=== PATIENT | female | born 1980 | race Caucasian/White ===

== ENCOUNTER 2018-05-14 12:30 | Emergency (ER) | payer BC, SELFPAY ==
[2018-05-14] MEDS ORDERED: IBUPROFEN 400 MG TAB ONE (13:46)
[2018-05-14] MEDS ORDERED: IBUPROFEN 200 MG TAB PO ONE (13:46)
[2018-05-14 13:50] LABS: Urine Blood NEGATIVE (NEG); Urine Glucose NEGATIVE (NEG); Urine Protein NEGATIVE (NEG); Urine Specific Gravity 1.025 (1.005-1.030)
--- NOTE | 2018-05-14 13:58 | RAD REPORT ---
EXAM DESCRIPTION: CT - Head Brain Wo Cont - 05/14/2018 1:51 pm CLINICAL HISTORY: Fever;Headache COMPARISON: Head Brain Wo Cont dated 09/24/2017; HEAD BRAIN W O CONTRAST dated 12/22/2014 TECHNIQUE: All CT scans are performed using dose optimization technique as appropriate and may inclu de automated exposure control or mA/KV adjustment according to patient size. FINDINGS: No intracranial hemorrhage, hydrocephalus or extra-axial fluid collection.No areas of brai n edema or evidence of midline shift. Prominent mucoperiosteal thickening of both maxillary antra, greater on the left. Mild fluid is seen inferior right mastoid air cell. The calvarium is intact. IMPRESSION: No acute intracranial abnormality. Moderate mucoperiosteal thickening of both maxillary antra, worse on the left. Mild fluid is seen in the inferior right mastoid air cell.
[2018-05-14 14:30] LABS: Absolute Lymphocytes (CBC) 0.4 K/uL (0.7-4.9); Absolute Monocytes 0.5 K/uL (0.1-1.3); Basophils % 0.3 % (0-1.3); Hematocrit 41.6 % (36.0-45.0); Lymphocytes % 3.2 % (15.3-44.8); MCH 30.2 pg (27.0-35.0); MCV 89.2 fL (80-100); MPV 9.7 fL (7.6-11.3); Monocytes % 3.9 % (3.3-12.3); RBC Red Blood Cell Count 4.67 M/uL (3.86-4.86)
[2018-05-14 14:53] LABS: BUN Blood Urea Nitrogen 7 mg/dL (7-18); Bicarbonate 27 mmol/L (21-32); Glucose Level 92 mg/dL (74-106); Potassium 3.6 mmol/L (3.5-5.1); Sodium Level 139 mmol/L (136-145)
[2018-05-14 15:02] LABS: Blood Morphology Comment NOT SEEN (NOT SEEN); Platelet Estimate ADEQ; Urine White Blood Cell Casts OK
[2018-05-14] MEDS ORDERED: ONDANSETRON 4 MG/2 ML VIAL ONE (15:22)
--- NOTE | 2018-05-14 15:37 | ER ---
Nurse's Notes [facility] Name: Megan Eng Age: 37 yrs Sex: Female : 1980 Arrival Date: 05/14/2018 Time: 12:34 Bed 5 Private MD: Diagnosis: Acute sinusitis, unspecified Presentation: 05/14 12:37 Presenting complaint: Patient states: pt c/o pain in pressure in the front and sides sg and back of her head, reports having a fever with t-max of 102 this morning, reports pain moves down into her neck and shoulder, reports Nausea/Fever. Transition of care: patient was not received from another setting of care. Onset of symptoms was May 14, 2018. Risk Assessment: Do you want to hurt yourself or someone else? Patient reports no desire to harm self or others. Initial Sepsis Screen: Does the patient meet any 2 criteria? No. Patient's initial sepsis screen is negative. Does the patient have a suspected source of infection? No. Patient's initial sepsis screen is negative. 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 - Social history:: Smoking status: Patient/guardian denies using tobacco. - Ebola Screening: : Patient negative for fever greater than or equal to 101.5 degrees Fahrenheit, and additional compatible Ebola Virus Disease symptoms Patient denies exposure to infectious person Patient denies travel to an Ebola-affected area in the 21 days before illness onset No symptoms or risks identified at this time. Screenin:15 Abuse screen: Denies threats or abuse. Denies injuries from another. Nutritional aj screening: No deficits noted. Tuberculosis screening: No symptoms or risk factors identified. Fall Risk None identified. Assessment: 14:15 General: Appears in no apparent distress. comfortable, Behavior is calm, cooperative, aj appropriate for age. Pain: Denies pain. Neuro: Level of Consciousness is awake, alert, obeys commands, Oriented to person, place, time, situation, Appropriate for age. Respiratory: Airway is patent Respiratory effort is even, unlabored, Respiratory pattern is regular, symmetrical. Derm: Skin is intact, is healthy with good turgor, Skin is pink, warm \T\ dry. normal. 15:45 Reassessment: Patient appears in no apparent distress at this time. No changes from aj previously documented assessment. Patient and/or family updated on plan of care and expected duration. Pain level reassessed. Patient is alert, oriented x 3, equal unlabored respirations, skin warm/dry/pink. Patient states feeling better. Vital Signs: 12:39 Pulse 118; Resp 17 S; Temp 100.5; Pulse Ox 98% on R/A; Weight 61.23 kg; Height 5 ft. 5 sg in. (165.10 cm); Pain 10/10; 12:42 BP 90 / 66; sg 14:15 BP 102 / 48; Pulse 99; Resp 20; Temp 99.2; Pulse Ox 100% on R/A; aj 15:45 BP 95 / 67; Pulse 92; Resp 19; Pulse Ox 99% on R/A; aj 12:39 Body Mass Index 22.46 (61.23 kg, 165.10 cm) sg ED Course: 12:34 Patient arrived in ED. mr 12:38 Triage completed. sg 12:39 Arm band placed on. sg 12:57 Azeb Galindo FNP-C is PHCP. kb 12:57 Jovan Romero MD is Attending Physician. kb 13:19 Shari Sma, GRIFFIN is Primary Nurse. aj 13:51 CT Head Brain wo Cont In Process Unspecified. EDMS 14:15 Patient has correct armband on for positive identification. aj 14:15 Inserted saline lock: 20 gauge in right antecubital area, using aseptic technique. aj Blood collected. 15:25 Basic Metabolic Panel Sent. aj 15:25 CBC with Diff Sent. aj 15:45 No provider procedures requiring assistance completed. IV discontinued, intact, aj bleeding controlled, No redness/swelling at site. Pressure dressing applied. Administered Medications: 14:00 Drug: Ibuprofen 600 mg Route: PO; aj 15:20 Follow up: Response: Temperature is decreased aj 15:20 Drug: Zofran 4 mg Route: IVP; Site: right antecubital; aj 15:44 Follow up: Response: Nausea is decreased aj 15:44 Drug: Augmentin 875 mg Route: PO; aj 15:44 Follow up: Response: Medication administered at discharge. aj Outcome: 15:36 Discharge ordered by . alejandro 15:45 Discharged to home ambulatory, with family. aj 15:45 Condition: good 15:45 Discharge instructions given to patient, family, Instructed on discharge instructions, follow up and referral plans. medication usage, Demonstrated understanding of instructions, follow-up care, medications, Prescriptions given X 1. 15:46 Patient left the ED. aj Signatures: Dispatcher [employer] EDMS Azeb Galindo, FLOOR DIRECTOR-C FLOOR DIRECTOR-Ckb Bethel Vigil RN RN Shari Powell RN RN [place] mr Corrections: (The following items were deleted from the chart) 12:42 12:37 Acuity: CONNIE 4 sg sg
--- NOTE | 2018-05-14 15:37 | EDPHYS ---
Physician Documentation [facility] Name: Megan Eng Age: 37 yrs Sex: Female : 1980 Arrival Date: 05/14/2018 Time: 12:34 Bed 5 Private MD: ED Physician Jovan Romero HPI: 05/14 13:33 This 37 yrs old Female presents to ER via Ambulatory with complaints of Fever.kb 13:33 The patient reports fever, not measured (subjective), with an emergency department kb temperature of 100.5 degrees Fahrenheit. Onset: The symptoms/episode began/occurred this morning. Modifying factors: there are no obvious modifying factors. Associated signs and symptoms: Pertinent positives: cough, diarrhea, headache, sinus congestion. Severity of symptoms: At their worst the symptoms were moderate in the emergency department the symptoms are unchanged. The patient has not experienced similar symptoms in the past. The patient has not recently seen a physician. 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 - Social history:: Smoking status: Patient/guardian denies using tobacco. - Ebola Screening: : Patient negative for fever greater than or equal to 101.5 degrees Fahrenheit, and additional compatible Ebola Virus Disease symptoms Patient denies exposure to infectious person Patient denies travel to an Ebola-affected area in the 21 days before illness onset No symptoms or risks identified at this time. ROS: 13:33 Cardiovascular: Negative for chest pain, palpitations, and edema, Back: Negative for kb injury and pain, : Negative for injury, bleeding, discharge, and swelling, MS/Extremity: Negative for injury and deformity, Skin: Negative for injury, rash, and discoloration. 13:33 Constitutional: Positive for fever, Negative for body aches, chills, fatigue, malaise, poor PO intake, weight loss. 13:33 ENT: Positive for sinus congestion. 13:33 Respiratory: Positive for cough, Negative for dyspnea on exertion, hemoptysis, orthopnea, pleurisy, shortness of breath, sputum production, wheezing. 13:33 Abdomen/GI: Positive for diarrhea. Exam: 13:37 Constitutional: This is a well developed, well nourished patient who is awake, alert, kb and in no acute distress. Head/Face: Normocephalic, atraumatic. ENT: Nares patent. No nasal discharge, no septal abnormalities noted. Tympanic membranes are normal and external auditory canals are clear. Oropharynx with no redness, swelling, or masses, exudates, or evidence of obstruction, uvula midline. Mucous membranes moist. Neck: Trachea midline, no thyromegaly or masses palpated, and no cervical lymphadenopathy. Supple, full range of motion without nuchal rigidity, or vertebral point tenderness. No Meningismus. Chest/axilla: Normal chest wall appearance and motion. Nontender with no deformity. No lesions are appreciated. Cardiovascular: Regular rate and rhythm with a normal S1 and S2. No gallops, murmurs, or rubs. Normal PMI, no JVD. No pulse deficits. Respiratory: Lungs have equal breath sounds bilaterally, clear to auscultation and percussion. No rales, rhonchi or wheezes noted. No increased work of breathing, no retractions or nasal flaring. Abdomen/GI: Soft, non-tender, with normal bowel sounds. No distension or tympany. No guarding or rebound. No evidence of tenderness throughout. Back: No spinal tenderness. No costovertebral tenderness. Full range of motion. Skin: Warm, dry with normal turgor. Normal color with no rashes, no lesions, and no evidence of cellulitis. MS/ Extremity: Pulses equal, no cyanosis. Neurovascular intact. Full, normal range of motion. Neuro: Awake and alert, GCS 15, oriented to person, place, time, and situation. Cranial nerves II-XII grossly intact. Motor strength 5/5 in all extremities. Sensory grossly intact. Cerebellar exam normal. Normal gait. Vital Signs: 12:39 Pulse 118; Resp 17 S; Temp 100.5; Pulse Ox 98% on R/A; Weight 61.23 kg; Height 5 ft. 5 sg in. (165.10 cm); Pain 10/10; 12:42 BP 90 / 66; sg 14:15 BP 102 / 48; Pulse 99; Resp 20; Temp 99.2; Pulse Ox 100% on R/A; aj 15:45 BP 95 / 67; Pulse 92; Resp 19; Pulse Ox 99% on R/A; aj 12:39 Body Mass Index 22.46 (61.23 kg, 165.10 cm) sg MDM: 12:58 Patient medically screened. kb 13:37 Data reviewed: vital signs, nurses notes. Data interpreted: Pulse oximetry: on room air kb is 98 %. Interpretation: normal. 15:36 Counseling: I had a detailed discussion with the patient and/or guardian regarding: the kb historical points, exam findings, and any diagnostic results supporting the discharge/admit diagnosis, lab results, radiology results, the need for outpatient follow up, a family practitioner, to return to the emergency department if symptoms worsen or persist or if there are any questions or concerns that arise at home. 05/14 13:18 Order name: CBC with Diff kb 05/14 13:18 Order name: Basic Metabolic Panel kb 05/14 13:18 Order name: [place] Screen Profile; Complete Time: 15:28 kb 05/14 13:18 Order name: Flu; Complete Time: 15:21 kb 05/14 13:18 Order name: Strep; Complete Time: 14:57 kb 05/14 13:19 Order name: CBC with Automated Diff; Complete Time: 15:16 EDMS 05/14 13:18 Order name: CT Head Brain wo Cont; Complete Time: 13:59 kb 05/14 13:19 Order name: Basic Metabolic Panel; Complete Time: 14:57 EDMS 05/14 13:49 Order name: Urine Dipstick--Ancillary (enter results); Complete Time: 13:53 eb 05/14 13:49 Order name: Urine --Ancillary (enter results); Complete Time: 13:53 eb 05/14 14:57 Order name: Throat Culture EDMS 05/14 15:02 Order name: CBC Smear Scan; Complete Time: 15:16 EDMS 05/14 13:18 Order name: IV Start; Complete Time: 15:15 kb Administered Medications: 14:00 Drug: Ibuprofen 600 mg Route: PO; aj 15:20 Follow up: Response: Temperature is decreased aj 15:20 Drug: Zofran 4 mg Route: IVP; Site: right antecubital; aj 15:44 Follow up: Response: Nausea is decreased aj 15:44 Drug: Augmentin 875 mg Route: PO; aj 15:44 Follow up: Response: Medication administered at discharge. aj Disposition: 18:35 Co-signature as Attending Physician, Jovan Romero MD. Disposition: 05/14/18 15:36 Discharged to Home. Impression: Acute sinusitis, unspecified. - Condition is Stable. - Discharge Instructions: Sinusitis, Adult, [id number]. - Prescriptions for Augmentin 875- 125 mg Oral Tablet - take 1 tablet by ORAL route every 12 hours for 10 days; 20 tablet. - Work release form, Medication Reconciliation Form, Thank You Letter, Antibiotic Education, Prescription Opioid Use form. - Follow up: Emergency Department; When: As needed; Reason: Worsening of condition. Follow up: Private Physician; When: 2 - 3 days; Reason: Recheck today's complaints, Continuance of care, Re-evaluation by your physician. Signatures: Dispatcher [employer] EDMS Azeb Galindo, SKYLA-C SKYLA-Bethel Mortensen RN RN sg Myers, Amanda, RN RN aj Starr, Gregory, MD MD Corrections: (The following items were deleted from the chart) 15:46 15:36 05/14/2018 15:36 Discharged to Home. Impression: Acute sinusitis, unspecified. aj Condition is Stable. Forms are Medication Reconciliation Form, Thank You Letter, Antibiotic Education, Prescription Opioid Use. Follow up: Emergency Department; When: As needed; Reason: Worsening of condition. Follow up: Private Physician; When: 2 - 3 days; Reason: Recheck today's complaints, Continuance of care, Re-evaluation by your physician. kb
[2018-05-14] MEDS ORDERED: AMOX/K CLAV 875 MG TAB ONE (15:44)
[2018-05-14 16:01] VITALS: TEMP 99.2
[2018-05-14 16:02] VITALS: BP 95/67; O2SAT 99
== END 2018-05-14 15:46 | disposition home or self-care (01) ==
LOC: ER 12:30
DX: J01.90 Acute sinusitis, unspecified (principal)
CPT/HCPCS: 36415; 70450; 80048; 81003; 81025; 85025; 86308; 87070; 87081; 87804; 96374; 99284; J2405

== ENCOUNTER 2023-06-03 16:10 | Emergency (ER) | payer BC ==
--- OUTSIDE RECORDS SUMMARY | 2023-06-03 16:15 | XMS REPORT | Continuity of Care Document ---
:1980 Author Organization [facility] t Address [address] [facility] [address] [place] [id number] Care Team Providers Name Role Phone ROXANN HARVEY Primary Care Physician Unavailable RAYMUNDO SNOW Attending Clinician Unavailable CHANTE HANSEN Attending Clinician Unavailable Chante Hansen MD Attending Clinician Wade Vaughn DO Attending Clinician Therapy, [facility] Attending Clinician Unavailable Roberta Leblanc MD Attending Clinician ROBERTA LEBLANC Attending Clinician Unavailable Doctor Unassigned, [place] Attending Clinician Unavailable Solomon Morales Attending Clinician Jodie Burch Attending Clinician Abhijit Blair MD Attending Clinician Charly Meza Attending Clinician CHANTE HANSEN Admitting Clinician Unavailable Payers Payer Name Policy Type Policy Number Effective Date Expiration Date S kapil BCBS 2 [id number] 2022 00:00:00 BCBS [facility] - [id number] 2021 00:00:00 OUT OF STATE Problems Condition Condition Condition Status Onset Resolution Last Treating Co mments Source Name Details Category Date Date Treatment Clinician Date Enteritis Enteritis Disease Active 2017-08 Uni vers 0- ity of 00:00: [place] 00 Medical Branch Contracept Contracept Disease Active U nivers lisa lisa 6 ity of management management 00:[place] [facility] Herpes, Herpes, Disease Active Univers vulvar vulvar 01-15 ity of 00:00: [place] 00 Medical Branch History of History of Disease Active U nivers tubal tubal 01-15 ity of ligation ligation 00:00: [place] 00 Medical Branch Disease Active Univers heart heart 11-16 ity of decelerati deceler[place] 00:[place] 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 Adan DUPONT- Dx at age 17. IVIG transfusi on Q 4 weeks (next 08/29) 11/19/2014 IgG-Q= 566 ([phone] ) 04/29 IgG= 776/A=15/ M=7 No known No known Disease Kelse y active active Seybold problems problems - Externa l Allergies, Adverse Reactions, Alerts Allergy Allergy Status Severity Reaction(s) Onset Inactive Treating Comm ents Source Name Type Date Date Clinician Adhesive Propensi Active Dermatis, Allergic U nivers Tape ty to Contact 3-16 to ity of adverse 00:00: [facility] [place] reaction 00 tape Medical s to Branch drug ADHESIVE DRUG Active Low CONTACT DERM Un merlyn TAPE 3-16 ity of 00:00: [place] 00 Medical Branch Wound Propensi Active Contact Allergic Kelse y Dressing ty to Dermatitis 3-16 to Seyb old Adhesive adverse 00:00: Transpore - reaction 00 tape Externa s l Social History Social Habit Start Date Stop Date Quantity Comments Source Exposure to Not sure University of SARS-CoV-2 [place] [facility] (event) Branch Alcohol intake 2022-08-24 2022-08-24 Lifetime Araceli Sykes bold - 00:00:00 00:00:00 non-drinker External (finding) Tobacco use and 2021-04-22 2021-04-22 Never used Universit y of exposure 00:00:00 00:00:00 [facility] Sex Assigned At [birth year] Araceli Balderas ybold - 00:00:00 00:00:00 External Smoking Status Start Date Stop Date Source Never smoked tobacco Araceli Leon old - External Medications Ordered Filled Start Stop Current Ordering Indication Dosage Frequency Signature Comments Components Source Medication Medication Date Date Medication? Clinician (SIG) Name Name Oseltamivir Yes 1{capsu Take 1 K elsey Phosphate 1-10 le} capsule by Seyb old 75 MG oral 09:55: mouth 2 - Capsule 53 times Externa daily l Amoxicillin Yes [id number] 1{tbl} Take 1 Araceli -Pot 1-10 tablet by donnie Clavulanate 00:00: mouth 2 - 875-125 MG 00 times Externa oral Tablet daily l Albuterol Yes [id number] 2{puff} Q.25D Inhale 2 Araceli HFA 108 (90 1-10 puffs into [employer]) 00:00: the lungs - MCG/ACT IN 00 every 6 [employer] a AERS hours as l needed for wheezing or shortness of breath Azithromyci 2022- No [id number] Take 2 Araceli n 250 MG 1-10 -16 tablets by Seyb old oral Tablet 00:00: 05:59 mouth on - 00 :00 day 1 then Externa 1 tablet l by mouth daily for 4 days thereafter . doxycycline Yes 100mg 100 mg, Un merlyn hyclate 1-06 Oral, ity of (Vibramycin 12:00: Q12HA2, [place] as ) capsule 00 First dose Medi stevenson 100 mg on Sara Branch 08/20/21 at 0600, Until Discontinu ed, CESILIA
Re ason for Anti-Infec tive: Documented Infection< br>Documen lucille Infection Site: Respirator y
Durat ion of Therapy: 10 days amoxicillin 2021- No 500mg 500 mg, U nivers (TRIMOX) 08-20- Oral, ity of capsule 500 07:15: 06:20 ONCE, 1 [place] mg 00 :00 dose, On Medical Sara 08/20/21 Branch at 0115, CESILIA
Re ason for Anti-Infec tive: Documented Infection< br>Documen lucille Infection Site: Respirator y
Durat ion of Therapy: Other (see Comments) amoxicillin Yes [id number] 500mg Take 1 Univers 500 mg -06 capsule by ity of capsule 00:00: mouth 3 [place] 00 (three) Medical times Branch daily. doxycycline 2021- No [id number] 100mg Take 1 Univers hyclate 100 08-20 capsule by i ty of mg capsule 00:00: 05:59 mouth 2 [place] as 00 :00 (two) Medical times Branch daily for 10 days. ondansetron 2020- No 4mg 4 mg, [facility] ers (ZOFRAN-ODT 04-22 Oral, ity of ) 14:45: 13:45 ONCE, 1 [place] disintegrat 00 :00 dose, Wed Med ical ing tablet 04/22/21 at Bran ch 4 mg 0945, Routine ondansetron 2020- No 4mg 4 mg, [facility] ers (ZOFRAN-ODT 04-22 Oral, ity of ) 14:45: 13:45 ONCE, 1 [place] disintegrat 00 :00 dose, Wed Med ical ing tablet 04/22/21 at Bran ch 4 mg 0945, Routine ondansetron Yes [id number] 4mg Take 1 Univers (ZOFRAN) 4 9-08 tablet by ity of mg tablet 00:00: mouth [place] 00 every 8 Medical (eight) Branch hours as needed for Nausea and Vomiting (N/V). benzonatate Yes [id number] 100mg Take 1 Univers 100 mg 9-08 capsule by ity of capsule 00:00: mouth 3 [place] 00 (three) Medical times Branch daily as needed for Cough. ondansetron Yes [id number] 4mg Take 1 Univers (ZOFRAN) 4 9-08 tablet by ity of mg tablet 00:00: mouth [place] 00 every 8 Medical (eight) Branch hours as needed for Nausea and Vomiting (N/V). benzonatate Yes [id number] 100mg Take 1 Univers 100 mg 9-08 capsule by ity of capsule 00:00: mouth 3 [place] 00 (three) Medical times Branch daily as needed for Cough. ondansetron Yes [id number] 4mg Take 1 Univers (ZOFRAN) 4 9-08 tablet by ity of mg tablet 00:00: mouth [place] 00 every 8 Medical (eight) Branch hours as needed for Nausea and Vomiting (N/V). benzonatate Yes [id number] 100mg Take 1 Univers 100 mg 9-08 capsule by ity of capsule 00:00: mouth 3 [place] 00 (three) Medical times Branch daily as needed for Cough. casirivimab 2020- No [id number] 1200mg 1,200 mg, Univers -imdevimab 04-21 Subcutaneo it y of (REGEN-COV 22:45: 21:33 us, ONCE, [place] (EUA)) 00 :00 1 dose, Medical injection 04/21/21 Bran ch 1,200 mg at 1745, Routine casirivimab 2020- No [id number] 1200mg 1,200 mg, Univers -imdevimab 04-21 Subcutaneo it y of (REGEN-COV 22:45: 21:33 us, ONCE, [place] (EUA)) 00 :00 1 dose, Medical injection 04/21/21 Bran ch 1,200 mg at 1745, Routine acetaminoph 2020- No 1000mg 1,000 mg, Univers en 04-18 Oral, ity of (TYLENOL) 17:00: 16:44 ONCE, 1 [place] tablet 00 :00 dose, Sat Medical 1,000 mg 04/18/21 at Branch 1200, Routine benzonatate 2020- No 100mg 100 mg, U nivers (TESSALON 04-18 Oral, ity of PERLES) 17:00: 16:44 ONCE, 1 [place] capsule 100 00 :00 dose, Sat Med ical mg 04/18/21 at Branch 1200, Routine albuterol 0 2020- No 6{puff} 6 Puff, U nivers (VENTOLIN) 04-18 Inhalation it y of inhaler 6 17:00: 16:39 , ONCE, 1 [place] Puff 00 :00 dose, Sat Medical 04/18/21 at [place] [address], CESILIA acetaminoph 0 2020- No 1000mg 1,000 mg, Univers en 04-18 Oral, ity of (TYLENOL) 17:00: 16:44 ONCE, 1 [place] tablet 00 :00 dose, Sat Medical 1,000 mg 04/18/21 at [place] [address], Routine benzonatate 2020- No 100mg 100 mg, U nivers (TESSALON 04-18 Oral, ity of PERLES) 17:00: 16:44 ONCE, 1 [place] capsule 100 00 :00 dose, Sat Med ical mg 04/18/21 at [place] [address], Routine albuterol 2020-2020- No 6{puff} 6 Puff, U nivers (VENTOLIN) 04-18 Inhalation it y of inhaler 6 17:00: 16:39 , ONCE, 1 [place] Puff 00 :00 dose, Sat Medical 04/18/21 at [place] [address], CESILIA benzonatate 2020-0 Yes [id number] 100mg Take 1 Univers 100 mg 9-04 capsule by ity of capsule 00:00: mouth 3 [place] 00 (three) Medical times Branch daily as needed for Cough. benzonatate 2020-0 Yes [id number] 100mg Take 1 Univers 100 mg 9-04 capsule by ity of capsule 00:00: mouth 3 [place] 00 (three) Medical times Branch daily as needed for Cough. benzonatate 2020-0 Yes [id number] 100mg Take 1 Univers 100 mg 9-04 capsule by ity of capsule 00:00: mouth 3 [place] 00 (three) Medical times Branch daily as needed for Cough. benzonatate 2020-0 Yes [id number] 100mg Take 1 Univers 100 mg 9-04 capsule by ity of capsule 00:00: mouth 3 [place] 00 (three) Medical times Branch daily as needed for Cough. benzonatate 2020-0 202- No [id number] 100mg Take 1 Univers 100 mg 9-04 -08 capsule by ity of capsule 00:00: 00:00 mouth 3 [place] 00 :00 (three) [facility] times [place] daily as needed for Cough. benzonatate 2020- No [id number] 100mg Take 1 Univers 100 mg 04-18 capsule by ity of capsule 00:00: 00:00 mouth 3 [place] 00 :00 (three) [facility] daily as needed for Cough. methylpredn 2020- No 125mg 125 mg, IV Univers isolone sod 12-09 Piggyback, i ty of succ 02:45: 01:40 ONCE, 1 [place] (SOLU-MEDRO 00 :00 dose, Mon Med ical L) 12/08/20 at [place] injection 2145, STAT 125 mg codeine-gua 2020- No 10mL 10 mL, Uni vers ifenesin 12-09 Oral, ity of (ROBITUSSIN 02:00: 01:39 ONCE, 1 [place] AC) 10-100 00 :00 dose, Mon Medi stevenson mg/5 mL 12/08/20 at [place] solution 10 2100, CESILIA mL benzonatate Yes [id number] 200mg Take 1 Univers 200 mg 4-26 capsule by ity of capsule 00:00: mouth 3 [place] [address] (three) [facility] daily as needed for Cough for up to 20 doses. predniSONE Yes [id number] 1 PO BID x Univers 20 mg 4-26 4 days ity of tablet 00:00: [address] predniSONE 2020-0 Yes [id number] 1 PO BID x Univers 20 mg 4-26 4 days ity of tablet 00:00: [address] predniSONE 2020-0 Yes [id number] 1 PO BID x Univers 20 mg 4-26 4 days ity of tablet 00:00: [address] benzonatate 2020-0 Yes [id number] 200mg Take 1 Univers 200 mg 4-26 capsule by ity of capsule 00:00: mouth 3 [place] 00 (three) [facility] daily as needed for Cough for up to 20 doses. predniSONE 2020- Yes [id number] 1 PO BID x Univers 20 mg 4-26 4 days ity of tablet 00:00: [address] benzonatate 2020-0 Yes [id number] 200mg Take 1 Univers 200 mg 4-26 capsule by ity of capsule 00:00: mouth 3 [place] (three) Medical times Branch daily as needed for Cough for up to 20 doses. predniSONE 2020-0 Yes [id number] 1 PO BID x Univers 20 mg 4-26 4 days ity of tablet 00:00: [facility] Branch benzonatate 2020-0 Yes [id number] 200mg Take 1 Univers 200 mg 4-26 capsule by ity of capsule 00:00: mouth 3 [place] (three) Medical times Branch daily as needed for Cough for up to 20 doses. predniSONE 2020-0 Yes [id number] 1 PO BID x Univers 20 mg 4-26 4 days ity of tablet 00:00: [facility] predniSONE 2020-0 Yes [id number] 1 PO BID x Univers 20 mg 4-26 4 days ity of tablet 00:00: [facility] predniSONE 2020-0 Yes [id number] 1 PO BID x Univers 20 mg 4-26 4 days ity of tablet 00:00: [place] [facility] Branch predniSONE 2020-0 Yes [id number] 1 PO BID x Univers 20 mg 4-26 4 days ity of tablet 00:00: [facility] benzonatate 2020-0 Yes [id number] 200mg Take 1 Univers 200 mg 4-26 capsule by ity of capsule 00:00: mouth 3 [place] (three) Medical times Branch daily as needed for Cough for up to 20 doses. predniSONE 0 Yes [id number] 1 PO BID x Univers 20 mg 4-26 4 days ity of tablet 00:00: [facility] Branch benzonatate 2020-2020- No [id number] 200mg Take 1 Univers 200 mg 4-26 -08 capsule by ity of capsule 00:00: 00:00 mouth 3 [place] 00 :00 (three) Medical times Branch daily as needed for Cough for up to 20 doses. benzonatate 2020-0 2020- No [id number] 200mg Take 1 Univers 200 mg 4-26 -08 capsule by ity of capsule 00:00: 00:00 mouth 3 [place] 00 :00 (three) Medical times Branch daily as needed for Cough for up to 20 doses. ondansetron 2020- No 4mg 4 mg, Slow Univers (ZOFRAN 09-15 IV Push, ity of (PF)) 12:00: 11:12 ONCE, 1 [place] injection 4 00 :00 dose, Mon Med ical mg 09/15/20 at Branch 0600, CESILIA meclizine 2020- No 50mg 50 mg, Unive rs (TRAVEL-EAS 09-15 Oral, ity of E 12:00: 11:13 ONCE, 1 [place] (MECLIZINE) 00 :00 dose, Mon Med ical ) tablet 50 09/15/20 at [facility] mg 0600, CESILIA ondansetron 2020- No 4mg 4 mg, Slow Univers (ZOFRAN 09-15 IV Push, ity of (PF)) 11:15: 10:04 ONCE, 1 [place] injection 4 00 :00 dose, Mon Med ical mg 09/15/20 at Branch 0515, CESILIA NaCl 0.9% Yes 1000mL at 999 Univ ers (NS) IV 2-01 mL/hr, ity of infusion 10:00: Intravenou [place] as 1,000 mL 00 s, Medical CONTINUOUS Branch , Starting 09/15/20 at 0415, Until Discontinu ed, CESILIA meclizine 0 Yes [id number] 25mg Take 1 U nivers 25 mg 2-01 tablet by ity of tablet 00:00: mouth 3 00 (three) Medical times Branch daily as needed for Dizziness. ondansetron 0 Yes [id number] 4mg Take 1 Univers (ZOFRAN) 4 2-01 tablet by ity of mg tablet 00:00: mouth [place] 00 every 8 Medical (eight) Branch hours as needed for Nausea and Vomiting (N/V). meclizine 2020-0 Yes [id number] 25mg Take 1 U nivers 25 mg 2-01 tablet by ity of tablet 00:00: mouth 3 00 (three) Medical times Branch daily as needed for Dizziness. meclizine 2020-0 Yes [id number] 25mg Take 1 U nivers 25 mg 2-01 tablet by ity of tablet 00:00: mouth 3 [place] 00 (three) Medical times Branch daily as needed for Dizziness. meclizine 2020-0 Yes [id number] 25mg Take 1 U nivers 25 mg 2-01 tablet by ity of tablet 00:00: mouth 3 [place] 00 (three) Medical times Branch daily as needed for Dizziness. ondansetron 2020-0 Yes [id number] 4mg Take 1 Univers (ZOFRAN) 4 2-01 tablet by ity of mg tablet 00:00: mouth [place] 00 every 8 Medical (eight) Branch hours as needed for Nausea and Vomiting (N/V). meclizine 2020-0 Yes [id number] 25mg Take 1 U nivers 25 mg 2-01 tablet by ity of tablet 00:00: mouth 3 [place] 00 (three) Medical times Branch daily as needed for Dizziness. ondansetron 2020-0 Yes [id number] 4mg Take 1 Univers (ZOFRAN) 4 2-01 tablet by ity of mg tablet 00:00: mouth [place] 00 every 8 Medical (eight) Branch hours as needed for Nausea and Vomiting (N/V). meclizine 2020-0 Yes [id number] 25mg Take 1 U nivers 25 mg 2-01 tablet by ity of tablet 00:00: mouth 3 00 (three) Medical times Branch daily as needed for Dizziness. ondansetron 2020-0 Yes [id number] 4mg Take 1 Univers (ZOFRAN) 4 2-01 tablet by ity of mg tablet 00:00: mouth [place] 00 every 8 Medical (eight) Branch hours as needed for Nausea and Vomiting (N/V). meclizine 2020-0 Yes [id number] 25mg Take 1 U nivers 25 mg 2-01 tablet by ity of tablet 00:00: mouth 3 00 (three) Medical times Branch daily as needed for Dizziness. ondansetron 2020-0 Yes [id number] 4mg Take 1 Univers (ZOFRAN) 4 2-01 tablet by ity of mg tablet 00:00: mouth [place] 00 every 8 Medical (eight) Branch hours as needed for Nausea and Vomiting (N/V). meclizine 2021-0 Yes [id number] 25mg Take 1 U nivers 25 mg 2-01 tablet by ity of tablet 00:00: mouth 3 [place] 00 (three) Medical times Branch daily as needed for Dizziness. meclizine 2021-0 Yes [id number] 25mg Take 1 U nivers 25 mg 2-01 tablet by ity of tablet 00:00: mouth 3 00 (three) Medical times Branch daily as needed for Dizziness. meclizine 2020-0 Yes [id number] 25mg Take 1 U nivers 25 mg 2-01 tablet by ity of tablet 00:00: mouth 3 00 (three) Medical times Branch daily as needed for Dizziness. meclizine 2020-0 Yes [id number] 25mg Take 1 U nivers 25 mg 2-01 tablet by ity of tablet 00:00: mouth 3 00 (three) Medical times Branch daily as needed for Dizziness. ondansetron Yes [id number] 4mg Take 1 Univers (ZOFRAN) 4 2- tablet by ity of mg tablet 00:00: mouth [place] 00 every 8 Medical (eight) Branch hours as needed for Nausea and Vomiting (N/V). ondansetron 2020- No [id number] 4mg Take 1 Univers (ZOFRAN) 4 -08 23-08 tablet by ity of mg tablet 00:00: 00:00 mouth [place] 00 :00 every 8 Medical (eight) Branch hours as needed for Nausea and Vomiting (N/V). ondansetron 2020- No [id number] 4mg Take 1 Univers (ZOFRAN) 4 09-15- tablet by ity of mg tablet 00:00: 00:00 mouth [place] 00 :00 every 8 Medical (eight) Branch hours as needed for Nausea and Vomiting (N/V). acetaminoph 2019- No 650mg 650 mg, U nivers en 03-15 Oral, ity of (TYLENOL) 08:15: 07:12 ONCE, 1 [place] tablet 650 00 :00 dose, Sat Medi stevenson mg 03/15/20 at Branch 0315, CESILIA iohexol 2019- No 120mL 120 mL, Unive rs (OMNIPAQUE 03-15 Intravenou it y of 350 05:45: 05:36 s, ONCE, 1 [place] BULK-100 00 :00 dose, Sat Medica l mL) 03/15/20 at Branch injection 0045, 120 mL Routine ondansetron 2019- No 4mg 4 mg, Slow Univers (ZOFRAN 03-15 IV Push, ity of (PF)) 05:15: 04:20 ONCE, 1 [place] injection 4 00 :00 dose, Sat Med ical mg 03/15/20 at Branch 0015, CESILIA NaCl 0.9% 2019-0 2020- No 1000mL at 999 Uni vers (NS) bolus 03-15 mL/hr, ity of infusion 05:15: 07:15 1,000 mL, [place] as 1,000 mL 00 :00 IV Medical Infusion, Branch ONCE, 1 dose, 03/15/20 at 0015, STAT morpHINE 2019-0 2020- No 4mg 4 mg, Slow Un merlyn injection 4 03-15 IV Push, ity of mg 05:15: 04:21 ONCE, 1 [place] 00 :00 dose, Sat Medical 03/15/20 at Branch 0015, STAT levoFLOXaci 2020-0 Yes [id number] 750mg Take 1 Univers n 750 mg 8-01 tablet by ity of tablet 00:00: mouth [place] 00 every 24 Medical (twenty-fo Branch ur) hours. ketorolac 2020-0 Yes [id number] 10mg Take 1 Un merlyn 10 mg 8-01 tablet by ity of tablet 00:00: mouth [place] 00 every 6 Medical (six) Branch hours as needed for Pain (scale 7-10). levoFLOXaci 2020-0 Yes [id number] 750mg Take 1 Univers n 750 mg 8-01 tablet by ity of tablet 00:00: mouth [place] 00 every 24 Medical (twenty-fo Branch ur) hours. ketorolac 2020-0 Yes [id number] 10mg Take 1 Un merlyn 10 mg 8-01 tablet by ity of tablet 00:00: mouth [place] 00 every 6 Medical (six) Branch hours as needed for Pain (scale 7-10). levoFLOXaci 2020-0 Yes [id number] 750mg Take 1 Univers n 750 mg 8-01 tablet by ity of tablet 00:00: mouth [place] 00 every 24 Medical (twenty-fo Branch ur) hours. ketorolac 2020-0 Yes [id number] 10mg Take 1 Un merlyn 10 mg 8-01 tablet by ity of tablet 00:00: mouth [place] 00 every 6 Medical (six) Branch hours as needed for Pain (scale 7-10). levoFLOXaci 2020-0 Yes [id number] 750mg Take 1 Univers n 750 mg 8-01 tablet by ity of tablet 00:00: mouth [place] 00 every 24 Medical (twenty-fo Branch ur) hours. ketorolac 2020-0 Yes [id number] 10mg Take 1 Un merlyn 10 mg 8-01 tablet by ity of tablet 00:00: mouth [place] 00 every 6 Medical (six) Branch hours as needed for Pain (scale 7-10). levoFLOXaci 2020-0 Yes [id number] 750mg Take 1 Univers n 750 mg 8-01 tablet by ity of tablet 00:00: mouth [place] 00 every 24 Medical (twenty-fo Branch ur) hours. ketorolac 2020-0 Yes [id number] 10mg Take 1 Un merlyn 10 mg 8-01 tablet by ity of tablet 00:00: mouth [place] 00 every 6 Medical (six) Branch hours as needed for Pain (scale 7-10). levoFLOXaci 2020-0 Yes [id number] 750mg Take 1 Univers n 750 mg 8-01 tablet by ity of tablet 00:00: mouth [place] 00 every 24 Medical (twenty-fo Branch ur) hours. ketorolac 2020-0 Yes [id number] 10mg Take 1 Un merlyn 10 mg 8-01 tablet by ity of tablet 00:00: mouth [place] 00 every 6 Medical (six) Branch hours as needed for Pain (scale 7-10). levoFLOXaci 2020-0 Yes [id number] 750mg Take 1 Univers n 750 mg 8-01 tablet by ity of tablet 00:00: mouth [place] 00 every 24 Medical (twenty-fo Branch ur) hours. ketorolac 2020-0 Yes [id number] 10mg Take 1 Un merlyn 10 mg 8-01 tablet by ity of tablet 00:00: mouth [place] 00 every 6 Medical (six) Branch hours as needed for Pain (scale 7-10). levoFLOXaci 2020-0 Yes [id number] 750mg Take 1 Univers n 750 mg 8-01 tablet by ity of tablet 00:00: mouth [place] 00 every 24 Medical (twenty-fo Branch ur) hours. ketorolac 2020-0 Yes [id number] 10mg Take 1 Un merlyn 10 mg 8-01 tablet by ity of tablet 00:00: mouth [place] 00 every 6 Medical (six) Branch hours as needed for Pain (scale 7-10). levoFLOXaci 2020-0 Yes [id number] 750mg Take 1 Univers n 750 mg 8-01 tablet by ity of tablet 00:00: mouth [place] 00 every 24 Medical (twenty-fo Branch ur) hours. ketorolac 2020-0 Yes [id number] 10mg Take 1 Un merlyn 10 mg 8-01 tablet by ity of tablet 00:00: mouth [place] 00 every 6 Medical (six) Branch hours as needed for Pain (scale 7-10). levoFLOXaci 2020-0 Yes [id number] 750mg Take 1 Univers n 750 mg 8-01 tablet by ity of tablet 00:00: mouth [place] 00 every 24 Medical (twenty-fo Branch ur) hours. ketorolac 2020-0 Yes [id number] 10mg Take 1 Un merlyn 10 mg 8-01 tablet by ity of tablet 00:00: mouth [place] 00 every 6 Medical (six) Branch hours as needed for Pain (scale 7-10). levoFLOXaci 2020-0 Yes [id number] 750mg Take 1 Univers n 750 mg 8-01 tablet by ity of tablet 00:00: mouth [place] 00 every 24 Medical (twenty-fo Branch ur) hours. ketorolac 2020-0 Yes [id number] 10mg Take 1 Un merlyn 10 mg 8-01 tablet by ity of tablet 00:00: mouth [place] 00 every 6 Medical (six) Branch hours as needed for Pain (scale 7-10). levoFLOXaci 2020-0 Yes [id number] 750mg Take 1 Univers n 750 mg 8-01 tablet by ity of tablet 00:00: mouth [place] 00 every 24 Medical (twenty-fo Branch ur) hours. ketorolac 2020-0 Yes [id number] 10mg Take 1 Un merlyn 10 mg 8-01 tablet by ity of tablet 00:00: mouth [place] 00 every 6 Medical (six) Branch hours as needed for Pain (scale 7-10). levoFLOXaci 2020-0 2020- No [id number] 750mg Take 1 Univers n 750 mg 8-01 08-01 tablet by ity o f tablet 00:00: 00:00 mouth [place] 00 :00 every 24 Medical (twenty-fo Branch ur) hours for 5 days. ondansetron 2018-08 Yes [id number] 4mg Take 1 Univers 4 mg 1-05 tablet by ity of disintegrat 00:00: mouth [place] ing tablet 00 every 4 Medica l (four) Branch hours as needed for Nausea and Vomiting (N/V). ondansetron 2018-08 Yes [id number] 4mg Take 1 Univers 4 mg 1-05 tablet by ity of disintegrat 00:00: mouth [place] ing tablet 00 every 4 Medica l (four) Branch hours as needed for Nausea and Vomiting (N/V). ondansetron 2018-08 Yes [id number] 4mg Take 1 Univers 4 mg 1-05 tablet by ity of disintegrat 00:00: mouth [place] ing tablet 00 every 4 Medica l (four) Branch hours as needed for Nausea and Vomiting (N/V). ondansetron 2018-08 Yes [id number] 4mg Take 1 Univers 4 mg 1-05 tablet by ity of disintegrat 00:00: mouth [place] ing tablet 00 every 4 Medica l (four) Branch hours as needed for Nausea and Vomiting (N/V). Nitrofurant 2018-08 Yes [id number] 100mg Take 1 Univers oin&Nit. 1-05 capsule by ity o f Macrocryst 00:00: mouth 2 [place] (MACROBID) 00 (two) Medical 100 mg times Branch capsule daily. ondansetron 2018-08 Yes [id number] 4mg Take 1 Univers 4 mg 1-05 tablet by ity of disintegrat 00:00: mouth [place] ing tablet 00 every 4 Medica l (four) Branch hours as needed for Nausea and Vomiting (N/V). ondansetron 2018-08 Yes [id number] 4mg Take 1 Univers 4 mg 1-05 tablet by ity of disintegrat 00:00: mouth [place] ing tablet 00 every 4 Medica l (four) Branch hours as needed for Nausea and Vomiting (N/V). ondansetron 2018-08 Yes [id number] 4mg Take 1 Univers 4 mg 1-05 tablet by ity of disintegrat 00:00: mouth [place] ing tablet 00 every 4 Medica l (four) Branch hours as needed for Nausea and Vomiting (N/V). ondansetron 2018-08 Yes [id number] 4mg Take 1 Univers 4 mg 1-05 tablet by ity of disintegrat 00:00: mouth [place] ing tablet 00 every 4 Medica l (four) Branch hours as needed for Nausea and Vomiting (N/V). ondansetron 2018-08 Yes [id number] 4mg Take 1 Univers 4 mg 1-05 tablet by ity of disintegrat 00:00: mouth [place] ing tablet 00 every 4 Medica l (four) Branch hours as needed for Nausea and Vomiting (N/V). ondansetron 2018-08 Yes [id number] 4mg Take 1 Univers 4 mg 1-05 tablet by ity of disintegrat 00:00: mouth [place] ing tablet 00 every 4 Medica l (four) Branch hours as needed for Nausea and Vomiting (N/V). ondansetron 2018-08 Yes [id number] 4mg Take 1 Univers 4 mg 1-05 tablet by ity of disintegrat 00:00: mouth [place] ing tablet 00 every 4 Medica l (four) Branch hours as needed for Nausea and Vomiting (N/V). ondansetron 2018-08 Yes [id number] 4mg Take 1 [facility] 4 mg 1-05 tablet by ity of disintegrat 00:00: mouth [place] ing tablet 00 every 4 Medica l (four) Branch hours as needed for Nausea and Vomiting (N/V). ondansetron 2018-08 Yes [id number] 4mg Take 1 [facility] 4 mg 1-05 tablet by ity of disintegrat 00:00: mouth [place] ing tablet 00 every 4 Medica l (four) Branch hours as needed for Nausea and Vomiting (N/V). Nitrofurant 2018-08 2020- No [id number] 100mg Take 1 [facility] oin&Nit. 1-05 - capsule by ity of Macrocryst 00:00: 00:00 mouth 2 [place] as (MACROBID) 00 :00 (two) Medical 100 mg times Branch capsule daily. cyclobenzap 2019- Yes [id number] 5mg Take 1 [facility] rine 5 mg 4-26 tablet by ity o f tablet 00:00: mouth 3 00 (three) Medical times Branch daily. LORazepam 2019- Yes [id number] 1mg Take 1 [facility] n[facility] (ATIVAN) 1 4-26 tablet by ity of mg tablet 00:00: mouth 3 00 (three) Medical times Branch daily as needed for Anxiety or Agitation (muscle spasm). traMADOL 2018- Yes [id number] 50mg Take 1 [facility] (ULTRAM) 50 4-26 tablet by ity of mg tablet 00:00: mouth [place] 00 every 6 Medical (six) Branch hours as needed for Pain (scale 4-6). cyclobenzap 2019-0 Yes [id number] 5mg Take 1 [facility] rine 5 mg 4-26 tablet by ity o f tablet 00:00: mouth 3 (three) Medical times Branch daily. LORazepam 2019-0 Yes [id number] 1mg Take 1 [facility] (ATIVAN) 1 4-26 tablet by ity of mg tablet 00:00: mouth 3 (three) Medical times Branch daily as needed for Anxiety or Agitation (muscle spasm). traMADOL 2019-0 Yes [id number] 50mg Take 1 [facility] (ULTRAM) 50 4-26 tablet by ity of mg tablet 00:00: mouth [place] 00 every 6 Medical (six) Branch hours as needed for Pain (scale 4-6). cyclobenzap 2019-0 Yes [id number] 5mg Take 1 [facility] rine 5 mg 4-26 tablet by ity o f tablet 00:00: mouth (three) Medical times Branch daily. LORazepam 2019-0 Yes [id number] 1mg Take 1 [facility] (ATIVAN) 1 4-26 tablet by ity of mg tablet 00:00: mouth (three) Medical times Branch daily as needed for Anxiety or Agitation (muscle spasm). traMADOL 2019-0 Yes [id number] 50mg Take 1 [facility] (ULTRAM) 50 4-26 tablet by ity of mg tablet 00:00: mouth [place] 00 every 6 Medical (six) Branch hours as needed for Pain (scale 4-6). cyclobenzap 2019-0 Yes [id number] 5mg Take 1 [facility] rine 5 mg 4-26 tablet by ity o f tablet 00:00: mouth 3 (three) Medical times Branch daily. LORazepam 2019-0 Yes [id number] 1mg Take 1 [facility] (ATIVAN) 1 4-26 tablet by ity of mg tablet 00:00: mouth 3 00 (three) Medical times Branch daily as needed for Anxiety or Agitation (muscle spasm). traMADOL 2019-0 Yes [id number] 50mg Take 1 [facility] (ULTRAM) 50 4-26 tablet by ity of mg tablet 00:00: mouth [place] 00 every 6 Medical (six) Branch hours as needed for Pain (scale 4-6). cyclobenzap 2019-0 Yes [id number] 5mg Take 1 [facility] rine 5 mg 4-26 tablet by ity o f tablet 00:00: mouth 3 00 (three) Medical times Branch daily. LORazepam 2019-0 Yes [id number] 1mg Take 1 [facility] (ATIVAN) 1 4-26 tablet by ity of mg tablet 00:00: mouth 3 [place] 00 (three) Medical times Branch daily as needed for Anxiety or Agitation (muscle spasm). traMADOL 2019-0 Yes [id number] 50mg Take 1 [facility] (ULTRAM) 50 4-26 tablet by ity of mg tablet 00:00: mouth [place] 00 every 6 Medical (six) Branch hours as needed for Pain (scale 4-6). cyclobenzap 2019-0 Yes [id number] 5mg Take 1 [facility] rine 5 mg 4-26 tablet by ity o f tablet 00:00: mouth 3 (three) Medical times Branch daily. LORazepam 2019-0 Yes [id number] 1mg Take 1 [facility] (ATIVAN) 1 4-26 tablet by ity of mg tablet 00:00: mouth 3 (three) Medical times Branch daily as needed for Anxiety or Agitation (muscle spasm). traMADOL 2019-0 Yes [id number] 50mg Take 1 [facility] (ULTRAM) 50 4-26 tablet by ity of mg tablet 00:00: mouth [place] 00 every 6 Medical (six) Branch hours as needed for Pain (scale 4-6). cyclobenzap 2019-0 Yes [id number] 5mg Take 1 [facility] rine 5 mg 4-26 tablet by ity o f tablet 00:00: mouth 3 (three) Medical times Branch daily. LORazepam 2019-0 Yes [id number] 1mg Take 1 [facility] (ATIVAN) 1 4-26 tablet by ity of mg tablet 00:00: mouth 3 00 (three) Medical times Branch daily as needed for Anxiety or Agitation (muscle spasm). traMADOL 2019-0 Yes [id number] 50mg Take 1 [facility] (ULTRAM) 50 4-26 tablet by ity of mg tablet 00:00: mouth [place] 00 every 6 Medical (six) Branch hours as needed for Pain (scale 4-6). cyclobenzap 2019-0 Yes [id number] 5mg Take 1 [facility] rine 5 mg 4-26 tablet by ity o f tablet 00:00: mouth 3 (three) Medical times Branch daily. LORazepam 2019-0 Yes [id number] 1mg Take 1 [facility] (ATIVAN) 1 4-26 tablet by ity of mg tablet 00:00: mouth 3 (three) Medical times Branch daily as needed for Anxiety or Agitation (muscle spasm). traMADOL 2019-0 Yes [id number] 50mg Take 1 [facility] (ULTRAM) 50 4-26 tablet by ity of mg tablet 00:00: mouth [place] 00 every 6 Medical (six) Branch hours as needed for Pain (scale 4-6). cyclobenzap 2019-0 Yes [id number] 5mg Take 1 [facility] rine 5 mg 4-26 tablet by ity o f tablet 00:00: mouth (three) Medical times Branch daily. LORazepam 2019-0 Yes [id number] 1mg Take 1 [facility] (ATIVAN) 1 4-26 tablet by ity of mg tablet 00:00: mouth (three) Medical times Branch daily as needed for Anxiety or Agitation (muscle spasm). traMADOL 2019-0 Yes [id number] 50mg Take 1 [facility] (ULTRAM) 50 4-26 tablet by ity of mg tablet 00:00: mouth [place] 00 every 6 Medical (six) Branch hours as needed for Pain (scale 4-6). cyclobenzap 2019-0 Yes [id number] 5mg Take 1 [facility] rine 5 mg 4-26 tablet by ity o f tablet 00:00: mouth (three) Medical times Branch daily. LORazepam 2019-0 Yes [id number] 1mg Take 1 [facility] (ATIVAN) 1 4-26 tablet by ity of mg tablet 00:00: mouth (three) Medical times Branch daily as needed for Anxiety or Agitation (muscle spasm). traMADOL 2019-0 Yes [id number] 50mg Take 1 [facility] (ULTRAM) 50 4-26 tablet by ity of mg tablet 00:00: mouth [place] 00 every 6 Medical (six) Branch hours as needed for Pain (scale 4-6). cyclobenzap 2019-0 Yes [id number] 5mg Take 1 [facility] rine 5 mg 4-26 tablet by ity o f tablet 00:00: mouth 3 (three) Medical times Branch daily. LORazepam 2019-0 Yes [id number] 1mg Take 1 [facility] (ATIVAN) 1 4-26 tablet by ity of mg tablet 00:00: mouth (three) Medical times Branch daily as needed for Anxiety or Agitation (muscle spasm). traMADOL 2019-0 Yes [id number] 50mg Take 1 [facility] (ULTRAM) 50 4-26 tablet by ity of mg tablet 00:00: mouth [place] every 6 Medical (six) Branch hours as needed for Pain (scale 4-6). cyclobenzap 2019-0 Yes [id number] 5mg Take 1 [facility] rine 5 mg 4-26 tablet by ity o f tablet 00:00: mouth (three) Medical times Branch daily. LORazepam 2019-0 Yes [id number] 1mg Take 1 [facility] (ATIVAN) 1 4-26 tablet by ity of mg tablet 00:00: mouth (three) Medical times Branch daily as needed for Anxiety or Agitation (muscle spasm). traMADOL 2019-0 Yes [id number] 50mg Take 1 [facility] (ULTRAM) 50 4-26 tablet by ity of mg tablet 00:00: mouth [place] every 6 Medical (six) Branch hours as needed for Pain (scale 4-6). cyclobenzap 2019-0 Yes [id number] 5mg Take 1 [facility] rine 5 mg 4-26 tablet by ity o f tablet 00:00: mouth (three) Medical times Branch daily. LORazepam 2019-0 Yes [id number] 1mg Take 1 [facility] (ATIVAN) 1 4-26 tablet by ity of mg tablet 00:00: mouth (three) Medical times Branch daily as needed for Anxiety or Agitation (muscle spasm). traMADOL 2019-0 Yes [id number] 50mg Take 1 [facility] (ULTRAM) 50 4-26 tablet by ity of mg tablet 00:00: mouth [place] every 6 Medical (six) Branch hours as needed for Pain (scale 4-6). acetaminoph 2019-0 Yes [id number] 1{tbl} Take 1 [facility] en-codeine 2-07 tablet by ity of (TYLENOL-CO 00:00: mouth [place] DEINE #3) 00 every 4 Medical 300-30 mg (four) Branch tablet hours as needed for Pain (scale 7-10). acetaminoph 2019-0 Yes [id number] 1{tbl} Take 1 [facility] en-codeine 2-07 tablet by ity of (TYLENOL-CO 00:00: mouth [place] DEINE #3) 00 every 4 Medical 300-30 mg (four) Branch tablet hours as needed for Pain (scale 7-10). levoFLOXaci 2018-0 Yes [id number] 750mg Take 1 [facility] n 2-07 tablet by ity of (LEVAQUIN) 00:00: mouth [place] 750 mg 00 every 24 Medical tablet (twenty-fo Branch ur) hours. benzonatate Yes [id number] 200mg Take 1 [facility] 200 mg 2-07 capsule by ity of capsule 00:00: mouth 3 [place] 00 (three) Medical times Branch daily as needed for Cough. acetaminoph Yes [id number] 1{tbl} Take 1 [facility] en-codeine 2-07 tablet by ity of (TYLENOL-CO 00:00: mouth [place] DEINE #3) 00 every 4 Medical 300-30 mg (four) Branch tablet hours as needed for Pain (scale 7-10). benzonatate 0 Yes [id number] 200mg Take 1 [facility] 200 mg 2-07 capsule by ity of capsule 00:00: mouth 3 [place] 00 (three) Medical times Branch daily as needed for Cough. acetaminoph 0 Yes [id number] 1{tbl} Take 1 [facility] en-codeine 2-07 tablet by ity of (TYLENOL-CO 00:00: mouth [place] DEINE #3) 00 every 4 Medical 300-30 mg (four) Branch tablet hours as needed for Pain (scale 7-10). benzonatate 2018-0 Yes [id number] 200mg Take 1 [facility] 200 mg 2-07 capsule by ity of capsule 00:00: mouth 3 [place] 00 (three) Medical times Branch daily as needed for Cough. acetaminoph 2019-0 Yes [id number] 1{tbl} Take 1 [facility] en-codeine 2-07 tablet by ity of (TYLENOL-CO 00:00: mouth [place] DEINE #3) 00 every 4 Medical 300-30 mg (four) Branch tablet hours as needed for Pain (scale 7-10). acetaminoph Yes [id number] 1{tbl} Take 1 [facility] en-codeine 2-07 tablet by ity of (TYLENOL-CO 00:00: mouth [place] DEINE #3) 00 every 4 Medical 300-30 mg (four) Branch tablet hours as needed for Pain (scale 7-10). acetaminoph Yes [id number] 1{tbl} Take 1 [facility] en-codeine 2-07 tablet by ity of (TYLENOL-CO 00:00: mouth [place] DEINE #3) 00 every 4 Medical 300-30 mg (four) Branch tablet hours as needed for Pain (scale 7-10). acetaminoph Yes [id number] 1{tbl} Take 1 [facility] en-codeine 2-07 tablet by ity of (TYLENOL-CO 00:00: mouth [place] DEINE #3) 00 every 4 Medical 300-30 mg (four) Branch tablet hours as needed for Pain (scale 7-10). acetaminoph Yes [id number] 1{tbl} Take 1 [facility] en-codeine 2-07 tablet by ity of (TYLENOL-CO 00:00: mouth [place] DEINE #3) 00 every 4 Medical 300-30 mg (four) Branch tablet hours as needed for Pain (scale 7-10). acetaminoph Yes [id number] 1{tbl} Take 1 [facility] en-codeine 2-07 tablet by ity of (TYLENOL-CO 00:00: mouth [place] DEINE #3) 00 every 4 Medical 300-30 mg (four) Branch tablet hours as needed for Pain (scale 7-10). acetaminoph Yes [id number] 1{tbl} Take 1 [facility] en-codeine 2-07 tablet by ity of (TYLENOL-CO 00:00: mouth [place] DEINE #3) 00 every 4 Medical 300-30 mg (four) Branch tablet hours as needed for Pain (scale 7-10). acetaminoph Yes [id number] 1{tbl} Take 1 [facility] en-codeine 2-07 tablet by ity of (TYLENOL-CO 00:00: mouth [place] DEINE #3) 00 every 4 Medical 300-30 mg (four) Branch tablet hours as needed for Pain (scale 7-10). acetaminoph Yes [id number] 1{tbl} Take 1 [facility] en-codeine 2-07 tablet by ity of (TYLENOL-CO 00:00: mouth [place] DEINE #3) 00 every 4 Medical 300-30 mg (four) Branch tablet hours as needed for Pain (scale 7-10). benzonatate 2020- No [id number] 200mg Take 1 [facility] 200 mg 09-21- capsule by ity of capsule 00:00: 00:00 mouth 3 [place] 00 :00 (three) Medical times Branch daily as needed for Cough. levoFLOXaci 2020- No [id number] 750mg Take 1 [facility] n 09-21 08- tablet by ity of (LEVAQUIN) 00:00: 00:00 mouth [place] 750 mg 00 :00 every 24 Medical tablet (twenty-fo Branch ur) hours. albuterol 2017-08 Yes 2{puff} Inhale 2 [facility] n[facility] 90 1-11 Puffs ity of mcg/actuati 00:00: every 4 [place] on inhaler 00 (four) Medical hours as Branch needed for Wheezing or Shortness of Breath. codeine-gua 2017-08 Yes 5mL Take 5 mL U nivers ifenesin 1-11 by mouth ity of 10-100 mg/5 00:00: every 6 [place] as mL solution 00 (six) Medical hours as Branch needed for Cough. albuterol 2017-08 Yes 2{puff} Inhale 2 [facility] 90 1-11 Puffs ity of mcg/actuati 00:00: every 4 [place] on inhaler 00 (four) Medical hours as Branch needed for Wheezing or Shortness of Breath. codeine-gua 2017-08 Yes 5mL Take 5 mL [facility] nivers ifenesin 1-11 by mouth ity of 10-100 mg/5 00:00: every 6 [place] mL solution 00 (six) Medical hours as Branch needed for Cough. albuterol 2017-08 Yes 2{puff} Inhale 2 [facility] 90 1-11 Puffs ity of mcg/actuati 00:00: every 4 [place] on inhaler 00 (four) Medical hours as Branch needed for Wheezing or Shortness of Breath. codeine-gua 2017-08 Yes 5mL Take 5 mL [facility] n[facility] ifenesin 1-11 by mouth ity of 10-100 mg/5 00:00: every 6 [place] mL solution 00 (six) Medical hours as Branch needed for Cough. ondansetron 2017-08 Yes 4mg Take 1 [facility] ers 4 mg tablet 1-11 tablet by ity of 00:00: mouth [place] 00 every 8 Medical (eight) Branch hours as needed for Nausea and Vomiting (N/V). albuterol 2017-08 Yes 2{puff} Inhale 2 [facility] 90 1-11 Puffs ity of mcg/actuati 00:00: every 4 [place] on inhaler 00 (four) Medical hours as Branch needed for Wheezing or Shortness of Breath. codeine-gua 2017-08 Yes 5mL Take 5 mL [facility] nivers ifenesin 1-11 by mouth ity of 10-100 mg/5 00:00: every 6 [place] mL solution 00 (six) Medical hours as Branch needed for Cough. ondansetron 2017-08 Yes 4mg Take 1 [facility] ers 4 mg tablet 1-11 tablet by ity of 00:00: mouth [place] 00 every 8 Medical (eight) Branch hours as needed for Nausea and Vomiting (N/V). albuterol 2017-08 Yes 2{puff} Inhale 2 [facility] 90 1-11 Puffs ity of mcg/actuati 00:00: every 4 [place] on inhaler 00 (four) Medical hours as Branch needed for Wheezing or Shortness of Breath. codeine-gua 2017-08 Yes 5mL Take 5 mL [facility] n[facility] ifenesin 1-11 by mouth ity of 10-100 mg/5 00:00: every 6 [place] mL solution 00 (six) Medical hours as Branch needed for Cough. ondansetron 2017-08 Yes 4mg Take 1 [facility] ers 4 mg tablet 1-11 tablet by ity of 00:00: mouth [place] 00 every 8 Medical (eight) Branch hours as needed for Nausea and Vomiting (N/V). albuterol 2017-08 Yes 2{puff} Inhale 2 [facility] 90 1-11 Puffs ity of mcg/actuati 00:00: every 4 [place] on inhaler 00 (four) Medical hours as Branch needed for Wheezing or Shortness of Breath. codeine-gua 2017-08 Yes 5mL Take 5 mL [facility] n[facility] ifenesin 1-11 by mouth ity of 10-100 mg/5 00:00: every 6 [place] mL solution 00 (six) Medical hours as Branch needed for Cough. ondansetron 2017-08 Yes 4mg Take 1 [facility] ers 4 mg tablet 1-11 tablet by ity of 00:00: mouth [place] 00 every 8 Medical (eight) Branch hours as needed for Nausea and Vomiting (N/V). albuterol 2017-08 Yes 2{puff} Inhale 2 [facility] 90 1-11 Puffs ity of mcg/actuati 00:00: every 4 [place] on inhaler 00 (four) Medical hours as Branch needed for Wheezing or Shortness of Breath. codeine-gua 2017-08 Yes 5mL Take 5 mL [facility] n[facility] ifenesin 1-11 by mouth ity of 10-100 mg/5 00:00: every 6 [place] mL solution 00 (six) Medical hours as Branch needed for Cough. ondansetron 2017-08 Yes 4mg Take 1 [facility] ers 4 mg tablet 1-11 tablet by ity of 00:00: mouth [place] 00 every 8 Medical (eight) Branch hours as needed for Nausea and Vomiting (N/V). albuterol 2017-08 Yes 2{puff} Inhale 2 [facility] 90 1-11 Puffs ity of mcg/actuati 00:00: every 4 [place] on inhaler 00 (four) Medical hours as Branch needed for Wheezing or Shortness of Breath. codeine-gua 2017-08 Yes 5mL Take 5 mL [facility] n[facility] ifenesin 1-11 by mouth ity of 10-100 mg/5 00:00: every 6 [place] mL solution 00 (six) Medical hours as Branch needed for Cough. ondansetron 2017-08 Yes 4mg Take 1 [facility] ers 4 mg tablet 1-11 tablet by ity of 00:00: mouth [place] 00 every 8 Medical (eight) Branch hours as needed for Nausea and Vomiting (N/V). albuterol 2017-08 Yes 2{puff} Inhale 2 [facility] 90 1-11 Puffs ity of mcg/actuati 00:00: every 4 [place] on inhaler 00 (four) Medical hours as Branch needed for Wheezing or Shortness of Breath. codeine-gua 2017-08 Yes 5mL Take 5 mL [facility] n[facility] ifenesin 1-11 by mouth ity of 10-100 mg/5 00:00: every 6 [place] mL solution 00 (six) Medical hours as Branch needed for Cough. albuterol 2017-08 Yes 2{puff} Inhale 2 [facility] 90 1-11 Puffs ity of mcg/actuati 00:00: every 4 [place] on inhaler 00 (four) Medical hours as Branch needed for Wheezing or Shortness of Breath. codeine-gua 2017-08 Yes 5mL Take 5 mL [facility] nivers ifenesin 1-11 by mouth ity of 10-100 mg/5 00:00: every 6 [place] mL solution 00 (six) Medical hours as Branch needed for Cough. albuterol 2017-08 Yes 2{puff} Inhale 2 [facility] 90 1-11 Puffs ity of mcg/actuati 00:00: every 4 [place] on inhaler 00 (four) Medical hours as Branch needed for Wheezing or Shortness of Breath. codeine-gua 2017-08 Yes 5mL Take 5 mL [facility] n[facility] ifenesin 1-11 by mouth ity of 10-100 mg/5 00:00: every 6 [place] mL solution 00 (six) Medical hours as Branch needed for Cough. albuterol 2017-08 Yes 2{puff} Inhale 2 [facility] 90 1-11 Puffs ity of mcg/actuati 00:00: every 4 [place] on inhaler 00 (four) Medical hours as Branch needed for Wheezing or Shortness of Breath. codeine-gua 2017-08 Yes 5mL Take 5 mL [facility] n[facility] ifenesin 1-11 by mouth ity of 10-100 mg/5 00:00: every 6 [place] mL solution 00 (six) Medical hours as Branch needed for Cough. ondansetron 2017-08 Yes 4mg Take 1 [facility] ers 4 mg tablet 1-11 tablet by ity of 00:00: mouth [place] 00 every 8 Medical (eight) Branch hours as needed for Nausea and Vomiting (N/V). albuterol 2017-08 Yes 2{puff} Inhale 2 [facility] 90 1-11 Puffs ity of mcg/actuati 00:00: every 4 [place] on inhaler 00 (four) Medical hours as Branch needed for Wheezing or Shortness of Breath. codeine-gua 2017-08 Yes 5mL Take 5 mL [facility] nivers ifenesin 1-11 by mouth ity of 10-100 mg/5 00:00: every 6 [place] mL solution 00 (six) Medical hours as Branch needed for Cough. ondansetron 2017-08 Yes 4mg Take 1 [facility] ers 4 mg tablet 11 tablet by ity of 00:00: mouth [place] 00 every 8 Medical (eight) Branch hours as needed for Nausea and Vomiting (N/V). ondansetron 2017-08 No 4mg Take 1 [facility] vers 4 mg tablet 08-2508 tablet by it y of 00:00: 00:00 mouth [place] 00 :00 every 8 Medical (eight) Branch hours as needed for Nausea and Vomiting (N/V). ondansetron 2017-08 No 4mg Take 1 [facility] vers 4 mg tablet 08-25 tablet by it y of 00:00: 00:00 mouth [place] 00 :00 every 8 Medical (eight) Branch hours as needed for Nausea and Vomiting (N/V). fluticasone 2017-0 Yes 2{spray Use 2 [facility] [place] 50 2-13 } Sprays in ity of mcg/actuati 00:00: each [place] on nasal 00 nostril 2 Medica l spray (two) Branch times daily. fluticasone 2017-0 Yes 2{spray Use 2 [facility] [place] 50 2-13 } Sprays in ity of mcg/actuati 00:00: each [place] on nasal 00 nostril 2 Medica l spray (two) Branch times daily. fluticasone 2017-0 Yes 2{spray Use 2 [facility] [place] 50 2-13 } Sprays in ity of mcg/actuati 00:00: each [place] on nasal 00 nostril 2 Medica l spray (two) Branch times daily. fluticasone 2017-0 Yes 2{spray Use 2 [facility] [place] 50 2-13 } Sprays in ity of mcg/actuati 00:00: each [place] on nasal 00 nostril 2 Medica l spray (two) Branch times daily. fluticasone 2017-0 Yes 2{spray Use 2 [facility] [place] 50 2-13 } Sprays in ity of mcg/actuati 00:00: each [place] on nasal 00 nostril 2 Medica l spray (two) Branch times daily. fluticasone 2016- Yes 2{spray Use 2 [facility] [place] 50 2-13 } Sprays in ity of mcg/actuati 00:00: each [place] on nasal 00 nostril 2 Medica l spray (two) Branch times daily. fluticasone 2016- Yes 2{spray Use 2 [facility] [place] 50 2-13 } Sprays in ity of mcg/actuati 00:00: each [place] on nasal 00 nostril 2 Medica l spray (two) Branch times daily. fluticasone Yes 2{spray Use 2 [facility] [place] 50 2-13 } Sprays in ity of mcg/actuati 00:00: each [place] on nasal 00 nostril 2 Medica l spray (two) Branch times daily. fluticasone Yes 2{spray Use 2 [facility] [place] 50 2-13 } Sprays in ity of mcg/actuati 00:00: each [place] on nasal 00 nostril 2 Medica l spray (two) Branch times daily. fluticasone Yes 2{spray Use 2 [facility] [place] 50 2-13 } Sprays in ity of mcg/actuati 00:00: each [place] on nasal 00 nostril 2 Medica l spray (two) Branch times daily. fluticasone 2016- Yes 2{spray Use 2 [facility] [place] 50 2-13 } Sprays in ity of mcg/actuati 00:00: each [place] on nasal 00 nostril 2 Medica l spray (two) Branch times daily. fluticasone 2016- Yes 2{spray Use 2 [facility] [place] 50 2-13 } Sprays in ity of mcg/actuati 00:00: each [place] on nasal 00 nostril 2 Medica l spray (two) Branch times daily. fluticasone 2016- Yes 2{spray Use 2 [facility] [place] 50 2-13 } Sprays in ity of mcg/actuati 00:00: each [place] on nasal 00 nostril 2 Medica l spray (two) Branch times daily. immune Yes [id number] 50g 500 mL by [facility] [place] globulin 8-04 IV ity of (GAMMAGARD 00:00: Infusion [place] LIQUID) 10 00 route once Med ical % injection every Branch month. immune 2016-0 Yes [id number] 50g 500 mL by [facility] [place] globulin 8-04 IV ity of (GAMMAGARD 00:00: Infusion [place] LIQUID) 10 00 route once Med ical % injection every Branch month. immune 2016-0 Yes [id number] 50g 500 mL by [facility] [place] globulin 8-04 IV ity of (GAMMAGARD 00:00: Infusion [place] LIQUID) 10 00 route once Med ical % injection every Branch month. immune 2016-0 Yes [id number] 50g 500 mL by [facility] [place] globulin 8-04 IV ity of (GAMMAGARD 00:00: Infusion [place] LIQUID) 10 00 route once Med ical % injection every Branch month. immune 2016-0 Yes [id number] 50g 500 mL by [facility] [place] globulin 8-04 IV ity of (GAMMAGARD 00:00: Infusion [place] LIQUID) 10 00 route once Med ical % injection every Branch month. immune 2016-0 Yes [id number] 50g 500 mL by [facility] [place] globulin 8-04 IV ity of (GAMMAGARD 00:00: Infusion [place] LIQUID) 10 00 route once Med ical % injection every Branch month. immune 2016-0 Yes [id number] 50g 500 mL by [facility] [place] globulin 8-04 IV ity of (GAMMAGARD 00:00: Infusion [place] LIQUID) 10 00 route once Med ical % injection every Branch month. immune 2016-0 Yes [id number] 50g 500 mL by [facility] [place] globulin 8-04 IV ity of (GAMMAGARD 00:00: Infusion [place] LIQUID) 10 00 route once Med ical % injection every Branch month. immune 2016-0 Yes [id number] 50g 500 mL by [facility] [place] globulin 8-04 IV ity of (GAMMAGARD 00:00: Infusion [place] LIQUID) 10 00 route once Med ical % injection every Branch month. immune 2016-0 Yes [id number] 50g 500 mL by [facility] [place] globulin 8-04 IV ity of (GAMMAGARD 00:00: Infusion [place] LIQUID) 10 00 route once Med ical % injection every Branch month. immune 2016-0 Yes [id number] 50g 500 mL by [facility] [place] globulin 8-04 IV ity of (GAMMAGARD 00:00: Infusion [place] LIQUID) 10 00 route once Med ical % injection every Branch month. immune 2016-0 Yes [id number] 50g 500 mL by [facility] [place] globulin 8-04 IV ity of (GAMMAGARD 00:00: Infusion [place] LIQUID) 10 00 route once Med ical % injection every Branch month. immune 2016-0 Yes [id number] 50g 500 mL by [facility] [place] globulin 8-04 IV ity of (GAMMAGARD 00:00: Infusion [place] LIQUID) 10 00 route once Med ical % injection every Branch month. Vital Signs Vital Name Observation Time Observation Value Comments Source Systolic blood 2022-08-24 15:48:00 110 mm[Hg] Araceli Balderasybold - pressure External Diastolic blood 2022-08-24 15:48:00 62 mm[Hg] Aries y Seybold - pressure External Heart rate 2022-08-24 15:48:00 98 /min Araceli Andrews eybold - External Body temperature 2022-08-24 15:48:00 36.28 Amita Maya ey Seybold - External Respiratory rate 2022-08-24 15:48:00 14 /min Maya graham Seybold - External Body height 2022-08-24 15:48:00 165.1 cm Araceli grahambold - External Body weight 2022-08-24 15:48:00 63.05 kg Araceli Andrews eybold - External BMI 2022-08-24 15:48:00 23.13 kg/m2 Araceli S gladysbold - External Systolic blood 2021-08-20 05:01:00 123 mm[Hg] [facility] Diastolic blood 2021-08-20 05:01:00 68 mm[Hg] [facility] Heart rate 2021-08-20 05:01:00 88 /min [facility] Body temperature 2021-08-20 05:01:00 37.11 [facility] 2021-08-20 05:01:00 18 /min [facility] height 2021-08-20 05:01:00 165.1 cm [facility] Body weight 2021-08-20 05:01:00 68.947 kg [facility] BMI 2021-08-20 05:01:00 25.29 kg/m2 [facility] [place] [facility] Oxygen saturation in 2021-08-20 05:01:00 97 /min [facility] Arterial blood by [place] [facility] Pulse oximetry [facility] Systolic blood 2021-04-22 13:16:00 108 mm[Hg] [facility] pressure [place] [facility] Diastolic blood 2021-04-22 13:16:00 66 mm[Hg] [facility] of pressure [place] [facility] Heart rate 2021-04-22 13:16:00 120 /min [facility] Body temperature 2021-04-22 13:16:00 36.72 Amita [facility] Respiratory rate 2021-04-22 13:16:00 18 /min [facility] Body weight 2021-04-22 13:16:00 71.215 kg [facility] BMI 2021-04-22 13:16:00 26.13 kg/m2 [facility] Oxygen saturation in 2021-04-22 13:16:00 100 /min [facility] Arterial blood by [facility] Pulse oximetry Branch Systolic blood 2021-04-21 22:18:00 125 mm[Hg] [facility] Diastolic blood 2021-04-21 22:18:00 70 mm[Hg] [facility] Heart rate 2021-04-21 22:18:00 94 /min [facility] Body temperature 2021-04-21 22:18:00 37 Amita [facility] Respiratory rate 2021-04-21 22:18:00 18 /min [facility] Oxygen saturation in 2021-04-21 22:18:00 96 /min [facility] Arterial blood by [place] [facility] Pulse oximetry Branch Body height 2021-04-21 21:32:00 165.1 cm [facility] Body weight 2021-04-21 21:32:00 71.215 kg [facility] BMI 2021-04-21 21:32:00 26.13 kg/m2 [facility] Systolic blood 2021-04-18 13:54:00 146 mm[Hg] [facility] Diastolic blood 2021-04-18 13:54:00 85 mm[Hg] [facility] [place] [facility] Heart rate 2021-04-18 13:54:00 107 /min [facility] Body temperature 2021-04-18 13:54:00 37.17 Amita [facility] Respiratory rate 2021-04-18 13:54:00 18 /min [facility] Body weight 2021-04-18 13:54:00 70.308 kg [facility] BMI 2021-04-18 13:54:00 25.79 kg/m2 [facility] Oxygen saturation in 2021-04-18 13:54:00 97 /min [facility] Arterial blood by [place] [employer] Pulse oximetry Branch Body weight 2020-12-08 23:45:00 70.308 kg [facility] BMI 2020-12-08 23:45:00 25.79 kg/m2 [facility] Systolic blood 2020-12-08 23:42:00 128 mm[Hg] [facility] Diastolic blood 2020-12-08 23:42:00 95 mm[Hg] [facility] Heart rate 2020-12-08 23:42:00 81 /min [facility] Body temperature 2020-12-08 23:42:00 37.39 Amita [facility] Respiratory rate 2020-12-08 23:42:00 18 /min [facility] Oxygen saturation in 2020-12-08 23:42:00 100 /min [facility] blood by [place] [employer] [facility] Pulse oximetry Branch Systolic blood 2020-09-15 12:30:00 100 mm[Hg] [facility] Diastolic blood 2020-09-15 12:30:00 75 mm[Hg] [facility] Heart rate 2020-09-15 12:30:00 89 /min [facility] Respiratory rate 2020-09-15 12:30:00 13 /min [facility] Oxygen saturation in 2020-09-15 12:30:00 98 /min [facility] Arterial blood by [employer] stevenson Pulse oximetry Branch Body temperature 2020-09-15 09:52:00 35.56 Amita [facility] height 2020-09-15 09:52:00 165.1 cm [facility] Body weight 2020-09-15 09:52:00 70.308 kg [facility] BMI 2020-09-15 09:52:00 25.79 kg/m2 [facility] Systolic blood 2020-03-15 04:15:00 111 mm[Hg] Univer [facility]ity of pressure [facility] Diastolic blood 2020-03-15 04:15:00 64 mm[Hg] Unive rsity of pressure [facility] Heart rate 2020-03-15 04:15:00 97 /min [facility] Respiratory rate 2020-03-15 04:15:00 18 /min [facility] Oxygen saturation in 2020-03-15 04:15:00 98 /min [facility] Arterial blood by [facility] Pulse oximetry Branch Body temperature 2020-03-15 03:51:00 36.5 Amita [facility] Body weight 2020-03-15 03:51:00 67.132 kg [facility] BMI 2020-03-15 03:51:00 24.63 kg/m2 [facility] Procedures Procedure Date / Time Performed Performing Clinician Sourc e XR CHEST 2 VW 2021-08-20 05:39:32 Chante Hansen [place] [facility] RAPID INFLUENZA A/B 2021-08-20 05:28:00 Chante Hansen [facility] COVID-19 (ID NOW RAPID 2021-08-20 05:28:00 Chante Hansen [facility] Medical Branch CONSENT/REFUSAL FOR 2021-08-20 05:04:45 Doctor Unassigned, No [facility] [place] [facility] TREATMENT CONSENT/REFUSAL FOR 2021-04-22 13:09:45 Doctor Unassigned, No [facility] [place] [facility] Name [facility] TREATMENT IMMTRAC2 CONSENT 2021-04-21 05:01:00 [facility]igned, No [facility] (ID NOW RAPID 2021-04-18 13:58:00 Chante Hansen [facility] TESTING) Medical Branch CONSENT/REFUSAL FOR 2021-04-18 13:45:17 Doctor Unassigned, No [facility] [place] [facility] Name [facility] TREATMENT TROPONIN I 2020-12-09 00:40:00 Nelda Carver [facility] HEPATIC FUNCTION PANEL 2020-12-09 00:40:00 [facility]el[facility]ver [facility] [place] [id number] (ALB,T.PRO,BILI T,BU/BC,ALT,AST,ALK PHOS) BASIC METABOLIC PANEL 2020-12-09 00:40:00 Nelda Carver [facility] versity [facility] (NA, K, CL, CO2, Medical Branch GLUCOSE, BUN, CREATININE, CA) CBC WITH DIFF 2020-12-09 00:40:00 Nelda Carver [facility] XR CHEST 2 VW 2020-12-09 00:02:58 Tyrone Chante [place] [facility] NOTICE OF PRIVACY 2020-12-08 23:38:04 Doctor Unassigned, No [facility] [place] PR[facility] Name Medical Branch CONSENT/REFUSAL FOR 2020-12-08 23:37:39 Doctor Unassigned, No [facility] [place] DI[facility] AND Name Medical Branch TREATMENT CONSENT/REFUSAL FOR 2020-12-08 23:36:53 Doctor Unassigned, No [facility] [place] DI[facility] AND Name Medical [facility] TREATMENT URINALYSIS 2020-09-15 10:22:[address] [facility] LIPASE 2020-09-15 10:03:[address] [facility] COMP. METABOLIC PANEL 2020-09-15 10:03:00 Abhijit Blair [facility] ([id number]) Medical Branch CBC WITH DIFF 2020-09-15 10:03:[address] [facility] CONSENT/REFUSAL FOR 2020-09-15 09:39:10 Doctor Unassigned, No [facility] [place] DI[facility] Name Medical Branch TREATMENT POCT TEST 2020-03-15 04:17:00 Charly Oseguera [facility] Medical Branch LIPASE 2020-03-15 04:14:00 Charly Oseguera [facility] TROPONIN I 2020-03-15 04:14:00 Oumar Charly [facility] COMP. METABOLIC PANEL 2020-03-15 04:14:00 Charly Oseguera [facility] ([id number]) [facility] CBC WITH DIFF 2020-03-15 04:14:00 Charly Oseguera [facility] URINALYSIS 2020-03-15 04:14:00 Charly Oseguera [facility] EKG-12 LEAD 2020-03-15 04:08:32 Charly Oseguera [facility] NOTICE OF PRIVACY 2020-03-15 03:43:56 Doctor Unassigned, No [facility] PRACTICES Name Medical Branch CONSENT/REFUSAL FOR 2020-03-15 03:43:37 Doctor Unassigned, No [facility] DIAGNOSIS AND Name Medical Branch TREATMENT Encounters Start End Encounter Admission Attending Care Care Encounter Source Date/Time Date/Time Type Type Clinicians Facility Department ID 2021-06-15 Emergency [facility] [id number] Univers 21:04:04 ity of [facility] 2021-06-15 Emergency [facility] [id number] Univers 20:27:22 ity [facility] 2021-06-14 Emergency [facility] [id number] Univers 15:25:11 ity [facility] 2021-06-13 Emergency [facility] [id number] Univers 20:51:59 ity [facility] 2021-06-12 Emergency [facility] [id number] Univers 10:10:57 ity [facility] 2022-08-31 2022-08-31 Outpatient ARACELI SNOW [id number] Araceli 08:30:00 08:30:00 RAYMUNDO monte 2022-08-24 2022-08-24 Outpatient ARACELI SNOW [id number] Araceli 09:45:00 09:45:00 RAYMUNDO monte 2021-08-19 2021-08-20 [id number] Univers 23:03:00 00:46:00 CHANTE ity [facility] 2021-08-19 2021-08-20 [facility] [id number] Univers 23:03:00 00:46:00 Chante TAYLOR [id number] i ty of [place] 4.2.7.2.686 [facility] [id number] [facility] 084 Branch 2021-04-22 2021-04-22 Emergency Vaughn, [facility] [id number] Univers 08:17:00 11:05:00 Wade Taylor [id number] i ty [place] [id number] [facility] [phone] [place] [address] Branch 2021-04-21 2021-04-21 Nurse Therapy, Adc Covid Infusion [facility] [id number] Univers 16:15:18 17:15:18 Visit Roberta Leblanc [id number] [facility] [place] [address]7.[address] [place] [address] Surgical [phone] [facility] 053 Branch 2021-04-21 2021-04-21 [id number] Univers 17:00:00 17:00:00 ROBERTA kulkarni of [facility] 2021-04-21 2021-04-21 Orders Doctor SHAYNA [id number] Univers 00:00:00 00:00:00 Only Unassigned, DENEEN [id number] ity of [place] [facility] 4.2.7.2.686 [facility] [phone] [facility] 009 Branch 2021-04-18 2021-04-18 Emergency Sissy, [facility] [id number] Univers 08:58:00 12:10:00 Solomon Taylor [id number] [facility] [place] [id number] [facility] [id number] [facility] 084 Branch 2020-12-08 2020-12-08 Emergency Jodie Hylton [facility] [id number] Univers 18:46:00 21:24:00 Maryann Taylor [id number] i ty [place] [id number] [facility] [id number] [place] [address] Branch 2020-09-15 2020-09-15 Emergency [facility] [id number] Univers 03:57:00 06:35:00 Abhijit Taylor [id number] [facility] [place] [id number] [facility] [id number] [place] [address] Branch 2020-03-14 2020-03-15 Emergency [facility] [id number] Univers 22:53:30 02:17:00 Charly Taylor [id number] i ty [place] [id number] [facility] [id number] [address] 2020-03-14 2020-03-14 Orders Doctor SHAYNA [id number] Univers 00:00:00 00:00:00 Only Unassigned, DENEEN [id number] ity of [place] [facility] [id number] [facility] [phone] [address] Results Test Description Test Time Test Comments Results Result Comments Source COVID-19 (ID NOW RAPID TESTING) 2021-04-18 14:23:44 Test Item Value Reference Range Interpretation Comme nts SARS-CoV-2 Rapid ID NOW (test code Positive Not Detected A = 27376-8) YADIRA (test code = YADIRA) ID NOW COVID-19 Assay is an isothermal nucleic acid amplification test intended for the qualitative detection of nucleic acid from SARS-CoV-2 viral RNA in nasopharyngeal (AIR BRAKE MECHANIC) specimens. It is used under Emergency Use Authorization (EUA) by FDA. The limit of detection (LOD) of the assay is 125 Genome Equivalents/mL. A positive result is indicative of the presence of SARS-CoV-2 RNA. ?Clinical correlation with patient history and other diagnostic information is necessary to determine patient infection status. A negative (Not Detected) result does not preclude SARS-CoV-2 infection. In patients with clinical symptoms and other tests that are consistent with SARS-CoV-2 infection, negative results should be treated as presumptive negative and a new specimen should be tested with alternative PCR molecular test. Invalid: Please collect a new specimen for repeat patient testing if clinically indicated. Lab Interpretation (test code = Abnormal 65781-6) [facility] ([facility] NOW RAPID TESTING)2021-04-18 14:23:44 Test Item Value Reference Range Interpretation Comments SARS-CoV-2 Rapid ID NOW Positive Not Detected A (test code = 80592-8) YADIRA (test code = YADIRA) ID NOW COVID-19 Assay is an isothermal nucleic acid amplification test intended for the qualitative detection of nucleic acid from SARS-CoV-2 viral RNA in nasopharyngeal (AIR BRAKE MECHANIC) specimens. It is used under Emergency Use Authorization (EUA) by FDA. The limit of detection (LOD) of the assay is 125 Genome Equivalents/mL. A positive result is indicative of the presence of SARS-CoV-2 RNA. ?Clinical correlation with patient history and other diagnostic information is necessary to determine patient infection status. A negative (Not Detected) result does not preclude SARS-CoV-2 infection. In patients with clinical symptoms and other tests that are consistent with SARS-CoV-2 infection, negative results should be treated as presumptive negative and a new specimen should be tested with alternative PCR molecular test. Invalid: Please collect a new specimen for repeat patient testing if clinically indicated. Lab Interpretation Abnormal (test code = 82502-0) [facility]mery [id number] 01:36:20 Test Item Value Reference Range Interpretation Comments TROPONIN I (test 0.001 ng/mL See_Comment [Automated code = 0991021350) message] The system which generated this result transmitted reference range : <=0.034. The reference range was not used to interpret this result as normal/abnormal . YADIRA (test code = Equal or Less than YADIRA) 0.034 ng/ml---Normal ?Note: Cardiac troponin begins to rise 3-4 hours after the onset of ischemia. Repeat in 4-6 hours if the sample was drawn within 3-4 hours of the onset of the symptom and found normal. Between 0.035 and 0.120 ng/mL--- Borderline. Questionable myocardial injury or necrosis ? ?Note: Serial measurement may be necessary to confirm or exclude the diagnosis of myocardial injury or necrosis; Clinical correlation (symptoms, EKGs, imaging studies, and others) required; Repeat in 4-6 hours if clinically indicated. ? Equal or Higher than 0.121 ng/mL---Abnormal. Myocardial Injury or Necrosis Likely ? Biotin has been reported to cause a negative bias, interpret results relative to patient's use of biotin. ? Lab Interpretation Normal (test code = 41873-2) [facility] Met[facility] Panel (NA, K, CL, CO2, GLUCOSE, BUN, CREATININE, CA)2020-12-09 01:25:20 Test Item Value Reference Range Interpretation Comments NA (test code = 141 mmol/L 135-145 8818647803) K (test code = 3.7 mmol/L 3.5-5.0 4179797447) CL (test code = 103 mmol/L 98-108 0123298045) CO2 TOTAL (test code = 30 mmol/L 23-31 3081604501) AGAP (test code = 2-16 3821253372) BUN (test code = 6 mg/dL 7-23 L 8914570539) GLUCOSE (test code = 92 mg/dL 70-110 7517612208) CREATININE (test code = 0.47 mg/dL 0.50-1.04 L 4578868293) CALCIUM (test code = 9.2 mg/dL 8.6-10.6 6513298251) eGFR (test code = mL/min/1.73m2 7330636506) YADIRA (test code = YADIRA) Association of Glomerular Filtration Rate (GFR) and Staging of Kidney Disease* + --+ --+ ------+| GFR (mL/min/1.73 m2) ?| With Kidney Damage ?| ?Without Kidney Damage+ --------+ --------+ +| ?>90 ?| ?Stage one ?| ? Normal ?+ ---+ ---+ -------+| ?60-89 ?| ?Stage two ?| ? Decreased GFR ? + --+ --+ ------+| ?30-59 ?| ?Stage three ?| ? Stage three ? + --+ --+ ------+| ?15-29 ?| ?Stage four ? | ? Stage four ?+ ---+ ---+ -------+| ?<15 (or dialysis) ? ?| ?Stage five ? | ? Stage five ?+ ---+ ---+ -------+ *Each stage assumes the associated GFR level has been in effect for at least three months. ?Stages 1 to 5, with or without kidney disease, indicate chronic kidney disease. Notes: Determination of stages one and two (with eGFR >59mL/min/1.73 m2) requires estimation of kidney damage for at least three months as defined by structural or functional abnormalities of the kidney, manifested by either:Pathological abnormalities or Markers of kidney damage (including abnormalities in the composition of the blood or urine or abnormalities in imaging tests). Lab Interpretation Abnormal (test code = 44910-5) [facility] (ALB, T.PRO, BILI T, BU/BC, ALT, AST, ALK PHOS)2020-12-09 01:24:59 Test Item Value Reference Range Interpretation Comments TOTAL BILI (test code = 9609842131) 0.3 mg/dL 0.1-1.1 BILI UNCON (test code = 1548567643) 0.2 mg/dL 0.1-1.1 BILI CONJ (test code = 5739017475) 0.0 mg/dL 0.0-0.3 T PROTEIN (test code = 0891785300) 6.7 g/dL 6.3-8.2 ALBUMIN (test code = 0124314498) 4.6 g/dL 3.5-5.0 ALK PHOS (test code = 0844992372) 102 U/L 34-122 ALTv (test code = 1742-6) 15 U/L 5-35 AST(SGOT) (test code = 3138218107) 32 U/L 13-40 Lab Interpretation (test code = Normal 78454-2) [facility] with [id number] 01:07:56 Test Item Value Reference Range Interpretation Comments WBC (test code = See_Comment [Automated message] 6690-2) The system [employer] generated this result transmitted ref erence range: 4.30 - 1 1.10 10*3/?L. The re ference range was not u sed to interpret this result as normal/abnor mal. RBC (test code = See_Comment [Automated message] 789-8) The system [employer] generated this result transmitted ref erence range: 3.93 - 5 .25 10*6/?L. The re ference range was not u sed to interpret this result as normal/abnor mal. HGB (test code = 12.7 g/dL 11.6-15.0 718-7) HCT (test code = 39.2 % 35.7-45.2 4544-3) MCV (test code = 90.7 fL 80.6-95.5 787-2) MCH (test code = 29.4 pg 25.9-32.8 785-6) MCHC (test code = 32.4 g/dL 31.6-35.1 786-4) RDW-SD (test code 41.9 fL 39.0-49.9 = 94481-1) RDW-CV (test code 12.5 % 12.0-15.5 = 788-0) PLT (test code = See_Comment [Automated message] 777-3) The system [employer] generated this result transmitted ref erence range: 166 - 35 8 10*3/?L. The re ference range was not u sed to interpret this result as normal/abnor mal. MPV (test code = 9.9 fL 9.5-12.9 18661-1) NRBC/100 WBC (test See_Comment [Automat ed message] code = 9822740505) The syste m which generated this result transmitted ref erence range: 0.0 - 10 .0 /100 WBCs. The refer ence range was not u sed to interpret this result as normal/abnor mal. NRBC x10^3 (test <0.01 See_Comment [Automated message] code = 7732625031) The syste m which generated this result transmitted ref erence range: 10*3/?L. The reference range was not used to interpr et this result as normal/abnormal . GRAN MAT (NEUT) % 64.4 % (test code = 770-8) IMM GRAN % (test 0.30 % code = 4356094332) LYMPH % (test code 26.7 % = 736-9) MONO % (test code 7.1 % = 5905-5) EOS % (test code = 1.1 % 713-8) BASO % (test code 0.4 % = 706-2) GRAN MAT 6.02 10*3/uL 1.88-7.09 x10^3(ANC) (test code = 4448953995) IMM GRAN x10^3 0.03 10*3/uL 0.00-0.06 (test code = 4711612322) LYMPH x10^3 (test 2.50 10*3/uL 1.32-3.29 code = 731-0) MONO x10^3 (test 0.66 10*3/uL 0.33-0.92 code = 742-7) EOS x10^3 (test 0.10 10*3/uL 0.03-0.39 code = 711-2) BASO x10^3 (test 0.04 10*3/uL 0.01-0.07 code = 704-7) [facility]inalysis[facility] 11:33:00 Test Item Value Reference Range Interpretation Comments APPEARANCE (test code = Clear Clear 8809853659) COLOR (test code = Yellow Yellow 5103164290) PH (test code = 4.8-8.0 0630797272) SP GRAVITY (test code = >=1.030 1.003-1.030 3923809700) GLU U QUAL (test code = Negative Negative 1977759995) BLOOD (test code = Negative Negative 9514203770) KETONES (test code = Negative Negative 3213455817) PROTEIN (test code = Negative Negative 2887-8) UROBILIN (test code = 0.2 mg/dL See_Comment [Auto mated message] 0827144540) The system [employer]ler generated this result transmit [place]ille reference range : 0-1.0 mg/dL. Th e reference range was not used to interpret this result as normal/abnormal . BILIRUBIN (test code = Negative Negative 2079210408) NITRITE (test code = Negative Negative 5417481978) LEUK KARI (test code = Moderate Negative A 5398188090) RBC/HPF (test code = See_Comment [Autom ated message] 8420413307) The system [employer]ler generated this result transmit luiclle reference range : 0 - 3 HPF. The refe rence range was not u sed to interpret th is result as normal/abnormal . WBC/HPF (test code = See_Comment [Autom ated message] 3035167091) The system [employer]ler generated this result transmit lucille reference range : 0 - 5 HPF. The refe rence range was not u sed to interpret th is result as normal/abnormal . BACTERIA (test code = Few Negative A 4136017837) SQ EPITH (test code = HPF 3420444981) Lab Interpretation (test Abnormal code = 51087-6) [facility] Metabolic [id number] 10:30:00 Test Item Value Reference Range Interpretation Comments NA (test code = 139 mmol/L 135-145 5975287126) K (test code = 4.2 mmol/L 3.5-5 1170139588) CL (test code = 104 mmol/L 98-108 9437318421) CO2 TOTAL (test code = 28 mmol/L 23-31 9846904777) AGAP (test code = 2-16 7598228203) BUN (test code = 13 mg/dL 7-23 1975328747) GLUCOSE (test code = 155 mg/dL 70-110 H 2788412668) CREATININE (test code = 0.45 mg/dL 0.5-1.04 L 1408931936) TOTAL BILI (test code = 0.5 mg/dL 0.1-1.6 8764634902) CALCIUM (test code = 9.1 mg/dL 8.6-10.6 4134456795) T PROTEIN (test code = 6.9 g/dL 6.3-8.2 5662149148) ALBUMIN (test code = 4.6 g/dL 3.5-5 4308838121) ALK PHOS (test code = 88 U/L 34-122 6403441055) ALTv (test code = 20 U/L 5-35 1742-6) AST(SGOT) (test code = 42 U/L 13-40 H 3973114688) eGFR Calculation mL/min/1.73m2 (Non-) (test code = 8222492205) eGFR Calculation mL/min/1.73m2 () (test code = 9621134457) YADIRA (test code = YADIRA) Association of Glomerular Filtration Rate (GFR) and Staging of Kidney Disease* + --+ --+ ------+| GFR (mL/min/1.73 m2) ?| With Kidney Damage ?| ?Without Kidney Damage+ --------+ --------+ +| ?>90 ?| ?Stage one ?| ? Normal ?+ ---+ ---+ -------+| ?60-89 ?| ?Stage two ?| ? Decreased GFR ? + --+ --+ ------+| ?30-59 ?| ?Stage three ?| ? Stage three ? + --+ --+ ------+| ?15-29 ?| ?Stage four ? | ? Stage four ?+ ---+ ---+ -------+| ?<15 (or dialysis) ? ?| ?Stage five ? | ? Stage five ?+ ---+ ---+ -------+ *Each stage assumes the associated GFR level has been in effect for at least three months. ?Stages 1 to 5, with or without kidney disease, indicate chronic kidney disease. Notes: Determination of stages one and two (with eGFR >59mL/min/1.73 m2) requires estimation of kidney damage for at least three months as defined by structural or functional abnormalities of the kidney, manifested by either:Pathological abnormalities or Markers of kidney damage (including abnormalities in the composition of the blood or urine or abnormalities in imaging tests). Lab Interpretation Abnormal (test code = 69889-5) [facility], [id number] 10:30:00 Test Item Value Reference Range Interpretation Comments LIPASE (test code = 6483409908) 84 U/L 0-220 Lab Interpretation (test code = Normal 78325-7) [facility] with [id number] 10:16:00 Test Item Value Reference Range Interpretation Comments WBC (test code = See_Comment H [Automated 1790-2) message] The sy stem which generated this result transmitted reference range : 4.30 - 11.10 10*3/?L. The reference range was not used to interpret this result as normal/abnormal . RBC (test code = See_Comment [Automated 929-8) message] The sy stem which generated this result transmitted reference range : 3.93 - 5.25 10*6/?L. The reference range was not used to interpret this result as normal/abnormal . HGB (test code = 12.3 g/dL 11.6-15 718-7) HCT (test code = 38.6 % 35.7-45.2 4544-3) MCV (test code = 91.3 fL 80.6-95.5 787-2) MCH (test code = 29.1 pg 25.9-32.8 785-6) MCHC (test code = 31.9 g/dL 31.6-35.1 786-4) RDW-SD (test code = 41.7 fL 39-49.9 75187-7) RDW-CV (test code = 12.5 % 12-15.5 788-0) PLT (test code = See_Comment [Automated 777-3) message] The sy stem which generated this result transmitted reference range : 166 - 358 10*3/ ?L. The reference r umberto was not used to interpret this result as normal/abnormal . MPV (test code = 10.4 fL 9.5-12.9 74336-6) NRBC/100 WBC (test See_Comment [Automat ed code = 1475740242) message] The system which generated this result transmitted reference range : 0.0 - 10.0 /100 WBCs. The refer ence range was not u sed to interpret th is result as normal/abnormal . NRBC x10^3 (test code <0.01 See_Comment [Auto mated = 0846155721) message] The s ystem which generated this result transmitted reference range : 10*3/?L. The reference range was not used to interpret this result as normal/abnormal . GRAN MAT (NEUT) % 70.2 % (test code = 770-8) IMM GRAN % (test code 0.40 % = 0620374727) LYMPH % (test code = 21.4 % 736-9) MONO % (test code = 6.6 % 5905-5) EOS % (test code = 0.9 % 713-8) BASO % (test code = 0.5 % 706-2) GRAN MAT x10^3(ANC) 8.15 10*3/uL 1.88-7.09 H (test code = 9198882199) IMM GRAN x10^3 (test 0.05 10*3/uL 0-0.06 code = 1316700356) LYMPH x10^3 (test code 2.49 10*3/uL 1.32-3.29 = 731-0) MONO x10^3 (test code 0.77 10*3/uL 0.33-0.92 = 742-7) EOS x10^3 (test code = 0.10 10*3/uL 0.03-0.39 711-2) BASO x10^3 (test code 0.06 10*3/uL 0.01-0.07 = 704-7) Lab Interpretation Abnormal (test code = 82868-1) [id number] 05:12[facility]00 Test Item Value Reference Range Interpretation Comments TROPONIN I (test <0.012 See_Comment [Automated code = 2299219471) message] The system which generated this result transmitted reference range : <=0.034 ng/mL. The reference range was not used to interpr et this result as normal/abnormal . YADIRA (test code = Equal or Less than YADIRA) 0.034 ng/ml---Normal ?Note: Cardiac troponin begins to rise 3-4 hours after the onset of ischemia. Repeat in 4-6 hours if the sample was drawn within 3-4 hours of the onset of the symptom and found normal. Between 0.035 and 0.120 ng/mL--- Borderline. Questionable myocardial injury or necrosis ? ?Note: Serial measurement may be necessary to confirm or exclude the diagnosis of myocardial injury or necrosis; Clinical correlation (symptoms, EKGs, imaging studies, and others) required; Repeat in 4-6 hours if clinically indicated. ? Equal or Higher than 0.121 ng/mL---Abnormal. Myocardial Injury or Necrosis Likely ? Biotin has been reported to cause a negative bias, interpret results relative to patient's use of biotin. ? Lab Interpretation Normal (test code = 99328-5) [facility] ([id number])2020-03-15 05:10:00 Test Item Value Reference Range Interpretation Comments NA (test code = 138 mmol/L 135-145 3494677620) K (test code = 3.7 mmol/L 3.5-5 7852588245) CL (test code = 103 mmol/L 98-108 3854056398) CO2 TOTAL (test code = 28 mmol/L 23-31 2497363493) AGAP (test code = 2-16 1004896999) BUN (test code = 12 mg/dL 7-23 8289147193) GLUCOSE (test code = 119 mg/dL 70-110 H 5286344419) CREATININE (test code = 0.79 mg/dL 0.5-1.04 1418674657) TOTAL BILI (test code = <0.1 0.1-1.1 L 0881866428) CALCIUM (test code = 9.6 mg/dL 8.6-10.6 0909468886) T PROTEIN (test code = 6.6 g/dL 6.3-8.2 7550320185) ALBUMIN (test code = 4.3 g/dL 3.5-5 1578926321) ALK PHOS (test code = 78 U/L 34-122 8975232351) ALTv (test code = 10 U/L 5-35 1742-6) AST(SGOT) (test code = 28 U/L 13-40 9293926403) eGFR Calculation mL/min/1.73m2 (Non-) (test code = 8694277394) eGFR Calculation mL/min/1.73m2 () (test code = 8524773603) YADIRA (test code = YADIRA) Association of Glomerular Filtration Rate (GFR) and Staging of Kidney Disease* + --+ --+ ------+| GFR (mL/min/1.73 m2) ?| With Kidney Damage ?| ?Without Kidney Damage+ --------+ --------+ +| ?>90 ?| ?Stage one ?| ? Normal ?+ ---+ ---+ -------+| ?60-89 ?| ?Stage two ?| ? Decreased GFR ? + --+ --+ ------+| ?30-59 ?| ?Stage three ?| ? Stage three ? + --+ --+ ------+| ?15-29 ?| ?Stage four ? | ? Stage four ?+ ---+ ---+ -------+| ?<15 (or dialysis) ? ?| ?Stage five ? | ? Stage five ?+ ---+ ---+ -------+ *Each stage assumes the associated GFR level has been in effect for at least three months. ?Stages 1 to 5, with or without kidney disease, indicate chronic kidney disease. Notes: Determination of stages one and two (with eGFR >59mL/min/1.73 m2) requires estimation of kidney damage for at least three months as defined by structural or functional abnormalities of the kidney, manifested by either:Pathological abnormalities or Markers of kidney damage (including abnormalities in the composition of the blood or urine or abnormalities in imaging tests). Lab Interpretation Abnormal (test code = 00309-8) [facility]:01:00 Test Item Value Reference Range Interpretation Comments LIPASE (test code = 3043792666) 83 U/L 0-220 Lab Interpretation (test code = Normal 65213-3) [facility]2020-08-01 04:41:00 Test Item Value Reference Range Interpretation Comments APPEARANCE (test code = Cloudy Clear A 3791079022) COLOR (test code = Yellow Yellow 9628085941) PH (test code = 4.8-8.0 5966709080) SP GRAVITY (test code = 1.003-1.030 8682114807) GLU U QUAL (test code = Normal Normal 8248006280) BLOOD (test code = Negative Negative 4743245454) KETONES (test code = Negative Negative 2755755608) PROTEIN (test code = Negative Negative 2887-8) UROBILIN (test code = Normal Normal 6589893675) BILIRUBIN (test code = Negative Negative 7353566799) NITRITE (test code = Negative Negative 9206198653) LEUK KARI (test code = 250/uL Negative A 4766421862) RBC/HPF (test code = See_Comment H [Autom ated message] 0643054055) The system [employer] generated this result transmitted ref erence range: 0 - 3 HP F. The reference range was not used to int erpret this result as normal/abnormal . WBC/HPF (test code = See_Comment H [Autom ated message] 1234879765) The system whic h generated this result transmitted ref erence range: 0 - 5 HP F. The reference range was not used to int erpret this result as normal/abnormal . BACTERIA (test code = Few Negative A 8653521129) MUCOUS (test code = Slight Negative LPF A 6123286041) SQ EPITH (test code = HPF 7166293978) Lab Interpretation (test Abnormal code = 25218-4) [facility] WITH [id number] 04:24:00 Test Item Value Reference Range Interpretation Comments WBC (test code = See_Comment [Automated 7390-2) message] The sy stem which generated this result transmitted reference range : 4.30 - 11.10 10*3/?L. The reference range was not used to interpret this result as normal/abnormal . RBC (test code = See_Comment [Automated 789-8) message] The sy stem which generated this result transmitted reference range : 3.93 - 5.25 10*6/?L. The reference range was not used to interpret this result as normal/abnormal . HGB (test code = 12.4 g/dL 11.6-15 718-7) HCT (test code = 38.0 % 35.7-45.2 4544-3) MCV (test code = 90.7 fL 80.6-95.5 787-2) MCH (test code = 29.6 pg 25.9-32.8 785-6) MCHC (test code = 32.6 g/dL 31.6-35.1 786-4) RDW-SD (test code = 41.1 fL 39-49.9 50980-1) RDW-CV (test code = 12.4 % 12-15.5 788-0) PLT (test code = See_Comment [Automated 777-3) message] The sy stem which generated this result transmitted reference range : 166 - 358 10*3/ ?L. The reference r umberto was not used to interpret this result as normal/abnormal . MPV (test code = 10.2 fL 9.5-12.9 05528-6) NRBC/100 WBC (test See_Comment [Automat ed code = 4108616354) message] The system which generated this result transmitted reference range : 0.0 - 10.0 /100 WBCs. The refer ence range was not u sed to interpret th is result as normal/abnormal . NRBC x10^3 (test code <0.01 See_Comment [Auto mated = 2881948316) message] The s ystem which generated this result transmitted reference range : 10*3/?L. The reference range was not used to interpret this result as normal/abnormal . GRAN MAT (NEUT) % 73.4 % (test code = 770-8) IMM GRAN % (test code 0.40 % = 7417748733) LYMPH % (test code = 21.9 % 736-9) MONO % (test code = 3.3 % 5905-5) EOS % (test code = 0.6 % 713-8) BASO % (test code = 0.4 % 706-2) GRAN MAT x10^3(ANC) 8.08 10*3/uL 1.88-7.09 H (test code = 2180520418) IMM GRAN x10^3 (test 0.04 10*3/uL 0-0.06 code = 3122312360) LYMPH x10^3 (test code 2.41 10*3/uL 1.32-3.29 = 731-0) MONO x10^3 (test code 0.36 10*3/uL 0.33-0.92 = 742-7) EOS x10^3 (test code = 0.07 10*3/uL 0.03-0.39 711-2) BASO x10^3 (test code 0.04 10*3/uL 0.01-0.07 = 704-7) Lab Interpretation Abnormal (test code = 15488-8) [facility] [id number] 04:17:00 Test Item Value Reference Range Interpretation Comments POCT PREG (test code = 1605) negative On board controls acceptable with present C Line (test code = 3574) POCT PREG LOT # (test code = 3575) [id number] POCT PREG TEST DATE (test 05/14/2021 code = 3576) Lab Interpretation (test code = Normal 70118-9) [facility]"
[2023-06-03] MEDS ORDERED: NA CHLORIDE 0.9% 1,000 ML ONE ×2 (16:48→17:06)
[2023-06-03 16:51] LABS: Absolute Lymphocytes (CBC) 1.8 K/uL (0.7-4.9); Hematocrit 40.2 % (36.0-45.0); MCV 88.5 fL (80-100); MPV 8.6 fL (7.6-11.3); Platelets 287 thou/uL (152-406); RBC Red Blood Cell Count 4.54 M/uL (3.86-4.86)
[2023-06-03 17:01] LABS: Protime INR 0.97
[2023-06-03 17:12] LABS: ALT/SGPT 21 U/L (13-56); AST/SGOT 18 U/L (15-37); Albumin 4.3 g/dL (3.4-5.0); Alkaline Phosphatase 89 U/L (45-117); BUN Blood Urea Nitrogen 8 mg/dL (7-18); Bicarbonate 26 mEq/L (21-32); Bilirubin Total 0.3 mg/dL (0.2-1.0); Glomerular Filtration Rate 107 ml/min (=/>90); Glucose Level 101 mg/dL (74-106); Potassium 3.2 mEq/L (3.5-5.1); Protein, Total 7.2 g/dL (6.4-8.2); Sodium Level 141 mEq/L (136-145); Troponin High Sensitivity 4.3 pg/mL (<58.9)
--- NOTE | 2023-06-03 17:26 | RAD REPORT ---
[facility] 5[facility]03 pm CLINICAL HISTORY: CHEST PAIN COMPARISON: Chest Single View dated 02/01/2016; CHEST PA AND LAT 2 VIEW dated 11/08/2013; CHEST PA AND LAT 2 VIEW dated 11/07/2013; CHEST SINGLE VIEW dated 12/23/2011 TECHNIQUE: Portable PA view of the chest. FINDINGS: The lungs are clear. No pneumothorax or effusion. The cardiomediastinal contours are unre markable. IMPRESSION: No acute cardiopulmonary process.
[2023-06-03 17:29] LABS: C-Reactive Protein < 2.90 mg/L (<3.00)
[2023-06-03] MEDS ORDERED: POTASSIUM 25 MEQ EFFERV TAB ONE (18:20)
--- NOTE | 2023-06-03 19:06 | ER ---
Nurse's Notes [facility] Name: Megan Love Age: 42 yrs Sex: Female : 1980 Arrival Date: 06/03/2023 Time: 16:10 Bed 2 Private MD: Diagnosis: Chest pain, unspecified;Gastro-esophageal reflux disease without esophagitis;Hypokalemia Presentation: 06/03 16:27 Chief complaint: Patient states: "I've had right sided CP and stomach for 3 days now. I mb9 bent over today, and it felt like I have fluid in my heart, I started getting SOB today while waiting in line to pick my daughter up from school.". Coronavirus screen: Vaccine status: Patient reports being unvaccinated. Ebola Screen: No symptoms or risks identified at this time. Initial Sepsis Screen: Does the patient meet any 2 criteria? No. Patient's initial sepsis screen is negative. Does the patient have a suspected source of infection? No. Patient's initial sepsis screen is negative. Risk Assessment: Do you want to hurt yourself or someone else? Patient reports no desire to harm self or others. Onset of symptoms was 2022. 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 - Social history:: Smoking status: Patient denies any tobacco usage or history of. Screenin:50 [facility] ED Fall Risk Assessment (Adult) History of falling in the last 3 months, aa5 including since admission No falls in past 3 months (0 pts) Confusion or Disorientation No (0 pts) Intoxicated or Sedated No (0 pts) Impaired Gait No (0 pts) Mobility Assist Device Used No (0 pt) Altered Elimination No (0 pt) Score/Fall Risk Level 0 - 2 = Low Risk Oriented to surroundings, Maintained a safe environment, Educated pt \\T\\ family on fall prevention, incl call for assistance when getting out of bed. Abuse screen: Denies threats or abuse. Nutritional screening: No deficits noted. Tuberculosis screening: No symptoms or risk factors identified. Assessment: 16:30 General: Appears uncomfortable, Behavior is calm, cooperative, Denies feeling ill. aa5 Pain: Complains of pain in mid-sternal area Pain radiates to anterior aspect of right upper chest Pain currently is 5 out of 10 on a pain scale. Quality of pain is described as pressure, sharp, Pain began 2 hours ago. Is continuous. Neuro: Level of Consciousness is awake, alert, obeys commands, Oriented to person, place, time, situation. Cardiovascular: Heart tones S1 S2 present Rhythm is sinus rhythm. Respiratory: Reports SOB STATISTICIAN Airway is patent Respiratory effort is even, unlabored, Respiratory pattern is regular, symmetrical, Breath sounds are clear bilaterally. Denies cough. GI: Abdomen is round non-distended, Bowel sounds present X 4 quads. Abd is soft and non tender X 4 quads. Patient currently denies diarrhea, nausea, vomiting. : No signs and/or symptoms were reported regarding the genitourinary system. EENT: No signs and/or symptoms were reported regarding the EENT system. Derm: Skin is pink, warm \\T\\ dry. Musculoskeletal: Range of motion: intact in all extremities. 17:00 Reassessment: Patient is alert, oriented x 3, equal unlabored respirations, skin aa5 warm/dry/pink. 19:19 Reassessment: Patient appears in no apparent distress at this time. Patient and/or jb4 family updated on plan of care and expected duration. Pain level reassessed. Patient is alert, oriented x 3, equal unlabored respirations, skin warm/dry/pink. Pt verbalized understanding of d/c and follow up instructions. No questions or concerns at this time. ambulated out of the ED with steady gait. Vital Signs: 16:27 BP 126 / 78; Pulse 100; Resp 18; Temp 98; Pulse Ox 100% on R/A; Weight 60.33 kg; Height mb9 5 ft. 5 in. ; 17:00 BP 105 / 83; Pulse 92; Resp 15 S; Pulse Ox 99% on R/A; aa5 18:30 BP 108 / 70; Pulse 79; Resp 16; Pulse Ox 100% on R/A; jb4 16:27 Body Mass Index 22.13 (60.33 kg, 165.1 cm) 9 ED Course: 16:12 Patient arrived in ED. mr 16:16 Kristina Jorge FNP-C is [facility]. snw 16:16 Jude Villegas MD is Attending Physician. snw 16:28 Triage completed. mb9 16:29 Arm band placed on. mb9 16:30 Patient has correct armband on for positive identification. Placed in gown. Bed in low aa5 position. Call light in reach. Side rails up X2. Client placed on continuous cardiac and pulse oximetry monitoring. NIBP monitoring applied. 16:40 Initial lab(s) drawn, by me, sent to lab. First set of blood cultures drawn by me. aa5 16:42 Inserted saline lock: 22 gauge in right forearm, using aseptic technique. aa5 16:50 Michaela Escalante, GRIFFIN is Primary Nurse. aa5 16:50 Second set of blood cultures drawn by me. aa5 16:50 Patient maintains SpO2 saturation greater than 95% on room air. aa5 16:51 Inserted saline lock: 22 gauge in left antecubital area, using aseptic technique. aa5 17:05 Chest Single View XRAY In Process Unspecified. EDMS 19:00 Report given to GRIFFIN Orr and GRIFFIN Byesr. aa5 19:21 No provider procedures requiring assistance completed. IV discontinued, intact, jb4 bleeding controlled, No redness/swelling at site. Pressure dressing applied. Administered Medications: 16:59 Drug: NS 0.9% IV (30 ml/kg) 30 ml/kg IV at bolus once; Sepsis Protocol Route: IV; Rate: aa5 bolus; Site: right forearm; 17:50 Drug: Potassium PO Effervescent Tablet 50 mEq PO once; dissolve in 4 ounces of water or rs5 juice Route: PO; Outcome: 19:06 Discharge ordered by . snw 19:12 Patient left the ED. kl 19:21 Discharged to home ambulatory, jb4 19:21 Condition: stable 19:21 Discharge instructions given to patient, Instructed on discharge instructions, follow up and referral plans. no driving heavy equipment, Demonstrated understanding of instructions, follow-up care, medications, Prescriptions given X 1, 19:22 Patient left the ED. jb4 Signatures: Dispatcher [employer] EDID Anjelica Torres RN RN kl Waters, Shelly, FNP-C FNP-Hope Echols, Reg Reg mr EscalanteMichaela, RN RN aa5 Eddi Roldan RN RN jb4 Hope Vallejo, GRIFFIN RN mb9 Marcus Armenta RN RN rs5 Corrections: (The following items were deleted from the chart) : 18:30 No provider procedures requiring assistance completed. jb4 jb4 18:30 IV discontinued, intact, bleeding controlled, No redness/swelling at site. jb4 Pressure dressing applied, jb4
--- NOTE | 2023-06-03 19:07 | EDPHYS ---
Physician Documentation [facility] Name: Megan Love Age: 42 yrs Sex: Female : 1980 Arrival Date: 06/03/2023 Time: 16:10 Bed 2 Private MD: ED Physician Jude Villegas HPI: 06/03 16:29 This 42 yrs old Female presents to ER via Wheelchair with complaints of Chest Pain, snw Shortness Of Breath. 16:29 Onset: The symptoms/episode began/occurred acutely. Associated signs and symptoms: snw Pertinent positives: shortness of breath. The patient has not experienced similar symptoms in the past. The patient has been recently seen by a physician: at a clinic, with similar presenting complaints, lab tests were done, flu \T\ Covid negative. 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 - Social history:: Smoking status: Patient denies any tobacco usage or history of. ROS: 16:31 Eyes: Negative for injury, pain, redness, and discharge, ENT: Negative for injury, snw pain, and discharge, Neck: Negative for injury, pain, and swelling, 16:31 Abdomen/GI: Negative for abdominal pain, nausea, vomiting, diarrhea, and constipation, Back: Negative for injury and pain, : Negative for injury, bleeding, discharge, and swelling, MS/Extremity: Negative for injury and deformity, Skin: Negative for injury, rash, and discoloration, Neuro: Negative for headache, weakness, numbness, tingling, and seizure, Psych: Negative for depression, anxiety, suicide ideation, homicidal ideation, and hallucinations, 16:31 Constitutional: Positive for poor PO intake, 16:31 Cardiovascular: Positive for chest pain, of the anterior aspect of right upper chest and mid-sternal area, 16:31 Respiratory: Positive for shortness of breath, at rest. worse with bending forward, Exam: 16:31 Constitutional: This is a well developed, well nourished patient who is awake, alert, snw and in no acute distress. Head/Face: Normocephalic, atraumatic. Eyes: Pupils equal round and reactive to light, extra-ocular motions intact. Lids and lashes normal. Conjunctiva and sclera are non-icteric and not injected. Cornea within normal limits. Periorbital areas with no swelling, redness, or edema. ENT: Nares patent. No nasal discharge, no septal abnormalities noted. Tympanic membranes are normal and external auditory canals are clear. Oropharynx with no redness, swelling, or masses, exudates, or evidence of obstruction, uvula midline. Mucous membranes moist. Neck: Trachea midline, no thyromegaly or masses palpated, and no cervical lymphadenopathy. Supple, full range of motion without nuchal rigidity, or vertebral point tenderness. No Meningismus. Chest/axilla: Normal chest wall appearance and motion. Nontender with no deformity. No lesions are appreciated. 16:31 Cardiovascular: Rate: actual rate is 98 bpm, Rhythm: regular, Pulses: pulse deficits are appreciated, Heart sounds: S3, 16:31 Respiratory: Lungs have equal breath sounds bilaterally, clear to auscultation and snw percussion. No rales, rhonchi or wheezes noted. No increased work of breathing, no retractions or nasal flaring. Abdomen/GI: Soft, non-tender, with normal bowel sounds. No distension or tympany. No guarding or rebound. No evidence of tenderness throughout. Back: No spinal tenderness. No costovertebral tenderness. Full range of motion. Skin: Warm, dry with normal turgor. Normal color with no rashes, no lesions, and no evidence of cellulitis. MS/ Extremity: Pulses equal, no cyanosis. Neurovascular intact. Full, normal range of motion. Neuro: Awake and alert, GCS 15, oriented to person, place, time, and situation. Cranial nerves II-XII grossly intact. Motor strength 5/5 in all extremities. Sensory grossly intact. Cerebellar exam normal. Normal gait. Psych: Awake, alert, with orientation to person, place and time. Behavior, mood, and affect are within normal limits. Vital Signs: 16:27 BP 126 / 78; Pulse 100; Resp 18; Temp 98; Pulse Ox 100% on R/A; Weight 60.33 kg; Height mb9 5 ft. 5 in. ; 17:00 BP 105 / 83; Pulse 92; Resp 15 S; Pulse Ox 99% on R/A; aa5 18:30 BP 108 / 70; Pulse 79; Resp 16; Pulse Ox 100% on R/A; jb4 16:27 Body Mass Index 22.13 (60.33 kg, 165.1 cm) mb9 MDM: 16:24 Patient medically screened. snw 16:26 Differential diagnosis: bacterial infection, gastritis, GERD. Data reviewed: vital snw signs, nurses notes. Counseling: I had a detailed discussion with the patient and/or guardian regarding the historical points, exam findings, and any diagnostic results supporting the discharge/admit diagnosis. ED course: HX og combined variable immune deficiency. 16:52 ED course: as pain increases with bending, considering GERD however as pt has snw immunodeficiency and is untreated per prescribed infusions, will need to consider bacterial cause, inflammatory cause. . 06/03 16:25 Order name: Blood Culture Adult (2) snw 06/03 16:25 Order name: CBC with Diff; Complete Time: 17:07 snw 06/03 16:25 Order name: CMP; Complete Time: 17:36 snw 06/03 16:25 Order name: Lactate w/ 2H reflex if indic.; Complete Time: 17:27 snw 06/03 16:25 Order name: Protime (+inr); Complete Time: 17:07 snw 06/03 16:25 Order name: Ptt, Activated; Complete Time: 17:07 snw 06/03 16:25 Order name: Troponin HS; Complete Time: 17:36 snw 06/03 16:25 Order name: CRP; Complete Time: 17:36 snw 06/03 16:25 Order name: Chest Single View XRAY; Complete Time: 17:27 snw 06/03 16:25 Order name: EKG; Complete Time: 16:26 snw 06/03 16:25 Order name: Cardiac monitoring; Complete Time: 16:50 snw 06/03 16:25 Order name: EKG - Nurse/Tech; Complete Time: 16:50 snw 06/03 16:25 Order name: IV Saline Lock - Large Bore; Complete Time: 16:50 snw 06/03 16:25 Order name: Labs collected and sent; Complete Time: 16:50 snw 06/03 16:25 Order name: O2 Per Protocol; Complete Time: 16:50 snw 06/03 16:25 Order name: O2 Sat Monitoring; Complete Time: 16:50 snw 06/03 16:25 Order name: Vital Signs; Complete Time: 16:50 snw EC:31 Rate is 91 beats/min. Rhythm is regular. [place] interval is normal. Clinical impression: snw NSR w/ Non-specific ST/T Changes and inverted p waves in aVR, aVL, V2. Administered Medications: 16:59 Drug: NS 0.9% IV (30 ml/kg) 30 ml/kg IV at bolus once; Sepsis Protocol Route: IV; Rate: aa5 bolus; Site: right forearm; 17:50 Drug: Potassium PO Effervescent Tablet 50 mEq PO once; dissolve in 4 ounces of water or rs5 juice Route: PO; Disposition Summary: 06/03/23 19:06 Discharge Ordered Notes: Location: Home snw Condition: Stable snw Diagnosis - Chest pain, unspecified snw - Gastro-esophageal reflux disease without esophagitis snw - Hypokalemia snw Followup: snw - With: Emergency Department - When: As needed - Reason: Worsening of condition Followup: snw - With: Private Physician - When: 2 - 3 days - Reason: Recheck today's complaints, Continuance of care, Re-evaluation by your physician Discharge Instructions: - Discharge Summary Sheet snw - Nonspecific Chest Pain, Adult snw - Food Choices for Gastroesophageal Reflux Disease, Adult snw - Potassium Content of Foods snw - Gastroesophageal Reflux Disease, Adult snw - Stress, Adult snw Forms: - Medication Reconciliation Form snw - Thank You Letter snw - Antibiotic Education snw - Prescription Opioid Use snw - Patient Portal Instructions snw - Leadership Thank You Letter snw Prescriptions: - Protonix 40 mg Oral Tablet - take 1 tablet ORAL route once daily; 30 tablet; Refills: 0, Product Selection snw Permitted Signatures: Dispatcher [employer] Kristina Gibson FNP-Fabio CIRCULAR SAW OPERATOR-Csnw Michaela Escalante, RN RN aa5 Hope Vallejo RN RN mb9 Marcus Armenta, RN RN rs5 Corrections: (The following items were deleted from the chart) 17:00 16:25 Accucheck ordered. snw aa5
[2023-06-03 20:02] VITALS: TEMP 98
[2023-06-03 20:53] VITALS: BP 108/70; O2SAT 100
--- NOTE | 2023-06-06 18:08 | EKG ---
Test Date: 2023-06-03 Test Time: 16:30:38 Pocketed [employer] Machine Operator: HB MEASUREMENT RESULTS: Intervals: Rate: 91 GA: 136 QRSD: 82 QT: 350 QTc: 430 Weiser: P: 79 GA: 136 QRS: 76 T: 58 INTERPRETIVE STATEMENTS: Normal sinus rhythm Possible Left atrial enlargement Borderline ECG No previous ECG available for comparison Electronically Signed On 06-06-23 18:06:27 CDT by Oliverio Whitaker
== END 2023-06-03 19:22 | disposition home or self-care (01) ==
LOC: ER 16:10
DX: K21.9 Gastro-esophageal reflux disease without esophagitis (principal); E87.6 Hypokalemia
CPT/HCPCS: 87040 ×2; 85025; 36415; 85610; 83605; 85730; 84484; 80053; 86140; 71045; 96374; 99285; J7030 ×2; 93005

== ENCOUNTER 2023-07-01 09:32 | Emergency (ER) | payer SELFPAY ==
--- OUTSIDE RECORDS SUMMARY | 2023-07-01 09:39 | XMS REPORT | Continuity of Care Document ---
:1980 Author Organization [facility] t Address [address] [facility] [address] [place] [id number] Care Team Providers Name Role Phone ROXANN HARVEY Primary Care Physician Unavailable RAYMUNDO SNOW Attending Clinician Unavailable CHANTE HANSEN Attending Clinician Unavailable Chante Hansen MD Attending Clinician Wade Vaughn DO Attending Clinician Therapy, [facility] Covid Infusion Attending Clinician Unavailable Roberta Leblanc MD Attending Clinician ROBERTA LEBLANC Attending Clinician Unavailable Doctor Unassigned, [place] Attending Clinician Unavailable Solomon Morales Attending Clinician Jodie Burch Attending Clinician Abhijit Blair MD Attending Clinician Charly Meza Attending Clinician CHANTE HANSEN Admitting Clinician Unavailable Payers Payer Name Policy Type Policy Number Effective Date Expiration Date S kapil BCBS 2 [id number] 2022 00:00:00 BCBS JOINT VENTURE [facility] [place] [facility] - [id number] 2021 00:00:00 OUT OF STATE Problems Condition [...] Exposure to Not sure University of SARS-CoV-2 [place] Medical (event) Branch Alcohol intake 2022-08-24 2022-08-24 Lifetime Araclei Sykes bold - 00:00:00 00:00:00 non-drinker External (finding) Tobacco use and 2021-04-22 2021-04-22 Never used Universit y of exposure 00:00:00 00:00:00 [facility] Sex Assigned At [birth year] Araceli Balderas [...] 53 times Externa daily l Amoxicillin Yes [id number] 1{tbl} Take 1 Araceli -Pot 1-10 tablet by donnie Clavulanate 00:00: mouth 2 - 875-125 MG 00 times Externa oral Tablet daily l Albuterol Yes [id number] 2{puff} Q.25D Inhale 2 Araceli HFA 108 (90 1-10 puffs into [employer]) 00:00: the lungs - MCG/ACT IN 00 every 6 [employer] a AERS hours as l needed for wheezing or shortness of breath Azithromyci 2022- No [id number] Take 2 Araceli n 250 MG 1-10 [...] of Therapy: Other (see Comments) amoxicillin Yes [id number] 500mg Take 1 Univers 500 mg -06 capsule by ity of capsule 00:00: mouth 3 [place] 00 (three) Medical times Branch daily. doxycycline 2021- No [id number] 100mg Take 1 Univers hyclate 100 08-20 capsule by i ty of mg capsule 00:00: 05:59 mouth 2 [place] 00 :00 (two) Medical times Branch daily for 10 days. ondansetron 2020- No 4mg 4 mg, [facility] ers (ZOFRAN-ODT 04-22 Oral, ity of ) 14:45: 13:45 ONCE, 1 [place] disintegrat 00 :00 dose, Wed Med ical ing tablet 04/22/21 at Bran ch 4 mg 0945, Routine ondansetron 2020- No 4mg 4 mg, [facility] ers (ZOFRAN-ODT 04-22 Oral, ity of ) 14:45: 13:45 ONCE, 1 [place] disintegrat 00 :00 dose, Wed Med ical ing tablet 04/22/21 at Bran ch 4 mg 0945, Routine ondansetron Yes [id number] 4mg Take 1 Univers (ZOFRAN) 4 9-08 tablet by ity of mg tablet 00:00: mouth [place] 00 every 8 Medical (eight) Branch hours as needed for Nausea and Vomiting (N/V). benzonatate Yes [id number] 100mg Take 1 Univers 100 mg 9-08 capsule by ity of capsule 00:00: mouth 3 [place] 00 (three) Medical times Branch daily as needed for Cough. ondansetron Yes [id number] 4mg Take 1 Univers (ZOFRAN) 4 9-08 tablet by ity of mg tablet 00:00: mouth [place] 00 every 8 Medical (eight) Branch hours as needed for Nausea and Vomiting (N/V). benzonatate Yes [id number] 100mg Take 1 Univers 100 mg 9-08 capsule by ity of capsule 00:00: mouth 3 [place] 00 (three) Medical times Branch daily as needed for Cough. ondansetron Yes [id number] 4mg Take 1 Univers (ZOFRAN) 4 9-08 tablet by ity of mg tablet 00:00: mouth [place] 00 every 8 Medical (eight) Branch hours as needed for Nausea and Vomiting (N/V). benzonatate Yes [id number] 100mg Take 1 Univers 100 mg 9-08 capsule by ity of capsule 00:00: mouth 3 [place] 00 (three) Medical times Branch daily as needed for Cough. casirivimab 2020- No [id number] 1200mg 1,200 mg, Univers -imdevimab 04-21 Subcutaneo it y of (REGEN-COV 22:45: 21:33 [place], ONCE, [place] (EUA[place] 00 :00 1 dose, Medical injection 04/21/21 Bran ch 1,200 mg at 1745, Routine casirivimab 2020- No [id number] 1200mg 1,200 mg, Univers -imdevimab 04-21 Subcutaneo [...] 00 :00 dose, Sat Medical 04/18/21 at [place] [address], CESILIA acetaminoph 0 2020- No 1000mg 1,000 mg, Univers en 04-18 Oral, ity of (TYLENOL) 17:00: 16:44 ONCE, 1 [place] tablet 00 :[place] dose, Sat Medical 1,000 mg 04/18/21 at [place] [address], Routine benzonatate 2020- No 100mg 100 mg, U nivers (TESSALON 04-18 Oral, ity of PERLES) 17:00: 16:44 ONCE, 1 [place] capsule 100 00 :00 dose, Sat Med ical mg 04/18/21 at [place] [address], Routine albuterol 2020-2020- No 6{puff} 6 Puff, U nivers (VENTOLIN) 04-18 Inhalation it y of inhaler 6 17:00: 16:39 , ONCE, 1 [place] Puff 00 :00 dose, Sat Medical 04/18/21 at [place] [address], CESILIA benzonatate 2020-0 Yes [id number] 100mg Take 1 Univers 100 mg 9-04 capsule by ity of capsule 00:00: mouth 3 [place] 00 (three) Medical times Branch daily as needed for Cough. benzonatate 2020-0 Yes [id number] 100mg Take 1 [facility] 100 mg 9-04 capsule by ity of capsule 00:00: mouth 3 [place] 00 (three) Medical times Branch daily as needed for Cough. benzonatate 2020-0 Yes [id number] 100mg Take 1 Univers 100 mg 9-04 capsule by ity of capsule 00:00: mouth 3 [place] 00 (three) Medical times Branch daily as needed for Cough. benzonatate 2020-0 Yes [id number] 100mg Take 1 Univers 100 mg 9-04 capsule by ity of capsule 00:00: mouth 3 [place] 00 (three) Medical times Branch daily as needed for Cough. benzonatate 2020-0 202- No [id number] 100mg Take 1 Univers 100 mg 9-04 -08 capsule by ity of capsule 00:00: 00:00 mouth 3 [place] 00 :00 (three) [facility] times [place] daily as needed for Cough. benzonatate 2020- No [id number] 100mg Take 1 Univers 100 mg 04-18 capsule by ity of capsule 00:00: 00:00 mouth 3 [place] 00 :00 (three) [facility] daily as needed for Cough. methylpredn 2020- No 125mg 125 mg, IV Univers isolone sod 12-09 Piggyback, i ty of succ 02:45: 01:40 ONCE, 1 [place] (SOLU-MEDRO 00 :00 dose, Mon Med ical L) 12/08/20 at [place] injection 2145, STAT 125 mg codeine-gua 2020- No 10mL 10 mL, Uni vers ifenesin 12-09 Oral, ity of (ROBITUSSIN 02:00: 01:39 ONCE, 1 [place] AC) 10-100 00 :00 dose, Mon Medi stevenson mg/5 mL 12/08/20 at [place] solution 10 2100, CESILIA mL benzonatate Yes [id number] 200mg Take 1 Univers 200 mg 4-26 capsule by ity of capsule 00:00: mouth 3 [place] [address] (three) [facility] daily as needed for Cough for up to 20 doses. predniSONE Yes [id number] 1 PO BID x Univers 20 mg 4-26 4 days ity of tablet 00:00: [address] predniSONE 2020-0 Yes [id number] 1 PO BID x Univers 20 mg 4-26 4 days ity of tablet 00:00: [address] predniSONE 2020-0 Yes [id number] 1 PO BID x Univers 20 mg 4-26 4 days ity of tablet 00:00: [address] benzonatate 2020-0 Yes [id number] 200mg Take 1 Univers 200 mg 4-26 capsule by ity of capsule 00:00: mouth 3 [place] 00 (three) [facility] daily as needed for Cough for up to 20 doses. predniSONE 2020- Yes [id number] 1 PO BID x Univers 20 mg 4-26 4 days ity of tablet 00:00: [address] benzonatate 2020-0 Yes [id number] 200mg Take 1 Univers 200 mg 4-26 capsule by ity of capsule 00:00: mouth 3 [place] (three) Medical times Branch daily as needed for Cough for up to 20 doses. predniSONE 2020-0 Yes [id number] 1 PO BID x Univers 20 mg 4-26 4 days ity of tablet 00:00: [facility] Branch benzonatate 2020-0 Yes [id number] 200mg Take 1 Univers 200 mg 4-26 capsule by ity of capsule 00:00: mouth 3 [place] (three) Medical times Branch daily as needed for Cough for up to 20 doses. predniSONE 2020-0 Yes [id number] 1 PO BID x Univers 20 mg 4-26 4 days ity of tablet 00:00: [facility] predniSONE 2020-0 Yes [id number] 1 PO BID x Univers 20 mg 4-26 4 days ity of tablet 00:00: [facility] predniSONE 2020-0 Yes [id number] 1 PO BID x Univers 20 mg 4-26 4 days ity of tablet 00:00: [place] [facility] Branch predniSONE 2020-0 Yes [id number] 1 PO BID x Univers 20 mg 4-26 4 days ity of tablet 00:00: [facility] benzonatate 2020-0 Yes [id number] 200mg Take 1 Univers 200 mg 4-26 capsule by ity of capsule 00:00: mouth 3 [place] (three) Medical times Branch daily as needed for Cough for up to 20 doses. predniSONE 0 Yes [id number] 1 PO BID x Univers 20 mg 4-26 4 days ity of tablet 00:00: [facility] Branch benzonatate 2020-2020- No [id number] 200mg Take 1 Univers 200 mg 4-26 -08 capsule by ity of capsule 00:00: 00:00 mouth 3 [place] 00 :00 (three) Medical times Branch daily as needed for Cough for up to 20 doses. benzonatate 2020-0 2020- No [id number] 200mg Take 1 Univers 200 mg 4-26 -08 capsule by ity of capsule 00:00: 00:00 mouth 3 [place] 00 :00 (three) Medical times Branch daily [...] Med ical ) tablet 50 09/15/20 at [facility] mg 0600, [place] ondansetron 2020- No [...] Until Discontinu ed, [place] meclizine 0 Yes [id number] 25mg Take 1 U nivers 25 mg 2-01 tablet by ity of tablet 00:00: mouth 3 00 (three) Medical times Branch daily as needed for Dizziness. ondansetron 0 Yes [id number] 4mg Take 1 Univers (ZOFRAN) 4 2-01 tablet by ity of mg tablet 00:00: mouth [place] 00 every 8 Medical (eight) Branch hours as needed for Nausea and Vomiting (N/V). meclizine 2020-0 Yes [id number] 25mg Take 1 U nivers 25 mg 2-01 tablet by ity of tablet 00:00: mouth 3 00 (three) Medical times Branch daily as needed for Dizziness. meclizine 2020-0 Yes [id number] 25mg Take 1 U nivers 25 mg 2-01 tablet by ity of tablet 00:00: mouth 3 [place] 00 (three) Medical times Branch daily as needed for Dizziness. meclizine 2020-0 Yes [id number] 25mg Take 1 U nivers 25 mg 2-01 tablet by ity of tablet 00:00: mouth 3 [place] 00 (three) Medical times Branch daily as needed for Dizziness. ondansetron 2020-0 Yes [id number] 4mg Take 1 Univers (ZOFRAN) 4 2-01 tablet by ity of mg tablet 00:00: mouth [place] 00 every 8 Medical (eight) Branch hours as needed for Nausea and Vomiting (N/V). meclizine 2020-0 Yes [id number] 25mg Take 1 U nivers 25 mg 2-01 tablet by ity of tablet 00:00: mouth 3 [place] 00 (three) Medical times Branch daily as needed for Dizziness. ondansetron 2020-0 Yes [id number] 4mg Take 1 Univers (ZOFRAN) 4 2-01 tablet by ity of mg tablet 00:00: mouth [place] 00 every 8 Medical (eight) Branch hours as needed for Nausea and Vomiting (N/V). meclizine 2020-0 Yes [id number] 25mg Take 1 U nivers 25 mg 2-01 tablet by ity of tablet 00:00: mouth 3 00 (three) Medical times Branch daily as needed for Dizziness. ondansetron 2020-0 Yes [id number] 4mg Take 1 Univers (ZOFRAN) 4 2-01 tablet by ity of mg tablet 00:00: mouth [place] 00 every 8 Medical (eight) Branch hours as needed for Nausea and Vomiting (N/V). meclizine 2020-0 Yes [id number] 25mg Take 1 U nivers 25 mg 2-01 tablet by ity of tablet 00:00: mouth 3 00 (three) Medical times Branch daily as needed for Dizziness. ondansetron 2020-0 Yes [id number] 4mg Take 1 Univers (ZOFRAN) 4 2-01 tablet by ity of mg tablet 00:00: mouth [place] 00 every 8 Medical (eight) Branch hours as needed for Nausea and Vomiting (N/V). meclizine 2021-0 Yes [id number] 25mg Take 1 U nivers 25 mg 2-01 tablet by ity of tablet 00:00: mouth 3 [place] 00 (three) Medical times Branch daily as needed for Dizziness. meclizine 2021-0 Yes [id number] 25mg Take 1 U nivers 25 mg 2-01 tablet by ity of tablet 00:00: mouth 3 00 (three) Medical times Branch daily as needed for Dizziness. meclizine 2020-0 Yes [id number] 25mg Take 1 U nivers 25 mg 2-01 tablet by ity of tablet 00:00: mouth 3 00 (three) Medical times Branch daily as needed for Dizziness. meclizine 2020-0 Yes [id number] 25mg Take 1 U nivers 25 mg 2-01 tablet by ity of tablet 00:00: mouth 3 00 (three) Medical times Branch daily as needed for Dizziness. ondansetron Yes [id number] 4mg Take 1 Univers (ZOFRAN) 4 2- tablet by ity of mg tablet 00:00: mouth [place] 00 every 8 Medical (eight) Branch hours as needed for Nausea and Vomiting (N/V). ondansetron 2020- No [id number] 4mg Take 1 Univers (ZOFRAN) 4 -08 23-08 tablet by ity of mg tablet 00:00: 00:00 mouth [place] 00 :00 every 8 Medical (eight) Branch hours as needed for Nausea and Vomiting (N/V). ondansetron 2020- No [id number] 4mg Take 1 Univers (ZOFRAN) 4 09-15- [...] at Branch 0015, STAT levoFLOXaci 2020-0 Yes [id number] 750mg Take 1 Univers n 750 mg 8-01 tablet by ity of tablet 00:00: mouth [place] 00 every 24 Medical (twenty-fo Branch ur) hours. ketorolac 2020-0 Yes [id number] 10mg Take 1 [place] 10 mg 8-01 tablet by ity of tablet 00:00: mouth [place] 00 every 6 Medical (six) Branch hours as needed for Pain (scale 7-10). levoFLOXaci 2020-0 Yes [id number] 750mg Take 1 Univers n 750 mg 8-01 tablet by ity of tablet 00:00: mouth [place] 00 every 24 Medical (twenty-fo Branch ur) hours. ketorolac 2020-0 Yes [id number] 10mg Take 1 Un [place] 10 mg 8-01 tablet by ity of tablet 00:00: mouth [place] 00 every 6 Medical (six) Branch hours as needed for Pain (scale 7-10). levoFLOXaci 2020-0 Yes [id number] 750mg Take 1 Univers n 750 mg 8-01 tablet by ity of tablet 00:00: mouth [place] 00 every 24 Medical (twenty-fo Branch ur) hours. ketorolac 2020-0 Yes [id number] 10mg Take 1 Un [place] 10 mg 8-01 tablet by ity of tablet 00:00: mouth [place] 00 every 6 Medical (six) Branch hours as needed for Pain (scale 7-10). levoFLOXaci 2020-0 Yes [id number] 750mg Take 1 Univers n 750 mg 8-01 tablet by ity of tablet 00:00: mouth [place] 00 every 24 Medical (twenty-fo Branch ur) hours. ketorolac 2020-0 Yes [id number] 10mg Take 1 Un [place] 10 mg 8-01 tablet by ity of tablet 00:00: mouth [place] 00 every 6 Medical (six) Branch hours as needed for Pain (scale 7-10). levoFLOXaci 2020-0 Yes [id number] 750mg Take 1 Univers n 750 mg 8-01 tablet by ity of tablet 00:00: mouth [place] 00 every 24 Medical (twenty-fo Branch ur) hours. ketorolac 2020-0 Yes [id number] 10mg Take 1 Un [place] 10 mg 8-01 tablet by ity of tablet 00:00: mouth [place] 00 every 6 Medical (six) Branch hours as needed for Pain (scale 7-10). levoFLOXaci 2020-0 Yes [id number] 750mg Take 1 Univers n 750 mg 8-01 tablet by ity of tablet 00:00: mouth [place] 00 every 24 Medical (twenty-fo Branch ur) hours. ketorolac 2020-0 Yes [id number] 10mg Take 1 Un [place] 10 mg 8-01 tablet by ity of tablet 00:00: mouth [place] 00 every 6 Medical (six) Branch hours as needed for Pain (scale 7-10). levoFLOXaci 2020-0 Yes [id number] 750mg Take 1 Univers n 750 mg 8-01 tablet by ity of tablet 00:00: mouth [place] 00 every 24 Medical (twenty-fo Branch ur) hours. ketorolac 2020-0 Yes [id number] 10mg Take 1 Un [place] 10 mg 8-01 tablet by ity of tablet 00:00: mouth [place] 00 every 6 Medical (six) Branch hours as needed for Pain (scale 7-10). levoFLOXaci 2020-0 Yes [id number] 750mg Take 1 Univers n 750 mg 8-01 tablet by ity of tablet 00:00: mouth [place] 00 every 24 Medical (twenty-fo Branch ur) hours. ketorolac 2020-0 Yes [id number] 10mg Take 1 Un [place] 10 mg 8-01 tablet by ity of tablet 00:00: mouth [place] 00 every 6 Medical (six) Branch hours as needed for Pain (scale 7-10). levoFLOXaci 2020-0 Yes [id number] 750mg Take 1 Univers n 750 mg 8-01 tablet by ity of tablet 00:00: mouth [place] 00 every 24 Medical (twenty-fo Branch ur) hours. ketorolac 2020-0 Yes [id number] 10mg Take 1 Un [place] 10 mg 8-01 tablet by ity of tablet 00:00: mouth [place] 00 every 6 Medical (six) Branch hours as needed for Pain (scale 7-10). levoFLOXaci 2020-0 Yes [id number] 750mg Take 1 Univers n 750 mg 8-01 tablet by ity of tablet 00:00: mouth [place] 00 every 24 Medical (twenty-fo Branch ur) hours. ketorolac 2020-0 Yes [id number] 10mg Take 1 Un [place] 10 mg 8-01 tablet by ity of tablet 00:00: mouth [place] 00 every 6 Medical (six) Branch hours as needed for Pain (scale 7-10). levoFLOXaci 2020-0 Yes [id number] 750mg Take 1 Univers n 750 mg 8-01 tablet by ity of tablet 00:00: mouth [place] 00 every 24 Medical (twenty-fo Branch ur) hours. ketorolac 2020-0 Yes [id number] 10mg Take 1 [place] 10 mg 8-01 tablet by ity of tablet 00:00: mouth [place] 00 every 6 Medical (six) Branch hours as needed for Pain (scale 7-10). levoFLOXaci 2020-0 Yes [id number] 750mg Take 1 Univers n 750 mg 8-01 tablet by ity of tablet 00:00: mouth [place] 00 every 24 Medical (twenty-fo Branch ur) hours. ketorolac 2020-0 Yes [id number] 10mg Take 1 Un [place] 10 mg 8-01 tablet by ity of tablet 00:00: mouth [place] 00 every 6 Medical (six) Branch hours as needed for Pain (scale 7-10). levoFLOXaci 2020-0 2020- No [id number] 750mg Take 1 Univers n 750 mg 8-01 08-01 tablet by ity o f tablet 00:00: 00:00 mouth [place] 00 :00 every 24 Medical (twenty-fo Branch ur) hours for 5 days. ondansetron 2018-08 Yes [id number] 4mg Take 1 Univers 4 mg 1-05 tablet by ity of disintegrat 00:00: mouth [place] ing tablet 00 every 4 Medica l (four) Branch hours as needed for Nausea and Vomiting (N/V). ondansetron 2018-08 Yes [id number] 4mg Take 1 Univers 4 mg 1-05 tablet by ity of disintegrat 00:00: mouth [place] ing tablet 00 every 4 Medica l (four) Branch hours as needed for Nausea and Vomiting (N/V). ondansetron 2018-08 Yes [id number] 4mg Take 1 Univers 4 mg 1-05 tablet by ity of disintegrat 00:00: mouth [place] ing tablet 00 every 4 Medica l (four) Branch hours as needed for Nausea and Vomiting (N/V). ondansetron 2018-08 Yes [id number] 4mg Take 1 Univers 4 mg 1-05 tablet by ity of disintegrat 00:00: mouth [place] ing tablet 00 every 4 Medica l (four) Branch hours as needed for Nausea and Vomiting (N/V). Nitrofurant 2018-08 Yes [id number] 100mg Take 1 Univers oin&Nit. 1-05 capsule by ity o f Macrocryst 00:00: mouth 2 [place] (MACROBID) 00 (two) Medical 100 mg times Branch capsule daily. ondansetron 2018-08 Yes [id number] 4mg Take 1 Univers 4 mg 1-05 tablet by ity of disintegrat 00:00: mouth [place] ing tablet 00 every 4 Medica l (four) Branch hours as needed for Nausea and Vomiting (N/V). ondansetron 2018-08 Yes [id number] 4mg Take 1 Univers 4 mg 1-05 tablet by ity of disintegrat 00:00: mouth [place] ing tablet 00 every 4 Medica l (four) Branch hours as needed for Nausea and Vomiting (N/V). ondansetron 2018-08 Yes [id number] 4mg Take 1 Univers 4 mg 1-05 tablet by ity of disintegrat 00:00: mouth [place] ing tablet 00 every 4 Medica l (four) Branch hours as needed for Nausea and Vomiting (N/V). ondansetron 2018-08 Yes [id number] 4mg Take 1 Univers 4 mg 1-05 tablet by ity of disintegrat 00:00: mouth [place] ing tablet 00 every 4 Medica l (four) Branch hours as needed for Nausea and Vomiting (N/V). ondansetron 2018-08 Yes [id number] 4mg Take 1 Univers 4 mg 1-05 tablet by ity of disintegrat 00:00: mouth [place] ing tablet 00 every 4 Medica l (four) Branch hours as needed for Nausea and Vomiting (N/V). ondansetron 2018-08 Yes [id number] 4mg Take 1 Univers 4 mg 1-05 tablet by ity of disintegrat 00:00: mouth [place] ing tablet 00 every 4 Medica l (four) Branch hours as needed for Nausea and Vomiting (N/V). ondansetron 2018-08 Yes [id number] 4mg Take 1 Univers 4 mg 1-05 tablet by ity of disintegrat 00:00: mouth [place] ing tablet 00 every 4 Medica l (four) Branch hours as needed for Nausea and Vomiting (N/V). ondansetron 2018-08 Yes [id number] 4mg Take 1 Univers 4 mg 1-05 tablet by ity of disintegrat 00:00: mouth [place] ing tablet 00 every 4 Medica l (four) Branch hours as needed for Nausea and Vomiting (N/V). ondansetron 2018-08 Yes [id number] 4mg Take 1 Univers 4 mg 1-05 tablet by ity of disintegrat 00:00: mouth [place] ing tablet 00 every 4 Medica l (four) Branch hours as needed for Nausea and Vomiting (N/V). Nitrofurant 2018-08 2020- No [id number] 100mg Take 1 Univers oin&Nit. 1-05 - capsule by ity of [place] 00:00: 00:00 mouth 2 [place] (MACROBID) 00 :00 (two) Medical 100 mg times Branch capsule daily. cyclobenzap 2019- Yes [id number] 5mg Take 1 Univers rine 5 mg 4-26 tablet by ity o f tablet 00:00: mouth 3 00 (three) Medical times Branch daily. LORazepam 2019- Yes [id number] 1mg Take 1 U nivers (ATIVAN) 1 4-26 tablet by ity of mg tablet 00:00: mouth 3 00 (three) Medical times Branch daily as needed for Anxiety or Agitation (muscle spasm). traMADOL 2018- Yes [id number] 50mg Take 1 [place] (ULTRAM) 50 4-26 tablet by ity of mg tablet 00:00: mouth [place] 00 every 6 Medical (six) Branch hours as needed for Pain (scale 4-6). cyclobenzap 2019-0 Yes [id number] 5mg Take 1 Univers rine 5 mg 4-26 tablet by ity o f tablet 00:00: mouth 3 (three) Medical times Branch daily. LORazepam 2019-0 Yes [id number] 1mg Take 1 U nivers (ATIVAN) 1 4-26 tablet by ity of mg tablet 00:00: mouth 3 (three) Medical times Branch daily as needed for Anxiety or Agitation (muscle spasm). traMADOL 2019-0 Yes [id number] 50mg Take 1 [place] (ULTRAM) 50 4-26 tablet by ity of mg tablet 00:00: mouth [place] 00 every 6 Medical (six) Branch hours as needed for Pain (scale 4-6). cyclobenzap 2019-0 Yes [id number] 5mg Take 1 Univers rine 5 mg 4-26 tablet by ity o f tablet 00:00: mouth (three) Medical times Branch daily. LORazepam 2019-0 Yes [id number] 1mg Take 1 U nivers (ATIVAN) 1 4-26 tablet by ity of mg tablet 00:00: mouth (three) Medical times Branch daily as needed for Anxiety or Agitation (muscle spasm). traMADOL 2019-0 Yes [id number] 50mg Take 1 Un [place] (ULTRAM) 50 4-26 tablet by ity of mg tablet 00:00: mouth [place] 00 every 6 Medical (six) Branch hours as needed for Pain (scale 4-6). cyclobenzap 2019-0 Yes [id number] 5mg Take 1 Univers rine 5 mg 4-26 tablet by ity o f tablet 00:00: mouth 3 (three) Medical times Branch daily. LORazepam 2019-0 Yes [id number] 1mg Take 1 U nivers (ATIVAN) 1 4-26 tablet by ity of mg tablet 00:00: mouth 3 00 (three) Medical times Branch daily as needed for Anxiety or Agitation (muscle spasm). traMADOL 2019-0 Yes [id number] 50mg Take 1 Un [place] (ULTRAM) 50 4-26 tablet by ity of mg tablet 00:00: mouth [place] 00 every 6 Medical (six) Branch hours as needed for Pain (scale 4-6). cyclobenzap 2019-0 Yes [id number] 5mg Take 1 Univers rine 5 mg 4-26 tablet by ity o f tablet 00:00: mouth 3 00 (three) Medical times Branch daily. LORazepam 2019-0 Yes [id number] 1mg Take 1 U nivers (ATIVAN) 1 4-26 tablet by ity of mg tablet 00:00: mouth 3 [place] 00 (three) Medical times Branch daily as needed for Anxiety or Agitation (muscle spasm). traMADOL 2019-0 Yes [id number] 50mg Take 1 Un [place] (ULTRAM) 50 4-26 tablet by ity of mg tablet 00:00: mouth [place] 00 every 6 Medical (six) Branch hours as needed for Pain (scale 4-6). cyclobenzap 2019-0 Yes [id number] 5mg Take 1 Univers rine 5 mg 4-26 tablet by ity o f tablet 00:00: mouth 3 (three) Medical times Branch daily. LORazepam 2019-0 Yes [id number] 1mg Take 1 U nivers (ATIVAN) 1 4-26 tablet by ity of mg tablet 00:00: mouth 3 (three) Medical times Branch daily as needed for Anxiety or Agitation (muscle spasm). traMADOL 2019-0 Yes [id number] 50mg Take 1 [place] (ULTRAM) 50 4-26 tablet by ity of mg tablet 00:00: mouth [place] 00 every 6 Medical (six) Branch hours as needed for Pain (scale 4-6). cyclobenzap 2019-0 Yes [id number] 5mg Take 1 Univers rine 5 mg 4-26 tablet by ity o f tablet 00:00: mouth 3 (three) Medical times Branch daily. LORazepam 2019-0 Yes [id number] 1mg Take 1 U nivers (ATIVAN) 1 4-26 tablet by ity of mg tablet 00:00: mouth 3 00 (three) Medical times Branch daily as needed for Anxiety or Agitation (muscle spasm). traMADOL 2019-0 Yes [id number] 50mg Take 1 [place] (ULTRAM) 50 4-26 tablet by ity of mg tablet 00:00: mouth [place] 00 every 6 Medical (six) Branch hours as needed for Pain (scale 4-6). cyclobenzap 2019-0 Yes [id number] 5mg Take 1 Univers rine 5 mg 4-26 tablet by ity o f tablet 00:00: mouth 3 (three) Medical times Branch daily. LORazepam 2019-0 Yes [id number] 1mg Take 1 U nivers (ATIVAN) 1 4-26 tablet by ity of mg tablet 00:00: mouth 3 (three) Medical times Branch daily as needed for Anxiety or Agitation (muscle spasm). traMADOL 2019-0 Yes [id number] 50mg Take 1 [place] (ULTRAM) 50 4-26 tablet by ity of mg tablet 00:00: mouth [place] 00 every 6 Medical (six) Branch hours as needed for Pain (scale 4-6). cyclobenzap 2019-0 Yes [id number] 5mg Take 1 Univers rine 5 mg 4-26 tablet by ity o f tablet 00:00: mouth (three) Medical times Branch daily. LORazepam 2019-0 Yes [id number] 1mg Take 1 U nivers (ATIVAN) 1 4-26 tablet by ity of mg tablet 00:00: mouth (three) Medical times Branch daily as needed for Anxiety or Agitation (muscle spasm). traMADOL 2019-0 Yes [id number] 50mg Take 1 Un merlyn (ULTRAM) 50 4-26 tablet by ity of mg tablet 00:00: mouth [place] 00 every 6 Medical (six) Branch hours as needed for Pain (scale 4-6). cyclobenzap 2019-0 Yes [id number] 5mg Take 1 Univers rine 5 mg 4-26 tablet by ity o f tablet 00:00: mouth (three) Medical times Branch daily. LORazepam 2019-0 Yes [id number] 1mg Take 1 U nivers (ATIVAN) 1 4-26 tablet by ity of mg tablet 00:00: mouth (three) Medical times Branch daily as needed for Anxiety or Agitation (muscle spasm). traMADOL 2019-0 Yes [id number] 50mg Take 1 Un merlyn (ULTRAM) 50 4-26 tablet by ity of mg tablet 00:00: mouth [place] 00 every 6 Medical (six) Branch hours as needed for Pain (scale 4-6). cyclobenzap 2019-0 Yes [id number] 5mg Take 1 Univers rine 5 mg 4-26 tablet by ity o f tablet 00:00: mouth 3 (three) Medical times Branch daily. LORazepam 2019-0 Yes [id number] 1mg Take 1 U nivers (ATIVAN) 1 4-26 tablet by ity of mg tablet 00:00: mouth (three) Medical times Branch daily as needed for Anxiety or Agitation (muscle spasm). traMADOL 2019-0 Yes [id number] 50mg Take 1 Un [facility] (ULTRAM) 50 4-26 tablet by ity of mg tablet 00:00: mouth [place] every 6 Medical (six) Branch hours as needed for Pain (scale 4-6). cyclobenzap 2019-0 Yes [id number] 5mg Take 1 Univers rine 5 mg 4-26 tablet by ity o f tablet 00:00: mouth (three) Medical times Branch daily. LORazepam 2019-0 Yes [id number] 1mg Take 1 U nivers (ATIVAN) 1 4-26 tablet by ity of mg tablet 00:00: mouth (three) Medical times Branch daily as needed for Anxiety or Agitation (muscle spasm). traMADOL 2019-0 Yes [id number] 50mg Take 1 Un mer[facility] (ULTRAM) 50 4-26 tablet by ity of mg tablet 00:00: mouth [place] every 6 Medical (six) Branch hours as needed for Pain (scale 4-6). cyclobenzap 2019-0 Yes [id number] 5mg Take 1 Univers rine 5 mg 4-26 tablet by ity o f tablet 00:00: mouth (three) Medical times Branch daily. LORazepam 2019-0 Yes [id number] 1mg Take 1 U nivers (ATIVAN) 1 4-26 tablet by ity of mg tablet 00:00: mouth (three) Medical times Branch daily as needed for Anxiety or Agitation (muscle spasm). traMADOL 2019-0 Yes [id number] 50mg Take 1 Un [facility] (ULTRAM) 50 4-26 tablet by ity of mg tablet 00:00: mouth [place] every 6 Medical (six) Branch hours as needed for Pain (scale 4-6). acetaminoph 2019-0 Yes [id number] 1{tbl} Take 1 Univers en-codeine 2-07 tablet by ity of (TYLENOL-CO 00:00: mouth [place] DEINE #3) 00 every 4 Medical 300-30 mg (four) Branch tablet hours as needed for Pain (scale 7-10). acetaminoph 2019-0 Yes [id number] 1{tbl} Take 1 Univers en-codeine 2-07 tablet by ity of (TYLENOL-CO 00:00: mouth [place] DEINE #3) 00 every 4 Medical 300-30 mg (four) Branch tablet hours as needed for Pain (scale 7-10). levoFLOXaci 2018-0 Yes [id number] 750mg Take 1 Univers n 2-07 tablet by ity of (LEVAQUIN) 00:00: mouth [place] 750 mg 00 every 24 Medical tablet (twenty-fo Branch ur) hours. benzonatate Yes [id number] 200mg Take 1 Univers 200 mg 2-07 capsule by ity of capsule 00:00: mouth 3 [place] 00 (three) Medical times Branch daily as needed for Cough. acetaminoph Yes [id number] 1{tbl} Take 1 Univers en-codeine 2-07 tablet by ity of (TYLENOL-CO 00:00: mouth [place] DEINE #3) 00 every 4 Medical 300-30 mg (four) Branch tablet hours as needed for Pain (scale 7-10). benzonatate 0 Yes [id number] 200mg Take 1 Univers 200 mg 2-07 capsule by ity of capsule 00:00: mouth 3 [place] 00 (three) Medical times Branch daily as needed for Cough. acetaminoph 0 Yes [id number] 1{tbl} Take 1 Univers en-codeine 2-07 tablet by ity of (TYLENOL-CO 00:00: mouth [place] DEINE #3) 00 every 4 Medical 300-30 mg (four) Branch tablet hours as needed for Pain (scale 7-10). benzonatate 2018-0 Yes [id number] 200mg Take 1 Univers 200 mg 2-07 capsule by ity of capsule 00:00: mouth 3 [place] 00 (three) Medical times Branch daily as needed for Cough. acetaminoph 2019-0 Yes [id number] 1{tbl} Take 1 Univers en-codeine 2-07 tablet by ity of (TYLENOL-CO 00:00: mouth [place] DEINE #3) 00 every 4 Medical 300-30 mg (four) Branch tablet hours as needed for Pain (scale 7-10). acetaminoph Yes [id number] 1{tbl} Take 1 Univers en-codeine 2-07 tablet by ity of (TYLENOL-CO 00:00: mouth [place] DEINE #3) 00 every 4 Medical 300-30 mg (four) Branch tablet hours as needed for Pain (scale 7-10). acetaminoph Yes [id number] 1{tbl} Take 1 Univers en-codeine 2-07 tablet by ity of (TYLENOL-CO 00:00: mouth [place] DEINE #3) 00 every 4 Medical 300-30 mg (four) Branch tablet hours as needed for Pain (scale 7-10). acetaminoph Yes [id number] 1{tbl} Take 1 Univers en-codeine 2-07 tablet by ity of (TYLENOL-CO 00:00: mouth [place] DEINE #3) 00 every 4 Medical 300-30 mg (four) Branch tablet hours as needed for Pain (scale 7-10). acetaminoph Yes [id number] 1{tbl} Take 1 Univers en-codeine 2-07 tablet by ity of (TYLENOL-CO 00:00: mouth [place] DEINE #3) 00 every 4 Medical 300-30 mg (four) Branch tablet hours as needed for Pain (scale 7-10). acetaminoph Yes [id number] 1{tbl} Take 1 Univers en-codeine 2-07 tablet by ity of (TYLENOL-CO 00:00: mouth [place] DEINE #3) 00 every 4 Medical 300-30 mg (four) Branch tablet hours as needed for Pain (scale 7-10). acetaminoph Yes [id number] 1{tbl} Take 1 Univers en-codeine 2-07 tablet by ity of (TYLENOL-CO 00:00: mouth [place] DEINE #3) 00 every 4 Medical 300-30 mg (four) Branch tablet hours as needed for Pain (scale 7-10). acetaminoph Yes [id number] 1{tbl} Take 1 Univers en-codeine 2-07 tablet by ity of (TYLENOL-CO 00:00: mouth [place] DEINE #3) 00 every 4 Medical 300-30 mg (four) Branch tablet hours as needed for Pain (scale 7-10). acetaminoph Yes [id number] 1{tbl} Take 1 Univers en-codeine 2-07 tablet by ity of (TYLENOL-CO 00:00: mouth [place] DEINE #3) 00 every 4 Medical 300-30 mg (four) Branch tablet hours as needed for Pain (scale 7-10). benzonatate 2020- No [id number] 200mg Take 1 Univers 200 mg 09-21- capsule by ity of capsule 00:00: 00:00 mouth 3 [place] 00 :00 (three) Medical times Branch daily as needed for Cough. levoFLOXaci 2020- No [id number] 750mg Take 1 Univers n 09-21 08- [...] Sprays in ity of mcg/actuati 00:00: each [place] on nasal 00 nostril 2 Medica l [...] spray (two) Branch times daily. immune Yes [id number] 50g 500 mL by Un [facility] globulin 8-04 IV ity of (GAMMAGARD 00:00: Infusion [place] as LIQUID) 10 00 route once Med ical % injection every Branch month. immune 2016-0 Yes [id number] 50g 500 mL by Un [facility] globulin 8-04 IV ity of (GAMMAGARD 00:00: Infusion [place] LIQUID) 10 00 route once Med ical % injection every Branch month. immune 2016-0 Yes [id number] 50g 500 mL by Un [facility] globulin 8-04 IV ity of (GAMMAGARD 00:00: Infusion [place] LIQUID) 10 00 route once Med ical % injection every Branch month. immune 2016-0 Yes [id number] 50g 500 mL by Un [facility] globulin 8-04 IV ity of (GAMMAGARD 00:00: Infusion [place] LIQUID) 10 00 route once Med ical % injection every Branch month. immune 2016-0 Yes [id number] 50g 500 mL by Un [facility] globulin 8-04 IV ity of (GAMMAGARD 00:00: Infusion [place] LIQUID) 10 00 route once Med ical % injection every Branch month. immune 2016-0 Yes [id number] 50g 500 mL by Un [facility] globulin 8-04 IV ity of (GAMMAGARD 00:00: Infusion [place] LIQUID) 10 00 route once Med ical % injection every Branch month. immune 2016-0 Yes [id number] 50g 500 mL by Un [facility] globulin 8-04 IV ity of (GAMMAGARD 00:00: Infusion [place] LIQUID) 10 00 route once Med ical % injection every Branch month. immune 2016-0 Yes [id number] 50g 500 mL by Un [place] globulin 8-04 IV ity of (GAMMAGARD 00:00: Infusion [place] LIQUID) 10 00 route once Med ical % injection every Branch month. immune 2016-0 Yes [id number] 50g 500 mL by Un [place] globulin 8-04 IV ity of (GAMMAGARD 00:00: Infusion [place] LIQUID) 10 00 route once Med ical % injection every Branch month. immune 2016-0 Yes [id number] 50g 500 mL by Un [facility] globulin 8-04 IV ity of (GAMMAGARD 00:00: Infusion [place] LIQUID) 10 00 route once Med ical % injection every Branch month. immune 2016-0 Yes [id number] 50g 500 mL by Un [facility] globulin 8-04 IV ity of (GAMMAGARD 00:00: Infusion [place] LIQUID) 10 00 route once Med ical % injection every Branch month. immune 2016-0 Yes [id number] 50g 500 mL by Un [facility] globulin 8-04 IV ity of (GAMMAGARD 00:00: Infusion [place] as LIQUID) 10 00 route once Med ical % injection every Branch month. immune 2016-0 Yes [id number] 50g 500 mL by Un [facility] globulin [...] External Body temperature 2022-08-24 15:48:00 36.28 Amita Myaa ey Seybold - External Respiratory rate 2022-08-24 15:48:00 14 /min Maya graham Seybold - External Body height 2022-08-24 15:48:00 165.1 cm Araceli grahambold - External Body weight 2022-08-24 15:48:00 63.05 kg Araceli Andrews eybold - External BMI 2022-08-24 15:48:00 23.13 kg/m2 Araceli S gladysbold - External Systolic blood 2021-08-20 05:01:00 123 mm[Hg] Univer sity of [facility] Diastolic blood 2021-08-20 05:01:00 68 mm[Hg] Unive rsity [facility] Heart rate 2021-08-20 05:01:00 88 /min [facility] Body temperature 2021-08-20 05:01:00 37.11 Amita [facility] Res[facility] rate 2021-08-20 05:01:00 18 /min [facility] Body height 2021-08-20 05:01:00 165.1 cm [facility] Body weight 2021-08-20 05:01:00 68.947 kg [facility] BMI 2021-08-20 05:01:00 25.29 kg/m2 Universi ty of [place] [facility] Oxygen saturation in 2021-08-20 05:01:00 97 /min University of Arterial blood by [place] Medi stevenson Pulse oximetry Branch Systolic blood 2021-04-22 13:16:00 108 mm[Hg] Univer sity of pressure [place] [facility] Diastolic blood 2021-04-22 13:16:00 66 mm[Hg] Unive rsity of pressure [place] [facility] Heart rate 2021-04-22 13:16:00 120 /min Universi ty of [place] [facility] Body temperature 2021-04-22 13:16:00 36.72 Amita Univ ersity of [place] [facility] Respiratory rate 2021-04-22 13:16:00 18 /min Univ ersity of [place] [facility] Body weight 2021-04-22 13:16:00 71.215 kg Universi ty of [place] [facility] BMI 2021-04-22 13:16:00 26.13 kg/m2 Universi ty of [place] [facility] Oxygen saturation in 2021-04-22 13:16:00 100 /min University of Arterial blood by [facility] Pulse oximetry Branch Systolic blood 2021-04-21 22:18:00 125 mm[Hg] Univer sity of pressure [place] [facility] Diastolic blood 2021-04-21 22:18:00 70 mm[Hg] Unive rsity of pressure [place] [facility] Heart rate 2021-04-21 22:18:00 94 /min Universi ty of [place] [facility] Body temperature 2021-04-21 22:18:00 37 Amita Univ ersity of [place] [facility] Respiratory rate 2021-04-21 22:18:00 18 /min Univ ersity of [place] [facility] Oxygen saturation in 2021-04-21 22:18:00 96 /min University of Arterial blood by [place] Medi stevenson Pulse oximetry Branch Body height 2021-04-21 21:32:00 165.1 cm Universi ty of [place] [facility] Body weight 2021-04-21 21:32:00 71.215 kg Universi ty of [place] [facility] BMI 2021-04-21 21:32:00 26.13 kg/m2 Universi ty of [place] [facility] Systolic blood 2021-04-18 13:54:00 146 mm[Hg] Univer sity of pressure [place] [facility] Diastolic blood 2021-04-18 13:54:00 85 mm[Hg] Unive rsity of pressure [place] [facility] Heart rate 2021-04-18 13:54:00 107 /min Universi ty of [place] [facility] Body temperature 2021-04-18 13:54:00 37.17 Amita Univ ersity of [place] [facility] Respiratory rate 2021-04-18 13:54:00 18 /min Univ ersity of [place] [facility] Body weight 2021-04-18 13:54:00 70.308 kg Universi ty of [place] [facility] BMI 2021-04-18 13:54:00 25.79 kg/m2 Universi ty of [place] [facility] Oxygen saturation in 2021-04-18 13:54:00 97 /min University of Arterial blood by [place] [employer] Pulse oximetry Branch Body weight 2020-12-08 23:45:00 70.308 kg Universi ty of [place] [facility] BMI 2020-12-08 23:45:00 25.79 kg/m2 Universi ty of [place] [facility] Systolic blood 2020-12-08 23:42:00 128 mm[Hg] Univer sity of pressure [place] [facility] Diastolic blood 2020-12-08 23:42:00 95 mm[Hg] Unive rsity of pressure [place] [facility] Heart rate 2020-12-08 23:42:00 81 /min Universi ty of [place] [facility] Body temperature 2020-12-08 23:42:00 37.39 Amita Univ ersity of [place] [facility] Respiratory rate 2020-12-08 23:42:00 18 /min Univ ersity of [place] [facility] Oxygen saturation in 2020-12-08 23:42:00 100 /min University of Arterial blood by [place] [employer] stevenson Pulse oximetry Branch Systolic blood 2020-09-15 12:30:00 100 mm[Hg] Univer sity of pressure [place] [facility] Diastolic blood 2020-09-15 12:30:00 75 mm[Hg] Unive rsity of pressure [place] [facility] Heart rate 2020-09-15 12:30:00 89 /min Universi ty of [place] [facility] Respiratory rate 2020-09-15 12:30:00 13 /min Univ ersity of [place] [facility] Oxygen saturation in 2020-09-15 12:30:00 98 /min University of Arterial blood by [employer] stevenson Pulse oximetry Branch Body temperature 2020-09-15 09:52:00 35.56 Amita [facility] Body height 2020-09-15 09:52:00 165.1 cm Universi [facility] Body weight 2020-09-15 09:52:00 70.308 kg [facility] BMI 2020-09-15 09:52:00 25.79 kg/m2 [facility] Systolic blood 2020-03-15 04:15:00 111 mm[Hg] Univer sity of pressure [facility] Diastolic blood 2020-03-15 04:15:00 64 mm[Hg] Unive rsity of pressure [facility] Heart rate 2020-03-15 04:15:00 97 /min [facility] Respiratory rate 2020-03-15 04:15:00 18 /min [facility] Oxygen saturation in 2020-03-15 04:15:00 98 /min [facility] Arterial blood by [facility] Pulse oximetry Branch Body temperature 2020-03-15 03:51:00 36.5 Amita [facility] Body weight 2020-03-15 03:51:00 67.132 kg [facility] BMI 2020-03-15 03:51:00 24.63 kg/m2 [facility] Procedures Procedure Date / Time Performed Performing Clinician Sourc e XR CHEST 2 VW 2021-08-20 05:39:32 Chante Hansen [place] o f [facility] RAPID INFLUENZA A/B 2021-08-20 05:28:00 Chante Hansen [facility] COVID-19 (ID NOW RAPID 2021-08-20 05:28:00 Chante Hansen [facility] Medical Branch CONSENT/REFUSAL FOR 2021-08-20 05:04:45 Doctor Unassigned, No Un iversity of [place] DIAGNOSIS AND Name Medical Branch TREATMENT CONSENT/REFUSAL FOR 2021-04-22 13:09:45 Doctor Unassigned, No Un iversity of [place] DIAGNOSIS AND Name Medical Branch TREATMENT IMMTRAC2 CONSENT 2021-04-21 05:01:00 [facility], [facility] ([facility] NOW RAPID 2021-04-18 13:58:00 Chante Hansen [facility] TESTING) Medical Branch CONSENT/REFUSAL FOR 2021-04-18 13:45:17 Doctor Unassigned, No Un iversity of [place] DIAGNOSIS AND Name Medical Branch TREATMENT TROPONIN I 2020-12-09 00:40:00 Nelda Carver [facility] HEPATIC FUNCTION PANEL 2020-12-09 00:40:00 [facility] [place] [id number] Branch (ALB,T.PRO,BILI T,BU/BC,ALT,AST,ALK PHOS) BASIC METABOLIC PANEL 2020-12-09 00:40:00 Nelda Carver [facility] versity [facility] (NA, K, CL, CO2, Medical Branch GLUCOSE, BUN, CREATININE, CA) CBC WITH DIFF 2020-12-09 00:40:00 Nelda Carver [facility] XR CHEST 2 VW 2020-12-09 00:02:58 Tyrone Chante [place] [facility] NOTICE OF PRIVACY 2020-12-08 23:38:04 Doctor Unassigned, No [facility] [place] [facility] Name Medical Branch CONSENT/REFUSAL FOR 2020-12-08 23:37:39 Doctor Unassigned, No Un iversity of [place] DIAGNOSIS AND Name Medical Branch TREATMENT CONSENT/REFUSAL FOR 2020-12-08 23:36:53 Doctor Unassigned, No Un iversity of [place] DIAGNOSIS AND Name Medical Branch TREATMENT URINALYSIS 2020-09-15 10:22:00 Abhijit Blair [facility] LIPASE 2020-09-15 10:03:00 Abhijit Blair [facility] COMP. METABOLIC PANEL 2020-09-15 10:03:00 Abhijit Blair [facility] ([id number]) Medical Branch CBC WITH DIFF 2020-09-15 10:03:00 Abhijit Blair [facility] CONSENT/REFUSAL FOR 2020-09-15 09:39:10 Doctor Unassigned, No Un i[facility]ity of [place] DIAGNOSIS AND Name Medical Branch TREATMENT POCT TEST 2020-03-15 04:17:00 Charly Oseguera [facility] Medical Branch LIPASE 2020-03-15 04:14:00 Charly [facility] TROPONIN I 2020-03-15 04:14:00 Oumar Charly [facility] COMP. METABOLIC PANEL 2020-03-15 04:14:00 Charly Oseguera [facility] ([id number]) [facility] CBC WITH DIFF 2020-03-15 04:14:00 Charly Oseguera [facility] URINALYSIS 2020-03-15 04:14:00 Charly Oseguera [facility] EKG-12 LEAD 2020-03-15 04:08:32 Charly O[facility]guera [facility] NOTICE OF PRIVACY 2020-03-15 03:43:56 Doctor Unassigned, No Univ [facility] PRACTICES Name Medical Branch CONSENT/REFUSAL FOR 2020-03-15 03:43:37 Doctor Unassigned, No [facility] DIAGNOSIS AND Name Medical Branch TREATMENT Encounters Start End Encounter Admission Attending Care Care Encounter Source Date/Time Date/Time Type Type Clinicians Facility Department ID 2021-06-15 Emergency [place] [id number] Univers 21:04:04 ity of [facility] 2021-06-15 Emergency [place] [id number] Univers 20:27:22 ity [facility] 2021-06-14 Emergency [place] [id number] Univers 15:25:11 ity [facility] 2021-06-13 Emergency [place] [id number] Univers 20:51:59 ity [facility] 2021-06-12 Emergency [place] [id number] Univers 10:10:57 ity [facility] 2022-08-31 2022-08-31 Outpatient ARACELI SNOW [id number] Araceli 08:30:00 08:30:00 RAYMUNDO monte 2022-08-24 2022-08-24 Outpatient ARACELI SNOW [id number] Araceli 09:45:00 09:45:00 RAYMUNDO monte 2021-08-19 2021-08-20 Emergency [facility] ERT [id number] Univers 23:03:00 00:46:00 CHANTE ity [facility] 2021-08-19 2021-08-20 [facility] [id number] Univers 23:03:00 00:46:00 Chante TAYLOR [id number] i ty of [place] [id number] [facility] [id number] [facility] 084 Branch 2021-04-22 2021-04-22 Emergency Vaughn, [facility] [id number] Univers 08:17:00 11:05:00 Wade Taylor [id number] i ty of [place] [id number] [facility] [id number] [place] 045544 Branch 2021-04-21 2021-04-21 Nurse Therapy, Adc Covid Infusion [facility] [id number] Univers 16:15:18 17:15:18 Visit Roberta Leblanc [id number] ity of [place] [address]7.[address] [place] [address] Surgical [id number] [facility] 053 Branch 2021-04-21 2021-04-21 [facility] [id number] Univers 17:00:00 17:00:00 ROBERTA kulkarni of [facility] 2021-04-21 2021-04-21 Orders Doctor SHAYNA [id number] Univers 00:00:00 00:00:00 Only Unassigned, DENEEN [id number] ity of [place] [facility] [id number] [facility] [id number] [facility] 009 Branch 2021-04-18 2021-04-18 Emergency Sissy, [facility] [id number] Univers 08:58:00 12:10:00 Solomon Taylor [id number] ity of [place] [id number] [facility] [id number] [facility] 084 Branch 2020-12-08 2020-12-08 Emergency Jodie Hylton [facility] [id number] Univers 18:46:00 21:24:00 Maryann Taylor [id number] i ty of [place] [id number] [facility] [id number] [place] [address] Branch 2020-09-15 2020-09-15 [facility] [id number] Univers 03:57:00 06:35:00 Abhijit [place] [id number] ity of [place] [id number] [facility] [id number] [place] [address] Branch 2020-03-14 2020-03-15 [facility] [id number] Univers 22:53:30 02:17:00 Charly [place] [id number] i ty of [place] [id number] [facility] [id number] [address] 2020-03-14 2020-03-14 Orders Doctor SHAYNA [id number] Univers 00:00:00 00:00:00 Only Unassigned, DENEEN [id number] ity of [place] [facility] [id number] [facility] [id number] [address] Results Test Description Test Time Test Comments Results Result Comments Source COVID-19 (ID NOW RAPID TESTING) 2021-04-18 14:23:44 Test Item Value Reference Range Interpretation Comme nts SARS-CoV-2 Rapid ID NOW (test code Positive Not Detected A = 14219-6) YADIRA (test code = YADIRA) ID NOW COVID-19 Assay is an isothermal nucleic acid amplification test intended for the qualitative detection of nucleic acid from SARS-CoV-2 viral RNA in nasopharyngeal (WINDING INSPECTOR) specimens. It is used under Emergency Use [...] indicated. Lab Interpretation (test code = Abnormal 30599-3) [facility]2021-04-18 14:23:44 Test Item Value Reference Range Interpretation Comments SARS-CoV-2 Rapid ID NOW Positive Not Detected A (test code = 02040-2) YADIRA (test code = YADIRA) ID NOW COVID-19 Assay is an isothermal nucleic acid amplification test intended for the qualitative detection of nucleic acid from SARS-CoV-2 viral RNA in nasopharyngeal (WINDING INSPECTOR) specimens. It is used under Emergency Use [...] indicated. Lab Interpretation Abnormal (test code = 45756-0) [facility] [id number] 01:36:20 Test Item Value Reference Range Interpretation Comments TROPONIN I (test 0.001 ng/mL See_Comment [Automated code = 6257759370) message] The system which generated this result [...] ? Lab Interpretation Normal (test code = 67996-4) [facility] Met[facility] Panel (NA, K, CL, CO2, GLUCOSE, BUN, CREATININE, CA)2020-12-09 01:25:20 Test Item Value Reference Range Interpretation Comments NA (test code = 141 mmol/L 135-145 2036894865) K (test code = 3.7 mmol/L 3.5-5.0 5084514613) CL (test code = 103 mmol/L 98-108 8750453312) CO2 TOTAL (test code = 30 mmol/L 23-31 0949550998) AGAP (test code = 2-16 7515045983) BUN (test code = 6 mg/dL 7-23 L 7483462329) GLUCOSE (test code = 92 mg/dL 70-110 9798705561) CREATININE (test code = 0.47 mg/dL 0.50-1.04 L 5393640698) CALCIUM (test code = 9.2 mg/dL 8.6-10.6 9992978809) eGFR (test code = mL/min/1.73m2 3637065283) YADIRA (test code = YADIRA) Association of [...] tests). Lab Interpretation Abnormal (test code = 30697-4) [facility] (ALB, T.PRO, BILI T, BU/BC, ALT, AST, ALK PHOS)2020-12-09 01:24:59 Test Item Value Reference Range Interpretation Comments TOTAL BILI (test code = 2504119043) 0.3 mg/dL 0.1-1.1 BILI UNCON (test code = 7428379282) 0.2 mg/dL 0.1-1.1 BILI CONJ (test code = 6055498789) 0.0 mg/dL 0.0-0.3 T PROTEIN (test code = 2073552371) 6.7 g/dL 6.3-8.2 ALBUMIN (test code = 0260483246) 4.6 g/dL 3.5-5.0 ALK PHOS (test code = 2300210753) 102 U/L 34-122 ALTv (test code = 1742-6) 15 U/L 5-35 AST(SGOT) (test code = 7871245906) 32 U/L 13-40 Lab Interpretation (test code = Normal 74497-3) [facility] with [id number] 01:07:56 Test Item Value Reference Range Interpretation Comments WBC (test code = See_Comment [Automated message] 6690-2) The system [employer] generated this result transmitted ref erence range: 4.30 - 1 1.10 10*3/?L. The re ference range was not u sed to interpret this result as normal/abnor mal. RBC (test code = See_Comment [Automated message] 789-8) The system [employer] generated this result transmitted ref erence range: [...] RDW-SD (test code 41.9 fL 39.0-49.9 = 71120-4) RDW-CV (test code 12.5 % 12.0-15.5 = 788-0) PLT (test code = See_Comment [Automated message] 777-3) The system [employer] generated this result transmitted ref erence range: 166 - 35 8 10*3/?L. The re ference range was not u sed to interpret this result as normal/abnor mal. MPV (test code = 9.9 fL 9.5-12.9 80082-7) NRBC/100 WBC (test See_Comment [Automat ed message] code = 0654521530) The syste m which generated this result transmitted ref erence range: 0.0 - 10 .0 /100 WBCs. The refer ence range was not u sed to interpret this result as normal/abnor mal. NRBC x10^3 (test <0.01 See_Comment [Automated message] code = 6629912920) The syste m which generated this result transmitted ref erence range: 10*3/?L. The reference range was not used to interpr et this result as normal/abnormal . GRAN MAT (NEUT) % 64.4 % (test code = 770-8) IMM GRAN % (test 0.30 % code = 3088355897) LYMPH % (test code 26.7 % = 736-9) MONO % (test code 7.1 % = 5905-5) EOS % (test code = 1.1 % 713-8) BASO % (test code 0.4 % = 706-2) GRAN MAT 6.02 10*3/uL 1.88-7.09 x10^3(ANC) (test code = 3077472967) IMM GRAN x10^3 0.03 10*3/uL 0.00-0.06 (test code = 9747680427) LYMPH x10^3 (test 2.50 10*3/uL 1.32-3.29 code = 731-0) MONO x10^3 (test 0.66 10*3/uL 0.33-0.92 code = 742-7) EOS x10^3 (test 0.10 10*3/uL 0.03-0.39 code = 711-2) BASO x10^3 (test 0.04 10*3/uL 0.01-0.07 code = 704-7) [facility] Test Item Value Reference Range Interpretation Comments APPEARANCE (test code = Clear Clear 4147658865) COLOR (test code = Yellow Yellow 3204069141) PH (test code = 4.8-8.0 8996610699) SP GRAVITY (test code = >=1.030 1.003-1.030 5145197881) GLU U QUAL (test code = Negative Negative 0453978768) BLOOD (test code = Negative Negative 8643836932) KETONES (test code = Negative Negative 5283715961) PROTEIN (test code = Negative Negative 2887-8) UROBILIN (test code = 0.2 mg/dL See_Comment [Auto mated message] 0930979479) The system [employer] generated this result transmit lucille reference range : 0-1.0 mg/dL. Th e reference range was not used to interpret this result as normal/abnormal . BILIRUBIN (test code = Negative Negative 1656747286) NITRITE (test code = Negative Negative 6280695262) LEUK KARI (test code = Moderate Negative A 0035063193) RBC/HPF (test code = See_Comment [Autom ated message] 4855410567) The system [employer] generated this result transmit lucille reference range : 0 - 3 HPF. The refe rence range was not u sed to interpret th is result as normal/abnormal . WBC/HPF (test code = See_Comment [Autom ated message] 9764386037) The system [employer] generated this result transmit lucille reference range : 0 - 5 HPF. The refe rence range was not u sed to interpret th is result as normal/abnormal . BACTERIA (test code = Few Negative A 2730935719) SQ EPITH (test code = HPF 0845449000) Lab Interpretation (test Abnormal code = 66486-4) [facility] TylerComplete Metabolic [id number] 10:30:00 Test Item Value Reference Range Interpretation Comments NA (test code = 139 mmol/L 135-145 8579953678) K (test code = 4.2 mmol/L 3.5-5 7327024648) CL (test code = 104 mmol/L 98-108 8127221837) CO2 TOTAL (test code = 28 mmol/L 23-31 0816271540) AGAP (test code = 2-16 3997283788) BUN (test code = 13 mg/dL 7-23 9367344437) GLUCOSE (test code = 155 mg/dL 70-110 H 9726276714) CREATININE (test code = 0.45 mg/dL 0.5-1.04 L 8875494701) TOTAL BILI (test code = 0.5 mg/dL 0.1-1.6 8691521958) CALCIUM (test code = 9.1 mg/dL 8.6-10.6 0724962352) T PROTEIN (test code = 6.9 g/dL 6.3-8.2 8381803395) ALBUMIN (test code = 4.6 g/dL 3.5-5 2954828252) ALK PHOS (test code = 88 U/L 34-122 7163135308) ALTv (test code = 20 U/L 5-35 1742-6) AST(SGOT) (test code = 42 U/L 13-40 H 5777937558) eGFR Calculation mL/min/1.73m2 (Non-) (test code = 2669043370) eGFR Calculation mL/min/1.73m2 () (test code = 8291707185) YADIRA (test code = YADIRA) Association of [...] tests). Lab Interpretation Abnormal (test code = 28369-8) [facility] TylerLipase, [id number] 10:30:00 Test Item Value Reference Range Interpretation Comments LIPASE (test code = 6854021567) 84 U/L 0-220 Lab Interpretation (test code = Normal 57082-5) [facility] TylerCB with [id number] 10:16:00 Test Item Value Reference Range Interpretation Comments WBC (test code = See_Comment H [Automated 7590-2) message] The sy stem which generated this result transmitted reference range : 4.30 - 11.10 10*3/?L. The reference range was not used to interpret this result as normal/abnormal . RBC (test code = See_Comment [Automated 299-8) message] The sy stem which generated this [...] RDW-SD (test code = 41.7 fL 39-49.9 32119-0) RDW-CV (test code = 12.5 % 12-15.5 788-0) PLT (test code = See_Comment [Automated 777-3) message] The sy stem which generated this result transmitted reference range : 166 - 358 10*3/ ?L. The reference r umberto was not used to interpret this result as normal/abnormal . MPV (test code = 10.4 fL 9.5-12.9 43042-4) NRBC/100 WBC (test See_Comment [Automat ed code = 6511719771) message] The system which generated this result transmitted reference range : 0.0 - 10.0 /100 WBCs. The refer ence range was not u sed to interpret th is result as normal/abnormal . NRBC x10^3 (test code <0.01 See_Comment [Auto mated = 3580587143) message] The s ystem which generated this result transmitted reference range : 10*3/?L. The reference range was not used to interpret this result as normal/abnormal . GRAN MAT (NEUT) % 70.2 % (test code = 770-8) IMM GRAN % (test code 0.40 % = 9827409162) LYMPH % (test code = 21.4 % 736-9) MONO % (test code = 6.6 % 5905-5) EOS % (test code = 0.9 % 713-8) BASO % (test code = 0.5 % 706-2) GRAN MAT x10^3(ANC) 8.15 10*3/uL 1.88-7.09 H (test code = 4659956751) IMM GRAN x10^3 (test 0.05 10*3/uL 0-0.06 code = 7009222250) LYMPH x10^3 (test code 2.49 10*3/uL 1.32-3.29 = 731-0) MONO x10^3 (test code 0.77 10*3/uL 0.33-0.92 = 742-7) EOS x10^3 (test code = 0.10 10*3/uL 0.03-0.39 711-2) BASO x10^3 (test code 0.06 10*3/uL 0.01-0.07 = 704-7) Lab Interpretation Abnormal (test code = 04773-6) [facility] TylerTROPONIN [id number] 05:12:00 Test Item Value Reference Range Interpretation Comments TROPONIN I (test <0.012 See_Comment [Automated code = 3850279088) message] The system which generated this result [...] ? Lab Interpretation Normal (test code = 98520-8) [facility] TylerCOMP. METABOLIC PANEL (28210)2020-03-15 05:10:00 Test Item Value Reference Range Interpretation Comments NA (test code = 138 mmol/L 135-145 6754466471) K (test code = 3.7 mmol/L 3.5-5 2814783058) CL (test code = 103 mmol/L 98-108 0079157893) CO2 TOTAL (test code = 28 mmol/L 23-31 0722286465) AGAP (test code = 2-16 2475874986) BUN (test code = 12 mg/dL 7-23 6554178485) GLUCOSE (test code = 119 mg/dL 70-110 H 7079421138) CREATININE (test code = 0.79 mg/dL 0.5-1.04 6778808881) TOTAL BILI (test code = <0.1 0.1-1.1 L 0978811219) CALCIUM (test code = 9.6 mg/dL 8.6-10.6 5626687973) T PROTEIN (test code = 6.6 g/dL 6.3-8.2 3009935794) ALBUMIN (test code = 4.3 g/dL 3.5-5 5783893604) ALK PHOS (test code = 78 U/L 34-122 8749888841) ALTv (test code = 10 U/L 5-35 1742-6) AST(SGOT) (test code = 28 U/L 13-40 9028065657) eGFR Calculation mL/min/1.73m2 (Non-) (test code = 4004142907) eGFR Calculation mL/min/1.73m2 () (test code = 6296684951) YADIRA (test code = YADIRA) Association of [...] tests). Lab Interpretation Abnormal (test code = 07496-0) [facility] TylerLIPASE2020-08-01 05:01:00 Test Item Value Reference Range Interpretation Comments LIPASE (test code = 2706387722) 83 U/L 0-220 Lab Interpretation (test code = Normal 19100-8) [facility] TylerURINALYSIS2020-08-01 04:41:00 Test Item Value Reference Range Interpretation Comments APPEARANCE (test code = Cloudy Clear A 5727214439) COLOR (test code = Yellow Yellow 3273341899) PH (test code = 4.8-8.0 2928645648) SP GRAVITY (test code = 1.003-1.030 2809466299) GLU U QUAL (test code = Normal Normal 4256386023) BLOOD (test code = Negative Negative 8052197950) KETONES (test code = Negative Negative 3262867819) PROTEIN (test code = Negative Negative 2887-8) UROBILIN (test code = Normal Normal 6328379517) BILIRUBIN (test code = Negative Negative 7126177718) NITRITE (test code = Negative Negative 3912434969) LEUK KARI (test code = 250/uL Negative A 0573944309) RBC/HPF (test code = See_Comment H [Autom ated message] 7392451557) The system [employer] generated this result transmitted ref erence range: 0 - 3 HP F. The reference range was not used to int erpret this result as normal/abnormal . WBC/HPF (test code = See_Comment H [Autom ated message] 7888445013) The system whic h generated this result transmitted ref erence range: 0 - 5 HP F. The reference range was not used to int erpret this result as normal/abnormal . BACTERIA (test code = Few Negative A 9252724585) MUCOUS (test code = Slight Negative LPF A 8942776272) SQ EPITH (test code = HPF 7225011689) Lab Interpretation (test Abnormal code = 42669-2) [facility] WITH [id number] 04:24:00 Test Item Value Reference Range Interpretation Comments WBC (test code = See_Comment [Automated 90-2) message] The sy stem which generated this [...] RDW-SD (test code = 41.1 fL 39-49.9 49507-8) RDW-CV (test code = 12.4 % 12-15.5 788-0) PLT (test code = See_Comment [Automated 777-3) message] The sy stem which generated this result transmitted reference range : 166 - 358 10*3/ ?L. The reference r umberto was not used to interpret this result as normal/abnormal . MPV (test code = 10.2 fL 9.5-12.9 95430-7) NRBC/100 WBC (test See_Comment [Automat ed code = 5547397049) message] The system which generated this result transmitted reference range : 0.0 - 10.0 /100 WBCs. The refer ence range was not u sed to interpret th is result as normal/abnormal . NRBC x10^3 (test code <0.01 See_Comment [Auto mated = 9793756142) message] The s ystem which generated this result transmitted reference range : 10*3/?L. The reference range was not used to interpret this result as normal/abnormal . GRAN MAT (NEUT) % 73.4 % (test code = 770-8) IMM GRAN % (test code 0.40 % = 6774467518) LYMPH % (test code = 21.9 % 736-9) MONO % (test code = 3.3 % 5905-5) EOS % (test code = 0.6 % 713-8) BASO % (test code = 0.4 % 706-2) GRAN MAT x10^3(ANC) 8.08 10*3/uL 1.88-7.09 H (test code = 3052515886) IMM GRAN x10^3 (test 0.04 10*3/uL 0-0.06 code = 0766841011) LYMPH x10^3 (test code 2.41 10*3/uL 1.32-3.29 = 731-0) MONO x10^3 (test code 0.36 10*3/uL 0.33-0.92 = 742-7) EOS x10^3 (test code = 0.07 10*3/uL 0.03-0.39 711-2) BASO x10^3 (test code 0.04 10*3/uL 0.01-0.07 = 704-7) Lab Interpretation Abnormal (test code = 20588-6) [facility] TylerPOCT [id number] 04:17:00 Test Item Value Reference Range Interpretation Comments POCT PREG (test code = 1605) negative On board controls acceptable with present C Line (test code = 3574) POCT PREG LOT # (test code = 3575) [id number] POCT PREG TEST DATE (test 05/14/2021 code = 3576) Lab Interpretation (test code = Normal 28160-7) [facility]"
[2023-07-01] MEDS ORDERED: IPRATROPIUM BROM 0.5MG/2.5ML ONE (10:12)
[2023-07-01] MEDS ORDERED: HYDROCODONE/CHLORPHEN 5 ML/OSYR ONE (10:12)
[2023-07-01] MEDS ORDERED: ALBUTEROL 2.5 MG/3 ML NEB SOL ONE (10:12)
--- NOTE | 2023-07-01 11:07 | RAD REPORT ---
EXAM DESCRIPTION: Dana Single View07/01/2023 10:25 am CLINICAL HISTORY: Cough COMPARISON: May 2023 FINDINGS: Lungs are hyperaerated. The lungs appear clear of acute infiltrate. The heart is normal size IMPRESSION: No acute abnormalities displayed
--- NOTE | 2023-07-01 11:15 | ER ---
Nurse's Notes [facility] Name: Megan Love Age: 42 yrs Sex: Female : 1980 Arrival Date: 07/01/2023 Time: 09:32 Bed 13 Private MD: Diagnosis: Acute bronchitis, unspecified Presentation: 07/01 09:42 Chief complaint: Sore throat, body aches, nausea, diarrhea, headache, cough, and upper hb abdominal pain x 4 days. Several family members ill with flu B. Coronavirus screen: Client presents with at least one sign or symptom that may indicate coronavirus-19. Provider contacted for isolation considerations. Ebola Screen: No symptoms or risks identified at this time. Initial Sepsis Screen: Does the patient meet any 2 criteria? No. Patient's initial sepsis screen is negative. Does the patient have a suspected source of infection? No. Patient's initial sepsis screen is negative. Risk Assessment: Do you want to hurt yourself or someone else? Patient reports no desire to harm self or others. Onset of symptoms was June 27, 2023. 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 - Social history:: Smoking status: Patient denies any tobacco usage or history of. Screenin:28 [facility] ED Fall Risk Assessment (Adult) History of falling in the last 3 months, ha1 including since admission No falls in past 3 months (0 pts) Confusion or Disorientation No (0 pts) Intoxicated or Sedated No (0 pts) Impaired Gait No (0 pts) Mobility Assist Device Used No (0 pt) Altered Elimination No (0 pt) Score/Fall Risk Level 0 - 2 = Low Risk Oriented to surroundings, Maintained a safe environment, Educated pt \T\ family on fall prevention, incl call for assistance when getting out of bed, Hourly rounding (assess needs \T\ fall precautionary measures) done. Abuse screen: Denies threats or abuse. Denies injuries from another. Nutritional screening: No deficits noted. Tuberculosis screening: No symptoms or risk factors identified. Assessment: 10:00 General: Appears in no apparent distress. uncomfortable, Behavior is calm, cooperative, nj1 appropriate for age. Pain: Complains of pain in chest. Neuro: Level of Consciousness is awake, alert, obeys commands, Oriented to person, place, time, situation. Cardiovascular: Patient's skin is warm and dry. Respiratory: Airway is patent Respiratory effort is even, unlabored, Breath sounds are clear in left upper lobe and left lower lobe Breath sounds are diminished in right upper lobe, right middle lobe and right lower lobe. 10:29 Reassessment: Patient and/or family updated on plan of care and expected duration. Pain ha1 level reassessed. Patient is alert, oriented x 3, equal unlabored respirations, skin warm/dry/pink. Patient states feeling better. Patient states symptoms have improved. 11:35 Reassessment: Patient and/or family updated on plan of care and expected duration. Pain ha1 level reassessed. Patient is alert, oriented x 3, equal unlabored respirations, skin warm/dry/pink. Patient denies pain at this time. Patient states feeling better. Patient states symptoms have improved. Vital Signs: 09:42 BP 108 / 80; Pulse 68; Resp 16; Temp 98.1(O); Pulse Ox 100% on R/A; Weight 56.7 kg; hb Height 5 ft. 5 in. ; Pain 4/10; 10:29 BP 115 / 64; Pulse 75; Resp 18 S; Pulse Ox 100% on R/A; ha1 11:35 BP 116 / 64; Pulse 73; Resp 18 S; Pulse Ox 99% on R/A; ha1 09:42 Body Mass Index 20.80 (56.70 kg, 165.1 cm) hb 09:42 Pain Scale: Adult hb ED Course: 09:35 Patient arrived in ED. mr 09:36 Larisa Cortes, SKYLA [facility] jh7 09:36 Deep Padilla MD is Attending Physician. jh7 09:38 Patient has correct armband on for positive identification. Placed in gown. Bed in low ha1 position. Call light in reach. Side rails up X 1. 09:44 Triage completed. hb 09:44 Arm band placed on. hb 09:55 Avelina Hernandez, GRIFFIN is Primary Nurse. nj1 10:26 XRAY Chest (1 view) In Process Unspecified. EDMS 11:35 No provider procedures requiring assistance completed. Patient did not have IV access ha1 during this emergency room visit. 11:36 Provided Education on: following up with pcp. ha1 Administered Medications: 10:00 Drug: DuoNeb Nebulize (2.5 mg - 0.5 mg) 3 ml Nebulizer once Route: Nebulizer; or1 11:36 Follow up: Response: No adverse reaction [facility] 10:00 Drug: Tussionex Pennkinetic ER PO Suspension 5 ml PO once Route: PO; nj1 11:36 Follow up: Response: No adverse reaction 1 Medication: 11:36 VIS not applicable for this client. ha1 Outcome: 11:14 Discharge ordered by . [facility] 11:35 Discharged to home ambulatory, [facility] 11:35 Condition: stable 11:35 Discharge instructions given to patient, Instructed on discharge instructions, follow up and referral plans. medication usage, Demonstrated understanding of instructions, follow-up care, medications, Prescriptions given X 3, 11:37 Patient left the ED. 1 Signatures: Dispatcher [employer] EDNJ Hope John, Reg Reg mr CoreyClaudette, RN RN Larisa Cortes, COMMISSIONING SPECIALIST COMMISSIONING SPECIALIST [facility] Concepcion Marshall RN RN [facility] Avelina Hernandez RN RN [facility]
--- NOTE | 2023-07-01 11:15 | EDPHYS ---
Physician Documentation [facility] Name: Megan Love Age: 42 yrs Sex: Female : 1980 Arrival Date: 07/01/2023 Time: 09:32 Bed 13 Private MD: ED Physician Deep Padilla HPI: 07/01 09:42 This 42 yrs old Female presents to ER via Ambulatory with complaints of Cough, jh7 Congestion, Abdominal Pain. 09:42 The patient or guardian reports cough, flu symptoms, myalgias. Onset: The jh7 symptoms/episode began/occurred 4 day(s) ago. Associated signs and symptoms: Pertinent positives: nausea, rhinorrhea, Pertinent negatives: chest pain, fever. 42-year-old female presents to the ER with cough, congestion, malaise, and upset stomach. She reports that she has several family members that are sick at home with flu B. Reports that Tuesday she had a fever and chills but that those symptoms have resolved. Mainly complains today of an upset stomach and a persistent, hacking, productive cough.. 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 - Social history:: Smoking status: Patient denies any tobacco usage or history of. ROS: 09:42 Eyes: Negative for injury, pain, redness, and discharge, Neck: Negative for injury, jh7 pain, and swelling, 09:42 Cardiovascular: Negative for chest pain, palpitations, and edema, Back: Negative for injury and pain, MS/Extremity: Negative for injury and deformity, Skin: Negative for injury, rash, and discoloration, Neuro: Negative for headache, weakness, numbness, tingling, and seizure, 09:42 Constitutional: Positive for malaise, 09:42 ENT: Positive for rhinorrhea, 09:42 Respiratory: Positive for cough, Negative for shortness of breath, wheezing, 09:42 Abdomen/GI: Positive for nausea and vomiting, diarrhea, abdominal cramps, Negative for abdominal pain, constipation, 09:42 All other systems are negative, Exam: 09:42 Constitutional: This is a well developed, well nourished patient who is awake, alert, jh7 and in no acute distress. Head/Face: Normocephalic, atraumatic. Eyes: Pupils equal round and reactive to light, extra-ocular motions intact. Lids and lashes normal. Conjunctiva and sclera are non-icteric and not injected. Cornea within normal limits. Periorbital areas with no swelling, redness, or edema. Neck: Trachea midline, no thyromegaly or masses palpated, and no cervical lymphadenopathy. Supple, full range of motion without nuchal rigidity, or vertebral point tenderness. No Meningismus. Cardiovascular: Regular rate and rhythm with a normal S1 and S2. No gallops, murmurs, or rubs. Normal PMI, no JVD. No pulse deficits. Respiratory: Lungs have equal breath sounds bilaterally, clear to auscultation and percussion. No rales, rhonchi or wheezes noted. No increased work of breathing, no retractions or nasal flaring. Abdomen/GI: Soft, non-tender, with normal bowel sounds. No distension or tympany. No guarding or rebound. No evidence of tenderness throughout. Skin: Warm, dry with normal turgor. Normal color with no rashes, no lesions, and no evidence of cellulitis. MS/ Extremity: Pulses equal, no cyanosis. Neurovascular intact. Full, normal range of motion. Neuro: Awake and alert, GCS 15, oriented to person, place, time, and situation. Motor strength 5/5 in all extremities. Sensory grossly intact. Normal gait. Vital Signs: 09:42 BP 108 / 80; Pulse 68; Resp 16; Temp 98.1(O); Pulse Ox 100% on R/A; Weight 56.7 kg; hb Height 5 ft. 5 in. ; Pain 4/10; 10:29 BP 115 / 64; Pulse 75; Resp 18 S; Pulse Ox 100% on R/A; ha1 11:35 BP 116 / 64; Pulse 73; Resp 18 S; Pulse Ox 99% on R/A; ha1 09:42 Body Mass Index 20.80 (56.70 kg, 165.1 cm) hb 09:42 Pain Scale: Adult hb MDM: 09:36 Patient medically screened. [facility] 11:10 Differential Diagnosis: Bronchitis Influenza Upper Respiratory Infection Viral Syndrome 7 Pneumonia. Data reviewed: vital signs, nurses notes, radiologic studies, plain films. I considered the following discharge prescriptions or medication management in the emergency department Medications were administered in the Emergency Department. See MAR. Counseling: I had a detailed discussion with the patient and/or guardian regarding the historical points, exam findings, and any diagnostic results supporting the discharge/admit diagnosis, to return to the emergency department if symptoms worsen or persist or if there are any questions or concerns that arise at home. Response to treatment: the patient's symptoms have mildly improved after treatment. 07/01 09:46 Order name: XRAY Chest (1 view); Complete Time: 11:08 [facility] Administered Medications: 10:00 Drug: DuoNeb Nebulize (2.5 mg - 0.5 mg) 3 ml Nebulizer once Route: Nebulizer; [facility] 11:36 Follow up: Response: No adverse reaction [facility] 10:00 Drug: Tussionex Pennkinetic ER PO Suspension 5 ml PO once Route: PO; nj 11:36 Follow up: Response: No adverse reaction [facility] Disposition: 12:30 Co-signature as Attending Physician, Deep Padilla MD I reviewed the patient's care rn provided by the Advanced Practice Provider and agree with the diagnosis and treatment plan. Disposition Summary: 07/01/23 11:14 Discharge Ordered Notes: Location: Home [facility] Problem: new [facility] Symptoms: have improved [facility] Condition: Stable [facility] Diagnosis - Acute bronchitis, unspecified [facility] Followup: [facility] - With: Private Physician - When: 2 - 3 days - Reason: Recheck today's complaints Discharge Instructions: - Discharge Summary Sheet [facility] - Acute Bronchitis, Adult [facility] - Viral Respiratory Infection [facility] Forms: - Medication Reconciliation Form [facility] - Thank You Letter [facility] - Antibiotic Education [facility] - Patient Portal Instructions [facility] - Leadership Thank You Letter [facility] - Work release form [facility] Prescriptions: - Bromfed DM 2-30-10 mg/5 mL Oral syrup - administer 10 milliliter ORAL route every 4-6 hours As needed as needed for [facility] cold symptoms; 240 milliliter; Refills: 0, Product Selection Permitted - albuterol sulfate 90 mcg/actuation Inhalation HFA Aerosol Inhaler - inhale 1 inhalation INHALATION route every 4-6 hours As needed; 1 Each; [facility] Refills: 0, Product Selection Permitted - Medrol (Rusty) 4 mg Oral Tablets, Dose Pack - take 1 tablet ORAL route as directed - follow package instructions; 1 packet; jh7 Refills: 0, Product Selection Permitted Signatures: Dispatcher [employer] Deep Lowe MD MD rn Baxter, Heather RN RN Larisa Hendrickson, FINISHING INSPECTOR FINISHING INSPECTOR 7 Avelina Hernandez RN RN nj1 Concepcion Marshall RN ha1
[2023-07-01 11:42] VITALS: TEMP 98.1
[2023-07-01 11:44] VITALS: BP 116/64; O2SAT 99
== END 2023-07-01 11:37 | disposition home or self-care (01) ==
LOC: ER 09:32
DX: J20.9 Acute bronchitis, unspecified (principal)
CPT/HCPCS: 71045; 94640; 99284; J7613; J7644

== ENCOUNTER 2023-07-20 08:46 | Emergency (ER) | payer SELFPAY ==
--- OUTSIDE RECORDS SUMMARY | 2023-07-20 08:51 | XMS REPORT | Continuity of Care Document ---
Author Name Unknown Address [address] [place] [address] [facility] thconnect Address [address] [facility] [address] [place] [address] Care Team Providers Care Curber Name Role Phone WES ROXANN JASON Primary Care Physician Un available RAYMUNDO SNOW Attending Clinician Unava ilCHANTE Pedro Attending Clinician Unavailable Chante Hansen MD Attending Clinician [phone] Wade Vaughn DO Attending Clinician [phone] Therapy, [facility] Infusion Attending Clinician Unavailable Roberta Leblanc MD Attending Clinician [phone] ROBERTA LEBLANC Attending Clinician Unavailable Doctor Unassigned, Festus Attending Clinician U Solomon Jordan Attending Clinician [phone] Jodie Burch Attending Clinician [phone] Abhijit Blair MD Attending Clinician [phone] Charly Meza Attending Clinician [phone] CHANTE HANSEN Admitting Clinician Unavailable Payers Payer Name Policy Type Policy Number Effective Date Expirati on Date Source BCBS 2 [id number] 2022 00:00:00 [employer] [place] OUT [place] [id number] 2021 00:00:00 Problems Condition Name Condition Details Condition Category Status Onset Date Resolution Date Last Treatment Date Treating Clinician Comments Source Enteritis Enteritis Disease Active 2017-08 00:00: 00 [facility] Contracept lisa management Contracept lisa management Disease Active 01-15 00:00: 00 [facility] Herpes, vulvar Herpes, vulvar Disease Active 01-15 00:00: 00 [facility] History of tubal ligation History of tubal ligation Disease Active 01-15 00:00: 00 [facility] heart decelerati on heart decelerati on Disease Active 11-16 00:00: 00 [facility] 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 Adan DUPONT- Dx at age 17. IVIG transfusi on Q 4 weeks (next 08/29) 11/19/2014 IgG-Q= 566 ([id number] ) 04/29 IgG= 776/A=15/ M=7 [facility] No known active problems No known active problems Disease Araceli Seybold - Externa l Allergies, Adverse Reactions, Alerts Allergy Name Allergy Type Status Severity Reaction(s) Onset Date Inactive Date Treating Clinician Comments Source Adhesive Tape Propensi ty to adverse reaction s to drug Active Dermatis, Contact 10-28 00:00: 00 Allergic to Transpore tape [facility] ADHESIVE TAPE DRUG Active Low CONTACT DERM 10-28 00:00: 00 [facility] Wound Dressing Adhesive Propensi ty to adverse reaction s Active Contact Dermatitis 10-28 00:00: 00 Allergic to Transpore tape Araceli Seybold - Externa l Social History Social Habit Start Date Stop Date Quantity Comments Source Exposure to SARS-CoV-2 (event) Not sure [facility] Alcohol intake 2022-08-24 00:00:00 2022-08-24 00:00:00 Lifetime non-drinker (finding) Araceli Wilson - Melinda Tobacco use and exposure 2021-04-22 00:00:00 2021-04-22 00:00:00 Never used [facility] Sex Assigned At 1980 00:00:00 1980 00:00:00 Araceli Wilson - Melinda Smoking Status Start Date Stop Date Source Never smoked tobacco Araclei Wilson - External Medications Ordered Medication Name Filled Medication Name Start Date Stop Date Current Medication? Ordering Clinician Indication Dosage Frequency Signature (SIG) Comments Components Source Oseltamivir Phosphate 75 MG oral Capsule 08-24 09:55: 53 Yes 1{capsu le} Take 1 capsule by mouth 2 times daily Araceli hill Amoxicillin -Pot Clavulanate 875-125 MG oral Tablet 08-24 00:00: 00 Yes [id number] 1{tbl} Take 1 tablet by mouth 2 times daily Araceli hill Albuterol HFA 108 (90 Base) MCG/ACT IN AERS 08-24 00:00: 00 Yes [id number] 2{puff} Q.25D Inhale 2 puffs into the lungs every 6 hours as needed for wheezing or shortness of breath Araceli hill Azithromyci n 250 MG oral Tablet 08-24 00:00: 00 08-30 05:59 :00 No [id number] Take 2 tablets by mouth on day 1 then 1 tablet by mouth daily for 4 days thereafter . Araceli hill doxycycline hyclate (Vibramycin ) capsule 100 mg 08-20 12:00: 00 Yes 100mg 100 mg, Oral, Q12HA2, First dose on Sara 08/20/21 at 0600, Until Discontinu ed, CESILIA
Re ason for Anti-Infec tive: Documented Infection< br>Documen lucille Infection Site: Respirator y
Durat ion of Therapy: 10 days [facility] amoxicillin (TRIMOX) capsule 500 mg 08-20 07:15: 00 08-20 06:20 :00 No 500mg 500 mg, Oral, ONCE, 1 dose, On Sara 08/20/21 at 0115, CESILIA
Re ason for Anti-Infec tive: Documented Infection< br>Documen lucille Infection Site: Respirator y
Durat ion of Therapy: Other (see Comments) [facility] amoxicillin 500 mg capsule 08-20 00:00: 00 Yes [id number] 500mg Take 1 capsule by mouth 3 (three) times daily. [facility] doxycycline hyclate 100 mg capsule 08-20 00:00: 00 08-31 05:59 :00 No [id number] 100mg Take 1 capsule by mouth 2 (two) times daily for 10 days. [facility] ondansetron (ZOFRAN-ODT ) disintegrat ing tablet 4 mg 04-22 14:45: 00 04-22 13:45 :00 No 4mg 4 mg, Oral, ONCE, 1 dose, Tue04/22/21 at 0945, Routine [facility] ondansetron (ZOFRAN-ODT ) disintegrat ing tablet 4 mg 04-22 14:45: 00 04-22 13:45 :00 No 4mg 4 mg, Oral, ONCE, 1 dose, Tue04/22/21 at 0945, Routine [facility] ondansetron (ZOFRAN) 4 mg tablet 04-22 00:00: 00 Yes [id number] 4mg Take 1 tablet by mouth every 8 (eight) hours as needed for Nausea and Vomiting (N/V). [facility] benzonatate 100 mg capsule 04-22 00:00: 00 Yes [id number] 100mg Take 1 capsule by mouth 3 (three) times daily as needed for Cough. [facility] ondansetron (ZOFRAN) 4 mg tablet 04-22 00:00: 00 Yes [id number] 4mg Take 1 tablet by mouth every 8 (eight) hours as needed for Nausea and Vomiting (N/V). [facility] benzonatate 100 mg capsule 04-22 00:00: 00 Yes [id number] 100mg Take 1 capsule by mouth 3 (three) times daily as needed for Cough. [facility] ondansetron (ZOFRAN) 4 mg tablet 04-22 00:00: 00 Yes [id number] 4mg Take 1 tablet by mouth every 8 (eight) hours as needed for Nausea and Vomiting (N/V). [facility] benzonatate 100 mg capsule 04-22 00:00: 00 Yes [id number] 100mg Take 1 capsule by mouth 3 (three) times daily as needed for Cough. [facility] casirivimab -imdevimab (REGEN-COV (EUA)) injection 1,200 mg 04-21 22:45: 00 04-21 21:33 :00 No [id number] 1200mg 1,200 mg, Subcutaneo us, ONCE, 1 dose, 04/21/21 at 1745, Routine [facility] casirivimab -imdevimab (REGEN-COV (EUA)) injection 1,200 mg 04-21 22:45: 00 04-21 21:33 :00 No [id number] 1200mg 1,200 mg, Subcutaneo us, ONCE, 1 dose, 04/21/21 at 1745, Routine [facility] acetaminoph en (TYLENOL) tablet 1,000 mg 04-18 17:00: 00 04-18 16:44 :00 No 1000mg 1,000 mg, Oral, ONCE, 1 dose, 04/18/21 at 1200, Routine [facility] benzonatate (TESSALON PERLES) capsule 100 mg 04-18 17:00: 00 04-18 16:44 :00 No 100mg 100 mg, Oral, ONCE, 1 dose, 04/18/21 at 1200, Routine [facility] albuterol (VENTOLIN) inhaler 6 Puff 04-18 17:00: 00 04-18 16:39 :00 No 6{puff} 6 Puff, Inhalation , ONCE, 1 dose, 04/18/21 at 1200, CESILIA [facility] acetaminoph en (TYLENOL) tablet 1,000 mg 04-18 17:00: 00 04-18 16:44 :00 No 1000mg 1,000 mg, Oral, ONCE, 1 dose, 04/18/21 at 1200, Routine [facility] benzonatate (TESSALON PERLES) capsule 100 mg 04-18 17:00: 00 04-18 16:44 :00 No 100mg 100 mg, Oral, ONCE, 1 dose, 04/18/21 at 1200, Routine [facility] albuterol (VENTOLIN) inhaler 6 Puff 04-18 17:00: 00 04-18 16:39 :00 No 6{puff} 6 Puff, Inhalation , ONCE, 1 dose, 04/18/21 at 1200, [facility] benzonatate 100 mg capsule 04-18 00:00: 00 Yes [id number] 100mg Take 1 capsule by mouth 3 (three) times daily as needed for Cough. [facility] benzonatate 100 mg capsule 04-18 00:00: 00 Yes [id number] 100mg Take 1 capsule by mouth 3 (three) times daily as needed for Cough. [facility] benzonatate 100 mg capsule 04-18 00:00: 00 Yes [id number] 100mg Take 1 capsule by mouth 3 (three) times daily as needed for Cough. [facility] benzonatate 100 mg capsule 04-18 00:00: 00 Yes [id number] 100mg Take 1 capsule by mouth 3 (three) times daily as needed for Cough. [facility] benzonatate 100 mg capsule 04-18 00:00: 00 04-22 00:00 :00 No [id number] 100mg Take 1 capsule by mouth 3 (three) times daily as needed for Cough. [facility] benzonatate 100 mg capsule 2021-0 9-04 00:00: 00 04-22 00:00 :00 No [id number] 100mg Take 1 capsule by mouth 3 (three) times daily as needed for Cough. [facility] methylpredn isolone sod succ (SOLU-MEDRO L) injection 125 mg 12-09 02:45: 00 12-09 01:40 :00 No 125mg 125 mg, IV Piggyback, ONCE, 1 dose, Tue12/08/20 at 2145, STAT [facility] codeine-gua ifenesin (ROBITUSSIN AC) 10-100 mg/5 mL solution 10 mL 12-09 02:00: 00 12-09 01:39 :00 No 10mL 10 mL, Oral, ONCE, 1 dose, Tue12/08/20 at 2100, CESILIA [facility] benzonatate 200 mg capsule 12-08 00:00: 00 Yes [id number] 200mg Take 1 capsule by mouth 3 (three) times daily as needed for Cough for up to 20 doses. [facility] predniSONE 20 mg tablet 12-08 00:00: 00 Yes [id number] 1 PO BID x 4 days [facility] predniSONE 20 mg tablet 12-08 00:00: 00 Yes [id number] 1 PO BID x 4 days [facility] predniSONE 20 mg tablet 12-08 00:00: 00 Yes [id number] 1 PO BID x 4 days [facility] benzonatate 200 mg capsule 12-08 00:00: 00 Yes [id number] 200mg Take 1 capsule by mouth 3 (three) times daily as needed for Cough for up to 20 doses. [facility] predniSONE 20 mg tablet 12-08 00:00: 00 Yes [id number] 1 PO BID x 4 days [facility] benzonatate 200 mg capsule 12-08 00:00: 00 Yes [id number] 200mg Take 1 capsule by mouth 3 (three) times daily as needed for Cough for up to 20 doses. [facility] predniSONE 20 mg tablet 12-08 00:00: 00 Yes [id number] 1 PO BID x 4 days [facility] benzonatate 200 mg capsule 12-08 00:00: 00 Yes [id number] 200mg Take 1 capsule by mouth 3 (three) times daily as needed for Cough for up to 20 doses. [facility] predniSONE 20 mg tablet 12-08 00:00: 00 Yes [id number] 1 PO BID x 4 days [facility] predniSONE 20 mg tablet 12-08 00:00: 00 Yes [id number] 1 PO BID x 4 days [facility] predniSONE 20 mg tablet 12-08 00:00: 00 Yes [id number] 1 PO BID x 4 days [facility] predniSONE 20 mg tablet 12-08 00:00: 00 Yes [id number] 1 PO BID x 4 days [facility] benzonatate 200 mg capsule 12-08 00:00: 00 Yes [id number] 200mg Take 1 capsule by mouth 3 (three) times daily as needed for Cough for up to 20 doses. [facility] predniSONE 20 mg tablet 12-08 00:00: 00 Yes [id number] 1 PO BID x 4 days [facility] benzonatate 200 mg capsule 12-08 00:00: 00 04-22 00:00 :00 No [id number] 200mg Take 1 capsule by mouth 3 (three) times daily as needed for Cough for up to 20 doses. [facility] benzonatate 200 mg capsule 12-08 00:00: 00 04-22 00:00 :00 No [id number] 200mg Take 1 capsule by mouth 3 (three) times daily as needed for Cough for up to 20 doses. [facility] ondansetron (ZOFRAN (PF)) injection 4 mg 09-15 12:00: 00 09-15 11:12 :00 No 4mg 4 mg, Slow IV Push, ONCE, 1 dose, Tue09/15/20 at 0600, CESILIA [facility] meclizine (TRAVEL-EAS E (MECLIZINE) ) tablet 50 mg 09-15 12:00: 00 09-15 11:13 :00 No 50mg 50 mg, Oral, ONCE, 1 dose, Tue09/15/20 at 0600, [facility] ondansetron (ZOFRAN (PF)) injection 4 mg 09-15 11:15: 00 09-15 10:04 :00 No 4mg 4 mg, Slow IV Push, ONCE, 1 dose, Tue09/15/20 at 0515, [facility] NaCl 0.9% (NS) IV infusion 1,000 mL 09-15 10:00: 00 Yes 1000mL at 999 mL/hr, Intravenou s, CONTINUOUS , Starting Tue09/15/20 at 0415, Until Discontinu ed, [facility] meclizine 25 mg tablet 09-15 00:00: 00 Yes [id number] 25mg Take 1 tablet by mouth 3 (three) times daily as needed for Dizziness. [facility] ondansetron (ZOFRAN) 4 mg tablet 09-15 00:00: 00 Yes [id number] 4mg Take 1 tablet by mouth every 8 (eight) hours as needed for Nausea and Vomiting (N/V). [facility] meclizine 25 mg tablet 09-15 00:00: 00 Yes [id number] 25mg Take 1 tablet by mouth 3 (three) times daily as needed for Dizziness. [facility] meclizine 25 mg tablet 09-15 00:00: 00 Yes [id number] 25mg Take 1 tablet by mouth 3 (three) times daily as needed for Dizziness. [facility] meclizine 25 mg tablet 09-15 00:00: 00 Yes [id number] 25mg Take 1 tablet by mouth 3 (three) times daily as needed for Dizziness. [facility] ondansetron (ZOFRAN) 4 mg tablet 09-15 00:00: 00 Yes [id number] 4mg Take 1 tablet by mouth every 8 (eight) hours as needed for Nausea and Vomiting (N/V). [facility] meclizine 25 mg tablet 2020-0 2- 00:00: 00 Yes [id number] 25mg Take 1 tablet by mouth 3 (three) times daily as needed for Dizziness. [facility] ondansetron (ZOFRAN) 4 mg tablet 0 2- 00:00: 00 Yes [id number] 4mg Take 1 tablet by mouth every 8 (eight) hours as needed for Nausea and Vomiting (N/V). [facility] meclizine 25 mg tablet 2020-0 2- 00:00: 00 Yes [id number] 25mg Take 1 tablet by mouth 3 (three) times daily as needed for Dizziness. [facility] ondansetron (ZOFRAN) 4 mg tablet 0 2- 00:00: 00 Yes [id number] 4mg Take 1 tablet by mouth every 8 (eight) hours as needed for Nausea and Vomiting (N/V). [facility] meclizine 25 mg tablet 2020-0 2- 00:00: 00 Yes [id number] 25mg Take 1 tablet by mouth 3 (three) times daily as needed for Dizziness. [facility] ondansetron (ZOFRAN) 4 mg tablet 0 2- 00:00: 00 Yes [id number] 4mg Take 1 tablet by mouth every 8 (eight) hours as needed for Nausea and Vomiting (N/V). [facility] meclizine 25 mg tablet 2020-0 2- 00:00: 00 Yes [id number] 25mg Take 1 tablet by mouth 3 (three) times daily as needed for Dizziness. [facility] meclizine 25 mg tablet 2020-0 2- 00:00: 00 Yes [id number] 25mg Take 1 tablet by mouth 3 (three) times daily as needed for Dizziness. [facility] meclizine 25 mg tablet 2020-0 2- 00:00: 00 Yes [id number] 25mg Take 1 tablet by mouth 3 (three) times daily as needed for Dizziness. [facility] meclizine 25 mg tablet 09-15 00:00: 00 Yes [id number] 25mg Take 1 tablet by mouth 3 (three) times daily as needed for Dizziness. [facility] ondansetron (ZOFRAN) 4 mg tablet 09-15 00:00: 00 Yes [id number] 4mg Take 1 tablet by mouth every 8 (eight) hours as needed for Nausea and Vomiting (N/V). [facility] ondansetron (ZOFRAN) 4 mg tablet 09-15 00:00: 00 04-22 00:00 :00 No [id number] 4mg Take 1 tablet by mouth every 8 (eight) hours as needed for Nausea and Vomiting (N/V). [facility] ondansetron (ZOFRAN) 4 mg tablet 09-15 00:00: 00 04-22 00:00 :00 No [id number] 4mg Take 1 tablet by mouth every 8 (eight) hours as needed for Nausea and Vomiting (N/V). [facility] acetaminoph en (TYLENOL) tablet 650 mg 03-15 08:15: 03-15 07:12 :00 No 650mg 650 mg, Oral, ONCE, 1 dose, 03/15/20 at 0315, CESILIA [facility] iohexol (OMNIPAQUE 350 BULK-100 mL) injection 120 mL 03-15 05:45: 00 03-15 05:36 :00 No 120mL 120 mL, Intravenou s, ONCE, 1 dose, 03/15/20 at 0045, Routine [facility] ondansetron (ZOFRAN (PF)) injection 4 mg 03-15 05:15: 00 03-15 04:20 :00 No 4mg 4 mg, Slow IV Push, ONCE, 1 dose, 03/15/20 at 0015, CESILIA [facility] NaCl 0.9% (NS) bolus infusion 1,000 mL 03-15 05:15: 00 03-15 07:15 :00 No 1000mL at 999 mL/hr, 1,000 mL, IV Infusion, ONCE, 1 dose, 03/15/20 at 0015, STAT [facility] morpHINE injection 4 mg 03-15 05:15: 00 03-15 04:21 :00 No 4mg 4 mg, Slow IV Push, ONCE, 1 dose, 03/15/20 at 0015, STAT [facility] levoFLOXaci n 750 mg tablet 03-15 00:00: 00 Yes [id number] 750mg Take 1 tablet by mouth every 24 (twenty-fo ur) hours. [facility] ketorolac 10 mg tablet 03-15 00:00: 00 Yes [id number] 10mg Take 1 tablet by mouth every 6 (six) hours as needed for Pain (scale 7-10). [facility] levoFLOXaci n 750 mg tablet 03-15 00:00: 00 Yes [id number] 750mg Take 1 tablet by mouth every 24 (twenty-fo ur) hours. [facility] ketorolac 10 mg tablet 03-15 00:00: 00 Yes [id number] 10mg Take 1 tablet by mouth every 6 (six) hours as needed for Pain (scale 7-10). [facility] levoFLOXaci n 750 mg tablet 03-15 00:00: 00 Yes [id number] 750mg Take 1 tablet by mouth every 24 (twenty-fo ur) hours. [facility] ketorolac 10 mg tablet 03-15 00:00: 00 Yes [id number] 10mg Take 1 tablet by mouth every 6 (six) hours as needed for Pain (scale 7-10). [facility] levoFLOXaci n 750 mg tablet 03-15 00:00: 00 Yes [id number] 750mg Take 1 tablet by mouth every 24 (twenty-fo ur) hours. [facility] ketorolac 10 mg tablet 03-15 00:00: 00 Yes [id number] 10mg Take 1 tablet by mouth every 6 (six) hours as needed for Pain (scale 7-10). [facility] levoFLOXaci n 750 mg tablet 03-15 00:00: 00 Yes [id number] 750mg Take 1 tablet by mouth every 24 (twenty-fo ur) hours. [facility] ketorolac 10 mg tablet 0 03-15 00:00: 00 Yes [id number] 10mg Take 1 tablet by mouth every 6 (six) hours as needed for Pain (scale 7-10). [facility] levoFLOXaci n 750 mg tablet 03-15 00:00: 00 Yes [id number] 750mg Take 1 tablet by mouth every 24 (twenty-fo ur) hours. [facility] ketorolac 10 mg tablet 03-15 00:00: 00 Yes [id number] 10mg Take 1 tablet by mouth every 6 (six) hours as needed for Pain (scale 7-10). [facility] levoFLOXaci n 750 mg tablet 03-15 00:00: 00 Yes [id number] 750mg Take 1 tablet by mouth every 24 (twenty-fo ur) hours. [facility] ketorolac 10 mg tablet 03-15 00:00: 00 Yes [id number] 10mg Take 1 tablet by mouth every 6 (six) hours as needed for Pain (scale 7-10). [facility] levoFLOXaci n 750 mg tablet 03-15 00:00: 00 Yes [id number] 750mg Take 1 tablet by mouth every 24 (twenty-fo ur) hours. [facility] ketorolac 10 mg tablet 03-15 00:00: 00 Yes [id number] 10mg Take 1 tablet by mouth every 6 (six) hours as needed for Pain (scale 7-10). [facility] levoFLOXaci n 750 mg tablet 0 03-15 00:00: 00 Yes [id number] 750mg Take 1 tablet by mouth every 24 (twenty-fo ur) hours. [facility] ketorolac 10 mg tablet 0 03-15 00:00: 00 Yes [id number] 10mg Take 1 tablet by mouth every 6 (six) hours as needed for Pain (scale 7-10). [facility] levoFLOXaci n 750 mg tablet 0 - 00:00: 00 Yes [id number] 750mg Take 1 tablet by mouth every 24 (twenty-fo ur) hours. [facility] ketorolac 10 mg tablet 03-15 00:00: 00 Yes [id number] 10mg Take 1 tablet by mouth every 6 (six) hours as needed for Pain (scale 7-10). [facility] levoFLOXaci n 750 mg tablet 03-15 00:00: 00 Yes [id number] 750mg Take 1 tablet by mouth every 24 (twenty-fo ur) hours. [facility] ketorolac 10 mg tablet 03-15 00:00: 00 Yes [id number] 10mg Take 1 tablet by mouth every 6 (six) hours as needed for Pain (scale 7-10). [facility] levoFLOXaci n 750 mg tablet 03-15 00:00: 00 Yes [id number] 750mg Take 1 tablet by mouth every 24 (twenty-fo ur) hours. [facility] ketorolac 10 mg tablet 03-15 00:00: 00 Yes [id number] 10mg Take 1 tablet by mouth every 6 (six) hours as needed for Pain (scale 7-10). [facility] levoFLOXaci n 750 mg tablet 03-15 00:00: 00 03-15 00:00 :00 No [id number] 750mg Take 1 tablet by mouth every 24 (twenty-fo ur) hours for 5 days. [facility] ondansetron 4 mg disintegrat ing tablet 2018-08 00:00: 00 Yes [id number] 4mg Take 1 tablet by mouth every 4 (four) hours as needed for Nausea and Vomiting (N/V). [facility] ondansetron 4 mg disintegrat ing tablet 2018-08 00:00: 00 Yes [id number] 4mg Take 1 tablet by mouth every 4 (four) hours as needed for Nausea and Vomiting (N/V). [facility] ondansetron 4 mg disintegrat ing tablet 2018-08 00:00: 00 Yes [id number] 4mg Take 1 tablet by mouth every 4 (four) hours as needed for Nausea and Vomiting (N/V). [facility] ondansetron 4 mg disintegrat ing tablet 2018-08 00:00: 00 Yes [id number] 4mg Take 1 tablet by mouth every 4 (four) hours as needed for Nausea and Vomiting (N/V). [facility] Nitrofurant oin&Nit. Macrocryst (MACROBID) 100 mg capsule 2018-08 00:00: 00 Yes [id number] 100mg Take 1 capsule by mouth 2 (two) times daily. [facility] ondansetron 4 mg disintegrat ing tablet 2018-08 00:00: 00 Yes [id number] 4mg Take 1 tablet by mouth every 4 (four) hours as needed for Nausea and Vomiting (N/V). [facility] ondansetron 4 mg disintegrat ing tablet 2018-08 00:00: 00 Yes [id number] 4mg Take 1 tablet by mouth every 4 (four) hours as needed for Nausea and Vomiting (N/V). [facility] ondansetron 4 mg disintegrat ing tablet 2018-08 00:00: 00 Yes [id number] 4mg Take 1 tablet by mouth every 4 (four) hours as needed for Nausea and Vomiting (N/V). [facility] ondansetron 4 mg disintegrat ing tablet 2018-08 00:00: 00 Yes [id number] 4mg Take 1 tablet by mouth every 4 (four) hours as needed for Nausea and Vomiting (N/V). [facility] ondansetron 4 mg disintegrat ing tablet 2018-08 00:00: 00 Yes [id number] 4mg Take 1 tablet by mouth every 4 (four) hours as needed for Nausea and Vomiting (N/V). [facility] ondansetron 4 mg disintegrat ing tablet 2018-08 00:00: 00 Yes [id number] 4mg Take 1 tablet by mouth every 4 (four) hours as needed for Nausea and Vomiting (N/V). [facility] ondansetron 4 mg disintegrat ing tablet 2018-08 00:00: 00 Yes [id number] 4mg Take 1 tablet by mouth every 4 (four) hours as needed for Nausea and Vomiting (N/V). [facility] ondansetron 4 mg disintegrat ing tablet 2018-08 00:00: 00 Yes [id number] 4mg Take 1 tablet by mouth every 4 (four) hours as needed for Nausea and Vomiting (N/V). [facility] ondansetron 4 mg disintegrat ing tablet 2018-08 00:00: 00 Yes [id number] 4mg Take 1 tablet by mouth every 4 (four) hours as needed for Nausea and Vomiting (N/V). [facility] Nitrofurant oin&Nit. Macrocryst (MACROBID) 100 mg capsule 2018-08 00:00: 00 03-15 00:00 :00 No [id number] 100mg Take 1 capsule by mouth 2 (two) times daily. [facility] cyclobenzap rine 5 mg tablet 12-08 00:00: 00 Yes [id number] 5mg Take 1 tablet by mouth 3 (three) times daily. [facility] LORazepam (ATIVAN) 1 mg tablet 12-08 00:00: 00 Yes [id number] 1mg Take 1 tablet by mouth 3 (three) times daily as needed for Anxiety or Agitation (muscle spasm). [facility] traMADOL (ULTRAM) 50 mg tablet 12-08 00:00: 00 Yes [id number] 50mg Take 1 tablet by mouth every 6 (six) hours as needed for Pain (scale 4-6). [facility] cyclobenzap rine 5 mg tablet 12-08 00:00: 00 Yes [id number] 5mg Take 1 tablet by mouth 3 (three) times daily. [facility] LORazepam (ATIVAN) 1 mg tablet 12-08 00:00: 00 Yes [id number] 1mg Take 1 tablet by mouth 3 (three) times daily as needed for Anxiety or Agitation (muscle spasm). [facility] traMADOL (ULTRAM) 50 mg tablet 12-08 00:00: 00 Yes [id number] 50mg Take 1 tablet by mouth every 6 (six) hours as needed for Pain (scale 4-6). [facility] cyclobenzap rine 5 mg tablet 12-08 00:00: 00 Yes [id number] 5mg Take 1 tablet by mouth 3 (three) times daily. [facility] LORazepam (ATIVAN) 1 mg tablet 12-08 00:00: 00 Yes [id number] 1mg Take 1 tablet by mouth 3 (three) times daily as needed for Anxiety or Agitation (muscle spasm). [facility] traMADOL (ULTRAM) 50 mg tablet 12-08 00:00: 00 Yes [id number] 50mg Take 1 tablet by mouth every 6 (six) hours as needed for Pain (scale 4-6). [facility] cyclobenzap rine 5 mg tablet 12-08 00:00: 00 Yes [id number] 5mg Take 1 tablet by mouth 3 (three) times daily. [facility] LORazepam (ATIVAN) 1 mg tablet 12-08 00:00: 00 Yes [id number] 1mg Take 1 tablet by mouth 3 (three) times daily as needed for Anxiety or Agitation (muscle spasm). [facility] traMADOL (ULTRAM) 50 mg tablet 12-08 00:00: 00 Yes [id number] 50mg Take 1 tablet by mouth every 6 (six) hours as needed for Pain (scale 4-6). [facility] cyclobenzap rine 5 mg tablet 12-08 00:00: 00 Yes [id number] 5mg Take 1 tablet by mouth 3 (three) times daily. [facility] LORazepam (ATIVAN) 1 mg tablet 12-08 00:00: 00 Yes [id number] 1mg Take 1 tablet by mouth 3 (three) times daily as needed for Anxiety or Agitation (muscle spasm). [facility] traMADOL (ULTRAM) 50 mg tablet 12-08 00:00: 00 Yes [id number] 50mg Take 1 tablet by mouth every 6 (six) hours as needed for Pain (scale 4-6). [facility] cyclobenzap rine 5 mg tablet 12-08 00:00: 00 Yes [id number] 5mg Take 1 tablet by mouth 3 (three) times daily. [facility] LORazepam (ATIVAN) 1 mg tablet 12-08 00:00: 00 Yes [id number] 1mg Take 1 tablet by mouth 3 (three) times daily as needed for Anxiety or Agitation (muscle spasm). [facility] traMADOL (ULTRAM) 50 mg tablet 12-08 00:00: 00 Yes [id number] 50mg Take 1 tablet by mouth every 6 (six) hours as needed for Pain (scale 4-6). [facility] cyclobenzap rine 5 mg tablet 12-08 00:00: 00 Yes [id number] 5mg Take 1 tablet by mouth 3 (three) times daily. [facility] LORazepam (ATIVAN) 1 mg tablet 12-08 00:00: 00 Yes [id number] 1mg Take 1 tablet by mouth 3 (three) times daily as needed for Anxiety or Agitation (muscle spasm). [facility] traMADOL (ULTRAM) 50 mg tablet 12-08 00:00: 00 Yes [id number] 50mg Take 1 tablet by mouth every 6 (six) hours as needed for Pain (scale 4-6). [facility] cyclobenzap rine 5 mg tablet 12-08 00:00: 00 Yes [id number] 5mg Take 1 tablet by mouth 3 (three) times daily. [facility] LORazepam (ATIVAN) 1 mg tablet 12-08 00:00: 00 Yes [id number] 1mg Take 1 tablet by mouth 3 (three) times daily as needed for Anxiety or Agitation (muscle spasm). [facility] traMADOL (ULTRAM) 50 mg tablet 12-08 00:00: 00 Yes [id number] 50mg Take 1 tablet by mouth every 6 (six) hours as needed for Pain (scale 4-6). [facility] cyclobenzap rine 5 mg tablet 12-08 00:00: 00 Yes [id number] 5mg Take 1 tablet by mouth 3 (three) times daily. [facility] LORazepam (ATIVAN) 1 mg tablet 12-08 00:00: 00 Yes [id number] 1mg Take 1 tablet by mouth 3 (three) times daily as needed for Anxiety or Agitation (muscle spasm). [facility] traMADOL (ULTRAM) 50 mg tablet 12-08 00:00: 00 Yes [id number] 50mg Take 1 tablet by mouth every 6 (six) hours as needed for Pain (scale 4-6). [facility] cyclobenzap rine 5 mg tablet 12-08 00:00: 00 Yes [id number] 5mg Take 1 tablet by mouth 3 (three) times daily. [facility] LORazepam (ATIVAN) 1 mg tablet 12-08 00:00: 00 Yes [id number] 1mg Take 1 tablet by mouth 3 (three) times daily as needed for Anxiety or Agitation (muscle spasm). [facility] traMADOL (ULTRAM) 50 mg tablet 12-08 00:00: 00 Yes [id number] 50mg Take 1 tablet by mouth every 6 (six) hours as needed for Pain (scale 4-6). [facility] cyclobenzap rine 5 mg tablet 12-08 00:00: 00 Yes [id number] 5mg Take 1 tablet by mouth 3 (three) times daily. [facility] LORazepam (ATIVAN) 1 mg tablet 12-08 00:00: 00 Yes [id number] 1mg Take 1 tablet by mouth 3 (three) times daily as needed for Anxiety or Agitation (muscle spasm). [facility] traMADOL (ULTRAM) 50 mg tablet 12-08 00:00: 00 Yes [id number] 50mg Take 1 tablet by mouth every 6 (six) hours as needed for Pain (scale 4-6). [facility] cyclobenzap rine 5 mg tablet 12-08 00:00: 00 Yes [id number] 5mg Take 1 tablet by mouth 3 (three) times daily. [facility] LORazepam (ATIVAN) 1 mg tablet 12-08 00:00: 00 Yes [id number] 1mg Take 1 tablet by mouth 3 (three) times daily as needed for Anxiety or Agitation (muscle spasm). [facility] traMADOL (ULTRAM) 50 mg tablet 12-08 00:00: 00 Yes [id number] 50mg Take 1 tablet by mouth every 6 (six) hours as needed for Pain (scale 4-6). [facility] cyclobenzap rine 5 mg tablet 12-08 00:00: 00 Yes [id number] 5mg Take 1 tablet by mouth 3 (three) times daily. [facility] LORazepam (ATIVAN) 1 mg tablet 12-08 00:00: 00 Yes [id number] 1mg Take 1 tablet by mouth 3 (three) times daily as needed for Anxiety or Agitation (muscle spasm). [facility] traMADOL (ULTRAM) 50 mg tablet 12-08 00:00: 00 Yes [id number] 50mg Take 1 tablet by mouth every 6 (six) hours as needed for Pain (scale 4-6). [facility] acetaminoph en-codeine (TYLENOL-CO DEINE #3) 300-30 mg tablet 09-21 00:00: 00 Yes [id number] 1{tbl} Take 1 tablet by mouth every 4 (four) hours as needed for Pain (scale 7-10). [facility] acetaminoph en-codeine (TYLENOL-CO DEINE #3) 300-30 mg tablet 09-21 00:00: 00 Yes [id number] 1{tbl} Take 1 tablet by mouth every 4 (four) hours as needed for Pain (scale 7-10). [facility] levoFLOXaci n (LEVAQUIN) 750 mg tablet 09-21 00:00: 00 Yes [id number] 750mg Take 1 tablet by mouth every 24 (twenty-fo ur) hours. [facility] benzonatate 200 mg capsule 09-21 00:00: 00 Yes [id number] 200mg Take 1 capsule by mouth 3 (three) times daily as needed for Cough. [facility] acetaminoph en-codeine (TYLENOL-CO DEINE #3) 300-30 mg tablet 09-21 00:00: 00 Yes [id number] 1{tbl} Take 1 tablet by mouth every 4 (four) hours as needed for Pain (scale 7-10). [facility] benzonatate 200 mg capsule 09-21 00:00: 00 Yes [id number] 200mg Take 1 capsule by mouth 3 (three) times daily as needed for Cough. [facility] acetaminoph en-codeine (TYLENOL-CO DEINE #3) 300-30 mg tablet 09-21 00:00: 00 Yes [id number] 1{tbl} Take 1 tablet by mouth every 4 (four) hours as needed for Pain (scale 7-10). [facility] benzonatate 200 mg capsule 09-21 00:00: 00 Yes [id number] 200mg Take 1 capsule by mouth 3 (three) times daily as needed for Cough. [facility] acetaminoph en-codeine (TYLENOL-CO DEINE #3) 300-30 mg tablet 09-21 00:00: 00 Yes [id number] 1{tbl} Take 1 tablet by mouth every 4 (four) hours as needed for Pain (scale 7-10). [facility] acetaminoph en-codeine (TYLENOL-CO DEINE #3) 300-30 mg tablet 09-21 00:00: 00 Yes [id number] 1{tbl} Take 1 tablet by mouth every 4 (four) hours as needed for Pain (scale 7-10). [facility] acetaminoph en-codeine (TYLENOL-CO DEINE #3) 300-30 mg tablet 09-21 00:00: 00 Yes [id number] 1{tbl} Take 1 tablet by mouth every 4 (four) hours as needed for Pain (scale 7-10). [facility] acetaminoph en-codeine (TYLENOL-CO DEINE #3) 300-30 mg tablet 09-21 00:00: 00 Yes [id number] 1{tbl} Take 1 tablet by mouth every 4 (four) hours as needed for Pain (scale 7-10). [facility] acetaminoph en-codeine (TYLENOL-CO DEINE #3) 300-30 mg tablet 09-21 00:00: 00 Yes [id number] 1{tbl} Take 1 tablet by mouth every 4 (four) hours as needed for Pain (scale 7-10). [facility] acetaminoph en-codeine (TYLENOL-CO DEINE #3) 300-30 mg tablet 09-21 00:00: 00 Yes [id number] 1{tbl} Take 1 tablet by mouth every 4 (four) hours as needed for Pain (scale 7-10). [facility] acetaminoph en-codeine (TYLENOL-CO DEINE #3) 300-30 mg tablet 09-21 00:00: 00 Yes [id number] 1{tbl} Take 1 tablet by mouth every 4 (four) hours as needed for Pain (scale 7-10). [facility] acetaminoph en-codeine (TYLENOL-CO DEINE #3) 300-30 mg tablet 09-21 00:00: 00 Yes [id number] 1{tbl} Take 1 tablet by mouth every 4 (four) hours as needed for Pain (scale 7-10). [facility] acetaminoph en-codeine (TYLENOL-CO DEINE #3) 300-30 mg tablet 09-21 00:00: 00 Yes [id number] 1{tbl} Take 1 tablet by mouth every 4 (four) hours as needed for Pain (scale 7-10). [facility] benzonatate 200 mg capsule 09-21 00:00: 00 12-08 00:00 :00 No [id number] 200mg Take 1 capsule by mouth 3 (three) times daily as needed for Cough. [facility] levoFLOXaci n (LEVAQUIN) 750 mg tablet 09-21 00:00: 00 03-15 00:00 :00 No [id number] 750mg Take 1 tablet by mouth every 24 (twenty-fo ur) hours. [facility] albuterol 90 mcg/actuati on inhaler 2017-08 00:00: 00 Yes 2{puff} Inhale 2 Puffs every 4 (four) hours as needed for Wheezing or Shortness of Breath. [facility] codeine-gua ifenesin 10-100 mg/5 mL solution 2017-08 00:00: 00 Yes 5mL Take 5 mL by mouth every 6 (six) hours as needed for Cough. [facility] albuterol 90 mcg/actuati on inhaler 2017-08 00:00: 00 Yes 2{puff} Inhale 2 Puffs every 4 (four) hours as needed for Wheezing or Shortness of Breath. [facility] codeine-gua ifenesin 10-100 mg/5 mL solution 2017-08 00:00: 00 Yes 5mL Take 5 mL by mouth every 6 (six) hours as needed for Cough. [facility] albuterol 90 mcg/actuati on inhaler 2017-08 00:00: 00 Yes 2{puff} Inhale 2 Puffs every 4 (four) hours as needed for Wheezing or Shortness of Breath. [facility] codeine-gua ifenesin 10-100 mg/5 mL solution 2017-08 00:00: 00 Yes 5mL Take 5 mL by mouth every 6 (six) hours as needed for Cough. [facility] ondansetron 4 mg tablet 2017-08 00:00: 00 Yes 4mg Take 1 tablet by mouth every 8 (eight) hours as needed for Nausea and Vomiting (N/V). [facility] albuterol 90 mcg/actuati on inhaler 2017-08 00:00: 00 Yes 2{puff} Inhale 2 Puffs every 4 (four) hours as needed for Wheezing or Shortness of Breath. [facility] codeine-gua ifenesin 10-100 mg/5 mL solution 2017-08 00:00: 00 Yes 5mL Take 5 mL by mouth every 6 (six) hours as needed for Cough. [facility] ondansetron 4 mg tablet 2017-08 00:00: 00 Yes 4mg Take 1 tablet by mouth every 8 (eight) hours as needed for Nausea and Vomiting (N/V). [facility] albuterol 90 mcg/actuati on inhaler 2017-08 00:00: 00 Yes 2{puff} Inhale 2 Puffs every 4 (four) hours as needed for Wheezing or Shortness of Breath. [facility] codeine-gua ifenesin 10-100 mg/5 mL solution 2017-08 00:00: 00 Yes 5mL Take 5 mL by mouth every 6 (six) hours as needed for Cough. [facility] ondansetron 4 mg tablet 2017-08 00:00: 00 Yes 4mg Take 1 tablet by mouth every 8 (eight) hours as needed for Nausea and Vomiting (N/V). [facility] albuterol 90 mcg/actuati on inhaler 2017-08 00:00: 00 Yes 2{puff} Inhale 2 Puffs every 4 (four) hours as needed for Wheezing or Shortness of Breath. [facility] codeine-gua ifenesin 10-100 mg/5 mL solution 2017-08 00:00: 00 Yes 5mL Take 5 mL by mouth every 6 (six) hours as needed for Cough. [facility] ondansetron 4 mg tablet 2017-08 00:00: 00 Yes 4mg Take 1 tablet by mouth every 8 (eight) hours as needed for Nausea and Vomiting (N/V). [facility] albuterol 90 mcg/actuati on inhaler 2017-08 00:00: 00 Yes 2{puff} Inhale 2 Puffs every 4 (four) hours as needed for Wheezing or Shortness of Breath. [facility] codeine-gua ifenesin 10-100 mg/5 mL solution 2017-08 00:00: 00 Yes 5mL Take 5 mL by mouth every 6 (six) hours as needed for Cough. [facility] ondansetron 4 mg tablet 2017-08 00:00: 00 Yes 4mg Take 1 tablet by mouth every 8 (eight) hours as needed for Nausea and Vomiting (N/V). [facility] albuterol 90 mcg/actuati on inhaler 2017-08 00:00: 00 Yes 2{puff} Inhale 2 Puffs every 4 (four) hours as needed for Wheezing or Shortness of Breath. [facility] codeine-gua ifenesin 10-100 mg/5 mL solution 2017-08 00:00: 00 Yes 5mL Take 5 mL by mouth every 6 (six) hours as needed for Cough. [facility] ondansetron 4 mg tablet 2017-08 00:00: 00 Yes 4mg Take 1 tablet by mouth every 8 (eight) hours as needed for Nausea and Vomiting (N/V). [facility] albuterol 90 mcg/actuati on inhaler 2017-08 00:00: 00 Yes 2{puff} Inhale 2 Puffs every 4 (four) hours as needed for Wheezing or Shortness of Breath. [facility] codeine-gua ifenesin 10-100 mg/5 mL solution 2017-08 00:00: 00 Yes 5mL Take 5 mL by mouth every 6 (six) hours as needed for Cough. [facility] albuterol 90 mcg/actuati on inhaler 2017-08 00:00: 00 Yes 2{puff} Inhale 2 Puffs every 4 (four) hours as needed for Wheezing or Shortness of Breath. [facility] codeine-gua ifenesin 10-100 mg/5 mL solution 2017-08 00:00: 00 Yes 5mL Take 5 mL by mouth every 6 (six) hours as needed for Cough. [facility] albuterol 90 mcg/actuati on inhaler 2017-08 00:00: 00 Yes 2{puff} Inhale 2 Puffs every 4 (four) hours as needed for Wheezing or Shortness of Breath. [facility] codeine-gua ifenesin 10-100 mg/5 mL solution 2017-08 00:00: 00 Yes 5mL Take 5 mL by mouth every 6 (six) hours as needed for Cough. [facility] albuterol 90 mcg/actuati on inhaler 2017-08 00:00: 00 Yes 2{puff} Inhale 2 Puffs every 4 (four) hours as needed for Wheezing or Shortness of Breath. [facility] codeine-gua ifenesin 10-100 mg/5 mL solution 2017-08 00:00: 00 Yes 5mL Take 5 mL by mouth every 6 (six) hours as needed for Cough. [facility] ondansetron 4 mg tablet 2017-08 00:00: 00 Yes 4mg Take 1 tablet by mouth every 8 (eight) hours as needed for Nausea and Vomiting (N/V). [facility] albuterol 90 mcg/actuati on inhaler 2017-08 00:00: 00 Yes 2{puff} Inhale 2 Puffs every 4 (four) hours as needed for Wheezing or Shortness of Breath. [facility] codeine-gua ifenesin 10-100 mg/5 mL solution 2017-08 00:00: 00 Yes 5mL Take 5 mL by mouth every 6 (six) hours as needed for Cough. [facility] ondansetron 4 mg tablet 2017-08 00:00: 00 Yes 4mg Take 1 tablet by mouth every 8 (eight) hours as needed for Nausea and Vomiting (N/V). [facility] ondansetron 4 mg tablet 2017-08 00:00: 00 04-22 00:00 :00 No 4mg Take 1 tablet by mouth every 8 (eight) hours as needed for Nausea and Vomiting (N/V). [facility] ondansetron 4 mg tablet 2017-08 00:00: 00 04-22 00:00 :00 No 4mg Take 1 tablet by mouth every 8 (eight) hours as needed for Nausea and Vomiting (N/V). [facility] fluticasone 50 mcg/actuati on nasal spray 09-27 00:00: 00 Yes 2{spray } Use 2 Sprays in each nostril 2 (two) times daily. [facility] fluticasone 50 mcg/actuati on nasal spray 09-27 00:00: 00 Yes 2{spray } Use 2 Sprays in each nostril 2 (two) times daily. [facility] fluticasone 50 mcg/actuati on nasal spray 09-27 00:00: 00 Yes 2{spray } Use 2 Sprays in each nostril 2 (two) times daily. [facility] fluticasone 50 mcg/actuati on nasal spray 09-27 00:00: 00 Yes 2{spray } Use 2 Sprays in each nostril 2 (two) times daily. [facility] fluticasone 50 mcg/actuati on nasal spray 09-27 00:00: 00 Yes 2{spray } Use 2 Sprays in each nostril 2 (two) times daily. [facility] fluticasone 50 mcg/actuati on nasal spray 09-27 00:00: 00 Yes 2{spray } Use 2 Sprays in each nostril 2 (two) times daily. [facility] fluticasone 50 mcg/actuati on nasal spray 09-27 00:00: 00 Yes 2{spray } Use 2 Sprays in each nostril 2 (two) times daily. [facility] fluticasone 50 mcg/actuati on nasal spray 09-27 00:00: 00 Yes 2{spray } Use 2 Sprays in each nostril 2 (two) times daily. [facility] fluticasone 50 mcg/actuati on nasal spray 09-27 00:00: 00 Yes 2{spray } Use 2 Sprays in each nostril 2 (two) times daily. [facility] fluticasone 50 mcg/actuati on nasal spray 09-27 00:00: 00 Yes 2{spray } Use 2 Sprays in each nostril 2 (two) times daily. [facility] fluticasone 50 mcg/actuati on nasal spray 09-27 00:00: 00 Yes 2{spray } Use 2 Sprays in each nostril 2 (two) times daily. [facility] fluticasone 50 mcg/actuati on nasal spray 09-27 00:00: 00 Yes 2{spray } Use 2 Sprays in each nostril 2 (two) times daily. [facility] m[facility]/actu[facility] nasal spray 09-27 00:00: 00 Yes 2{spray } Use 2 Sprays in each nostril 2 (two) times daily. [facility] immune globulin (GAMMAGARD LIQUID) 10 % injection 03-18 00:00: 00 Yes [id number] 50g 500 mL by IV Infusion route once every month. [facility] globulin (GAMMAGARD LIQUID) 10 % injection 03-18 00:00: 00 Yes [id number] 50g 500 mL by IV Infusion route once every month. [facility] globulin (GAMMAGARD LIQUID) 10 % injection 03-18 00:00: 00 Yes [id number] 50g 500 mL by IV Infusion route once every month. [facility] immune globulin (GAMMAGARD LIQUID) 10 % injection 03-18 00:00: 00 Yes [id number] 50g 500 mL by IV Infusion route once every month. [facility] immune globulin (GAMMAGARD LIQUID) 10 % injection 03-18 00:00: 00 Yes [id number] 50g 500 mL by IV Infusion route once every month. [facility] globulin (GAMMAGARD LIQUID) 10 % injection 03-18 00:00: 00 Yes [id number] 50g 500 mL by IV Infusion route once every month. [facility] immune globulin (GAMMAGARD LIQUID) 10 % injection 03-18 00:00: 00 Yes [id number] 50g 500 mL by IV Infusion route once every month. [facility] immune globulin (GAMMAGARD LIQUID) 10 % injection 03-18 00:00: 00 Yes [id number] 50g 500 mL by IV Infusion route once every month. [facility] immune globulin (GAMMAGARD LIQUID) 10 % injection 03-18 00:00: 00 Yes [id number] 50g 500 mL by IV Infusion route once every month. [facility] immune globulin (GAMMAGARD LIQUID) 10 % injection 03-18 00:00: 00 Yes [id number] 50g 500 mL by IV Infusion route once every month. [facility] globulin (GAMMAGARD LIQUID) 10 % injection 03-18 00:00: 00 Yes [id number] 50g 500 mL by IV Infusion route once every month. [facility] immune globulin (GAMMAGARD LIQUID) 10 % injection 03-18 00:00: 00 Yes [id number] 50g 500 mL by IV Infusion route once every month. [facility] globulin (GAMMAGARD LIQUID) 10 % injection 03-18 00:00: 00 Yes [id number] 50g 500 mL by IV Infusion route once every month. [facility] Vital Signs Vital Name Observation Time Observation Value Comments S kapil Systolic blood pressure 2022-08-24 15:48:00 110 mm[Hg] Araceli Seybo ld - External Diastolic blood pressure 2022-08-24 15:48:00 62 mm[Hg] Araceli ybo ld - External Heart rate 2022-08-24 15:48:00 98 /min Kel y Seybold - External Body temperature 2022-08-24 15:48:00 36.28 Amita Araceli Balderasybold - External Respiratory rate 2022-08-24 15:48:00 14 /min Araceli Balderasybold - External Body height 2022-08-24 15:48:00 165.1 cm Maya graham Seybold - External Body weight 2022-08-24 15:48:00 63.05 kg Maya ey Seybold - External BMI 2022-08-24 15:48:00 23.13 kg/m2 Maya ey Seybold - External Systolic blood pressure 2021-08-20 05:01:00 123 mm[Hg] [facility] Diastolic blood pressure 2021-08-20 05:01:00 68 mm[Hg] [facility] Heart rate 2021-08-20 05:01:00 88 /min [facility] Body temperature 2021-08-20 05:01:00 37.11 Amita [facility] Respiratory rate 2021-08-20 05:01:00 18 /min [facility] Body height 2021-08-20 05:01:00 165.1 cm [facility] Body weight 2021-08-20 05:01:00 68.947 kg [facility] BMI 2021-08-20 05:01:00 25.29 kg/m2 [facility] Oxygen saturation in Arterial blood by Pulse oximetry 2021-08-20 05:01:00 97 /min [facility] Systolic blood pressure 2021-04-22 13:16:00 108 mm[Hg] [facility] Diastolic blood pressure 2021-04-22 13:16:00 66 mm[Hg] [facility] Heart rate 2021-04-22 13:16:00 120 /min Un[facility] Body temperature 2021-04-22 13:16:00 36.72 Amita [facility] Respiratory rate 2021-04-22 13:16:00 18 /min [facility] Body weight 2021-04-22 13:16:00 71.215 kg [facility] BMI 2021-04-22 13:16:00 26.13 kg/m2 [facility] Oxygen saturation in Arterial blood by Pulse oximetry 2021-04-22 13:16:00 100 /min [facility] Systolic blood pressure 2021-04-21 22:18:00 125 mm[Hg] [facility] Diastolic blood pressure 2021-04-21 22:18:00 70 mm[Hg] [facility] Heart rate 2021-04-21 22:18:00 94 /min Un[facility] Body temperature 2021-04-21 22:18:00 37 Amita [facility] Respiratory rate 2021-04-21 22:18:00 18 /min [facility] Oxygen saturation in Arterial blood by Pulse oximetry 2021-04-21 22:18:00 96 /min [facility] Body height 2021-04-21 21:32:00 165.1 cm [facility] Body weight 2021-04-21 21:32:00 71.215 kg [facility] BMI 2021-04-21 21:32:00 26.13 kg/m2 [facility] Systolic blood pressure 2021-04-18 13:54:00 146 mm[Hg] [facility] Diastolic blood pressure 2021-04-18 13:54:00 85 mm[Hg] [facility] Heart rate 2021-04-18 13:54:00 107 /min [facility] Body temperature 2021-04-18 13:54:00 37.17 Amita [facility] Respiratory rate 2021-04-18 13:54:00 18 /min [facility] Body weight 2021-04-18 13:54:00 70.308 kg [facility] BMI 2021-04-18 13:54:00 25.79 kg/m2 [facility] Oxygen saturation in Arterial blood by Pulse oximetry 2021-04-18 13:54:00 97 /min [facility] Body weight 2020-12-08 23:45:00 70.308 kg [facility] BMI 2020-12-08 23:45:00 25.79 kg/m2 [facility] Systolic blood pressure 2020-12-08 23:42:00 128 mm[Hg] [facility] Diastolic blood pressure 2020-12-08 23:42:00 95 mm[Hg] [facility] Heart rate 2020-12-08 23:42:00 81 /min [facility] Body temperature 2020-12-08 23:42:00 37.39 Amita [facility] Respiratory rate 2020-12-08 23:42:00 18 /min [facility] Oxygen saturation in Arterial blood by Pulse oximetry 2020-12-08 23:42:00 100 /min [facility] Systolic blood pressure 2020-09-15 12:30:00 100 mm[Hg] [facility] Diastolic blood pressure 2020-09-15 12:30:00 75 mm[Hg] [facility] Heart rate 2020-09-15 12:30:00 89 /min [facility] Respiratory rate 2020-09-15 12:30:00 13 /min [facility] Oxygen saturation in Arterial blood by Pulse oximetry 2020-09-15 12:30:00 98 /min [facility] Body temperature 2020-09-15 09:52:00 35.56 Amita [facility] Body height 2020-09-15 09:52:00 165.1 cm [facility] Body weight 2020-09-15 09:52:00 70.308 kg [facility] BMI 2020-09-15 09:52:00 25.79 kg/m2 [facility] Systolic blood pressure 2020-03-15 04:15:00 111 mm[Hg] [facility] Diastolic blood pressure 2020-03-15 04:15:00 64 mm[Hg] [facility] Heart rate 2020-03-15 04:15:00 97 /min [facility] Respiratory rate 2020-03-15 04:15:00 18 /min [facility] Oxygen saturation in Arterial blood by Pulse oximetry 2020-03-15 04:15:00 98 /min [facility] Body temperature 2020-03-15 03:51:00 36.5 Amita [facility] Body weight 2020-03-15 03:51:00 67.132 kg [facility] BMI 2020-03-15 03:51:00 24.63 kg/m2 [facility] Procedures Procedure Date / Time Performed Performing Clinicia n Source XR CHEST 2 VW 2021-08-20 05:39:32 Chante Hansen [facility] RAPID INFLUENZA A/B 2021-08-20 05:28:00 Trev Hansen [facility] COVID-19 (ID NOW RAPID TESTING) 2021-08-20 05:28:00 Chante Hansen [facility] CONSENT/REFUSAL FOR DIAGNOSIS AND TREATMENT 2021-08-20 05:04:45 Doctor Unassigned, Festus [facility] CONSENT/REFUSAL FOR DIAGNOSIS AND TREATMENT 2021-04-22 13:09:45 Doctor Unassigned, Festus [facility] [id number] CONSENT 2021-04-21 05:01:00 Doctor Unas signed, Festus [facility] COVID-19 (ID NOW RAPID TESTING) 2021-04-18 13:58:00 Chante Hansen [facility] CONSENT/REFUSAL FOR DIAGNOSIS AND TREATMENT 2021-04-18 13:45:17 Doctor Unassigned, Festus [facility] TROPONIN I 2020-12-09 00:40:00 Nelda Carver [facility] HEPATIC FUNCTION PANEL (04720) (ALB,T.PRO,BILI T,BU/BC,ALT,AST,ALK PHOS) 2020-12-09 00:40:00 Nelda Carver [facility] BASIC METABOLIC PANEL (NA, K, CL, CO2, GLUCOSE, BUN, CREATININE, CA) 2020-12-09 00:40:00 Nelda Carver [facility] CBC WITH DIFF 2020-12-09 00:40:00 Nelda Carver [facility] XR CHEST 2 VW 2020-12-09 00:02:58 Chante Hansen [facility] NOTICE OF PRIVACY PRACTICES 2020-12-08 23:38:04 Doctor Unassigned, Festus [facility] CONSENT/REFUSAL FOR DIAGNOSIS AND TREATMENT 2020-12-08 23:37:39 Doctor Unassigned, Festus [facility] CONSENT/REFUSAL FOR DIAGNOSIS AND TREATMENT 2020-12-08 23:36:53 Doctor Unassigned, Festus [facility] URINALYSIS 2020-09-15 10:22:00 Abhijit Blair [facility] LIPASE 2020-09-15 10:03:00 Abhijit Blair [facility] COMP. METABOLIC PANEL (46565) 2020-09-15 10:03:00 Abhijit Blair [facility] CBC WITH DIFF 2020-09-15 10:03:00 Abhijit Blair [facility] CONSENT/REFUSAL FOR DIAGNOSIS AND TREATMENT 2020-09-15 09:39:10 Doctor Unassigned, Festus [facility] POCT TEST 2020-03-15 04:17:00 Aliya Oseguera [facility] LIPASE 2020-03-15 04:14:00 Charly Oseguera [facility] TROPONIN I 2020-03-15 04:14:00 [facility] COMP. METABOLIC PANEL (02310) 2020-03-15 04:14:00 Charly Oseguera [facility] CBC WITH DIFF 2020-03-15 04:14:00 Charly Oseguera [facility] URINALYSIS 2020-03-15 04:14:00 [facility] EKG-12 LEAD 2020-03-15 04:08:32 Charly Oseguera [facility] NOTICE OF PRIVACY PRACTICES 2020-03-15 03:43:56 Doctor Unassigned, Festus [facility] CONSENT/REFUSAL FOR DIAGNOSIS AND TREATMENT 2020-03-15 03:43:37 Doctor Unassigned, Festus [facility] Encounters Start Date/Time End Date/Time Encounter Type Admission Type Attending [facility] Emergency Department Facility Care Department Encounter ID Source 2021-06-15 21:04:04 Emergency [facility] [id number] [facility] 2021-06-15 20:27:22 Emergency [facility] [id number] [facility] 2021-06-14 15:25:11 Emergency [facility] [id number] [facility] 2021-06-13 20:51:59 Emergency [facility] [id number] [facility] 2021-06-12 10:10:57 Emergency [facility] [id number] [facility] 2022-08-31 08:30:00 2022-08-31 08:30:00 Outpatient RAYMUNDO SNOW [id number] [facility] 2022-08-24 09:45:00 2022-08-24 09:45:00 Outpatient [facility]UNDO SNOW [id number] [facility] 2021-08-19 23:03:00 2021-08-20 00:46:00 Emergency [address] [facility] ERT [id number] [facility] 2021-08-19 23:03:00 2021-08-20 00:46:00 Emergency Chante Hansen [facility] [id number] 350.1.13.10 4.2.7.2.686 [id number] [facility] 2021-04-22 08:17:00 2021-04-22 11:05:00 Emergency Wade Vaughn [facility] [id number] 350.1.13.10 4.2.7.2.686 [id number] [facility] 2021-04-21 16:15:18 2021-04-21 17:15:18 Nurse Visit Therapy, [facility] Roberta Rain [facility] [id number] 350.1.13.10 4.2.7.2.686 [id number] [facility] 2021-04-21 17:00:00 2021-04-21 17:00:00 Outpatient ROBERTA LOPEZ [facility] [id number] [facility] 2021-04-21 00:00:00 2021-04-21 00:00:00 Orders Only Doctor Unassigned, Festus [facility] 1.2.840.114 350.1.13.10 4.2.7.2.686 [id number] [facility] 2021-04-18 08:58:00 2021-04-18 12:10:00 Emergency Solomon Sheehan [facility] 1.2.840.114 350.1.13.10 4.2.7.2.686 [id number] [facility] 2020-12-08 18:46:00 2020-12-08 21:24:00 Emergency Jodie Hylton [facility] 1.2.840.114 350.1.13.10 4.2.7.2.686 [id number] [facility] 2020-09-15 03:57:00 2020-09-15 06:35:00 Emergency Abhijit Blair [facility] 1.2.840.114 350.1.13.10 4.2.7.2.686 [id number] 084 [id number] [facility] 2020-03-14 22:53:30 2020-03-15 02:17:00 Emergency Charly Oseguera [facility] 1.2.840.114 350.1.13.10 4.2.7.2.686 [id number] 084 [id number] [facility] 2020-03-14 00:00:00 2020-03-14 00:00:00 Orders Only Doctor Unassigned, Festus [facility] 1.2.840.114 350.1.13.10 4.2.7.2.686 [id number] [facility] Results Test Description Test Time Test Comments Results Result Co mments Source [facility]2021-04-18 14:23:44* Test Item Value Reference Range Interpretation Comme nts SARS-CoV-2 Rapid ID NOW (test code = 48788-0) Positive Not Detected A YADIRA (test code = YADIRA) ID NOW COVID-19 As say is an isothermal nucleic acid amplification test intended for the qualitative detection of nucleic acid from SARS-CoV-2 viral RNA in nasopharyngeal (ASSISTANT PROFESSOR OF ANTHROPOLOGY) specimens. It is used under Emergency Use [...] clinically indicated. Lab Interpretation (test code = 13758-7) [facility] [id number] 01:36:20* Test Item Value Reference Range Interpretation Comme nts TROPONIN I (test code = 4143355911) 0.001 ng/mL See_Comment [Automated message] The system which generated this result transmitted reference range: <=0.034. The reference range was not used to interpret this result as normal/abnormal. YADIRA (test code = YADIRA) Equal or Less than 0.034 ng/ml---Normal ?Note: Cardiac troponin begins to [...] patient's use of biotin. ? Lab Interpretation (test code = 42352-6) [facility] (NA, K, CL, CO2, GLUCOSE, BUN, CREATININE, CA)2020-12-09 01:25:20* Test Item Value Reference Range Interpretation Comme nts NA (test code = 8939569293) 141 mmol/L 135-145 K (test code = 5658616751) 3.7 mmol/L 3.5-5.0 CL (test code = 1588577920) 103 mmol/L 98-108 CO2 TOTAL (test code = 4209870612) 30 mmol/L 23-31 AGAP (test code = 7117939511) 2-16 BUN (test code = 7776058551) 6 mg/dL 7-23 L GLUCOSE (test code = 2956552144) 92 mg/dL 70-110 CREATININE (test code = 2912102000) 0.47 mg/dL 0.50-1.04 L CALCIUM (test code = 7242321863) 9.2 mg/dL 8.6-10.6 eGFR (test code = 4025466961) mL/min/1.73m2 YADIRA (test code = YADIRA) Association of [...] or abnormalities in imaging tests). Lab Interpretation (test code = 11874-7) [facility] (ALB, T.PRO, BILI T, BU/BC, ALT, AST, ALK PHOS)2020-12-09 01:24:59* Test Item Value Reference Range Interpretation Comme nts TOTAL BILI (test code = 0594321629) 0.3 mg/dL 0.1-1.1 BILI UNCON (test code = 6626917031) 0.2 mg/dL 0.1-1.1 BILI CONJ (test code = 0971750736) 0.0 mg/dL 0.0-0.3 T PROTEIN (test code = 2306409489) 6.7 g/dL 6.3-8.2 ALBUMIN (test code = 2062562188) 4.6 g/dL 3.5-5.0 ALK PHOS (test code = 2197299240) 102 U/L 34-122 ALTv (test code = 1742-6) 15 U/L 5-35 AST(SGOT) (test code = 0171974279) 32 U/L 13-40 Lab Interpretation (test cod e = 36105-0) Normal [facility] with [id number] 01:07:56* Test Item Value Reference Range Interpretation Comme nts WBC (test code = 6690-2) See_Comment [Automated [facility]] The system which generated this result transmitted reference range: 4.30 - 11.10 10*3/?L. The reference range was not used to interpret this result as normal/abnormal. RBC (test code = 789-8) See_Comment [Automated [facility] ge] The system which generated this result transmitted reference range: 3.93 - 5.25 10*6/?L. The reference range was not used to interpret this result as normal/abnormal. HGB (test code = 718-7) 12.7 g/dL 11.6-15.0 HCT (test code = 4544-3) 39.2 % 35.7-45.2 MCV (test code = 787-2) 90.7 fL 80.6-95.5 MCH (test code = 785-6) 29.4 pg 25.9-32.8 MCHC (test code = 786-4) 32.4 g/dL 31.6-35.1 RDW-SD (test code = 97113-5) 41.9 fL 39.0-49.9 RDW-CV (test code = 788-0) 12.5 % 12.0-15.5 PLT (test code = 777-3) See_Comment [Automated [facility]] The system which generated this result transmitted reference range: 166 - 358 10*3/?L. The reference range was not used to interpret this result as normal/abnormal. MPV (test code = 16030-9) 9.9 fL 9.5-12.9 NRBC/100 WBC (test code = 9537742149) See_Comment [Automated me ssage] The system which generated this result transmitted reference range: 0.0 - 10.0 /100 WBCs. The reference range was not used to interpret this result as normal/abnormal. NRBC x10^3 (test code = 0404009730) <0.01 See_Comment [Automated me ssage] The system which generated this result transmitted reference range: 10*3/?L. The reference range was not used to interpret this result as normal/abnormal. GRAN MAT (NEUT) % (test code = 770-8) 64.4 % IMM GRAN % (test code = 0175942021) 0.30 % LYMPH % (test code = 736-9) 26.7 % MONO % (test code = 5905-5) 7.1 % EOS % (test code = 713-8) 1.1 % BASO % (test code = 706-2) 0.4 % GRAN MAT x10^3(ANC) (test code = 6456312289) 6.02 10*3/uL 1.88-7.09 IMM GRAN x10^3 (test code = 9718859373) 0.03 10*3/uL 0.00-0.06 LYMPH x10^3 (test code = 731-0) 2.50 10*3/uL 1.32-3.29 MONO x10^3 (test code = 742-7) 0.66 10*3/uL 0.33-0.92 EOS x10^3 (test code = 711-2) 0.10 10*3/uL 0.03-0.39 BASO x10^3 (test code = 704-7) 0.04 10*3/uL 0.01-0.07 [facility] 11:33:00* Test Item Value Reference Range Interpretation Comme nts APPEARANCE (test code = 7769939390) Clear Clear COLOR (test code = 0771855830) Yellow Yellow PH (test code = 9986885601) 4.8-8.0 SP GRAVITY (test code = 0356428891) >=1.030 1.003-1.030 GLU U QUAL (test code = 2106882034) Negative Negative BLOOD (test code = 4753533419) Negative Negative KETONES (test code = 6782598246) Negative Negative PROTEIN (test code = 2887-8) Negative Negative UROBILIN (test code = 7729042554) 0.2 mg/dL See_Comment [Automated [facility]] The system which generated this result transmitted reference range: 0-1.0 mg/dL. The reference range was not used to interpret this result as normal/abnormal. BILIRUBIN (test code = 5247225238) Negative Negative NITRITE (test code = 9966356745) Negative Negative LEUK KARI (test code = 3121820613) Moderate Negative A RBC/HPF (test code = 8220001793) See_Comment [Automated [facility]] The system which generated this result transmitted reference range: 0 - 3 HPF. The reference range was not used to interpret this result as normal/abnormal. WBC/HPF (test code = 6080026535) See_Comment [Automated [facility]] The system which generated this result transmitted reference range: 0 - 5 HPF. The reference range was not used to interpret this result as normal/abnormal. BACTERIA (test code = 3623500995) Few Negative A SQ EPITH (test code = 2052527852) HPF Lab Interpretation (test code = 59682-0) [facility] [id number] 10:30:00* Test Item Value Reference Range Interpretation Comme nts NA (test code = 3894965955) 139 mmol/L 135-145 K (test code = 2644949300) 4.2 mmol/L 3.5-5 CL (test code = 5556350340) 104 mmol/L 98-108 CO2 TOTAL (test code = 0476928597) 28 mmol/L 23-31 AGAP (test code = 9426540690) 2-16 BUN (test code = 4038482614) 13 mg/dL 7-23 GLUCOSE (test code = 2673121241) 155 mg/dL 70-110 H CREATININE (test code = 0708699519) 0.45 mg/dL 0.5-1.04 L TOTAL BILI (test code = 5543144971) 0.5 mg/dL 0.1-1.1 CALCIUM (test code = 4409115570) 9.1 mg/dL 8.6-10.6 T PROTEIN (test code = 1391239283) 6.9 g/dL 6.3-8.2 ALBUMIN (test code = 8621911248) 4.6 g/dL 3.5-5 ALK PHOS (test code = 3400492189) 88 U/L 34-122 ALTv (test code = 1742-6) 20 U/L 5-35 AST(SGOT) (test code = 8989240024) 42 U/L 13-40 H eGFR Calculation (Non-) (test code = 9312279368) mL/min/1.73m2 eGFR Calculation () (test code = 6581820659) mL/min/1.73m2 YADIRA (test code = YADIRA) Association of [...] or abnormalities in imaging tests). Lab Interpretation (test code = 93034-3) [facility], [id number] 10:30:00* Test Item Value Reference Range Interpretation Comme nts LIPASE (test code = 1584033130) 84 U/L 0-220 Lab Interpretation (test cod e = 19459-3) Normal [facility] with Iwzttqcijcvu1237-51-66 10:16:00* Test Item Value Reference Range Interpretation Comme nts WBC (test code = 6690-2) See_Comment H [Automated messa ge] The system which generated this result transmitted reference range: 4.30 - 11.10 10*3/?L. The reference range was not used to interpret this result as normal/abnormal. RBC (test code = 789-8) See_Comment [Automated messa ge] The system which generated this result transmitted reference range: 3.93 - 5.25 10*6/?L. The reference range was not used to interpret this result as normal/abnormal. HGB (test code = 718-7) 12.3 g/dL 11.6-15 HCT (test code = 4544-3) 38.6 % 35.7-45.2 MCV (test code = 787-2) 91.3 fL 80.6-95.5 MCH (test code = 785-6) 29.1 pg 25.9-32.8 MCHC (test code = 786-4) 31.9 g/dL 31.6-35.1 RDW-SD (test code = 64319-9) 41.7 fL 39-49.9 RDW-CV (test code = 788-0) 12.5 % 12-15.5 PLT (test code = 777-3) See_Comment [Automated messa ge] The system which generated this result transmitted reference range: 166 - 358 10*3/?L. The reference range was not used to interpret this result as normal/abnormal. MPV (test code = 02649-0) 10.4 fL 9.5-12.9 NRBC/100 WBC (test code = 4826299146) See_Comment [Automated [place] ssage] The system which generated this result transmitted reference range: 0.0 - 10.0 /100 WBCs. The reference range was not used to interpret this result as normal/abnormal. NRBC x10^3 (test code = 4436580347) <0.01 See_Comment [Automated messa ge] The system which generated this result transmitted reference range: 10*3/?L. The reference range was not used to interpret this result as normal/abnormal. GRAN MAT (NEUT) % (test code = 770-8) 70.2 % IMM GRAN % (test code = 9789071192) 0.40 % LYMPH % (test code = 736-9) 21.4 % MONO % (test code = 5905-5) 6.6 % EOS % (test code = 713-8) 0.9 % BASO % (test code = 706-2) 0.5 % GRAN MAT x10^3(ANC) (test code = 9263656603) 8.15 10*3/uL 1.88-7.09 H IMM GRAN x10^3 (test code = 6057549806) 0.05 10*3/uL 0-0.06 LYMPH x10^3 (test code = 731-0) 2.49 10*3/uL 1.32-3.29 MONO x10^3 (test code = 742-7) 0.77 10*3/uL 0.33-0.92 EOS x10^3 (test code = 711-2) 0.10 10*3/uL 0.03-0.39 BASO x10^3 (test code = 704-7) 0.06 10*3/uL 0.01-0.07 Lab Interpretation (test code = 54869-8) Abnormal [facility] [id number] 05:12:00* Test Item Value Reference Range Interpretation Comme nts TROPONIN I (test code = 4885444708) <0.012 See_Comment [Automated message] The system which generated this result transmitted reference range: <=0.034 ng/mL. The reference range was not used to interpret this result as normal/abnormal. YADIRA (test code = YADIRA) Equal or Less than 0.034 ng/ml---Normal ?Note: Cardiac troponin begins to [...] patient's use of biotin. ? Lab Interpretation (test code = 61499-1) Normal [facility]. METABOLIC PANEL (02803)2020-03-15 05:10:00* Test Item Value Reference Range Interpretation Comme nts NA (test code = 4937519767) 138 mmol/L 135-145 K (test code = 2700550529) 3.7 mmol/L 3.5-5 CL (test code = 2349792954) 103 mmol/L 98-108 CO2 TOTAL (test code = 6447201726) 28 mmol/L 23-31 AGAP (test code = 8278131380) 2-16 BUN (test code = 7002269800) 12 mg/dL 7-23 GLUCOSE (test code = 1478447223) 119 mg/dL 70-110 H CREATININE (test code = 5852745893) 0.79 mg/dL 0.5-1.04 TOTAL BILI (test code = 2338089845) <0.1 0.1-1.1 L CALCIUM (test code = 7722942923) 9.6 mg/dL 8.6-10.6 T PROTEIN (test code = 5204127832) 6.6 g/dL 6.3-8.2 ALBUMIN (test code = 7714200983) 4.3 g/dL 3.5-5 ALK PHOS (test code = 3826461484) 78 U/L 34-122 ALTv (test code = 1742-6) 10 U/L 5-35 AST(SGOT) (test code = 5418219107) 28 U/L 13-40 eGFR Calculation (Non-) (test code = 9574261793) mL/min/1.73m2 eGFR Calculation () (test code = 5838758292) mL/min/1.73m2 YADIRA (test code = YADIRA) Association of [...] or abnormalities in imaging tests). Lab Interpretation (test code = 13983-1) [facility] 05:01:00* Test Item Value Reference Range Interpretation Comme nts LIPASE (test code = 4506394894) 83 U/L 0-220 Lab Interpretation (test cod e = 55656-6) [facility]2020-[facility] 04:41:00* Test Item Value Reference Range Interpretation Comme nts APPEARANCE (test code = 6484194564) Cloudy Clear A COLOR (test code = 4511186648) Yellow Yellow PH (test code = 9551293882) 4.8-8.0 SP GRAVITY (test code = 6368201761) 1.003-1.030 GLU U QUAL (test code = 9244273394) Normal Normal BLOOD (test code = 1305173828) Negative Negative KETONES (test code = 1238727166) Negative Negative PROTEIN (test code = 2887-8) Negative Negative UROBILIN (test code = 1578581269) Normal Normal BILIRUBIN (test code = 2709317242) Negative Negative NITRITE (test code = 5400436896) Negative Negative LEUK KARI (test code = 8043068306) 250/uL Negative A RBC/HPF (test code = 0137703237) See_Comment H [Automated messa ge] The system which generated this result transmitted reference range: 0 - 3 HPF. The reference range was not used to interpret this result as normal/abnormal. WBC/HPF (test code = 8533784766) See_Comment H [Automated messa ge] The system which generated this result transmitted reference range: 0 - 5 HPF. The reference range was not used to interpret this result as normal/abnormal. BACTERIA (test code = 9582472292) Few Negative A MUCOUS (test code = 6910751736) Slight Negative LPF A SQ EPITH (test code = 5930665336) HPF Lab Interpretation (test code = 32211-3) Abnormal [facility] WITH [id number] 04:24:00* Test Item Value Reference Range Interpretation Comme nts WBC (test code = 6690-2) See_Comment [Automated messa ge] The system which generated this result transmitted reference range: 4.30 - 11.10 10*3/?L. The reference range was not used to interpret this result as normal/abnormal. RBC (test code = 789-8) See_Comment [Automated messa ge] The system which generated this result transmitted reference range: 3.93 - 5.25 10*6/?L. The reference range was not used to interpret this result as normal/abnormal. HGB (test code = 718-7) 12.4 g/dL 11.6-15 HCT (test code = 4544-3) 38.0 % 35.7-45.2 MCV (test code = 787-2) 90.7 fL 80.6-95.5 MCH (test code = 785-6) 29.6 pg 25.9-32.8 MCHC (test code = 786-4) 32.6 g/dL 31.6-35.1 RDW-SD (test code = 55418-4) 41.1 fL 39-49.9 RDW-CV (test code = 788-0) 12.4 % 12-15.5 PLT (test code = 777-3) See_Comment [Automated [facility]] The system which generated this result transmitted reference range: 166 - 358 10*3/?L. The reference range was not used to interpret this result as normal/abnormal. MPV (test code = 06722-3) 10.2 fL 9.5-12.9 NRBC/100 WBC (test code = 3407880013) See_Comment [Automated [place] ssage] The system which generated this result transmitted reference range: 0.0 - 10.0 /100 WBCs. The reference range was not used to interpret this result as normal/abnormal. NRBC x10^3 (test code = 1079765755) <0.01 See_Comment [Automated [facility] ge] The system which generated this result transmitted reference range: 10*3/?L. The reference range was not used to interpret this result as normal/abnormal. GRAN MAT (NEUT) % (test code = 770-8) 73.4 % IMM GRAN % (test code = 7161904506) 0.40 % LYMPH % (test code = 736-9) 21.9 % MONO % (test code = 5905-5) 3.3 % EOS % (test code = 713-8) 0.6 % BASO % (test code = 706-2) 0.4 % GRAN MAT x10^3(ANC) (test code = 6472475776) 8.08 10*3/uL 1.88-7.09 H IMM GRAN x10^3 (test code = 1482268819) 0.04 10*3/uL 0-0.06 LYMPH x10^3 (test code = 731-0) 2.41 10*3/uL 1.32-3.29 MONO x10^3 (test code = 742-7) 0.36 10*3/uL 0.33-0.92 EOS x10^3 (test code = 711-2) 0.07 10*3/uL 0.03-0.39 BASO x10^3 (test code = 704-7) 0.04 10*3/uL 0.01-0.07 Lab Interpretation (test code = 44139-6) [facility] KILK0910-21-15 04:17:00* Test Item Value Reference Range Interpretation Comme nts POCT PREG (test code = 1605) negative On board controls acceptable with C Line (test code = 3574) present POCT PREG LOT # (test code = 3575) [id number] POCT PREG TEST DATE ( test code = 3576) 05/14/2021 Lab Interpretation (test cod e = 13774-0) Normal [facility]"
[2023-07-20] MEDS ORDERED: KETOROLAC 30 MG/ML INJ ONE (09:36)
[2023-07-20] MEDS ORDERED: Magnesium Sulfate 2gm IVPB 2 G/50 ML BAG IV ONE (09:36)
[2023-07-20] MEDS ORDERED: ACETAMINOPHEN 500 MG TAB ONE (09:36)
[2023-07-20] MEDS ORDERED: NA CHLORIDE 0.9% 1,000 ML ONE (09:36)
[2023-07-20 09:59] LABS: Absolute Lymphocytes (CBC) 0.7 K/uL (0.7-4.9); Hematocrit 36.3 % (36.0-45.0); MCV 87.4 fL (80-100); MPV 8.7 fL (7.6-11.3); Platelets 195 thou/uL (152-406); RBC Red Blood Cell Count 4.16 M/uL (3.86-4.86)
[2023-07-20 10:28] LABS: Albumin 3.5 g/dL (3.4-5.0); Bilirubin Direct 0.1 mg/dL (0-0.2); Bilirubin Indirect, Calculated 0.2 mg/dL (0.2-0.8); Bilirubin Total 0.3 mg/dL (0.2-1.0); Magnesium 2.2 mg/dL (1.6-2.4); Potassium 3.4 mEq/L (3.5-5.1); Protein, Total 6.5 g/dL (6.4-8.2); Troponin High Sensitivity 3.4 pg/mL (<58.9)
--- NOTE | 2023-07-20 11:54 | RAD REPORT ---
EXAM DESCRIPTION: RADChest Single View07/20/2023 9:47 am CLINICAL HISTORY: r/o pneumonia COMPARISON: Chest Single View dated 07/01/2023; Chest Single View dated 06/03/2023; Chest Single Vie w dated 02/01/2016; CHEST PA AND LAT 2 VIEW dated 11/08/2013 TECHNIQUE: Portable AP view of the chest. FINDINGS: The lungs are clear. No pneumothorax or effusion. The cardiomediastinal contours are unre markable. IMPRESSION: No acute cardiopulmonary process.
--- NOTE | 2023-07-20 11:59 | ER ---
Nurse's Notes [facility] Name: Megan Love Age: 42 yrs Sex: Female : 1980 Arrival Date: 07/20/2023 Time: 08:46 Bed 20 Private MD: Diagnosis: Headache;Chest pain, unspecified Presentation: 07/20 08:51 Coronavirus screen: Client denies travel out of the [place] in the last 14 days. fatigue, ll1 headache, nausea, Client presents with at least one sign or symptom that may indicate coronavirus-19. Standard/surgical mask placed on the client. Ebola Screen: Patient denies travel to an Ebola-affected area in the 21 days before illness onset. Initial Sepsis Screen: Does the patient meet any 2 criteria? No. Patient's initial sepsis screen is negative. Does the patient have a suspected source of infection? No. Patient's initial sepsis screen is negative. Risk Assessment: Do you want to hurt yourself or someone else? Patient reports no desire to harm self or others. 08:51 Method Of Arrival: Ambulatory 1 08:51 Acuity: CONNIE 3 ll1 08:54 Chief complaint: Patient states: Migraine PETTY. ll1 09:00 Onset of symptoms was July 19, 2023. eh3 Triage Assessment: 09:00 General: Appears in no apparent distress. uncomfortable, Behavior is calm, cooperative, eh3 appropriate for age. Pain: Complains of pain in head. Historical: - Allergies: 08:51 No Known Drug Allergies; ll1 - PSHx: 08:51 Cholecystectomy; ll1 - Immunization history:: Adult Immunizations up to date. - Social history:: Smoking status: Patient denies any tobacco usage or history of. - Family history:: not pertinent. Screenin:[address] [facility] ED Fall Risk Assessment (Adult) Score/Fall Risk Level 0 - 2 = Low Risk. Abuse eh3 screen: Denies threats or abuse. Denies injuries from another. Nutritional screening: No deficits noted. Tuberculosis screening: No symptoms or risk factors identified. Assessment: 09:00 General: Appears in no apparent distress. uncomfortable, Behavior is calm, cooperative, eh3 appropriate for age. Pain: Complains of pain in head. Neuro: Level of Consciousness is awake, alert, obeys commands, Oriented to person, place, time, situation. Cardiovascular: Capillary refill < 3 seconds Patient's skin is warm and dry. Respiratory: Airway is patent Respiratory effort is even, unlabored, Respiratory pattern is regular, symmetrical. GI: Abdomen is round non-distended. Derm: Skin is pink, warm \T\ dry. Musculoskeletal: Circulation, motion, and sensation intact. Range of motion: intact in all extremities. 10:00 Reassessment: Patient appears in no apparent distress at this time. Patient and/or 3 family updated on plan of care and expected duration. Pain level reassessed. Patient is alert, oriented x 3, equal unlabored respirations, skin warm/dry/pink. 11:00 Reassessment: Patient appears in no apparent distress at this time. Patient and/or eh3 family updated on plan of care and expected duration. Pain level reassessed. Patient is alert, oriented x 3, equal unlabored respirations, skin warm/dry/pink. 12:00 Reassessment: Patient appears in no apparent distress at this time. Patient and/or 3 family updated on plan of care and expected duration. Pain level reassessed. Patient is alert, oriented x 3, equal unlabored respirations, skin warm/dry/pink. Vital Signs: 09:00 BP 101 / 57; Pulse 59; Resp 18; Temp 98.7(O); Pulse Ox 100% on R/A; eh3 10:00 BP 97 / 57; Pulse 66; Resp 18; Pulse Ox 100% on R/A; eh3 11:00 BP 96 / 63; Pulse 62; Resp 18; Pulse Ox 100% on R/A; eh3 12:00 BP 94 / 48; Pulse 62; Resp 18; Pulse Ox 100% on R/A; eh3 ED Course: 08:47 Patient arrived in ED. rg4 08:51 Arm band placed on Patient placed in an exam room, on a stretcher. ll1 08:52 Triage completed. ll1 08:59 Ranulfo Arnold MD is Attending Physician. rt 09:00 Patient has correct armband on for positive identification. Bed in low position. Call eh3 light in reach. Side rails up X2. Provided Education on: use of call kim. Client placed on continuous cardiac and pulse oximetry monitoring. NIBP monitoring applied. 09:10 Leah Javier, RN is Primary Nurse. eh3 09:25 Inserted saline lock: 20 gauge in left antecubital area, using aseptic technique. Blood eh3 collected. 09:49 Chest Single View In Process Unspecified. EDMS 12:02 No provider procedures requiring assistance completed. IV discontinued, intact, eh3 bleeding controlled, No redness/swelling at site. Pressure dressing applied. Administered Medications: 09:25 Drug: Acetaminophen PO 1000 mg PO once Route: PO; eh3 10:30 Follow up: Response: No adverse reaction eh3 09:30 Drug: NS 0.9% IV 1000 ml IV at 1 bolus Per protocol; 1000 mL bolus Route: IV; Rate: 1 eh3 bolus; Site: left antecubital; 10:30 Follow up: IV Status: Completed infusion; IV Intake: 1000ml eh3 09:30 Drug: Ketorolac IVP 15 mg IVP once Route: IVP; Site: left antecubital; eh3 10:30 Follow up: Response: No adverse reaction eh3 09:30 Drug: Magnesium Sulfate IVPB 2 grams IVPB once over 1 hrs Route: IVPB; Infused Over: 1 eh3 hrs; Site: left antecubital; 10:30 Follow up: Response: No adverse reaction; IV Status: Completed infusion; IV Intake: [id number] Medication: 12:02 VIS not applicable for this client. eh3 Intake: 10:30 IV: 50ml; Total: 50ml. eh3 10:30 IV: 1000ml; Total: 1050ml. eh3 Outcome: 11:58 Discharge ordered by . rt 12:08 Discharged to home ambulatory, with family, eh3 12:08 Condition: stable 12:08 Discharge instructions given to patient, Instructed on discharge instructions, follow up and referral plans. Demonstrated understanding of instructions, follow-up care, 12:09 Patient left the ED. eh3 Signatures: Dispatcher [employer] Tracy Rangel rg4 Scott Torres RN RN ll1 Leah Javier RN RN eh3 Ranulfo Arnold MD MD rt Corrections: (The following items were deleted from the chart) 12:02 12:02 PMHx: CVID; eh3 eh3
--- NOTE | 2023-07-20 11:59 | EDPHYS ---
Physician Documentation [facility] Name: Megan Love Age: 42 yrs Sex: Female : 1980 Arrival Date: 07/20/2023 Time: 08:46 Bed 20 Private MD: ED Physician Ranulfo Arnold HPI: 07/20 09:16 This 42 yrs old Female presents to ER via Ambulatory with complaints of Migraine. rt 09:16 Patient presents to the ED with multiple symptoms. She states that 2 days ago she rt developed a substernal chest pressure. That subsequently stopped and she developed an upper back pain. Today, she reports having a headache to the posterior part of the head at the neck region. She states that she feels a band wrapping around to the front of her head. Denies photophobia, phonophobia. Does report a nausea without vomiting as well as a cough. Symptoms are moderate in severity, no other aggravating or alleviating factors.. Historical: - Allergies: 08:51 No Known Drug Allergies; ll1 - PSHx: 08:51 Cholecystectomy; ll1 - Immunization history:: Adult Immunizations up to date. - Social history:: Smoking status: Patient denies any tobacco usage or history of. - Family history:: not pertinent. ROS: 09:16 Constitutional: Negative for fever, chills, and weight loss, ENT: Negative for injury, rt pain, and discharge, MS/Extremity: Negative for injury and deformity, Skin: Negative for injury, rash, and discoloration, Psych: Negative for depression, anxiety, suicide ideation, homicidal ideation, and hallucinations, 09:16 Cardiovascular: Positive for chest pain, Negative for edema, 09:16 Abdomen/GI: Positive for nausea, Negative for vomiting, 09:16 Back: Positive for pain at rest, Negative for injury or acute deformity, 09:16 Neuro: Positive for headache, Negative for dizziness, Exam: 09:16 Constitutional: This is a well developed, well nourished patient who is awake, alert, rt and in no acute distress. Head/Face: Normocephalic, atraumatic. Chest/axilla: Normal chest wall appearance and motion. Nontender with no deformity. No lesions are appreciated. Cardiovascular: Regular rate and rhythm with a normal S1 and S2. No gallops, murmurs, or rubs. Normal PMI, no JVD. No pulse deficits. Respiratory: Lungs have equal breath sounds bilaterally, clear to auscultation and percussion. No rales, rhonchi or wheezes noted. No increased work of breathing, no retractions or nasal flaring. Abdomen/GI: Soft, non-tender, with normal bowel sounds. No distension or tympany. No guarding or rebound. No evidence of tenderness throughout. Skin: Warm, dry with normal turgor. Normal color with no rashes, no lesions, and no evidence of cellulitis. MS/ Extremity: Pulses equal, no cyanosis. Neurovascular intact. Full, normal range of motion. Neuro: Awake and alert, GCS 15, oriented to person, place, time, and situation. Cranial nerves II-XII grossly intact. Motor strength 5/5 in all extremities. Sensory grossly intact. Cerebellar exam normal. Normal gait. Psych: Awake, alert, with orientation to person, place and time. Behavior, mood, and affect are within normal limits. 09:58 ECG was reviewed by the Attending Physician. rt Vital Signs: 09:00 BP 101 / 57; Pulse 59; Resp 18; Temp 98.7(O); Pulse Ox 100% on R/A; eh3 10:00 BP 97 / 57; Pulse 66; Resp 18; Pulse Ox 100% on R/A; eh3 11:00 BP 96 / 63; Pulse 62; Resp 18; Pulse Ox 100% on R/A; eh3 12:00 BP 94 / 48; Pulse 62; Resp 18; Pulse Ox 100% on R/A; eh3 MDM: 09:00 Patient medically screened. rt 12:02 Differential Diagnosis Tension headache, migraine headache, chest wall pain, ACS, rt pneumonia, . Data reviewed: vital signs, nurses notes, lab test result(s), EKG, radiologic studies. Consideration of Admission/Observation Escalation of care including admission/observation considered. Low heart score, no chest pain currently, negative troponin, nonischemic EKG, very low suspicion for acute coronary syndrome, does not require admission for further workup.. I considered the following discharge prescriptions or medication management in the emergency department Medications were administered in the Emergency Department. See MAR. Test considered but Not performed: CT: Symptoms most consistent with a tension type headache. No focal neurologic deficits, symptoms are significant improving with medications in the ED low suspicion for tumor, hemorrhage, space-occupying lesion, but, did offer the patient CT scan, she declines.. Care significantly affected by the following chronic conditions: C VID. Response to treatment: the patient's symptoms have resolved after treatment, the patient's pain is gone. 07/20 09:10 Order name: Basic Metabolic Panel; Complete Time: 10:43 rt 07/20 09:10 Order name: CBC with Diff; Complete Time: 10:21 rt 07/20 09:10 Order name: LFT's; Complete Time: 10:43 rt 07/20 09:10 Order name: Magnesium; Complete Time: 10:43 rt 07/20 09:10 Order name: Troponin HS; Complete Time: 10:43 rt 07/20 09:31 Order name: Chest Single View; Complete Time: 11:55 EDMS 07/20 09:10 Order name: Cardiac monitoring; Complete Time: 09:10 rt 07/20 09:10 Order name: EKG - Nurse/Tech; Complete Time: 09:49 rt 07/20 09:10 Order name: IV Saline Lock; Complete Time: 09:25 rt 07/20 09:10 Order name: Labs collected and sent; Complete Time: 09:25 rt 07/20 09:10 Order name: O2 Per Protocol; Complete Time: 09:10 rt 07/20 09:10 Order name: O2 Sat Monitoring; Complete Time: 09:10 rt EC:58 Rate is 76 beats/min. Rhythm is regular, Normal Sinus Rhythm with No ectopy. QRS Helen rt is Normal. SD interval is normal. QRS interval is normal. QT interval is normal. No Q waves. T waves are Normal. No ST changes noted. Interpreted by me. Administered Medications: 09:25 Drug: Acetaminophen PO 1000 mg PO once Route: PO; eh3 10:30 Follow up: Response: No adverse reaction eh3 09:30 Drug: NS 0.9% IV 1000 ml IV at 1 bolus Per protocol; 1000 mL bolus Route: IV; Rate: 1 eh3 bolus; Site: left antecubital; 10:30 Follow up: IV Status: Completed infusion; IV Intake: 1000ml eh3 09:30 Drug: Ketorolac IVP 15 mg IVP once Route: IVP; Site: left antecubital; eh3 10:30 Follow up: Response: No adverse reaction eh3 09:30 Drug: Magnesium Sulfate IVPB 2 grams IVPB once over 1 hrs Route: IVPB; Infused Over: 1 eh3 hrs; Site: left antecubital; 10:30 Follow up: Response: No adverse reaction; IV Status: Completed infusion; IV Intake: [id number] Disposition Summary: 07/20/23 11:58 Discharge Ordered Notes: Location: Home rt Problem: new rt Symptoms: are resolved rt Condition: Stable rt Diagnosis - Headache rt - Chest pain, unspecified rt Followup: rt - With: Private Physician - When: 2 - 3 days - Reason: Discharge Instructions: - Discharge Summary Sheet rt - General Headache Without Cause rt - Nonspecific Chest Pain, Adult, [id number] rt Forms: - Work release form eh3 - Medication Reconciliation Form rt - Thank You Letter rt - Antibiotic Education rt - Prescription Opioid Use rt - Patient Portal Instructions rt - Leadership Thank You Letter rt Signatures: Dispatcher [employer] Scott Mendoza RN RN ll1 Leah Javier RN RN eh3 Ranulfo Arnold MD MD rt Corrections: (The following items were deleted from the chart) 09:53 09:51 Chest Single View+[email or web address] ordered. EDMS EDMS 12:02 12:02 PMHx: CVID; 3 3
[2023-07-20 16:48] VITALS: TEMP 98.7; O2SAT 100
[2023-07-20 16:52] VITALS: BP 94/48
== END 2023-07-20 12:09 | disposition home or self-care (01) ==
LOC: ER 08:46
DX: R51.9 Headache, unspecified (principal); R07.9 Chest pain, unspecified
CPT/HCPCS: 36415; 71045; 80048; 80076; 83735; 84484; 85025; 93005; 96365; 96375; 99284; J3475; J7030

== ENCOUNTER → 2023-09-19 | Emergency (ER) | payer OTHER ==
[~2023-09-19] MED LIST: CEFTRIAXONE 1000 MG/VIAL ONE; GUAIFENESIN/DM 5 ML UCUP ONE; IBUPROFEN 400 MG TAB ONE; ONDANSETRON 4 MG (ODT) TAB ONE
--- OUTSIDE RECORDS SUMMARY | 2023-09-19 01:08 | XMS REPORT | Continuity of Care Document ---
Author Name Unknown Address [address] [facility] [address] [place] [address] [facility] thconnect Address [address] [facility]. [address] [place] [address] Care Team Providers Care Alcoholism Worker Name Role Phone WES ROXANN GOMEZ Primary Care Physician Un available ARIN VAUGHN Attending Clinician Unavailable Arin Vaughn DO Attending Clinician [phone] RAYMUNDO SNOW Attending Clinician Unava ilCHANTE Pedro Attending Clinician Unavailable Chante Hansen MD Attending Clinician [phone] Therapy, [facility] Covid Infusion Attending Clinician Unavailable Roberta Leblanc MD Attending Clinician [phone] ROBERTA LEBLANC Attending Clinician Unavailable Doctor Unassigned, [place] Attending Clinician Solomon Gonsalez Attending Clinician [phone] Jodie Burch Attending Clinician [phone] Abhijit Blair MD Attending Clinician [phone] Charly Meza Attending Clinician [phone] ARIN VAUGHN Admitting Clinician Unavailable CHANTE HANSEN Admitting Clinician Unavailable Payers Payer Name Policy Type Policy Number Effective Date Expirati on Date Source [facility] - OUT OF STATE [id number] 2021 00:00:00 [employer] 2 [id number] 2022 00:00:00 Problems Condition Name Condition Details Condition Category Status Onset Date Resolution Date Last Treatment Date Treating Clinician Comments Source Enteritis Enteritis Disease Active 2017-08 00:00: 00 [facility] Contracept lisa management Contracept lisa management Disease Active 01-15 00:00: 00 [facility] Herpes, vulvar Herpes, vulvar Disease Active 01-15 00:00: 00 [facility] History of tubal ligation History of tubal ligation Disease Active 01-15 00:00: 00 [facility] heart decelerati on heart decelerati on Disease Active 11-16 00:00: 00 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 Adan DUPONT- Dx at age 17. IVIG transfusi on Q 4 weeks (next 08/29) 11/19/2014 IgG-Q= 566 ([id number] ) 04/29 IgG= 776/A=15/ M=7 [facility] No known active problems No known active problems Disease Araceli Seybold - Externa l Allergies, Adverse Reactions, Alerts Allergy Name Allergy Type Status Severity Reaction(s) Onset Date Inactive Date Treating Clinician Comments Source Adhesive Tape Propensi ty to adverse reaction s to drug Active Dermatis, Contact 10-28 00:00: [address] [facility] ADHESIVE TAPE DRUG Active Low CONTACT DERM 10-28 00:00: 00 [facility] Wound Dressing Adhesive Propensi ty to adverse reaction s Active Contact Dermatitis 10-28 00:00: 00 Allergic to Transpore tape Araceli Leonold - Externa l Social History Social Habit Start Date Stop Date Quantity Comments Source Exposure to SARS-CoV-2 (event) Not sure [facility] function 2023-08-06 00:00:00 2023-08-06 00:00:00 [facility] Alcohol intake 2022-08-24 00:00:00 2022-08-24 00:00:00 Lifetime non-drinker (finding) Araceli Lawrence Tobacco use and exposure 2014-11-18 00:00:00 2014-11-18 00:00:00 Smokeless tobacco non-user [facility] Sex Assigned At 1980 00:00:00 1980 00:00:00 Araceli Lawrence Smoking Status Start Date Stop Date Source Never smoked tobacco [facility] Medications Ordered Medication Name Filled Medication Name Start Date Stop Date Current Medication? Ordering Clinician Indication Dosage Frequency Signature (SIG) Comments Components Source dexamethaso ne (DECADRON PHOSPHATE) injection 10 mg 2022-08 20:15: 00 08-06 19:19 :00 No 10mg 10 mg, Oral, ONCE, 1 dose, On 08/06/23 at 1415, Routine [facility] azithromyci n 250 mg tablet 2022-08 00:00: 00 Yes [id number] 250mg Take 1 tablet by mouth in the morning. [facility] Oseltamivir Phosphate 75 MG oral Capsule 08-24 09:55: 53 Yes 1{capsu le} Take 1 capsule by mouth 2 times daily Araceli [facility] Albuterol HFA 108 (90 Base) MCG/ACT IN AERS 08-24 00:00: 00 Yes [id number] 2{puff} Q.25D Inhale 2 puffs into the lungs every 6 hours as needed for wheezing or shortness of breath Araceli [facility] Amoxicillin -Pot Clavulanate 875-125 MG oral Tablet 08-24 00:00: 00 Yes [id number] 1{tbl} Take 1 tablet by mouth 2 times daily Araceli [facility] Azithromyci n 250 MG oral Tablet 00:00: 00 08-30 05:59 :00 No [id number] Take 2 tablets by mouth on day [...] y
Durat ion of Therapy: [address] [facility] amoxicillin (TRIMOX) capsule 500 mg 08-20 07:15: 00 08-20 06:20 :00 No 500mg 500 mg, Oral, ONCE, 1 dose, On Sara 08/20/21 at 0115, [facility]
Re ason for Anti-Infec tive: Documented Infection< br>Documen lucille Infection Site: Respirator y
Durat ion of Therapy: Other (see Comments) [facility] amoxicillin 500 mg capsule 08-20 00:00: 00 Yes [id number] 500mg Take 1 capsule by mouth 3 (three) times daily. [facility] amoxicillin 500 mg capsule 08-20 00:00: 00 Yes [id number] 500mg Take 1 capsule by mouth 3 (three) times daily. [facility] doxycycline hyclate 100 mg capsule 08-20 00:00: 00 08-31 05:59 :00 No [id number] 100mg Take 1 capsule by mouth 2 (two) times daily for [address] [facility] ondansetron (ZOFRAN-ODT ) disintegrat ing tablet 4 mg 04-22 14:45: 00 04-22 13:45 :00 No 4mg 4 mg, Oral, ONCE, 1 dose, 04/22/21 at 0945, Routine [facility] ondansetron (ZOFRAN-ODT ) disintegrat ing tablet 4 mg 04-22 14:45: 00 04-22 13:45 :00 No 4mg 4 mg, Oral, ONCE, 1 dose, 04/22/21 at 0945, Routine [facility] ondansetron (ZOFRAN) 4 mg tablet 04-22 00:00: 00 Yes [id number] 4mg Take 1 tablet by mouth every 8 (eight) hours as needed for Nausea and Vomiting (N/V). [facility] benzonatate 100 mg capsule 04-22 00:00: 00 Yes [id number] 100mg Take 1 capsule by mouth 3 (three) times daily as needed for Cough. [facility] ondansetron (ZOFRAN) 4 mg tablet 04-22 00:00: 00 Yes [id number] 4mg Take 1 tablet by mouth every 8 (eight) hours as needed for Nausea and Vomiting (N/V). [facility] benzonatate 100 mg capsule 04-22 00:00: 00 Yes [id number] 100mg Take 1 capsule by mouth 3 (three) times daily as needed for Cough. [facility] ondansetron (ZOFRAN) 4 mg tablet 04-22 00:00: 00 Yes [id number] 4mg Take 1 tablet by mouth every 8 (eight) hours as needed for Nausea and Vomiting (N/V). [facility] benzonatate 100 mg capsule 04-22 00:00: 00 Yes [id number] 100mg Take 1 capsule by mouth 3 (three) times daily as needed for Cough. [facility] ondansetron (ZOFRAN) 4 mg tablet 04-22 00:00: 00 Yes [id number] 4mg Take 1 tablet by mouth every 8 (eight) hours as needed for Nausea and Vomiting (N/V). [facility] benzonatate 100 mg capsule 04-22 00:00: 00 Yes [id number] 100mg Take 1 capsule by mouth 3 (three) times daily as needed for Cough. [facility] casirivimab -imdevimab (REGEN-COV (EUA)) injection 1,200 mg 04-21 22:45: 00 04-21 21:33 :00 No [id number] 1200mg 1,200 mg, Subcutaneo us, ONCE, 1 dose, 04/21/21 at 1745, Routine [facility] casirivimab -imdevimab (REGEN-COV (EUA)) injection 1,200 mg 04-21 22:45: 00 04-21 21:33 :00 No [id number] 1200mg 1,200 mg, Subcutaneo us, ONCE, 1 dose, 04/21/21 at 1745, Routine [facility] acetaminoph en (TYLENOL) tablet 1,000 mg 04-18 17:00: 00 04-18 16:44 :00 No 1000mg 1,000 mg, Oral, ONCE, 1 dose, 04/18/21 at 1200, Routine [facility] benzonatate (TESSALON PERLES) capsule 100 mg 04-18 17:00: 00 04-18 16:44 :00 No 100mg 100 mg, Oral, ONCE, 1 dose, 04/18/21 at 1200, Routine [facility] albuterol (VENTOLIN) inhaler 6 Puff 04-18 17:00: 00 04-18 16:39 :00 No 6{puff} 6 Puff, Inhalation , ONCE, 1 dose, 04/18/21 at 1200, [facility] acetaminoph en (TYLENOL) tablet 1,000 mg 04-18 17:00: 00 04-18 16:44 :00 No 1000mg 1,000 mg, Oral, ONCE, 1 dose, 04/18/21 at 1200, Routine [facility] benzonatate (TESSALON PERLES) capsule 100 mg 04-18 17:00: 00 04-18 16:44 :00 No 100mg 100 mg, Oral, ONCE, 1 dose, 04/18/21 at 1200, Routine [facility] albuterol (VENTOLIN) inhaler 6 Puff -04 17:00: 00 04-18 16:39 :00 No 6{puff} 6 Puff, Inhalation , ONCE, 1 dose, 04/18/21 at 1200, [facility] benzonatate 100 mg capsule 9-04 00:00: 00 Yes [id number] 100mg Take 1 capsule by mouth 3 (three) times daily as needed for Cough. [facility] benzonatate 100 mg capsule - 00:00: 00 Yes [id number] 100mg Take 1 capsule by mouth 3 (three) times daily as needed for Cough. [facility] benzonatate 100 mg capsule 04-18 00:00: 00 Yes [id number] 100mg Take 1 capsule by mouth 3 (three) times daily as needed for Cough. [facility] benzonatate 100 mg capsule 04-18 00:00: 00 Yes [id number] 100mg Take 1 capsule by mouth 3 (three) times daily as needed for Cough. [facility] benzonatate 100 mg capsule 04-18 00:00: 00 04-22 00:00 :00 No [id number] 100mg Take 1 capsule by mouth 3 (three) times daily as needed for Cough. [facility] benzonatate 100 mg capsule 04-18 00:00: 00 04-22 00:00 :00 No [id number] 100mg Take 1 capsule by mouth 3 (three) times daily as needed for Cough. [facility] methylpredn isolone sod succ (SOLU-MEDRO L) injection 125 mg 12-09 02:45: 00 12-09 01:40 :00 No 125mg 125 mg, IV Piggyback, ONCE, 1 dose, 12/08/20 at 2145, STAT [facility] codeine-gua ifenesin (ROBITUSSIN AC) 10-100 mg/5 mL solution 10 mL 12-09 02:00: 00 12-09 01:39 :00 No 10mL 10 mL, Oral, ONCE, 1 dose, 12/08/20 at 2100, [facility] mg capsule 0 12-08 00:00: 00 Yes [id number] 200mg Take 1 capsule by mouth 3 (three) times daily as needed for Cough for up to 20 doses. [facility] predniSONE 20 mg tablet 2020-0 12-08 00:00: 00 Yes [id number] 1 PO BID x 4 days [facility] predniSONE 20 mg tablet 2020-0 12-08 00:00: 00 Yes [id number] 1 PO BID x 4 days [facility] predniSONE 20 mg tablet 2020-0 12-08 00:00: 00 Yes [id number] 1 PO BID x 4 days [facility] mg capsule 0 12-08 00:00: 00 Yes [id number] 200mg Take 1 capsule by mouth 3 (three) times daily as needed for Cough for up to 20 doses. [facility] predniSONE 20 mg tablet 0 12-08 00:00: 00 Yes [id number] 1 PO BID x 4 days [facility] benzon[facility] mg capsule 0 12-08 00:00: 00 Yes [id number] 200mg Take 1 capsule by mouth 3 (three) times daily as needed for Cough for up to [address] [facility] predniSONE 20 mg tablet 0 12-08 00:00: 00 Yes [id number] 1 PO BID x 4 days [facility] mg capsule 0 12-08 00:00: 00 Yes [id number] 200mg Take 1 capsule by mouth 3 (three) times daily as needed for Cough for up to 20 doses. [facility] predniSONE 20 mg tablet 2020-0 12-08 00:00: 00 Yes [id number] 1 PO BID x 4 days [facility] mg tablet 2020-0 12-08 00:00: 00 Yes [id number] 1 PO BID x 4 days [facility] mg tablet 2020-0 12-08 00:00: 00 Yes [id number] 1 PO BID x 4 days [facility] predniSONE 20 mg tablet 12-08 00:00: 00 Yes [id number] 1 PO BID x [address] [facility] predniSONE 20 mg tablet 12-08 00:00: 00 Yes [id number] 1 PO BID x [address] [facility] benzonatate 200 mg capsule 12-08 00:00: 00 Yes [id number] 200mg Take 1 capsule by mouth 3 (three) times daily as needed for Cough for up to [address] [facility] predniSONE 20 mg tablet 12-08 00:00: 00 Yes [id number] 1 PO BID x [address] [facility] benzonatate 200 mg capsule 12-08 00:00: 00 04-22 00:00 :00 No [id number] 200mg Take 1 capsule by mouth 3 (three) times daily as needed for Cough for up to [address] [facility] benzonatate 200 mg capsule 12-08 00:00: 00 04-22 00:00 :00 No [id number] 200mg Take 1 capsule by mouth 3 (three) times daily as needed for Cough for up to [address] [facility] ondansetron (ZOFRAN (PF)) injection 4 mg 09-15 12:00: 00 09-15 11:12 :00 No 4mg 4 mg, Slow IV Push, ONCE, 1 dose, 09/15/20 at 0600, [facility] meclizine (TRAVEL-EAS E (MECLIZINE) ) tablet 50 mg 09-15 12:00: 00 09-15 11:13 :00 No 50mg 50 mg, Oral, ONCE, 1 dose, 09/15/20 at 0600, [facility] ondansetron (ZOFRAN (PF)) injection 4 mg 09-15 11:15: 00 09-15 10:04 :00 No 4mg 4 mg, Slow IV Push, ONCE, 1 dose, 09/15/20 at 0515, [facility] NaCl 0.9% (NS) IV infusion 1,000 mL 2 10:00: 00 Yes 1000mL at 999 mL/hr, Intravenou s, CONTINUOUS , Starting Tue09/15/20 at 0415, Until Discontinu ed, [facility]IL[facility] meclizine 25 mg tablet 2 00:00: 00 Yes [id number] 25mg Take 1 tablet by mouth 3 (three) times daily as needed for Dizziness. [facility] ondansetron (ZOFRAN) 4 mg tablet 2- 00:00: 00 Yes [id number] 4mg Take 1 tablet by mouth every 8 (eight) hours as needed for Nausea and Vomiting (N/V). [facility] meclizine 25 mg tablet 09-15 00:00: 00 Yes [id number] 25mg Take 1 tablet by mouth 3 (three) times daily as needed for Dizziness. [facility] meclizine 25 mg tablet 2 00:00: 00 Yes [id number] 25mg Take 1 tablet by mouth 3 (three) times daily as needed for Dizziness. [facility] meclizine 25 mg tablet 2 00:00: 00 Yes [id number] 25mg Take 1 tablet by mouth 3 (three) times daily as needed for Dizziness. [facility] ondansetron (ZOFRAN) 4 mg tablet 2 00:00: 00 Yes [id number] 4mg Take 1 tablet by mouth every 8 (eight) hours as needed for Nausea and Vomiting (N/V). [facility] meclizine 25 mg tablet 2- 00:00: 00 Yes [id number] 25mg Take 1 tablet by mouth 3 (three) times daily as needed for Dizziness. [facility] ondansetron (ZOFRAN) 4 mg tablet 2- 00:00: 00 Yes [id number] 4mg Take 1 tablet by mouth every 8 (eight) hours as needed for Nausea and Vomiting (N/V). [facility] meclizine 25 mg tablet 2- 00:00: 00 Yes [id number] 25mg Take 1 tablet by mouth 3 (three) times daily as needed for Dizziness. [facility] ondansetron (ZOFRAN) 4 mg tablet 0 2- 00:00: 00 Yes [id number] 4mg Take 1 tablet by mouth every 8 (eight) hours as needed for Nausea and Vomiting (N/V). [facility] meclizine 25 mg tablet 0 2- 00:00: 00 Yes [id number] 25mg Take 1 tablet by mouth 3 (three) times daily as needed for Dizziness. [facility] ondansetron (ZOFRAN) 4 mg tablet 0 2- 00:00: 00 Yes [id number] 4mg Take 1 tablet by mouth every 8 (eight) hours as needed for Nausea and Vomiting (N/V). [facility] meclizine 25 mg tablet 0 2- 00:00: 00 Yes [id number] 25mg Take 1 tablet by mouth 3 (three) times daily as needed for Dizziness. [facility] meclizine 25 mg tablet 0 2- 00:00: 00 Yes [id number] 25mg Take 1 tablet by mouth 3 (three) times daily as needed for Dizziness. [facility] meclizine 25 mg tablet 0 2- 00:00: 00 Yes [id number] 25mg Take 1 tablet by mouth 3 (three) times daily as needed for Dizziness. [facility] meclizine 25 mg tablet 0 2- 00:00: 00 Yes [id number] 25mg Take 1 tablet by mouth 3 (three) times daily as needed for Dizziness. [facility] meclizine 25 mg tablet 2020-0 2- 00:00: 00 Yes [id number] 25mg Take 1 tablet by mouth 3 (three) times daily as needed for Dizziness. [facility] ondansetron (ZOFRAN) 4 mg tablet 0 2- 00:00: 00 Yes [id number] 4mg Take 1 tablet by mouth every 8 (eight) hours as needed for Nausea and Vomiting (N/V). [facility] ondansetron (ZOFRAN) 4 mg tablet 09-15 00:00: 00 04-22 00:00 :00 No [id number] 4mg Take 1 tablet by mouth every 8 (eight) hours as needed for Nausea and Vomiting (N/V). [facility] ondansetron (ZOFRAN) 4 mg tablet 09-15 00:00: 00 04-22 00:00 :00 No [id number] 4mg Take 1 tablet by mouth every 8 (eight) hours as needed for Nausea and Vomiting (N/V). [facility] acetaminoph en (TYLENOL) tablet 650 mg 03-15 08:15: 03-15 07:12 :00 No 650mg 650 mg, Oral, ONCE, 1 dose, 03/15/20 at 0315, [facility] iohexol (OMNIPAQUE 350 BULK-100 mL) injection 120 mL 03-15 05:45: 00 03-15 05:36 :00 No 120mL 120 mL, Intravenou s, ONCE, 1 dose, 03/15/20 at 0045, Routine [facility] ondansetron (ZOFRAN (PF)) injection 4 mg 03-15 05:15: 03-15 04:20 :00 No 4mg 4 mg, Slow IV Push, ONCE, 1 dose, 03/15/20 at 0015, [facility] NaCl 0.9% (NS) bolus infusion 1,000 mL 03-15 05:15: 03-15 07:15 :00 No 1000mL at 999 mL/hr, 1,000 mL, IV Infusion, ONCE, 1 dose, 03/15/20 at 0015, STAT [facility] morpHINE injection 4 mg 03-15 05:15: 03-15 04:21 :00 No 4mg 4 mg, Slow IV Push, ONCE, 1 dose, 03/15/20 at 0015, STAT [facility] levoFLOXaci n 750 mg tablet 03-15 00:00: 00 Yes [id number] 750mg Take 1 tablet by mouth every 24 (twenty-fo ur) hours. [facility] ketorolac 10 mg tablet 03-15 00:00: 00 Yes [id number] 10mg Take 1 tablet by mouth every 6 (six) hours as needed for Pain (scale 7-10). [facility] levoFLOXaci n 750 mg tablet 03-15 00:00: 00 Yes [id number] 750mg Take 1 tablet by mouth every 24 (twenty-fo ur) hours. [facility] ketorolac 10 mg tablet 03-15 00:00: 00 Yes [id number] 10mg Take 1 tablet by mouth every 6 (six) hours as needed for Pain (scale 7-10). [facility] levoFLOXaci n 750 mg tablet 03-15 00:00: 00 Yes [id number] 750mg Take 1 tablet by mouth every 24 (twenty-fo ur) hours. [facility] ketorolac 10 mg tablet 03-15 00:00: 00 Yes [id number] 10mg Take 1 tablet by mouth every 6 (six) hours as needed for Pain (scale 7-10). [facility] levoFLOXaci n 750 mg tablet 03-15 00:00: 00 Yes [id number] 750mg Take 1 tablet by mouth every 24 (twenty-fo ur) hours. [facility] ketorolac 10 mg tablet 03-15 00:00: 00 Yes [id number] 10mg Take 1 tablet by mouth every 6 (six) hours as needed for Pain (scale 7-10). [facility] levoFLOXaci n 750 mg tablet 03-15 00:00: 00 Yes [id number] 750mg Take 1 tablet by mouth every 24 (twenty-fo ur) hours. [facility] ketorolac 10 mg tablet 03-15 00:00: 00 Yes [id number] 10mg Take 1 tablet by mouth every 6 (six) hours as needed for Pain (scale 7-10). [facility] levoFLOXaci n 750 mg tablet 03-15 00:00: 00 Yes [id number] 750mg Take 1 tablet by mouth every 24 (twenty-fo ur) hours. [facility] ketorolac 10 mg tablet 0 - 00:00: 00 Yes [id number] 10mg Take 1 tablet by mouth every 6 (six) hours as needed for Pain (scale 7-10). [facility] levoFLOXaci n 750 mg tablet 03-15 00:00: 00 Yes [id number] 750mg Take 1 tablet by mouth every 24 (twenty-fo ur) hours. [facility] ketorolac 10 mg tablet 0 03-15 00:00: 00 Yes [id number] 10mg Take 1 tablet by mouth every 6 (six) hours as needed for Pain (scale 7-10). [facility] levoFLOXaci n 750 mg tablet 03-15 00:00: 00 Yes [id number] 750mg Take 1 tablet by mouth every 24 (twenty-fo ur) hours. [facility] ketorolac 10 mg tablet 03-15 00:00: 00 Yes [id number] 10mg Take 1 tablet by mouth every 6 (six) hours as needed for Pain (scale 7-10). [facility] levoFLOXaci n 750 mg tablet 03-15 00:00: 00 Yes [id number] 750mg Take 1 tablet by mouth every 24 (twenty-fo ur) hours. [facility] ketorolac 10 mg tablet 03-15 00:00: 00 Yes [id number] 10mg Take 1 tablet by mouth every 6 (six) hours as needed for Pain (scale 7-10). [facility] levoFLOXaci n 750 mg tablet 0 03-15 00:00: 00 Yes [id number] 750mg Take 1 tablet by mouth every 24 (twenty-fo ur) hours. [facility] ketorolac 10 mg tablet 0 03-15 00:00: 00 Yes [id number] 10mg Take 1 tablet by mouth every 6 (six) hours as needed for Pain (scale 7-10). [facility] levoFLOXaci n 750 mg tablet 0 - 00:00: 00 Yes [id number] 750mg Take 1 tablet by mouth every 24 (twenty-fo ur) hours. [facility] ketorolac 10 mg tablet 03-15 00:00: 00 Yes [id number] 10mg Take 1 tablet by mouth every 6 (six) hours as needed for Pain (scale 7-10). [facility] levoFLOXaci n 750 mg tablet 03-15 00:00: 00 Yes [id number] 750mg Take 1 tablet by mouth every 24 (twenty-fo ur) hours. [facility] ketorolac 10 mg tablet 03-15 00:00: 00 Yes [id number] 10mg Take 1 tablet by mouth every 6 (six) hours as needed for Pain (scale 7-10). [facility] levoFLOXaci n 750 mg tablet 03-15 00:00: 00 Yes [id number] 750mg Take 1 tablet by mouth every 24 (twenty-fo ur) hours. [facility] ketorolac 10 mg tablet 03-15 00:00: 00 Yes [id number] 10mg Take 1 tablet by mouth every 6 (six) hours as needed for Pain (scale 7-10). [facility] levoFLOXaci n 750 mg tablet 03-15 00:00: 00 03-15 00:00 :00 No [id number] 750mg Take 1 tablet by mouth every 24 (twenty-fo ur) hours for [address] [facility] ondansetron 4 mg disintegrat ing tablet 2018-08 00:00: 00 Yes [id number] 4mg Take 1 tablet by mouth every 4 (four) hours as needed for Nausea and Vomiting (N/V). [facility] ondansetron 4 mg disintegrat ing tablet 2018-08 00:00: 00 Yes [id number] 4mg Take 1 tablet by mouth every 4 (four) hours as needed for Nausea and Vomiting (N/V). [facility] ondansetron 4 mg disintegrat ing tablet 2018-08 00:00: 00 Yes [id number] 4mg Take 1 tablet by mouth every 4 (four) hours as needed for Nausea and Vomiting (N/V). [facility] ondansetron 4 mg disintegrat ing tablet 2018-08 00:00: 00 Yes [id number] 4mg Take 1 tablet by mouth every 4 (four) hours as needed for Nausea and Vomiting (N/V). [facility] Nitrofurant oin&Nit. Macrocryst (MACROBID) 100 mg capsule 2018-08 00:00: 00 Yes [id number] 100mg Take 1 capsule by mouth 2 (two) times daily. [facility] ondansetron 4 mg disintegrat ing tablet 2018-08 00:00: 00 Yes [id number] 4mg Take 1 tablet by mouth every 4 (four) hours as needed for Nausea and Vomiting (N/V). [facility] ondansetron 4 mg disintegrat ing tablet 2018-08 00:00: 00 Yes [id number] 4mg Take 1 tablet by mouth every 4 (four) hours as needed for Nausea and Vomiting (N/V). [facility] ondansetron 4 mg disintegrat ing tablet 2018-08 00:00: 00 Yes [id number] 4mg Take 1 tablet by mouth every 4 (four) hours as needed for Nausea and Vomiting (N/V). [facility] ondansetron 4 mg disintegrat ing tablet 2018-08 00:00: 00 Yes [id number] 4mg Take 1 tablet by mouth every 4 (four) hours as needed for Nausea and Vomiting (N/V). [facility] ondansetron 4 mg disintegrat ing tablet 2018-08 00:00: 00 Yes [id number] 4mg Take 1 tablet by mouth every 4 (four) hours as needed for Nausea and Vomiting (N/V). [facility] ondansetron 4 mg disintegrat ing tablet 2018-08 00:00: 00 Yes [id number] 4mg Take 1 tablet by mouth every 4 (four) hours as needed for Nausea and Vomiting (N/V). [facility] ondansetron 4 mg disintegrat ing tablet 2018-08 00:00: 00 Yes [id number] 4mg Take 1 tablet by mouth every 4 (four) hours as needed for Nausea and Vomiting (N/V). [facility] ondansetron 4 mg disintegrat ing tablet 2018-08 00:00: 00 Yes [id number] 4mg Take 1 tablet by mouth every 4 (four) hours as needed for Nausea and Vomiting (N/V). [facility] ondansetron 4 mg disintegrat ing tablet 2018-08 00:00: 00 Yes [id number] 4mg Take 1 tablet by mouth every 4 (four) hours as needed for Nausea and Vomiting (N/V). [facility] ondansetron 4 mg disintegrat ing tablet 2018-08 00:00: 00 Yes [id number] 4mg Take 1 tablet by mouth every 4 (four) hours as needed for Nausea and Vomiting (N/V). [facility] Nitrofurant oin&Nit. Macrocryst (MACROBID) 100 mg capsule 2018-08 00:00: 00 03-15 00:00 :00 No [id number] 100mg Take 1 capsule by mouth 2 (two) times daily. [facility] cyclobenzap rine 5 mg tablet 12-08 00:00: 00 Yes [id number] 5mg Take 1 tablet by mouth 3 (three) times daily. [facility] LORazepam (ATIVAN) 1 mg tablet 12-08 00:00: 00 Yes [id number] 1mg Take 1 tablet by mouth 3 (three) times daily as needed for Anxiety or Agitation (muscle spasm). [facility] traMADOL (ULTRAM) 50 mg tablet 12-08 00:00: 00 Yes [id number] 50mg Take 1 tablet by mouth every 6 (six) hours as needed for Pain (scale 4-6). [facility] cyclobenzap rine 5 mg tablet 12-08 00:00: 00 Yes [id number] 5mg Take 1 tablet by mouth 3 (three) times daily. [facility] LORazepam (ATIVAN) 1 mg tablet 12-08 00:00: 00 Yes [id number] 1mg Take 1 tablet by mouth 3 (three) times daily as needed for Anxiety or Agitation (muscle spasm). [facility] traMADOL (ULTRAM) 50 mg tablet 12-08 00:00: 00 Yes [id number] 50mg Take 1 tablet by mouth every 6 (six) hours as needed for Pain (scale 4-6). [facility] cyclobenzap rine 5 mg tablet 12-08 00:00: 00 Yes [id number] 5mg Take 1 tablet by mouth 3 (three) times daily. [facility] LORazepam (ATIVAN) 1 mg tablet 12-08 00:00: 00 Yes [id number] 1mg Take 1 tablet by mouth 3 (three) times daily as needed for Anxiety or Agitation (muscle spasm). [facility] traMADOL (ULTRAM) 50 mg tablet 12-08 00:00: 00 Yes [id number] 50mg Take 1 tablet by mouth every 6 (six) hours as needed for Pain (scale 4-6). [facility] cyclobenzap rine 5 mg tablet 12-08 00:00: 00 Yes [id number] 5mg Take 1 tablet by mouth 3 (three) times daily. [facility] LORazepam (ATIVAN) 1 mg tablet 12-08 00:00: 00 Yes [id number] 1mg Take 1 tablet by mouth 3 (three) times daily as needed for Anxiety or Agitation (muscle spasm). [facility] traMADOL (ULTRAM) 50 mg tablet 12-08 00:00: 00 Yes [id number] 50mg Take 1 tablet by mouth every 6 (six) hours as needed for Pain (scale 4-6). [facility] cyclobenzap rine 5 mg tablet 12-08 00:00: 00 Yes [id number] 5mg Take 1 tablet by mouth 3 (three) times daily. [facility] LORazepam (ATIVAN) 1 mg tablet 12-08 00:00: 00 Yes [id number] 1mg Take 1 tablet by mouth 3 (three) times daily as needed for Anxiety or Agitation (muscle spasm). [facility] traMADOL (ULTRAM) 50 mg tablet 12-08 00:00: 00 Yes [id number] 50mg Take 1 tablet by mouth every 6 (six) hours as needed for Pain (scale 4-6). [facility] cyclobenzap rine 5 mg tablet 12-08 00:00: 00 Yes [id number] 5mg Take 1 tablet by mouth 3 (three) times daily. [facility] LORazepam (ATIVAN) 1 mg tablet 12-08 00:00: 00 Yes [id number] 1mg Take 1 tablet by mouth 3 (three) times daily as needed for Anxiety or Agitation (muscle spasm). [facility] traMADOL (ULTRAM) 50 mg tablet 12-08 00:00: 00 Yes [id number] 50mg Take 1 tablet by mouth every 6 (six) hours as needed for Pain (scale 4-6). [facility] cyclobenzap rine 5 mg tablet 12-08 00:00: 00 Yes [id number] 5mg Take 1 tablet by mouth 3 (three) times daily. [facility] LORazepam (ATIVAN) 1 mg tablet 12-08 00:00: 00 Yes [id number] 1mg Take 1 tablet by mouth 3 (three) times daily as needed for Anxiety or Agitation (muscle spasm). [facility] traMADOL (ULTRAM) 50 mg tablet 12-08 00:00: 00 Yes [id number] 50mg Take 1 tablet by mouth every 6 (six) hours as needed for Pain (scale 4-6). [facility] cyclobenzap rine 5 mg tablet 12-08 00:00: 00 Yes [id number] 5mg Take 1 tablet by mouth 3 (three) times daily. [facility] LORazepam (ATIVAN) 1 mg tablet 12-08 00:00: 00 Yes [id number] 1mg Take 1 tablet by mouth 3 (three) times daily as needed for Anxiety or Agitation (muscle spasm). [facility] traMADOL (ULTRAM) 50 mg tablet 12-08 00:00: 00 Yes [id number] 50mg Take 1 tablet by mouth every 6 (six) hours as needed for Pain (scale 4-6). [facility] cyclobenzap rine 5 mg tablet 12-08 00:00: 00 Yes [id number] 5mg Take 1 tablet by mouth 3 (three) times daily. [facility] LORazepam (ATIVAN) 1 mg tablet 12-08 00:00: 00 Yes [id number] 1mg Take 1 tablet by mouth 3 (three) times daily as needed for Anxiety or Agitation (muscle spasm). [facility] traMADOL (ULTRAM) 50 mg tablet 12-08 00:00: 00 Yes [id number] 50mg Take 1 tablet by mouth every 6 (six) hours as needed for Pain (scale 4-6). [facility] cyclobenzap rine 5 mg tablet 12-08 00:00: 00 Yes [id number] 5mg Take 1 tablet by mouth 3 (three) times daily. [facility] LORazepam (ATIVAN) 1 mg tablet 12-08 00:00: 00 Yes [id number] 1mg Take 1 tablet by mouth 3 (three) times daily as needed for Anxiety or Agitation (muscle spasm). [facility] traMADOL (ULTRAM) 50 mg tablet 12-08 00:00: 00 Yes [id number] 50mg Take 1 tablet by mouth every 6 (six) hours as needed for Pain (scale 4-6). [facility] cyclobenzap rine 5 mg tablet 12-08 00:00: 00 Yes [id number] 5mg Take 1 tablet by mouth 3 (three) times daily. [facility] LORazepam (ATIVAN) 1 mg tablet 12-08 00:00: 00 Yes [id number] 1mg Take 1 tablet by mouth 3 (three) times daily as needed for Anxiety or Agitation (muscle spasm). [facility] traMADOL (ULTRAM) 50 mg tablet 12-08 00:00: 00 Yes [id number] 50mg Take 1 tablet by mouth every 6 (six) hours as needed for Pain (scale 4-6). [facility] cyclobenzap rine 5 mg tablet 12-08 00:00: 00 Yes [id number] 5mg Take 1 tablet by mouth 3 (three) times daily. [facility] LORazepam (ATIVAN) 1 mg tablet 12-08 00:00: 00 Yes [id number] 1mg Take 1 tablet by mouth 3 (three) times daily as needed for Anxiety or Agitation (muscle spasm). [facility] traMADOL (ULTRAM) 50 mg tablet 12-08 00:00: 00 Yes [id number] 50mg Take 1 tablet by mouth every 6 (six) hours as needed for Pain (scale 4-6). [facility] traMADOL (ULTRAM) 50 mg tablet 12-08 00:00: 00 Yes [id number] 50mg Take 1 tablet by mouth every 6 (six) hours as needed for Pain (scale 4-6). [facility] cyclobenzap rine 5 mg tablet 12-08 00:00: 00 Yes [id number] 5mg Take 1 tablet by mouth 3 (three) times daily. [facility] cyclobenzap rine 5 mg tablet 12-08 00:00: 00 Yes [id number] 5mg Take 1 tablet by mouth 3 (three) times daily. [facility] LORazepam (ATIVAN) 1 mg tablet 12-08 00:00: 00 Yes [id number] 1mg Take 1 tablet by mouth 3 (three) times daily as needed for Anxiety or Agitation (muscle spasm). [facility] LORazepam (ATIVAN) 1 mg tablet 12-08 00:00: 00 Yes [id number] 1mg Take 1 tablet by mouth 3 (three) times daily as needed for Anxiety or Agitation (muscle spasm). [facility] traMADOL (ULTRAM) 50 mg tablet 12-08 00:00: 00 Yes [id number] 50mg Take 1 tablet by mouth every 6 (six) hours as needed for Pain (scale 4-6). [facility] acetaminoph en-codeine (TYLENOL-CO DEINE #3) 300-30 mg tablet 2-07 00:00: 00 Yes [id number] 1{tbl} Take 1 tablet by mouth every 4 (four) hours as needed for Pain (scale 7-10). [facility] acetaminoph en-codeine (TYLENOL-CO DEINE #3) 300-30 mg tablet 09-21 00:00: 00 Yes [id number] 1{tbl} Take 1 tablet by mouth every 4 (four) hours as needed for Pain (scale 7-10). [facility] levoFLOXaci n (LEVAQUIN) 750 mg tablet 09-21 00:00: 00 Yes [id number] 750mg Take 1 tablet by mouth every 24 (twenty-fo ur) hours. [facility] benzonatate 200 mg capsule 09-21 00:00: 00 Yes [id number] 200mg Take 1 capsule by mouth 3 (three) times daily as needed for Cough. [facility] acetaminoph en-codeine (TYLENOL-CO DEINE #3) 300-30 mg tablet 09-21 00:00: 00 Yes [id number] 1{tbl} Take 1 tablet by mouth every 4 (four) hours as needed for Pain (scale 7-10). [facility] benzonatate 200 mg capsule 09-21 00:00: 00 Yes [id number] 200mg Take 1 capsule by mouth 3 (three) times daily as needed for Cough. [facility] acetaminoph en-codeine (TYLENOL-CO DEINE #3) 300-30 mg tablet 09-21 00:00: 00 Yes [id number] 1{tbl} Take 1 tablet by mouth every 4 (four) hours as needed for Pain (scale 7-10). [facility] benzonatate 200 mg capsule 09-21 00:00: 00 Yes [id number] 200mg Take 1 capsule by mouth 3 (three) times daily as needed for Cough. [facility] acetaminoph en-codeine (TYLENOL-CO DEINE #3) 300-30 mg tablet 09-21 00:00: 00 Yes [id number] 1{tbl} Take 1 tablet by mouth every 4 (four) hours as needed for Pain (scale 7-10). [facility] acetaminoph en-codeine (TYLENOL-CO DEINE #3) 300-30 mg tablet 201909-21 00:00: 00 Yes [id number] 1{tbl} Take 1 tablet by mouth every 4 (four) hours as needed for Pain (scale 7-10). [facility] acetaminoph en-codeine (TYLENOL-CO DEINE #3) 300-30 mg tablet 09-21 00:00: 00 Yes [id number] 1{tbl} Take 1 tablet by mouth every 4 (four) hours as needed for Pain (scale 7-10). [facility] acetaminoph en-codeine (TYLENOL-CO DEINE #3) 300-30 mg tablet 09-21 00:00: 00 Yes [id number] 1{tbl} Take 1 tablet by mouth every 4 (four) hours as needed for Pain (scale 7-10). [facility] acetaminoph en-codeine (TYLENOL-CO DEINE #3) 300-30 mg tablet 09-21 00:00: 00 Yes [id number] 1{tbl} Take 1 tablet by mouth every 4 (four) hours as needed for Pain (scale 7-10). [facility] acetaminoph en-codeine (TYLENOL-CO DEINE #3) 300-30 mg tablet 09-21 00:00: 00 Yes [id number] 1{tbl} Take 1 tablet by mouth every 4 (four) hours as needed for Pain (scale 7-10). [facility] acetaminoph en-codeine (TYLENOL-CO DEINE #3) 300-30 mg tablet 09-21 00:00: 00 Yes [id number] 1{tbl} Take 1 tablet by mouth every 4 (four) hours as needed for Pain (scale 7-10). [facility] acetaminoph en-codeine (TYLENOL-CO DEINE #3) 300-30 mg tablet 09-21 00:00: 00 Yes [id number] 1{tbl} Take 1 tablet by mouth every 4 (four) hours as needed for Pain (scale 7-10). [facility] acetaminoph en-codeine (TYLENOL-CO DEINE #3) 300-30 mg tablet 09-21 00:00: 00 Yes [id number] 1{tbl} Take 1 tablet by mouth every 4 (four) hours as needed for Pain (scale 7-10). [facility] acetaminoph en-codeine (TYLENOL-CO DEINE #3) 300-30 mg tablet 09-21 00:00: 00 Yes [id number] 1{tbl} Take 1 tablet by mouth every 4 (four) hours as needed for Pain (scale 7-10). [facility] benzonatate 200 mg capsule 09-21 00:00: 00 12-08 00:00 :00 No [id number] 200mg Take 1 capsule by mouth 3 (three) times daily as needed for Cough. [facility] levoFLOXaci n (LEVAQUIN) 750 mg tablet 09-21 00:00: 00 03-15 00:00 :00 No [id number] 750mg Take 1 tablet by mouth every 24 (twenty-fo ur) hours. [facility] albuterol 90 mcg/actuati on inhaler 2017-08 00:00: 00 Yes 2{puff} Inhale 2 Puffs every 4 (four) hours as needed for Wheezing or Shortness of Breath. [facility] codeine-gua ifenesin 10-100 mg/5 mL solution 2017-08 00:00: 00 Yes 5mL Take 5 mL by mouth every 6 (six) hours as needed for Cough. [facility] albuterol 90 mcg/actuati on inhaler 2017-08 00:00: 00 Yes 2{puff} Inhale 2 Puffs every 4 (four) hours as needed for Wheezing or Shortness of Breath. [facility] codeine-gua ifenesin 10-100 mg/5 mL solution 2017-08 00:00: 00 Yes 5mL Take 5 mL by mouth every 6 (six) hours as needed for Cough. [facility] albuterol 90 mcg/actuati on inhaler 2017-08 00:00: 00 Yes 2{puff} Inhale 2 Puffs every 4 (four) hours as needed for Wheezing or Shortness of Breath. [facility] codeine-gua ifenesin 10-100 mg/5 mL solution 2017-08 00:00: 00 Yes 5mL Take 5 mL by mouth every 6 (six) hours as needed for Cough. [facility] ondansetron 4 mg tablet 2017-08 00:00: 00 Yes 4mg Take 1 tablet by mouth every 8 (eight) hours as needed for Nausea and Vomiting (N/V). [facility] albuterol 90 mcg/actuati on inhaler 2017-08 00:00: 00 Yes 2{puff} Inhale 2 Puffs every 4 (four) hours as needed for Wheezing or Shortness of Breath. [facility] codeine-gua ifenesin 10-100 mg/5 mL solution 2017-08 00:00: 00 Yes 5mL Take 5 mL by mouth every 6 (six) hours as needed for Cough. [facility] ondansetron 4 mg tablet 2017-08 00:00: 00 Yes 4mg Take 1 tablet by mouth every 8 (eight) hours as needed for Nausea and Vomiting (N/V). [facility] albuterol 90 mcg/actuati on inhaler 2017-08 00:00: 00 Yes 2{puff} Inhale 2 Puffs every 4 (four) hours as needed for Wheezing or Shortness of Breath. [facility] codeine-gua ifenesin 10-100 mg/5 mL solution 2017-08 00:00: 00 Yes 5mL Take 5 mL by mouth every 6 (six) hours as needed for Cough. [facility] ondansetron 4 mg tablet 2017-08 00:00: 00 Yes 4mg Take 1 tablet by mouth every 8 (eight) hours as needed for Nausea and Vomiting (N/V). [facility] albuterol 90 mcg/actuati on inhaler 2017-08 00:00: 00 Yes 2{puff} Inhale 2 Puffs every 4 (four) hours as needed for Wheezing or Shortness of Breath. [facility] codeine-gua ifenesin 10-100 mg/5 mL solution 2017-08 00:00: 00 Yes 5mL Take 5 mL by mouth every 6 (six) hours as needed for Cough. [facility] ondansetron 4 mg tablet 2017-08 00:00: 00 Yes 4mg Take 1 tablet by mouth every 8 (eight) hours as needed for Nausea and Vomiting (N/V). [facility] albuterol 90 mcg/actuati on inhaler 2017-08 00:00: 00 Yes 2{puff} Inhale 2 Puffs every 4 (four) hours as needed for Wheezing or Shortness of Breath. [facility] codeine-a ifenesin 10-100 mg/5 mL solution 2017-08 00:00: 00 Yes 5mL Take 5 mL by mouth every 6 (six) hours as needed for Cough. [facility] ondansetron 4 mg tablet 2017-08 00:00: 00 Yes 4mg Take 1 tablet by mouth every 8 (eight) hours as needed for Nausea and Vomiting (N/V). [facility] albuterol 90 mcg/actuati on inhaler 2017-08 00:00: 00 Yes 2{puff} Inhale 2 Puffs every 4 (four) hours as needed for Wheezing or Shortness of Breath. [facility] codeine-gua ifenesin 10-100 mg/5 mL solution 2017-08 00:00: 00 Yes 5mL Take 5 mL by mouth every 6 (six) hours as needed for Cough. [facility] ondansetron 4 mg tablet 2017-08 00:00: 00 Yes 4mg Take 1 tablet by mouth every 8 (eight) hours as needed for Nausea and Vomiting (N/V). [facility] albuterol 90 mcg/actuati on inhaler 2017-08 00:00: 00 Yes 2{puff} Inhale 2 Puffs every 4 (four) hours as needed for Wheezing or Shortness of Breath. [facility] codeine-gua ifenesin 10-100 mg/5 mL solution 2017-08 00:00: 00 Yes 5mL Take 5 mL by mouth every 6 (six) hours as needed for Cough. [facility] albuterol 90 mcg/actuati on inhaler 2017-08 00:00: 00 Yes 2{puff} Inhale 2 Puffs every 4 (four) hours as needed for Wheezing or Shortness of Breath. [facility] codeine-gua ifenesin 10-100 mg/5 mL solution 2017-08 00:00: 00 Yes 5mL Take 5 mL by mouth every 6 (six) hours as needed for Cough. [facility] albuterol 90 mcg/actuati on inhaler 2017-08 00:00: 00 Yes 2{puff} Inhale 2 Puffs every 4 (four) hours as needed for Wheezing or Shortness of Breath. [facility] codeine-gua ifenesin 10-100 mg/5 mL solution 2017-08 00:00: 00 Yes 5mL Take 5 mL by mouth every 6 (six) hours as needed for Cough. [facility] albuterol 90 mcg/actuati on inhaler 2017-08 00:00: 00 Yes 2{puff} Inhale 2 Puffs every 4 (four) hours as needed for Wheezing or Shortness of Breath. [facility] codeine-gua ifenesin 10-100 mg/5 mL solution 2017-08 00:00: 00 Yes 5mL Take 5 mL by mouth every 6 (six) hours as needed for Cough. [facility] ondansetron 4 mg tablet 2017-08 00:00: 00 Yes 4mg Take 1 tablet by mouth every 8 (eight) hours as needed for Nausea and Vomiting (N/V). [facility] albuterol 90 mcg/actuati on inhaler 2017-08 00:00: 00 Yes 2{puff} Inhale 2 Puffs every 4 (four) hours as needed for Wheezing or Shortness of Breath. [facility] codeine-gua ifenesin 10-100 mg/5 mL solution 2017-08 00:00: 00 Yes 5mL Take 5 mL by mouth every 6 (six) hours as needed for Cough. [facility] albuterol 90 mcg/actuati on inhaler 2017-08 00:00: 00 Yes 2{puff} Inhale 2 Puffs every 4 (four) hours as needed for Wheezing or Shortness of Breath. [facility] codeine-gua ifenesin 10-100 mg/5 mL solution 2017-08 00:00: 00 Yes 5mL Take 5 mL by mouth every 6 (six) hours as needed for Cough. [facility] ondansetron 4 mg tablet 2017-08 00:00: 00 Yes 4mg Take 1 tablet by mouth every 8 (eight) hours as needed for Nausea and Vomiting (N/V). [facility] ondansetron 4 mg tablet 2017-08 00:00: 00 04-22 00:00 :00 No 4mg Take 1 tablet by mouth every 8 (eight) hours as needed for Nausea and Vomiting (N/V). [facility] ondansetron 4 mg tablet 2017-08 00:00: 00 04-22 00:00 :00 No 4mg Take 1 tablet by mouth every 8 (eight) hours as needed for Nausea and Vomiting (N/V). [facility] fluticasone 50 mcg/actuati on nasal spray 09-27 00:00: 00 Yes 2{spray } Use 2 Sprays in each nostril 2 (two) times daily. [facility] fluticasone 50 mcg/actuati on nasal spray 09-27 00:00: 00 Yes 2{spray } Use 2 Sprays in each nostril 2 (two) times daily. [facility] fluticasone 50 mcg/actuati on nasal spray 09-27 00:00: 00 Yes 2{spray } Use 2 Sprays in each nostril 2 (two) times daily. [facility] fluticasone 50 mcg/actuati on nasal spray 09-27 00:00: 00 Yes 2{spray } Use 2 Sprays in each nostril 2 (two) times daily. [facility] fluticasone 50 mcg/actuati on nasal spray 09-27 00:00: 00 Yes 2{spray } Use 2 Sprays in each nostril 2 (two) times daily. [facility] fluticasone 50 mcg/actuati on nasal spray 09-27 00:00: 00 Yes 2{spray } Use 2 Sprays in each nostril 2 (two) times daily. [facility] fluticasone 50 mcg/actuati on nasal spray 09-27 00:00: 00 Yes 2{spray } Use 2 Sprays in each nostril 2 (two) times daily. [facility] fluticasone 50 mcg/actuati on nasal spray 09-27 00:00: 00 Yes 2{spray } Use 2 Sprays in each nostril 2 (two) times daily. [facility] fluticasone 50 mcg/actuati on nasal spray 09-27 00:00: 00 Yes 2{spray } Use 2 Sprays in each nostril 2 (two) times daily. [facility] fluticasone 50 mcg/actuati on nasal spray 09-27 00:00: 00 Yes 2{spray } Use 2 Sprays in each nostril 2 (two) times daily. [facility] fluticasone 50 mcg/actuati on nasal spray 09-27 00:00: 00 Yes 2{spray } Use 2 Sprays in each nostril 2 (two) times daily. [facility] fluticasone 50 mcg/actuati on nasal spray 09-27 00:00: 00 Yes 2{spray } Use 2 Sprays in each nostril 2 (two) times daily. [facility] fluticasone 50 mcg/actuati on nasal spray 09-27 00:00: 00 Yes 2{spray } Use 2 Sprays in each nostril 2 (two) times daily. [facility] fluticasone 50 mcg/actuati on nasal spray 2-13 00:00: 00 Yes 2{spray } Use 2 Sprays in each nostril 2 (two) times daily. [facility] immune globulin (GAMMAGARD LIQUID) 10 % injection 03-18 00:00: 00 Yes [id number] 50g 500 mL by IV Infusion route once every month. [facility] immune globulin (GAMMAGARD LIQUID) 10 % injection 03-18 00:00: 00 Yes [id number] 50g 500 mL by IV Infusion route once every month. [facility] immune globulin (GAMMAGARD LIQUID) 10 % injection 03-18 00:00: 00 Yes [id number] 50g 500 mL by IV Infusion route once every month. [facility] immune globulin (GAMMAGARD LIQUID) 10 % injection 03-18 00:00: 00 Yes [id number] 50g 500 mL by IV Infusion route once every month. [facility] immune globulin (GAMMAGARD LIQUID) 10 % injection 03-18 00:00: 00 Yes [id number] 50g 500 mL by IV Infusion route once every month. [facility] immune globulin (GAMMAGARD LIQUID) 10 % injection 03-18 00:00: 00 Yes [id number] 50g 500 mL by IV Infusion route once every month. [facility] immune globulin (GAMMAGARD LIQUID) 10 % injection 03-18 00:00: 00 Yes [id number] 50g 500 mL by IV Infusion route once every month. [facility] immune globulin (GAMMAGARD LIQUID) 10 % injection 03-18 00:00: 00 Yes [id number] 50g 500 mL by IV Infusion route once every month. [facility] immune globulin (GAMMAGARD LIQUID) 10 % injection 03-18 00:00: 00 Yes [id number] 50g 500 mL by IV Infusion route once every month. [facility] immune globulin (GAMMAGARD LIQUID) 10 % injection 03-18 00:00: 00 Yes [id number] 50g 500 mL by IV Infusion route once every month. [facility] immune globulin (GAMMAGARD LIQUID) 10 % injection 03-18 00:00: 00 Yes [id number] 50g 500 mL by IV Infusion route once every month. [facility] immune globulin (GAMMAGARD LIQUID) 10 % injection 03-18 00:00: 00 Yes [id number] 50g 500 mL by IV Infusion route once every month. [facility] immune globulin (GAMMAGARD LIQUID) 10 % injection 03-18 00:00: 00 Yes [id number] 50g 500 mL by IV Infusion route once every month. [facility] immune globulin (GAMMAGARD LIQUID) 10 % injection 03-18 00:00: 00 Yes [id number] 50g 500 mL by IV Infusion route once every month. [facility] Immunizations Ordered Immunization Name Filled Immunization Name Date Status Comments Source Influenza Virus Vaccine, No Preserv, age 6 months and up 2015-09-08 00:00:00 Completed Arac[facility] Wilson - External Tdap- (Boostrix, Adacel) 2015-09-08 00:00:00 Completed Araceli Wilson - External Influenza Virus Vaccine Quad IM 3+ YRS 2015-09-08 00:00:00 Completed [facility] TDAP 2015-09-08 00:00:00 Completed [facility] Influenza Virus Vaccine Quad IM 3+ YRS 2015-09-08 00:00:00 Completed [facility] TDAP 2015-09-08 00:00:00 Completed [facility] Influenza Virus Vaccine Quad IM 3+ YRS 2015-09-08 00:00:00 Completed [facility] TDAP 2015-09-08 00:00:00 Completed [facility] Influenza Virus Vaccine Quad IM 3+ YRS 2015-09-08 00:00:00 Completed [facility] TDAP 2015-09-08 00:00:00 Completed [facility] Influenza Virus Vaccine Quad IM 3+ 2015-09-08 00:00:00 Completed [facility] TDAP 2015-09-08 00:00:00 Completed [facility] Influenza Virus Vaccine Quad IM 3+ YRS 2015-09-08 00:00:00 Completed [facility] TDAP 2015-09-08 00:00:00 Completed [facility] Influenza Virus Vaccine Quad IM 3+ YRS 2015-09-08 00:00:00 Completed [facility] TDAP 2015-09-08 00:00:00 Completed [facility] Influenza Virus Vaccine Quad IM 3+ YRS 2015-09-08 00:00:00 Completed [facility] TDAP 2015-09-08 00:00:00 Completed [facility] Influenza Virus Vaccine Quad IM 3+ YRS 2015-09-08 00:00:00 Completed [facility] TDAP 2015-09-08 00:00:00 Completed [facility] Influenza Virus Vaccine Quad IM 3+ YRS 2015-09-08 00:00:00 Completed [facility] TDAP 2015-09-08 00:00:00 Completed [facility] Influenza Virus Vaccine Quad IM 3+ YRS 2015-09-08 00:00:00 Completed [facility] TDAP 2015-09-08 00:00:00 Completed [facility] Influenza Virus Vaccine Quad IM 3+ YRS 2015-09-08 00:00:00 Completed [facility] TDAP 2015-09-08 00:00:00 Completed [facility] Influenza Virus Vaccine Quad IM 3+ YRS 2015-09-08 00:00:00 Completed [facility] TDAP 2015-09-08 00:00:00 Completed [facility] Influenza Virus Vaccine Quad IM 3+ YRS Unknown Completed [facility] TDAP Unknown Completed [facility] Vital Signs Vital Name Observation Time Observation Value Comments S ource Systolic blood pressure 2023-08-06 19:08:00 100 mm[Hg] [facility] Diastolic blood pressure 2023-08-06 19:08:00 56 mm[Hg] [facility] Heart rate 2023-08-06 19:08:00 87 /min [facility] Services Body temperature 2023-08-06 19:08:00 37.11 Amita [facility] Respiratory rate 2023-08-06 19:08:00 16 /min [facility] Body height 2023-08-06 19:08:00 165.1 cm [facility] Body weight 2023-08-06 19:08:00 55.792 kg [facility] BMI 2023-08-06 19:08:00 20.47 kg/m2 [facility] Oxygen saturation in Arterial blood by Pulse oximetry 2023-08-06 19:08:00 100 /min [facility] Systolic blood pressure 2022-08-24 15:48:00 110 mm[Hg] Araceli Leono ld - External Diastolic blood pressure 2022-08-24 15:48:00 62 mm[Hg] Araceli Leono ld - External Heart rate 2022-08-24 15:48:00 98 /min Ike y Seybold - External Body temperature 2022-08-24 15:48:00 36.28 Amita Araceli Balderasybold - External Respiratory rate 2022-08-24 15:48:00 14 /min Araceli Balderasybold - External Body height 2022-08-24 15:48:00 165.1 cm Maya graham Seybold - External Body weight 2022-08-24 15:48:00 63.05 kg Maya graham Seybold - External BMI 2022-08-24 15:48:00 23.13 kg/m2 Maya graham Seybold - External Systolic blood pressure 2021-08-20 05:01:00 123 mm[Hg] [facility] Diastolic blood pressure 2021-08-20 05:01:00 68 mm[Hg] [facility] Heart rate 2021-08-20 05:01:00 88 /[facility] temperature 2021-08-20 05:01:00 37.11 Amita [facility] Respiratory rate 2021-08-20 05:01:00 18 /min [facility] Body height 2021-08-20 05:01:00 165.1 cm [facility] Body weight 2021-08-20 05:01:00 68.947 kg [facility] BMI 2021-08-20 05:01:00 25.29 kg/m2 [facility] Oxygen saturation in Arterial blood by Pulse oximetry 2021-08-20 05:01:00 97 /min [facility] Systolic blood pressure 2021-04-22 13:16:00 108 mm[Hg] [facility] Diastolic blood pressure 2021-04-22 13:16:00 66 mm[Hg] [facility] Heart rate 2021-04-22 13:16:00 120 /min [facility] Body temperature 2021-04-22 13:16:00 36.72 Amita [facility] Respiratory rate 2021-04-22 13:16:00 18 /min [facility] Body weight 2021-04-22 13:16:00 71.215 kg [facility] BMI 2021-04-22 13:16:00 26.13 kg/m2 [facility] Oxygen saturation in Arterial blood by Pulse oximetry 2021-04-22 13:16:00 100 /min [facility] Systolic blood pressure 2021-04-21 22:18:00 125 mm[Hg] [facility] Diastolic blood pressure 2021-04-21 22:18:00 70 mm[Hg] [facility] Heart rate 2021-04-21 22:18:00 94 /min [facility] Body temperature 2021-04-21 22:18:00 37 Amita [facility] Respiratory rate 2021-04-21 22:18:00 18 /min [facility] Oxygen saturation in Arterial blood by Pulse oximetry 2021-04-21 22:18:00 96 /min [facility] Body height 2021-04-21 21:32:00 165.1 cm [facility] Body weight 2021-04-21 21:32:00 71.215 kg [facility] BMI 2021-04-21 21:32:00 26.13 kg/m2 [facility] Systolic blood pressure 2021-04-18 13:54:00 146 mm[Hg] [facility] Diastolic blood pressure 2021-04-18 13:54:00 85 mm[Hg] [facility] Heart rate 2021-04-18 13:54:00 107 /min [facility] Body temperature 2021-04-18 13:54:00 37.17 Amita [facility] Respiratory rate 2021-04-18 13:54:00 18 /min [facility] Body weight 2021-04-18 13:54:00 70.308 kg [facility] BMI 2021-04-18 13:54:00 25.79 kg/m2 [facility] Oxygen saturation in Arterial blood by Pulse oximetry 2021-04-18 13:54:00 97 /min [facility] Body weight 2020-12-08 23:45:00 70.308 kg [facility] BMI 2020-12-08 23:45:00 25.79 kg/m2 [facility] Systolic blood pressure 2020-12-08 23:42:00 128 mm[Hg] [facility] Diastolic blood pressure 2020-12-08 23:42:00 95 mm[Hg] [facility] Heart rate 2020-12-08 23:42:00 81 /min [facility] Body temperature 2020-12-08 23:42:00 37.39 Amita [facility] Respiratory rate 2020-12-08 23:42:00 18 /min [facility] Oxygen saturation in Arterial blood by Pulse oximetry 2020-12-08 23:42:00 100 /min [facility] Systolic blood pressure 2020-09-15 12:30:00 100 mm[Hg] [facility] Diastolic blood pressure 2020-09-15 12:30:00 75 mm[Hg] [facility] Heart rate 2020-09-15 12:30:00 89 /min [facility] Respiratory rate 2020-09-15 12:30:00 13 /min [facility] Oxygen saturation in Arterial blood by Pulse oximetry 2020-09-15 12:30:00 98 /min [facility] Body temperature 2020-09-15 09:52:00 35.56 Amita [facility] Body height 2020-09-15 09:52:00 165.1 cm [facility] Body weight 2020-09-15 09:52:00 70.308 kg [facility] BMI 2020-09-15 09:52:00 25.79 kg/m2 [facility] Systolic blood pressure 2020-03-15 04:15:00 111 mm[Hg] [facility] Diastolic blood pressure 2020-03-15 04:15:00 64 mm[Hg] [facility] Heart rate 2020-03-15 04:15:00 97 /min [facility] Respiratory rate 2020-03-15 04:15:00 18 /min [facility] Oxygen saturation in Arterial blood by Pulse oximetry 2020-03-15 04:15:00 98 /min [facility] Body temperature 2020-03-15 03:51:00 36.5 Amita [facility] Body weight 2020-03-15 03:51:00 67.132 kg [facility] BMI 2020-03-15 03:51:00 24.63 kg/m2 [facility] Procedures Procedure Date / Time Performed Performing Clinicia n Source ASSIGNMENT OF BENEFITS 2023-08-06 19:48:13 Docto r Unassigned, [place] [facility] XR CHEST 1 VW 2023-08-06 19:27:20 Arin Vaughn [facility] CONSENT/REFUSAL FOR DIAGNOSIS AND TREATMENT 2023-08-06 19:03:15 Doctor Unassigned, [place] [facility] XR CHEST 2 VW 2021-08-20 05:39:32 Chante Hansen [facility] RAPID INFLUENZA A/B 2021-08-20 05:28:00 Trev Hansen [facility] COVID-19 (ID NOW RAPID TESTING) 2021-08-20 05:28:00 Chante Hansen [facility] CONSENT/REFUSAL FOR DIAGNOSIS AND TREATMENT 2021-08-20 05:04:45 Doctor Unassigned, [place] [facility] CONSENT/REFUSAL FOR DIAGNOSIS AND TREATMENT 2021-04-22 13:09:45 Doctor Unassigned, [place] [facility] [id number] CONSENT 2021-04-21 05:01:00 Doctor Unas signed, [place] [facility] COVID-19 (ID NOW RAPID TESTING) 2021-04-18 13:58:00 Chante Hansen [facility] CONSENT/REFUSAL FOR DIAGNOSIS AND TREATMENT 2021-04-18 13:45:17 Doctor Unassigned, [place] [facility] TROPONIN I 2020-12-09 00:40:00 [facility] (ALB,T.PRO,BILI T,BU/BC,ALT,AST,ALK PHOS) 2020-12-09 00:40:00 Nelda Carver [facility] BASIC METABOLIC PANEL (NA, K, CL, CO2, GLUCOSE, BUN, CREATININE, CA) 2020-12-09 00:40:00 Nelda Carver [facility] CBC WITH DIFF 2020-12-09 00:40:00 [facility]W 2020-12-09 00:02:58 Chante Hansen [facility] NOTICE OF PRIVACY PRACTICES 2020-12-08 23:38:04 Doctor Unassigned, [place] [facility] CONSENT/REFUSAL FOR DIAGNOSIS AND TREATMENT 2020-12-08 23:37:39 Doctor Unassigned, [place] [facility] CONSENT/REFUSAL FOR DIAGNOSIS AND TREATMENT 2020-12-08 23:36:53 Doctor Unassigned, [place] [facility] URINALYSIS 2020-09-15 10:22:00 Abhijit Blair [facility] LIPASE 2020-09-15 10:03:00 Abhijit Blair [facility] COMP. METABOLIC PANEL (67382) 2020-09-15 10:03:00 Abhijit Blair [facility] CBC WITH DIFF 2020-09-15 10:03:00 Abhijit Blair [facility] CONSENT/REFUSAL FOR DIAGNOSIS AND TREATMENT 2020-09-15 09:39:10 Doctor Unassigned, [place] [facility] POCT TEST 2020-03-15 04:17:00 Aliya Oseguera [facility] LIPASE 2020-03-15 04:14:00 [facility] TROPONIN I 2020-03-15 04:14:00 Charly Oseguera [facility] COMP. METABOLIC PANEL (11341) 2020-03-15 04:14:00 Charly Oseguera [facility] CBC WITH DIFF 2020-03-15 04:14:00 [facility] 2020-03-15 04:14:00 Charly Oseguera [facility] EKG-12 LEAD 2020-03-15 04:08:32 [facility] NOTICE OF PRIVACY PRACTICES 2020-03-15 03:43:56 Doctor Unassigned, [place] [facility] CONSENT/REFUSAL FOR DIAGNOSIS AND TREATMENT 2020-03-15 03:43:37 Doctor Unassigned, [place] [facility] Encounters Start Date/Time End Date/Time Encounter Type Admission Type Attending [facility] Care Department Encounter ID Source 2021-06-15 21:04:04 Emergency [facility] [id number] [facility] 2021-06-15 20:27:22 Emergency [facility] [id number] [facility] 2021-06-14 15:25:11 Emergency [facility] [id number] [facility] 2021-06-13 20:51:59 Emergency [facility] [id number] [facility] 2021-06-12 10:10:57 Emergency [facility] [id number] [facility] 2023-08-06 13:10:00 2023-08-06 16:31:00 Emergency Hellen SINGER ARIN [facility] E[facility] [id number] [facility] 2023-08-06 13:10:00 2023-08-06 16:31:00 Emergency Singer Arin [facility] 1.2.840.114 350.1.13.10 4.2.7.2.[id number] [facility] 2022-08-31 08:30:00 2022-08-31 08:30:00 Outpatient RAYMUNDO SNOW [id number] Araceli Wilson 2022-08-24 09:45:00 2022-08-24 09:45:00 Outpatient RAYMUNDO SNOW [id number] Araceli Wilson 2021-08-19 23:03:00 2021-08-20 00:46:00 Emergency X CHANTE HANSEN [facility] ERT [id number] [facility] 2021-08-19 23:03:00 2021-08-20 00:46:00 Emergency Chante Hansen [facility] 1.2.840.114 350.1.13.10 4.2.7.2.[id number] [facility] 2021-04-22 08:17:00 2021-04-22 11:05:00 Emergency Arin Vaughn [facility] 1.2.840.114 350.1.13.10 4.2.7.2.[id number] [facility] 2021-04-21 16:15:18 2021-04-21 17:15:18 Nurse Visit Therapy, Adc Roberta Rain [facility] [place] [facility] 1.2.840.114 350.1.13.10 4.2.7.2.[id number] [facility] 2021-04-21 17:00:00 2021-04-21 17:00:00 Outpatient ROBERTA LOPEZ [facility] [id number] [facility] 2021-04-21 00:00:00 2021-04-21 00:00:00 Orders Only Doctor Unassigned, [place] [facility] 1.2.840.114 350.1.13.10 4.2.7.2.[id number] [facility] 2021-04-18 08:58:00 2021-04-18 12:10:00 Emergency Solomon Sheehan [facility] 1.2.840.114 350.1.13.10 4.2.7.2.[id number] [facility] 2020-12-08 18:46:00 2020-12-08 21:24:00 Emergency Jodie Hylton [facility] 1.2.840.114 350.1.13.10 4.2.7.2.[id number] [facility] 2020-09-15 03:57:00 2020-09-15 06:35:00 Emergency Abhijit Blair [facility] 1.2.840.114 350.1.13.10 4.2.7.2.[id number] [facility] 2020-03-14 22:53:30 2020-03-15 02:17:00 Emergency Charly Oseguera [facility] 1.2.840.114 350.1.13.10 4.2.7.2.[id number] [facility] 2020-03-14 00:00:00 2020-03-14 00:00:00 Orders Only Doctor Unassigned, [place] [facility] 1.2.840.114 350.1.13.10 4.2.7.2.[id number] [facility] Results Test Description Test Time Test Comments Results Resul t Comments Source XR CHEST 1 2023-07-16 3 20:03:36 EXAM: XR CHEST 1 08/06/2023 1:18 PM HISTORY: 42 years-old Female with shortness of breath . TECHNIQUE: Portable AP view of the chest. COMPARISON: 08/19/2021 FINDINGS: Lines and tubes: None. Cardiomediastinal: The cardiomediastinal silhouette is unremarkable. Lungs and pleura: The lungs are clear. No focal consolidation,pneumot horax, or pleural effusion is seen. Included osseous structures show no acute abnormality. [facility]2021-04-18 14:23:44* Test Item Value Reference Range Interpretation Comme nts SARS-CoV-2 Rapid ID NOW (test code = 03228-7) Positive Not Detected A YADIRA (test code = YADIRA) ID NOW COVID-19 As say is an isothermal nucleic acid amplification test intended for the qualitative detection of nucleic acid from SARS-CoV-2 viral RNA in nasopharyngeal (FAMILY MEDICINE PHYSICIAN) specimens. It is used under Emergency Use [...] clinically indicated. Lab Interpretation (test code = 45256-0) Abnormal [facility] [id number] 01:36:20* Test Item Value Reference Range Interpretation Comme nts TROPONIN I (test code = 6972447237) 0.001 ng/mL See_Comment [Automated message] The system [...] biotin. ? Lab Interpretation (test code = 56317-0) Normal [facility] Metabolic Panel (NA, K, CL, CO2, GLUCOSE, BUN, CREATININE, CA)2020-12-09 01:25:20* Test Item Value Reference Range Interpretation Comme nts NA (test code = 9178104953) 141 mmol/L 135-145 K (test code = 0909325861) 3.7 mmol/L 3.5-5.0 CL (test code = 2828985379) 103 mmol/L 98-108 CO2 TOTAL (test code = 9924915477) 30 mmol/L 23-31 AGAP (test code = 4889054095) 2-16 BUN (test code = 6645453421) 6 mg/dL 7-23 L GLUCOSE (test code = 0670477993) 92 mg/dL 70-110 CREATININE (test code = 5510367339) 0.47 mg/dL 0.50-1.04 L CALCIUM (test code = 9819064055) 9.2 mg/dL 8.6-10.6 eGFR (test code = 8119548627) mL/min/1.73m2 YADIRA (test code = YADIRA) Association [...] imaging tests). Lab Interpretation (test code = 79193-1) Abnormal [facility] (ALB, T.PRO, BILI T, BU/BC, ALT, AST, ALK PHOS)2020-12-09 01:24:59* Test Item Value Reference Range Interpretation Comme nts TOTAL BILI (test code = 8385184064) 0.3 mg/dL 0.1-1.1 BILI UNCON (test code = 5764859551) 0.2 mg/dL 0.1-1.1 BILI CONJ (test code = 0482460106) 0.0 mg/dL 0.0-0.3 T PROTEIN (test code = 1324551699) 6.7 g/dL 6.3-8.2 ALBUMIN (test code = 2821102904) 4.6 g/dL 3.5-5.0 ALK PHOS (test code = 1881481979) 102 U/L 34-122 ALTv (test code = 1742-6) 15 U/L 5-35 AST(SGOT) (test code = 3289444710) 32 U/L 13-40 Lab Interpretation (test cod e = 86006-5) Normal [facility] with [id number] 01:07:56* Test Item Value Reference Range Interpretation Comme nts WBC (test code = 6690-2) See_Comment [Automated [employer]] The system which generated this result transmitted reference range: 4.30 - 11.10 10*3/?L. The reference range was not used to interpret this result as normal/abnormal. RBC (test code = 789-8) See_Comment [Automated [employer]] The system which generated this result transmitted [...] 32.4 g/dL 31.6-35.1 RDW-SD (test code = 68708-3) 41.9 fL 39.0-49.9 RDW-CV (test code = 788-0) 12.5 % 12.0-15.5 PLT (test code = 777-3) See_Comment [Automated messa ge] The system which generated this result transmitted reference range: 166 - 358 10*3/?L. The reference range was not used to interpret this result as normal/abnormal. MPV (test code = 71299-0) 9.9 fL 9.5-12.9 NRBC/100 WBC (test code = 9767648053) See_Comment [Automated me ssage] The system which generated this result transmitted reference range: 0.0 - 10.0 /100 WBCs. The reference range was not used to interpret this result as normal/abnormal. NRBC x10^3 (test code = 6397046725) <0.01 See_Comment [Automated me ssage] The system which generated this result transmitted reference range: 10*3/?L. The reference range was not used to interpret this result as normal/abnormal. GRAN MAT (NEUT) % (test code = 770-8) 64.4 % IMM GRAN % (test code = 6699930217) 0.30 % LYMPH % (test code = 736-9) 26.7 % MONO % (test code = 5905-5) 7.1 % EOS % (test code = 713-8) 1.1 % BASO % (test code = 706-2) 0.4 % GRAN MAT x10^3(ANC) (test code = 9632315150) 6.02 10*3/uL 1.88-7.09 IMM GRAN x10^3 (test code = 5067326845) 0.03 10*3/uL 0.00-0.06 LYMPH x10^3 (test code = 731-0) 2.50 10*3/uL 1.32-3.29 MONO x10^3 (test code = 742-7) 0.66 10*3/uL 0.33-0.92 EOS x10^3 (test code = 711-2) 0.10 10*3/uL 0.03-0.39 BASO x10^3 (test code = 704-7) 0.04 10*3/uL 0.01-0.07 [facility]ysis[facility]21-[facility] 11:33:00* Test Item Value Reference Range Interpretation Comme nts APPEARANCE (test code = 9896528099) Clear Clear COLOR (test code = 8244462564) Yellow Yellow PH (test code = 7933945465) 4.8-8.0 SP GRAVITY (test code = 0272244327) >=1.030 1.003-1.030 GLU U QUAL (test code = 5389817528) Negative Negative BLOOD (test code = 1398038203) Negative Negative KETONES (test code = 7653649960) Negative Negative PROTEIN (test code = 2887-8) Negative Negative UROBILIN (test code = 7085471670) 0.2 mg/dL See_Comment [Automated [employer]] The system which generated this result transmitted reference range: 0-1.0 mg/dL. The reference range was not used to interpret this result as normal/abnormal. BILIRUBIN (test code = 8963825641) Negative Negative NITRITE (test code = 3033930489) Negative Negative LEUK KARI (test code = 9449126974) Moderate Negative A RBC/HPF (test code = 5762279995) See_Comment [Automated [employer]] The system which generated this result transmitted reference range: 0 - 3 HPF. The reference range was not used to interpret this result as normal/abnormal. WBC/HPF (test code = 2831262069) See_Comment [Automated [employer]] The system which generated this result transmitted reference range: 0 - 5 HPF. The reference range was not used to interpret this result as normal/abnormal. BACTERIA (test code = 4603445554) Few Negative A SQ EPITH (test code = 6814297578) HPF Lab Interpretation (test code = 34291-9) Abnormal [facility] Center[facility] Metabolic [id number] 10:30:00* Test Item Value Reference Range Interpretation Comme nts NA (test code = 6339637846) 139 mmol/L 135-145 K (test code = 2444872067) 4.2 mmol/L 3.5-5 CL (test code = 7974443421) 104 mmol/L 98-108 CO2 TOTAL (test code = 4714796222) 28 mmol/L 23-31 AGAP (test code = 0041521876) 2-16 BUN (test code = 4750049400) 13 mg/dL 7-23 GLUCOSE (test code = 5045089281) 155 mg/dL 70-110 H CREATININE (test code = 8032601488) 0.45 mg/dL 0.5-1.04 L TOTAL BILI (test code = 4677552229) 0.5 mg/dL 0.1-1.1 CALCIUM (test code = 6543411569) 9.1 mg/dL 8.6-10.6 T PROTEIN (test code = 2516976043) 6.9 g/dL 6.3-8.2 ALBUMIN (test code = 2036678402) 4.6 g/dL 3.5-5 ALK PHOS (test code = 0146647641) 88 U/L 34-122 ALTv (test code = 1742-6) 20 U/L 5-35 AST(SGOT) (test code = 4540975013) 42 U/L 13-40 H eGFR Calculation (Non-) (test code = 6324399599) mL/min/1.73m2 eGFR Calculation () (test code = 8228948807) mL/min/1.73m2 YADIRA (test code = YADIRA) Association [...] imaging tests). Lab Interpretation (test code = 54501-6) Abnormal [facility] Center[facility], [id number] 10:30:00* Test Item Value Reference Range Interpretation Comme nts LIPASE (test code = 3586240778) 84 U/L 0-220 Lab Interpretation (test cod e = 27272-6) Normal [facility] with [id number] 10:16:00* Test Item Value Reference Range Interpretation Comme nts WBC (test code = 6690-2) See_Comment H [Automated [employer]] The system which generated this result transmitted reference range: 4.30 - 11.10 10*3/?L. The reference range was not used to interpret this result as normal/abnormal. RBC (test code = 789-8) See_Comment [[employer]] The system which generated this result transmitted [...] 31.9 g/dL 31.6-35.1 RDW-SD (test code = 33539-0) 41.7 fL 39-49.9 RDW-CV (test code = 788-0) 12.5 % 12-15.5 PLT (test code = 777-3) See_Comment [Automated messa ge] The system which generated this result transmitted reference range: 166 - 358 10*3/?L. The reference range was not used to interpret this result as normal/abnormal. MPV (test code = 92335-0) 10.4 fL 9.5-12.9 NRBC/100 WBC (test code = 5548843068) See_Comment [Automated [employer]] The system which generated this result transmitted reference range: 0.0 - 10.0 /100 WBCs. The reference range was not used to interpret this result as normal/abnormal. NRBC x10^3 (test code = 7595485904) <0.01 See_Comment [Automated messa ge] The system which generated this result transmitted reference range: 10*3/?L. The reference range was not used to interpret this result as normal/abnormal. GRAN MAT (NEUT) % (test code = 770-8) 70.2 % IMM GRAN % (test code = 0808236616) 0.40 % LYMPH % (test code = 736-9) 21.4 % MONO % (test code = 5905-5) 6.6 % EOS % (test code = 713-8) 0.9 % BASO % (test code = 706-2) 0.5 % GRAN MAT x10^3(ANC) (test code = 7090705996) 8.15 10*3/uL 1.88-7.09 H IMM GRAN x10^3 (test code = 9425039691) 0.05 10*3/uL 0-0.06 LYMPH x10^3 (test code = 731-0) 2.49 10*3/uL 1.32-3.29 MONO x10^3 (test code = 742-7) 0.77 10*3/uL 0.33-0.92 EOS x10^3 (test code = 711-2) 0.10 10*3/uL 0.03-0.39 BASO x10^3 (test code = 704-7) 0.06 10*3/uL 0.01-0.07 Lab Interpretation (test code = 91331-8) Abnormal [facility] CenterTR[facility] [id number] 05:12:00* Test Item Value Reference Range Interpretation Comme nts TROPONIN I (test code = 3286990310) <0.012 See_Comment [Automated message] The system which [...] biotin. ? Lab Interpretation (test code = 29037-8) Normal [facility] Center[facility]. METABOLIC PANEL (08324)2020-03-15 05:10:00* Test Item Value Reference Range Interpretation Comme nts NA (test code = 6170382866) 138 mmol/L 135-145 K (test code = 3382437443) 3.7 mmol/L 3.5-5 CL (test code = 4782920081) 103 mmol/L 98-108 CO2 TOTAL (test code = 0417057424) 28 mmol/L 23-31 AGAP (test code = 6626639096) 2-16 BUN (test code = 6380798181) 12 mg/dL 7-23 GLUCOSE (test code = 4873763297) 119 mg/dL 70-110 H CREATININE (test code = 6775406702) 0.79 mg/dL 0.5-1.04 TOTAL BILI (test code = 3536195539) <0.1 0.1-1.1 L CALCIUM (test code = 2616115690) 9.6 mg/dL 8.6-10.6 T PROTEIN (test code = 4136700134) 6.6 g/dL 6.3-8.2 ALBUMIN (test code = 3273419430) 4.3 g/dL 3.5-5 ALK PHOS (test code = 9078505636) 78 U/L 34-122 ALTv (test code = 1742-6) 10 U/L 5-35 AST(SGOT) (test code = 9101876585) 28 U/L 13-40 eGFR Calculation (Non-) (test code = 9687180456) mL/min/1.73m2 eGFR Calculation () (test code = 8106731195) mL/min/1.73m2 YADIRA (test code = YADIRA) Association [...] imaging tests). Lab Interpretation (test code = 21216-2) Abnormal [facility]2020-[facility] 05:01:00* Test Item Value Reference Range Interpretation Comme nts LIPASE (test code = 0993630555) 83 U/L 0-220 Lab Interpretation (test cod e = 71823-4) Normal [facility]2020-08-01 04:41:00* Test Item Value Reference Range Interpretation Comme nts APPEARANCE (test code = 1711862446) Cloudy Clear A COLOR (test code = 8916073865) Yellow Yellow PH (test code = 7284564549) 4.8-8.0 SP GRAVITY (test code = 5103055358) 1.003-1.030 GLU U QUAL (test code = 2935764452) Normal Normal BLOOD (test code = 0099033927) Negative Negative KETONES (test code = 5483853500) Negative Negative PROTEIN (test code = 2887-8) Negative Negative UROBILIN (test code = 8554738124) Normal Normal BILIRUBIN (test code = 0387716373) Negative Negative NITRITE (test code = 4311756374) Negative Negative LEUK KARI (test code = 3648488831) 250/uL Negative A RBC/HPF (test code = [id number]) See_Comment H [Automated [employer]] The system which generated this result transmitted reference range: 0 - 3 HPF. The reference range was not used to interpret this result as normal/abnormal. WBC/HPF (test code = 9492005557) See_Comment H [Automated [employer]] The system which generated this result transmitted reference range: 0 - 5 HPF. The reference range was not used to interpret this result as normal/abnormal. BACTERIA (test code = 9041188463) Few Negative A MUCOUS (test code = 4947259343) Slight Negative LPF A SQ EPITH (test code = 8930241839) HPF Lab Interpretation (test code = 20279-8) [facility] [id number] 04:24:00* Test Item Value Reference Range Interpretation [...] 32.6 g/dL 31.6-35.1 RDW-SD (test code = 11310-2) 41.1 fL 39-49.9 RDW-CV (test code = 788-0) 12.4 % 12-15.5 PLT (test code = 777-3) See_Comment [Automated [employer]] The system which generated this result transmitted reference range: 166 - 358 10*3/?L. The reference range was not used to interpret this result as normal/abnormal. MPV (test code = 52050-4) 10.2 fL 9.5-12.9 NRBC/100 WBC (test code = 3236551343) See_Comment [Automated [employer]] The system which generated this result transmitted reference range: 0.0 - 10.0 /100 WBCs. The reference range was not used to interpret this result as normal/abnormal. NRBC x10^3 (test code = 2146750046) <0.01 See_Comment [Automated messa ge] The system which generated this result transmitted reference range: 10*3/?L. The reference range was not used to interpret this result as normal/abnormal. GRAN MAT (NEUT) % (test code = 770-8) 73.4 % IMM GRAN % (test code = 2507699517) 0.40 % LYMPH % (test code = 736-9) 21.9 % MONO % (test code = 5905-5) 3.3 % EOS % (test code = 713-8) 0.6 % BASO % (test code = 706-2) 0.4 % GRAN MAT x10^3(ANC) (test code = 0162604523) 8.08 10*3/uL 1.88-7.09 H IMM GRAN x10^3 (test code = 3417079761) 0.04 10*3/uL 0-0.06 LYMPH x10^3 (test code = 731-0) 2.41 10*3/uL 1.32-3.29 MONO x10^3 (test code = 742-7) 0.36 10*3/uL 0.33-0.92 EOS x10^3 (test code = 711-2) 0.07 10*3/uL 0.03-0.39 BASO x10^3 (test code = 704-7) 0.04 10*3/uL 0.01-0.07 Lab Interpretation (test code = 81430-2) [facility]normal [facility] [id number] 04:17:00* Test Item Value Reference Range Interpretation Comme nts POCT PREG (test code = 1605) negative On board controls acceptable with C Line (test code = 3574) present POCT PREG LOT # (test code = 3575) [id number] POCT PREG TEST DATE ( test code = 3576) 05/14/2021 Lab Interpretation (test cod e = 43596-8) Normal [facility] Notes Date/Time Note Provider Source 2023-08-06 16:31:05 QFgEHkninZY0kTDvAJ7c BtO9ghGoDpCgZf uAshJ2xUOTH77/JKPjq6kGsomj/5BO35322022T16:31:05 Pt given printed and verbal discharge instructions regarding acute viral syndrome, CVID and encouraged hydration,Prescriptions providedDiscussed ibuprofen and to take with food to avoid GI distress.Discussed antibiotic therapy and to take until all completed unless adverse reaction occurs - if occurs, discontinue medication and follow up with pcp/seek medical attentionPt verbalized understanding of instructions, pt awake alert oriented, resp reg unlabored, skin w/d, color appropriate for race, moves all ext well,pt encouraged to follow up with pcp.Advised to seek medical attention for new/prolonged/worsening of symptoms,Awake, alert oriented, resp reg unlabored, skin w/d, pt leaving amb with steady gait, in no apparent distress, 72056-0Gcaooqsze department DbcsRM8087-35-34H75:31:50[facility] department NoteTXT1.2.840.317873.1.13.104.2.7 .2.983015|[id number] for patient rbwu62259-7MygwXXVYSMIOZKOPornwtgv d C-CDA narrative [id number] Lowry RN[id number] 56ROGDWCRFYUMGIAIDKXOLNG6429-17-05 T16:31:501.2.840.490869.1.72.3.15| 1.2.840.083402.1.13.104.2.7.2.7278 [id number] Marely Lowry RN [facility] 2023-08-06 13:18:00 ky22yrIoeWWrBPhu0jB0 FW3Em64vg0m3c5 qLv9t6yOK39xnROHl0QUBoO6ScmDfj2571 -12-23T13:18:00 Pt refusing swabs stating "I dont need those, I know what I have. I get sick with it every 2 months. Its my CVID" [address]-5Vxb[address] OkfwPC2039-76-53Y17:23:33[facility] NoteTXT1.2.840.808484.1.13.104.2.7 .2.341103|[id number] for patient usll80158-5UtanNSWLFYFUNLDHleughka d C-CDA narrative [id number] R Goodrich RN[id number] 00SJNOXQXLCQTMGNEWRTZOZS4010-21-81 T14:23:331.2.840.195024.1.72.3.15| 1.2.840.280369.1.13.104.2.7.2.7278 [id number] Yuliana Souza RN [facility] 2023-08-06 13:07:07 8rNvY4dK0JJh4wEKFkDd 477bC6AdbKnuhq rPMWKM05uWNUyTAk8sQT4mUAnZ+ri79567T13:07:07 Patient states: "I started getting sick 2 days ago. I started with a headache and coughing and now I'm having all this drainage that is green."Pmhx: CVID. 17643-7Rmicorncd department Triage hoqhYK6607-52-85M69:08:02[facility] department Triage noteTXT1.2.840.903234.1.13.104.2.7 .2.608872|[id number] for patient pbok74579-8Wtehujada department NoteLNNARRATIVEFormatted C-CDA narrative [id number] M Cruz RNUT[id number] 07WFUUTIHMBIORXIIYRNFKYB5492-64-96 T13:08:021.2.840.123040.1.72.3.15| 1.2.840.902460.1.13.104.2.7.2.7278 [id number] Estefany Corona RN [facility]
[2023-09-19 02:22] LABS: SARS-CoV-2 Antigen Rapid Res Negative (Negative)
--- NOTE | 2023-09-19 03:22 | ER ---
Nurse's Notes [facility] Name: Mgean Love Age: 42 yrs Sex: Female : 1980 Arrival Date: 09/19/2023 Time: 01:01 Bed IW10 Private MD: Diagnosis: Other specified viral diseases;Acute influenza B, Acute bronchitis, Acute sinusitis Presentation: 09/19 01:15 Chief complaint: Patient states: I started having cough and congestion yesterday. jb4 Coronavirus screen: Client presents with at least one sign or symptom that may indicate coronavirus-19. Standard/surgical mask placed on the client. Provider contacted for isolation considerations. Ebola Screen: No symptoms or risks identified at this time. Resp Distress? No respiratory distress is noted at this time. Initial Sepsis Screen: Does the patient meet any 2 criteria? No. Patient's initial sepsis screen is negative. Does the patient have a suspected source of infection? No. Patient's initial sepsis screen is negative. Risk Assessment: Do you want to hurt yourself or someone else? Patient reports no desire to harm self or others. Onset of symptoms was September 18, 2023. Transition of care: patient was not received from another setting of care. 01:15 Method Of Arrival: Ambulatory jb4 01:15 Acuity: CONNIE 4 jb4 Historical: - Allergies: 01:17 No Known Allergies; jb4 - PMHx: 01:17 CVID; jb4 - PSHx: 01:17 Cholecystectomy; tubal ligation (Cholecystectomy); jb4 - Immunization history:: Adult Immunizations up to date. - Social history:: Smoking status: Patient denies any tobacco usage or history of. - Family history:: not pertinent. Screenin:36 [facility] ED Fall Risk Assessment (Adult) History of falling in the last 3 months, jb4 including since admission No falls in past 3 months (0 pts) Confusion or Disorientation No (0 pts). Abuse screen: Denies threats or abuse. Nutritional screening: No deficits noted. Tuberculosis screening: No symptoms or risk factors identified. Assessment: 01:15 General: Appears in no apparent distress. comfortable, Behavior is calm, cooperative, jb4 appropriate for age. Pain: Complains of pain in face, headache Pain does not radiate. Pain currently is 7 out of 10 on a pain scale. Neuro: Level of Consciousness is awake, alert, obeys commands, Oriented to person, place, time, situation. Cardiovascular: Patient's skin is warm and dry. Respiratory: Airway is patent Respiratory effort is even, unlabored, Respiratory pattern is regular, symmetrical. GI: Abdomen is flat. : No signs and/or symptoms were reported regarding the genitourinary system. EENT: No signs and/or symptoms were reported regarding the EENT system. Derm: Skin is intact, Skin is pink, warm \T\ dry. 03:36 Reassessment: Patient appears in no apparent distress at this time. Patient and/or jb4 family updated on plan of care and expected duration. Pain level reassessed. Patient is alert, oriented x 3, equal unlabored respirations, skin warm/dry/pink. Vital Signs: 01:15 BP 109 / 73; Pulse 88; Resp 18; Temp 98.6; Pulse Ox 99% ; Weight 55.79 kg (R); Height 5 jb4 ft. 5 in. (R); Pain 3/10; 01:15 Body Mass Index 20.47 (55.79 kg, 165.1 cm) jb4 01:15 Pain Scale: Adult jb4 ED Course: 01:05 Patient arrived in ED. jj6 01:17 Triage completed. jb4 01:17 Arm band placed on right wrist. jb4 01:34 Raul Daniels MD is Attending Physician. sp4 03:36 Patient has correct armband on for positive identification. Bed in low position. Call jb4 light in reach. Side rails up X 1. 03:36 No provider procedures requiring assistance completed. Patient did not have IV access jb4 during this emergency room visit. Administered Medications: 02:15 Drug: Dextromethorphan-Guaifenesin PO Liquid 10 mg-100 mg/5 mL 10 ml PO once Route: PO; jb4 02:15 Drug: Ibuprofen PO 800 mg PO once Route: PO; jb4 02:15 Drug: Ondansetron PO 4 mg PO once Route: PO; jb4 02:27 Drug: Rocephin (cefTRIAXone) IM 1 grams IM once Route: IM; Site: left gluteus; jb4 Medication: 03:36 VIS not applicable for this client. jb4 Outcome: 03:21 Discharge ordered by . sp4 03:36 Discharged to home ambulatory, jb4 03:36 Condition: stable 03:36 Discharge instructions given to patient, Instructed on discharge instructions, follow up and referral plans. medication usage, Demonstrated understanding of instructions, follow-up care, medications, Prescriptions given X 5 03:37 Patient left the ED. jb4 Signatures: Eddi Roldan RN RN jb4 Larisa Blair jj6 Raul Daniels MD MD sp4
--- NOTE | 2023-09-19 03:22 | EDPHYS ---
Physician Documentation [facility] Name: Megan Love Age: 42 yrs Sex: Female : 1980 Arrival Date: 09/19/2023 Time: 01:01 Bed IW10 Private MD: ED Physician Raul Daniels HPI: 09/19 01:35 This 42 yrs old Other Female presents to ER via Ambulatory with complaints of Cough, sp4 Congestion. 04:14 42-year-old female presents with acute onset of cough congestion headache sinus pain sp4 starting yesterday. Patient's child is tested positive for influenza B 2 days ago. Patient has history of Common variable immunodeficiency (CVID). . Historical: - Allergies: 01:17 No Known Allergies; jb4 - PMHx: 01:17 CVID; jb4 - PSHx: 01:17 Cholecystectomy; tubal ligation (Cholecystectomy); jb4 - Immunization history:: Adult Immunizations up to date. - Social history:: Smoking status: Patient denies any tobacco usage or history of. - Family history:: not pertinent. ROS: 04:14 Constitutional: Negative for fever, chills, and weight loss, positive cough, positive sp4 congestion, positive sinus pressure, positive purulent rhinitis, positive headache 04:14 All other systems are negative, Exam: 04:14 Constitutional: This is a well developed, well nourished patient who is awake, alert, sp4 and in no acute distress. Head/Face: Normocephalic, atraumatic. Eyes: Pupils equal round and reactive to light, extra-ocular motions intact. Lids and lashes normal. Conjunctiva and sclera are not injected. Cornea within normal limits. Periorbital areas with no swelling, redness, or edema. ENT: Nares patent. Positive purulent rhinitis, yellow discahrge. Tympanic membranes are normal and external auditory canals are clear. Oropharynx with no redness, swelling, or masses, exudates, or evidence of obstruction, uvula midline. Mucous membranes moist. Neck: Trachea midline, no thyromegaly or masses palpated, and no cervical lymphadenopathy. Supple, full range of motion without nuchal rigidity, or vertebral point tenderness. Chest/axilla: Normal chest wall appearance and motion. Nontender with no deformity. No lesions are appreciated. Cardiovascular: Regular rate and rhythm with a normal S1 and S2. No gallops, murmurs, or rubs. Normal PMI, no JVD. No pulse deficits. Respiratory: Lungs have equal breath sounds bilaterally, clear to auscultation and percussion. No rales, rhonchi or wheezes noted. No increased work of breathing, no retractions or nasal flaring. Abdomen/GI: Soft, non-tender, with normal bowel sounds. No distension or tympany. No guarding or rebound. No evidence of tenderness throughout. Back: No spinal tenderness. No costovertebral tenderness. Skin: Warm, dry with normal turgor. Normal color with no rashes, no lesions, and no evidence of cellulitis. MS/ Extremity: Pulses equal, no cyanosis. Neurovascular intact. Full, normal range of motion. Neuro: Awake and alert, GCS 15, oriented to person, place, time, and situation. Cranial nerves II-XII grossly intact. Motor strength 5/5 in all extremities. Sensory grossly intact. Psych: Awake, alert, with orientation to person, place and time. Behavior, mood, and affect are within normal limits Vital Signs: 01:15 BP 109 / 73; Pulse 88; Resp 18; Temp 98.6; Pulse Ox 99% ; Weight 55.79 kg (R); Height 5 jb4 ft. 5 in. (R); Pain 3/10; 01:15 Body Mass Index 20.47 (55.79 kg, 165.1 cm) jb4 01:15 Pain Scale: Adult jb4 MDM: 01:43 Patient medically screened. sp4 04:14 Differential Diagnosis: Bronchitis Influenza Upper Respiratory Infection Sinusitis sp4 Pharyngitis Otitis Media. Data reviewed: vital signs, nurses notes, lab test result(s), Flu:. ED course: Since patient has past medical history of Common variable immunodeficiency (CVID) -and patient's daughter is positive for influenza B, will treat as acute purulent rhinitis with Rocephin and Zithromax, also will prescribe Tamiflu for influenza. Also symptomatic medications.. Stable for discharge home. . 09/19 01:42 Order name: Influenza Screen (a \T\ B); Complete Time: 04:13 sp4 09/19 01:42 Order name: SARS RAPID; Complete Time: 02:51 sp4 Administered Medications: 02:15 Drug: Dextromethorphan-Guaifenesin PO Liquid 10 mg-100 mg/5 mL 10 ml PO once Route: PO; jb4 02:15 Drug: Ibuprofen PO 800 mg PO once Route: PO; jb4 02:15 Drug: Ondansetron PO 4 mg PO once Route: PO; jb4 02:27 Drug: Rocephin (cefTRIAXone) IM 1 grams IM once Route: IM; Site: left gluteus; jb4 Disposition Summary: 09/19/23 03:21 Discharge Ordered Notes: Location: Home sp4 Problem: new sp4 Symptoms: have improved sp4 Condition: Stable sp4 Diagnosis - Other specified viral diseases sp4 - Acute influenza B, Acute bronchitis, Acute sinusitis sp4 Followup: sp4 - With: Private Physician - When: 7 - 10 days - Reason: Recheck today's complaints Discharge Instructions: - Discharge Summary Sheet sp4 - Acute Bronchitis, Adult sp4 Forms: - Patient Portal Instructions sp4 Prescriptions: - dextromethorphan-guaifenesin 60-1,200 mg Oral Tablet, Extended Release 12 hr - take 1 tablet ORAL route every 12 hours PRN cough; 42 tablet; Refills: 0, sp4 Product Selection Permitted - Ibuprofen 800 mg Oral Tablet - take 1 tablet ORAL route every 8 hours As needed take with food; 30 tablet; sp4 Refills: 0, Product Selection Permitted - Zithromax Z-Rusty 250 mg Oral Tablet - take 1 tablet ORAL route as directed for 5 days Day 1 - take two (2) tablets sp4 one time. Day 2, 3, 4 , 5 take one (1) tablet once daily.; 6 tablet; Refills: 0, Product Selection Permitted - promethazine 25 mg Oral tablet - take 1 tablet ORAL route every 6 hours As needed PRN nausea; 30 tablet; sp4 Refills: 0, Product Selection Permitted - Tamiflu 75 mg Oral capsule - take 1 tablet ORAL route every 12 hours for 5 days; 10 tablet; Refills: 0, sp4 Product Selection Permitted Signatures: Dispatcher [employer] Eddi Pretty RN RN jb4 Raul Daniels MD MD sp4
[2023-09-19 17:24] VITALS: BP 109/73; TEMP 98.6; O2SAT 99
== END ==
LOC: ER 01:01
DX: J10.1 Influenza due to other identified influenza virus with other respiratory manifestations (principal); J01.90 Acute sinusitis, unspecified; J20.9 Acute bronchitis, unspecified; Z11.52 Encounter for screening for COVID-19
CPT/HCPCS: 36415; 87804 ×2; 87811; Q0162; J0696

== ENCOUNTER 2023-12-17 12:06 | Emergency (ER) | payer OTHER ==
--- OUTSIDE RECORDS SUMMARY | 2023-12-17 12:09 | XMS REPORT | Continuity of Care Document ---
Author Name Unknown Address [address] [facility] [address] [place] [address] [facility] thconnect Address [address] [facility] [address] [place] [address] Care Team Providers Care Rn Ante Partum Name Role Phone WSE ROXANN JASON Primary Care Physician Un available ARIN VAUGHN Attending Clinician Unavailable Arin Vaughn DO Attending Clinician [phone] RAYMUNDO SNOW Attending Clinician Unava ilCHANTE Pedro Attending Clinician Unavailable Chante Hansen MD Attending Clinician [phone] Therapy, [facility] Infusion Attending Clinician Unavailable Roberta Leblanc MD Attending Clinician [phone] ROBERTA LEBLANC Attending Clinician Unavailable Doctor Unassigned, [place] Attending Clinician Solomon Gonsalez Attending Clinician [phone] Jodie Burch Attending Clinician [phone] Abhijit Blair MD Attending Clinician [phone] Charly Meza Attending Clinician [phone] ARIN VAUGHN Admitting Clinician Unavailable CHANTE HANSEN Admitting Clinician Unavailable Payers Payer Name Policy Type Policy Number Effective Date Expirati on Date Source HIM MEIR FROM [facility] [id number] 2023 00:00:00 BCBS 2 [id number] 2022 00:00:00 [employer] [place] OUT OF STATE [id number] 2021 00:00:00 Problems Condition Name Condition Details Condition Category Status Onset Date Resolution Date Last Treatment Date Treating Clinician Comments Source Enteritis Enteritis Disease Active 2017-08 00:00: 00 [facility] Contracept lisa management Contracept lisa management Disease Active 01-15 00:00: 00 [facility] Herpes, vulvar Herpes, vulvar Disease Active 01-15 00:00: 00 [facility] History of tubal ligation History of tubal ligation Disease Active 01-15 00:00: 00 [facility] heart decelerati on heart decelerati on Disease Active 11-16 00:00: 00 [facility] 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 Adan DUPONT- Dx at age 17. IVIG transfusi on Q 4 weeks (next 08/29) 11/19/2014 IgG-Q= 566 ([phone] ) 04/29 IgG= 776/A=15/ M=7 [facility] No known active problems No known active problems Disease Araceli Seybold - Externa l Allergies, Adverse Reactions, Alerts Allergy Name Allergy Type Status Severity Reaction(s) Onset Date Inactive Date Treating Clinician Comments Source Adhesive Tape Propensi ty to adverse reaction s to drug Active Dermatis, Contact 10-28 00:00: 00 Allergic to Transpore tape [facility] ADHESIVE TAPE DRUG Active Low CONTACT DERM 10-28 00:00: 00 [facility] Wound Dressing Adhesive Propensi ty to adverse reaction s Active Contact Dermatitis 2010-0 3-16 00:00: 00 Allergic to Transpore tape Araceli hill Social History Social Habit Start Date Stop Date Quantity Comments Source Exposure to SARS-CoV-2 (event) Not sure [facility] of [facility] function 2023-08-06 00:00:00 2023-08-06 00:00:00 [facility] Alcohol intake 2022-08-24 00:00:00 2022-08-24 00:00:00 Lifetime non-drinker (finding) Araceli Lawrence Tobacco use and exposure 2014-11-18 00:00:00 2014-11-18 00:00:00 Smokeless tobacco non-user [facility] Sex Assigned At 1980 00:00:00 1980 00:00:00 Araceli Lawrence Smoking Status Start Date Stop Date Source Never smoked tobacco [facility] Medications Ordered Medication Name Filled Medication Name Start Date Stop Date Current Medication? Ordering Clinician Indication Dosage Frequency Signature (SIG) Comments Components Source dexamethaso ne (DECADRON PHOSPHATE) injection 10 mg 2022-08 20:15: 00 08-06 19:19 :00 No 10mg 10 mg, Oral, ONCE, 1 dose, On 08/06/23 at 1415, Routine [facility] azithromyci n 250 mg tablet 2022-08 00:00: 00 Yes [id number] 250mg Take 1 tablet by mouth in the morning. [facility] Oseltamivir Phosphate 75 MG oral Capsule 08-24 09:55: 53 Yes 1{capsu le} Take 1 capsule by mouth 2 times daily Araceli hill Albuterol HFA 108 (90 Base) MCG/ACT IN AERS 08-24 00:00: 00 Yes [id number] 2{puff} Q.25D Inhale 2 puffs into the lungs every 6 hours as needed for wheezing or shortness of breath Araceli Carter Externa l Amoxicillin -Pot Clavulanate 875-125 MG oral Tablet 08-24 00:00: 00 Yes [id number] 1{tbl} Take 1 tablet by mouth 2 times daily Araceli Balderasdonnie hill Azithromyci n 250 MG oral Tablet 08-24 00:00: 00 08-30 05:59 :00 No [id number] Take 2 tablets by mouth on day 1 then 1 tablet by mouth daily for 4 days thereafter . Araceli Balderasdonnie Emma José Miguel hill doxycycline hyclate (Vibramycin ) capsule 100 mg 08-20 12:00: 00 Yes 100mg 100 mg, Oral, Q12HA2, First dose on Sara 08/20/21 at 0600, Until Discontinu ed, CESILIA
Re ason for Anti-Infec tive: Documented Infection< br>Documen lucille Infection Site: Respirator y
Durat ion of Therapy: 10 days [facility] amoxicillin (TRIMOX) capsule 500 mg 08-20 07:15: 00 08-20 06:20 :00 No 500mg 500 mg, Oral, ONCE, 1 dose, On Sara 08/20/21 at 0115, CESILIA
Re ason for Anti-Infec tive: Documented Infection< br>Documen lucille Infection Site: Respirator y
Durat ion of Therapy: Other (see Comments) [facility] amoxicillin 500 mg capsule 08-20 00:00: 00 Yes [id number] 500mg Take 1 capsule by mouth 3 (three) times daily. [facility] doxycycline hyclate 100 mg capsule 08-20 00:00: 00 08-31 05:59 :00 No [id number] 100mg Take 1 capsule by mouth 2 (two) times daily for 10 days. [facility] ondansetron (ZOFRAN-ODT ) disintegrat ing tablet 4 mg 04-22 14:45: 00 04-22 13:45 :00 No 4mg 4 mg, Oral, ONCE, 1 dose, 04/22/21 at 0945, Routine [facility] ondansetron (ZOFRAN) 4 mg tablet 04-22 00:00: 00 Yes [id number] 4mg Take 1 tablet by mouth every 8 (eight) hours as needed for Nausea and Vomiting (N/V). [facility] benzonatate 100 mg capsule 04-22 00:00: 00 Yes [id number] 100mg Take 1 capsule by mouth 3 (three) times daily as needed for Cough. [facility] casirivimab -imdevimab (REGEN-COV (EUA)) injection 1,200 mg 04-21 22:45: 00 04-21 21:33 :00 No [id number] 1200mg 1,200 mg, Subcutaneo us, ONCE, 1 dose, 04/21/21 at 1745, Routine [facility] acetaminoph en (TYLENOL) tablet 1,000 mg 04-18 17:00: 00 04-18 16:44 :00 No 1000mg 1,000 mg, Oral, ONCE, 1 dose, 04/18/21 at 1200, Routine [facility] benzonatate (TESSALON PERLES) capsule 100 mg 04-18 17:00: 00 04-18 16:44 :00 No 100mg 100 mg, Oral, ONCE, 1 dose, 04/18/21 at 1200, Routine [facility] albuterol (VENTOLIN) inhaler 6 Puff 04-18 17:00: 00 04-18 16:39 :00 No 6{puff} 6 Puff, Inhalation , ONCE, 1 dose, 04/18/21 at 1200, C[facility]IL[facility] benzonatate 100 mg capsule 04-18 00:00: 00 04-22 00:00 :00 No [id number] 100mg Take 1 capsule by mouth 3 (three) times daily as needed for Cough. [facility] methylpredn isolone sod succ (SOLU-MEDRO L) injection 125 mg 12-09 02:45: 00 12-09 01:40 :00 No 125mg 125 mg, IV Piggyback, ONCE, 1 dose, 12/08/20 at 2145, STAT [facility] codeine-gua ifenesin (ROBITUSSIN AC) 10-100 mg/5 mL solution 10 mL 12-09 02:00: 00 12-09 01:39 :00 No 10mL 10 mL, Oral, ONCE, 1 dose, Tue12/08/20 at 2100, [facility] predniSONE 20 mg tablet 12-08 00:00: 00 Yes [id number] 1 PO BID x 4 days [facility] benzonatate 200 mg capsule 12-08 00:00: 00 04-22 00:00 :00 No [id number] 200mg Take 1 capsule by mouth 3 (three) times daily as needed for Cough for up to 20 doses. [facility] ondansetron (ZOFRAN (PF)) injection 4 mg 09-15 12:00: 00 09-15 11:12 :00 No 4mg 4 mg, Slow IV Push, ONCE, 1 dose, Tue09/15/20 at 0600, [facility] meclizine (TRAVEL-EAS E (MECLIZINE) ) tablet 50 mg 09-15 12:00: 00 09-15 11:13 :00 No 50mg 50 mg, Oral, ONCE, 1 dose, Tue09/15/20 at 0600, [facility] ondansetron (ZOFRAN (PF)) injection 4 mg 09-15 11:15: 00 09-15 10:04 :00 No 4mg 4 mg, Slow IV Push, ONCE, 1 dose, Tue09/15/20 at 0515, [facility] NaCl 0.9% (NS) IV infusion 1,000 mL 09-15 10:00: 00 Yes 1000mL at 999 mL/hr, Intravenou s, CONTINUOUS , Starting Tue09/15/20 at 0415, Until Discontinu ed, [facility] meclizine 25 mg tablet 09-15 00:00: 00 Yes [id number] 25mg Take 1 tablet by mouth 3 (three) times daily as needed for Dizziness. [facility] ondansetron (ZOFRAN) 4 mg tablet 09-15 00:00: 00 04-22 00:00 :00 No [id number] 4mg Take 1 tablet by mouth every 8 (eight) hours as needed for Nausea and Vomiting (N/V). [facility] acetaminoph en (TYLENOL) tablet 650 mg 03-15 08:15: 03-15 07:12 :00 No 650mg 650 mg, Oral, ONCE, 1 dose, 03/15/20 at 0315, [facility] iohexol (OMNIPAQUE 350 BULK-100 mL) injection 120 mL 03-15 05:45: 00 03-15 05:36 :00 No 120mL 120 mL, Intravenou s, ONCE, 1 dose, 03/15/20 at 0045, Routine [facility] ondansetron (ZOFRAN (PF)) injection 4 mg 03-15 05:15: 03-15 04:20 :00 No 4mg 4 mg, Slow IV Push, ONCE, 1 dose, 03/15/20 at 0015, C[facility]IL[facility] NaCl 0.9% (NS) bolus infusion 1,000 mL 03-15 05:15: 03-15 07:15 :00 No 1000mL at 999 mL/hr, 1,000 mL, IV Infusion, ONCE, 1 dose, 03/15/20 at 0015, STAT [facility] morpHINE injection 4 mg 03-15 05:15: 03-15 04:21 :00 No 4mg 4 mg, Slow IV Push, ONCE, 1 dose, 03/15/20 at 0015, STAT [facility] levoFLOXaci n 750 mg tablet 03-15 00:00: 00 Yes [id number] 750mg Take 1 tablet by mouth every 24 (twenty-fo ur) hours. [facility] ketorolac 10 mg tablet 03-15 00:00: 00 Yes [id number] 10mg Take 1 tablet by mouth every 6 (six) hours as needed for Pain (scale 7-10). [facility] ondansetron 4 mg disintegrat ing tablet 2018-08 00:00: 00 Yes [id number] 4mg Take 1 tablet by mouth every 4 (four) hours as needed for Nausea and Vomiting (N/V). [facility] Nitrofurant oin&Nit. Macrocryst (MACROBID) 100 mg capsule 2018-08 00:00: 00 03-15 00:00 :00 No [id number] 100mg Take 1 capsule by mouth 2 (two) times daily. [facility] cyclobenzap rine 5 mg tablet 12-08 00:00: 00 Yes [id number] 5mg Take 1 tablet by mouth 3 (three) times daily. [facility] LORazepam (ATIVAN) 1 mg tablet 12-08 00:00: 00 Yes [id number] 1mg Take 1 tablet by mouth 3 (three) times daily as needed for Anxiety or Agitation (muscle spasm). [facility] traMADOL (ULTRAM) 50 mg tablet 12-08 00:00: 00 Yes [id number] 50mg Take 1 tablet by mouth every 6 (six) hours as needed for Pain (scale 4-6). [facility] acetaminoph en-codeine (TYLENOL-CO DEINE #3) 300-30 mg tablet 09-21 00:00: 00 Yes [id number] 1{tbl} Take 1 tablet by mouth every 4 (four) hours as needed for Pain (scale 7-10). [facility] benzonatate 200 mg capsule 09-21 00:00: 00 12-08 00:00 :00 No [id number] 200mg Take 1 capsule by mouth 3 (three) times daily as needed for Cough. [facility] levoFLOXaci n (LEVAQUIN) 750 mg tablet 09-21 00:00: 00 03-15 00:00 :00 No [id number] 750mg Take 1 tablet by mouth every 24 (twenty-fo ur) hours. [facility] albuterol 90 mcg/actuati on inhaler 2017-08 00:00: 00 Yes 2{puff} Inhale 2 Puffs every 4 (four) hours as needed for Wheezing or Shortness of Breath. [facility] codeine-gua ifenesin 10-100 mg/5 mL solution 2017-08 00:00: 00 Yes 5mL Take 5 mL by mouth every 6 (six) hours as needed for Cough. [facility] ondansetron 4 mg tablet 2017-08 00:00: 00 04-22 00:00 :00 No 4mg Take 1 tablet by mouth every 8 (eight) hours as needed for Nausea and Vomiting (N/V). [facility] fluticasone 50 mcg/actuati on nasal spray 09-27 00:00: 00 Yes 2{spray } Use 2 Sprays in each nostril 2 (two) times daily. [facility] immune globulin (GAMMAGARD LIQUID) 10 % injection 03-18 00:00: 00 Yes [id number] 50g 500 mL by IV Infusion route once every month. [facility] immune globulin (GAMMAGARD LIQUID) 10 % injection 03-18 00:00: 00 Yes [id number] 50g 500 mL by IV Infusion route once every month. [facility] Immunizations Ordered Immunization Name Filled Immunization Name Date Status Comments Source Influenza Virus Vaccine, No Preserv, age 6 months and up 2015-09-08 00:00:00 Completed Araceli Wilson - External Tdap- (Boostrix, Adacel) 2015-09-08 00:00:00 Completed Araceli Wilson - External Influenza Virus Vaccine Quad IM 3+ YRS 2015-09-08 00:00:[address] [facility] TDAP 2015-09-08 00:00:[address] [facility] Influenza Virus Vaccine Quad IM 3+ YRS 2015-09-08 00:00:[address] [facility] TDAP 2015-09-08 00:00:[address] [facility] Influenza Virus Vaccine Quad IM 3+ YRS 2015-09-08 00:00:[address] [facility] TDAP 2015-09-08 00:00:[address] [facility] Influenza Virus Vaccine Quad IM 3+ YRS 2015-09-08 00:00:[address] [facility] TDAP 2015-09-08 00:00:[address] [facility] Influenza Virus Vaccine Quad IM 3+ YRS 2015-09-08 00:00:[address] [facility] TDAP 2015-09-08 00:00:[address] [facility] Influenza Virus Vaccine Quad IM 3+ YRS 2015-09-08 00:00:[address] [facility] TDAP 2015-09-08 00:00:[address] [facility] Influenza Virus Vaccine Quad IM 3+ YRS 2015-09-08 00:00:[address] [facility] TDAP 2015-09-08 00:00:[address] [facility] Influenza Virus Vaccine Quad IM 3+ YRS 2015-09-08 00:00:[address] [facility] TDAP 2015-09-08 00:00:[address] [facility] Influenza Virus Vaccine Quad IM 3+ YRS 2015-09-08 00:00:[address] [facility] TDAP 2015-09-08 00:00:[address] [facility] Influenza Virus Vaccine Quad IM 3+ YRS 2015-09-08 00:00:[address] [facility] TDAP 2015-09-08 00:00:[address] [facility] Influenza Virus Vaccine Quad IM 3+ YRS 2015-09-08 00:00:[address] [facility] TDAP 2015-09-08 00:00:[address] [facility] Influenza Virus Vaccine Quad IM 3+ YRS 2015-09-08 00:00:[address] [facility] TDAP 2015-09-08 00:00:[address] [facility] Influenza Virus Vaccine Quad IM 3+ YRS 2015-09-08 00:00:[address] [facility] TDAP 2015-09-08 00:00:[address] [facility] Influenza Virus Vaccine Quad IM 3+ YRS Unknown Completed [facility] TDAP Unknown Completed [facility] Vital Signs Vital Name Observation Time Observation Value Comments S ource Systolic blood pressure 2023-08-06 19:08:00 100 mm[Hg] [facility] Diastolic blood pressure 2023-08-06 19:08:00 56 mm[Hg] [facility] Heart rate 2023-08-06 19:08:00 87 /min Unive [facility] Body temperature 2023-08-06 19:08:[address] [facility] Respiratory rate 2023-08-06 19:08:00 16 /min [facility] Body height 2023-08-06 19:08:00 [facility] weight 2023-08-06 19:08:00 55.792 kg [facility] BMI 2023-08-06 19:08:00 20.47 kg/m2 [facility] Oxygen saturation in Arterial blood by Pulse oximetry 2023-08-06 19:08:00 100 /min [facility] Systolic blood pressure 2022-08-24 15:48:00 110 mm[Hg] Araceli ybo ld - External Diastolic blood pressure 2022-08-24 15:48:00 62 mm[Hg] Araceli Balderasybo ld - External Heart rate 2022-08-24 15:48:00 98 /min Kelse y Seybold - External Body temperature 2022-08-24 15:48:00 36.28 Amita Araceli Seybold - External Respiratory rate 2022-08-24 15:48:00 14 /min Araceli Balderasybold - External Body height 2022-08-24 15:48:00 165.1 cm Maya ey Seybold - External Body weight 2022-08-24 15:48:00 63.05 kg Maya ey Seybold - External BMI 2022-08-24 15:48:00 23.13 kg/m2 Maya ey Seybold - External Systolic blood pressure 2021-08-20 05:01:00 123 mm[Hg] [facility] Diastolic blood pressure 2021-08-20 05:01:00 68 mm[Hg] [facility] Heart rate 2021-08-20 05:01:00 88 /min Unive [facility] Body temperature 2021-08-20 05:01:[address] [facility] Respiratory rate 2021-08-20 05:01:00 18 /min [facility] Body height 2021-08-20 05:01:00 165.1 cm Univ [facility] Body weight 2021-08-20 05:01:00 68.947 kg [facility] BMI 2021-08-20 05:01:00 25.29 kg/m2 [facility] Oxygen saturation in Arterial blood by Pulse oximetry 2021-08-20 05:01:00 97 /min [facility] Systolic blood pressure 2021-04-22 13:16:00 108 mm[Hg] [facility] Diastolic blood pressure 2021-04-22 13:16:00 66 mm[Hg] [facility] Heart rate 2021-04-22 13:16:00 120 [facility] Body temperature 2021-04-22 13:16:[address] [facility] Respiratory rate 2021-04-22 13:16:00 18 /min [facility] Body weight 2021-04-22 13:16:00 71.215 kg [facility] BMI 2021-04-22 13:16:00 26.13 kg/m2 [facility] Oxygen saturation in Arterial blood by Pulse oximetry 2021-04-22 13:16:00 100 /min [facility] Systolic blood pressure 2021-04-21 22:18:00 125 mm[Hg] [facility] Diastolic blood pressure 2021-04-21 22:18:00 70 mm[Hg] [facility] Heart rate 2021-04-21 22:18:00 94 /min [facility] Body temperature 2021-04-21 22:18:[address] [facility] Respiratory rate 2021-04-21 22:18:00 18 /min [facility] Oxygen saturation in Arterial blood by Pulse oximetry 2021-04-21 22:18:00 96 /min [facility] Body height 2021-04-21 21:32:00 165.1 cm Univ [facility] Body weight 2021-04-21 21:32:00 71.215 kg Univ [facility] BMI 2021-04-21 21:32:00 26.13 kg/m2 [facility] Systolic blood pressure 2021-04-18 13:54:00 146 mm[Hg] [facility] Diastolic blood pressure 2021-04-18 13:54:00 85 mm[Hg] [facility] Heart rate 2021-04-18 13:54:00 107 /min Unive [facility] Body temperature 2021-04-18 13:54:[address] [facility] Respiratory rate 2021-04-18 13:54:00 18 /min [facility] Body weight 2021-04-18 13:54:00 70.308 kg [facility] BMI 2021-04-18 13:54:00 25.79 kg/m2 [facility] Oxygen saturation in Arterial blood by Pulse oximetry 2021-04-18 13:54:00 97 /min [facility] Body weight 2020-12-08 23:45:00 70.308 kg [facility] BMI 2020-12-08 23:45:00 25.79 kg/m2 [facility] Systolic blood pressure 2020-12-08 23:42:00 128 mm[Hg] [facility] Diastolic blood pressure 2020-12-08 23:42:00 95 mm[Hg] [facility] Heart rate 2020-12-08 23:42:00 81 /min Unive [facility] Body temperature 2020-12-08 23:42:[address] [facility] Respiratory rate 2020-12-08 23:42:00 18 /min [facility] Oxygen saturation in Arterial blood by Pulse oximetry 2020-12-08 23:42:00 100 /min [facility] Systolic blood pressure 2020-09-15 12:30:00 100 mm[Hg] [facility] Diastolic blood pressure 2020-09-15 12:30:00 75 mm[Hg] [facility] Heart rate 2020-09-15 12:30:00 89 /min [facility] Respiratory rate 2020-09-15 12:30:00 13 /min [facility] Oxygen saturation in Arterial blood by Pulse oximetry 2020-09-15 12:30:00 98 /min [facility] Body temperature 2020-09-15 09:52:[address] [facility] Body height 2020-09-15 09:52:00 165.1 cm [facility] Body weight 2020-09-15 09:52:00 70.308 kg [facility] BMI 2020-09-15 09:52:00 25.79 kg/m2 [facility] Systolic blood pressure 2020-03-15 04:15:00 111 mm[Hg] [facility] Diastolic blood pressure 2020-03-15 04:15:00 64 mm[Hg] [facility] Heart rate 2020-03-15 04:15:00 97 /min [facility] Respiratory rate 2020-03-15 04:15:00 18 /min [facility] Oxygen saturation in Arterial blood by Pulse oximetry 2020-03-15 04:15:00 98 /min [facility] Body temperature 2020-03-15 03:51:[address] [facility] Body weight 2020-03-15 03:51:00 67.132 kg [facility] BMI 2020-03-15 03:51:00 24.63 kg/m2 [facility] Procedures Procedure Date / Time Performed Performing Clinicia n Source ASSIGNMENT OF BENEFITS 2023-08-06 19:48:13 Docto r Unassigned, [place] [facility] XR CHEST 1 2023-08-06 19:27:20 Arin Vaughn [facility] CONSENT/REFUSAL FOR DIAGNOSIS AND TREATMENT 2023-08-06 19:03:15 Doctor Unassigned, [place] [facility] XR CHEST 2 2021-08-20 05:39:32 Chante Hansen [facility] RAPID INFLUENZA A/B 2021-08-20 05:28:[address] [facility] COVID-19 (ID NOW RAPID TESTING) 2021-08-20 05:28:[address] [facility] CONSENT/REFUSAL FOR DIAGNOSIS AND TREATMENT 2021-08-20 05:04:45 Doctor Unassigned, [place] [facility] CONSENT/REFUSAL FOR DIAGNOSIS AND TREATMENT 2021-04-22 13:09:45 Doctor Unassigned, [place] [facility] [id number] CONSENT 2021-04-21 05:01:00 Doctor Unas signed, [place] [facility] COVID-19 (ID NOW RAPID TESTING) 2021-04-18 13:58:[address] [facility] CONSENT/REFUSAL FOR DIAGNOSIS AND TREATMENT 2021-04-18 13:45:17 Doctor Unassigned, [place] [facility] TROPONIN I 2020-12-09 00:40:00 Nelda [facility] HEPATIC FUNCTION PANEL ([id number]) (ALB,T.PRO,BILI T,BU/BC,ALT,AST,ALK PHOS) 2020-12-09 00:40:[address] [facility] BASIC METABOLIC PANEL (NA, K, CL, CO2, GLUCOSE, BUN, CREATININE, CA) 2020-12-09 00:40:[address] [facility] CBC WITH DIFF 2020-12-09 00:40:00 Nelda Carver [facility] XR CHEST 2 VW 2020-12-09 00:02:58 Chante Hansen [facility] NOTICE OF PRIVACY PRACTICES 2020-12-08 23:38:04 Doctor Unassigned, [place] [facility] CONSENT/REFUSAL FOR DIAGNOSIS AND TREATMENT 2020-12-08 23:37:39 Doctor Unassigned, [place] [facility] CONSENT/REFUSAL FOR DIAGNOSIS AND TREATMENT 2020-12-08 23:36:53 Doctor Unassigned, [place] [facility] URINALYSIS 2020-09-15 10:22:00 Abhijit Blair [facility] LIPASE 2020-09-15 10:03:00 Abhijit Blair [facility] COMP. METABOLIC PANEL ([id number]) 2020-09-15 10:03:[address] [facility] CBC WITH DIFF 2020-09-15 10:03:00 Abhijit Blair [facility] CONSENT/REFUSAL FOR DIAGNOSIS AND TREATMENT 2020-09-15 09:39:10 Doctor Unassigned, [place] [facility] POCT TEST 2020-03-15 04:17:[address] [facility] LIPASE 2020-03-15 04:14:00 Charly Oseguera [facility] TROPONIN I 2020-03-15 04:14:00 [facility] COMP. METABOLIC PANEL ([id number]) 2020-03-15 04:14:[address] [facility] CBC WITH DIFF 2020-03-15 04:14:00 Charly Oseguera [facility] URINALYSIS 2020-03-15 04:14:00 [facility] EKG-12 LEAD 2020-03-15 04:08:32 Charly [facility] NOTICE OF PRIVACY PRACTICES 2020-03-15 03:43:56 Doctor Unassigned, [place] [facility] CONSENT/REFUSAL FOR DIAGNOSIS AND TREATMENT 2020-03-15 03:43:37 Doctor Unassigned, [place] [facility] Encounters Start Date/Time End Date/Time Encounter Type Admission Type Attending Clinicians Care Facility Care Department Encounter ID Source 2021-06-15 21:04:04 Emergency [facility] [id number] [facility] 2021-06-15 20:27:22 Emergency [facility] [id number] [facility] 2021-06-14 15:25:11 Emergency [facility] [id number] [facility] 2021-06-13 20:51:59 Emergency [facility] [id number] [facility] 2021-06-12 10:10:57 Emergency [facility] [id number] [facility] 2023-08-06 13:10:00 2023-08-06 16:31:00 [facility] [id number] [facility] 2023-08-06 13:10:00 2023-08-06 16:31:00 Emergency Vaughn, [facility] 1.2.840.114 350.1.13.10 4.2.7.2.686 [id number] [id number] [facility] 2022-08-31 08:30:00 2022-08-31 08:30:00 Outpatient RAYMUNDO SNOW ARACELI NAPIER [id number] [facility] 2022-08-24 09:45:00 2022-08-24 09:45:00 Outpatient GWENDOLYN, RAYMUNDO NAPIER [id number] [facility] 2021-08-19 23:03:00 2021-08-20 00:46:00 Emergency X NIKIA HANSENNELL [facility] [id number] [facility] 2021-08-19 23:03:00 2021-08-20 00:46:00 Emergency Chante Hansen [facility] 1.2.840.114 350.1.13.10 4.2.7.2.686 [id number] 084 [id number] [facility] 2021-04-22 08:17:00 2021-04-22 11:05:00 Emergency [facility] 1.2.840.114 350.1.13.10 4.2.7.2.686 [id number] 084 [id number] [facility] 2021-04-21 16:15:18 2021-04-21 17:15:18 Nurse Visit Therapy, [facility] Roberta Rain [facility] 1.2840.114 350.1.13.10 4.2.7.2.686 [id number] 053 [id number] [facility] 2021-04-21 17:00:00 2021-04-21 17:00:00 Outpatient ROBERTA LOPEZ [facility] [id number] [facility] 2021-04-21 00:00:00 2021-04-21 00:00:00 Orders Only Doctor Unassigned, [place] [facility] 1.2.840.114 350.1.13.10 4.2.7.2.686 [id number] [facility] 2021-04-18 08:58:00 2021-04-18 12:10:00 Emergency Solomon Sheehan [facility] 1.2.840.114 350.1.13.10 4.2.7.2.686 [id number] 084 [id number] [facility] 2020-12-08 18:46:00 2020-12-08 21:24:00 Emergency Jodie Hylton [facility] 1.2.840.114 350.1.13.10 4.2.7.2.686 [id number] 084 [id number] [facility] 2020-09-15 03:57:00 2020-09-15 06:35:00 Emergency Abhijit Blair [facility] 1.2.840.114 350.1.13.10 4.2.7.2.686 [id number] 084 [id number] [facility] 2020-03-14 22:53:30 2020-03-15 02:17:00 Emergency Charly Oseguera [facility] 1.2.840.114 350.1.13.10 4.2.7.2.686 [id number] 084 [id number] [facility] 2020-03-14 00:00:00 2020-03-14 00:00:00 Orders Only Doctor Unassigned, [place] [facility] 1.2.840.114 350.1.13.10 4.2.7.2.686 [id number] [facility] Results Test Description Test Time Test [...] Included osseous structures show no acute abnormality. [facility]ID [facility]ING[facility]2021-04-18 14:23:44* Test Item Value Reference Range Interpretation Comme [facility] SARS-CoV-2 Rapid ID NOW (test code = 81301-6) Positive Not Detected A YADIRA (test code = YADIRA) ID NOW COVID-19 As say is an isothermal nucleic acid amplification test intended for the qualitative detection of nucleic acid from SARS-CoV-2 viral RNA in nasopharyngeal (MINING ENGINEERING TECHNOLOGIST) specimens. It is used under Emergency Use [...] clinically indicated. Lab Interpretation (test code = 00702-9) [facility]normal [facility] S5080-03-35 01:36:20* Test Item Value Reference Range Interpretation Comme [facility] TROPONIN I (test code = 2213511086) 0.001 ng/mL See_Comment [Automated message] The system [...] biotin. ? Lab Interpretation (test code = 14787-5) Normal [facility] (NA, K, CL, CO2, GLUCOSE, BUN, CREATININE, CA)2020-12-09 01:25:20* Test Item Value Reference Range Interpretation Comme nts NA (test code = 0518607596) 141 mmol/L 135-145 K (test code = 8960241457) 3.7 mmol/L 3.5-5.0 CL (test code = 5282311264) 103 mmol/L 98-108 CO2 TOTAL (test code = 2001922245) 30 mmol/L 23-31 AGAP (test code = 3652783747) 2-16 BUN (test code = 6126622470) 6 mg/dL 7-23 L GLUCOSE (test code = 6315858300) 92 mg/dL 70-110 CREATININE (test code = 3276446981) 0.47 mg/dL 0.50-1.04 L CALCIUM (test code = 4506431093) 9.2 mg/dL 8.6-10.6 eGFR (test code = 5706467583) mL/min/1.73m2 YADIRA (test code = YADIRA) Association [...] imaging tests). Lab Interpretation (test code = 68714-6) [facility]normal [facility] (ALB, T.PRO, BILI T, BU/BC, ALT, AST, ALK PHOS)2020-12-09 01:24:59* Test Item Value Reference Range Interpretation Comme nts TOTAL BILI (test code = 2432315605) 0.3 mg/dL 0.1-1.1 BILI UNCON (test code = 5083491588) 0.2 mg/dL 0.1-1.1 BILI CONJ (test code = 6613450258) 0.0 mg/dL 0.0-0.3 T PROTEIN (test code = 5386395051) 6.7 g/dL 6.3-8.2 ALBUMIN (test code = 5176955068) 4.6 g/dL 3.5-5.0 ALK PHOS (test code = 6474438830) 102 U/L 34-122 ALTv (test code = 1742-6) 15 U/L 5-35 AST(SGOT) (test code = 3148767475) 32 U/L 13-40 Lab Interpretation (test cod e = 26911-0) Normal [facility] with Pqccaiwqqvgm1360-93-27 01:07:56* Test Item Value Reference Range Interpretation Comme nts WBC (test code = 6690-2) See_Comment [Automated [employer]] The system which generated this result transmitted reference range: 4.30 - 11.10 10*3/?L. The reference range was not used to interpret this result as normal/abnormal. RBC (test code = 789-8) See_Comment [[employer]] The system which generated this result transmitted [...] 32.4 g/dL 31.6-35.1 RDW-SD (test code = 77023-2) 41.9 fL 39.0-49.9 RDW-CV (test code = 788-0) 12.5 % 12.0-15.5 PLT (test code = 777-3) See_Comment [Automated [employer]] The system which generated this result transmitted reference range: 166 - 358 10*3/?L. The reference range was not used to interpret this result as normal/abnormal. MPV (test code = 82510-3) 9.9 fL 9.5-12.9 NRBC/100 WBC (test code = 6745687582) See_Comment [Automated [employer] ssage] The system which generated this result transmitted reference range: 0.0 - 10.0 /100 WBCs. The reference range was not used to interpret this result as normal/abnormal. NRBC x10^3 (test code = 7923274695) <0.01 See_Comment [Automated [employer]] The system which generated this result transmitted reference range: 10*3/?L. The reference range was not used to interpret this result as normal/abnormal. GRAN MAT (NEUT) % (test code = 770-8) 64.4 % IMM GRAN % (test code = 2989090486) 0.30 % LYMPH % (test code = 736-9) 26.7 % MONO % (test code = 5905-5) 7.1 % EOS % (test code = 713-8) 1.1 % BASO % (test code = 706-2) 0.4 % GRAN MAT x10^3(ANC) (test code = 8867050141) 6.02 10*3/uL 1.88-7.09 IMM GRAN x10^3 (test code = 3154613128) 0.03 10*3/uL 0.00-0.06 LYMPH x10^3 (test code = 731-0) 2.50 10*3/uL 1.32-3.29 MONO x10^3 (test code = 742-7) 0.66 10*3/uL 0.33-0.92 EOS x10^3 (test code = 711-2) 0.10 10*3/uL 0.03-0.39 BASO x10^3 (test code = 704-7) 0.04 10*3/uL 0.01-0.07 [facility]inalysis[facility]21[facility] 11:33:00* Test Item Value Reference Range Interpretation Comme nts APPEARANCE (test code = 5309889712) Clear Clear COLOR (test code = 2056594609) Yellow Yellow PH (test code = 9405454850) 4.8-8.0 SP GRAVITY (test code = 3279430937) >=1.030 1.003-1.030 GLU U QUAL (test code = 2930248266) Negative Negative BLOOD (test code = 0120070777) Negative Negative KETONES (test code = 4171345873) Negative Negative PROTEIN (test code = 2887-8) Negative Negative UROBILIN (test code = 3850531312) 0.2 mg/dL See_Comment [Automated [employer] technology[employer] ge] The system which generated this result transmitted reference range: 0-1.0 mg/dL. The reference range was not used to interpret this result as normal/abnormal. BILIRUBIN (test code = 7240508258) Negative Negative NITRITE (test code = 9278740087) Negative Negative LEUK KARI (test code = 3832670010) Moderate Negative A RBC/HPF (test code = 5273511961) See_Comment [Automated [employer] ge] The system which generated this result transmitted reference range: 0 - 3 HPF. The reference range was not used to interpret this result as normal/abnormal. WBC/HPF (test code = 9262627460) See_Comment [Automated [employer] technologya ge] The system which generated this result transmitted reference range: 0 - 5 HPF. The reference range was not used to interpret this result as normal/abnormal. BACTERIA (test code = 8765459645) Few Negative A SQ EPITH (test code = 9280772068) HPF Lab Interpretation (test code = 57477-4) [facility]normal [facility] Center[facility] Metabolic Uvqcd6153-69-64 10:30:00* Test Item Value Reference Range Interpretation Comme nts NA (test code = 2361174086) 139 mmol/L 135-145 K (test code = 8326958690) 4.2 mmol/L 3.5-5 CL (test code = 3744816215) 104 mmol/L 98-108 CO2 TOTAL (test code = 1174520953) 28 mmol/L 23-31 AGAP (test code = 1912103667) 2-16 BUN (test code = 7887967238) 13 mg/dL 7-23 GLUCOSE (test code = 1594442285) 155 mg/dL 70-110 H CREATININE (test code = 4179209970) 0.45 mg/dL 0.5-1.04 L TOTAL BILI (test code = 8084055858) 0.5 mg/dL 0.1-1.1 CALCIUM (test code = 1465129377) 9.1 mg/dL 8.6-10.6 T PROTEIN (test code = 2641646529) 6.9 g/dL 6.3-8.2 ALBUMIN (test code = 4823022954) 4.6 g/dL 3.5-5 ALK PHOS (test code = 6923420600) 88 U/L 34-122 ALTv (test code = 1742-6) 20 U/L 5-35 AST(SGOT) (test code = 2799793044) 42 U/L 13-40 H eGFR Calculation (Non-) (test code = 8171058359) mL/min/1.73m2 eGFR Calculation () (test code = 1811701459) mL/min/1.73m2 YADIRA (test code = YADIRA) Association [...] imaging tests). Lab Interpretation (test code = 94552-9) [facility]normal [facility] CenterLipase, Leafw7047-44-38 10:30:00* Test Item Value Reference Range Interpretation Comme nts LIPASE (test code = 0143065416) 84 U/L 0-220 Lab Interpretation (test cod e = 52351-1) Normal [facility]CBC with Jjyqxcojavvl0667-22-12 10:16:00* Test Item Value Reference Range Interpretation Comme nts WBC (test code = 6690-2) See_Comment H [Automated [employer]] The system which generated this result transmitted reference range: 4.30 - 11.10 10*3/?L. The reference range was not used to interpret this result as normal/abnormal. RBC (test code = 789-8) See_Comment [Automated [employer]] The system which generated this result transmitted [...] 31.9 g/dL 31.6-35.1 RDW-SD (test code = 44511-6) 41.7 fL 39-49.9 RDW-CV (test code = 788-0) 12.5 % 12-15.5 PLT (test code = 777-3) See_Comment [Automated messa ge] The system which generated this result transmitted reference range: 166 - 358 10*3/?L. The reference range was not used to interpret this result as normal/abnormal. MPV (test code = 60502-8) 10.4 fL 9.5-12.9 NRBC/100 WBC (test code = 0322891229) See_Comment [Automated [employer] ssage] The system which generated this result transmitted reference range: 0.0 - 10.0 /100 WBCs. The reference range was not used to interpret this result as normal/abnormal. NRBC x10^3 (test code = 4518492055) <0.01 See_Comment [Automated messa ge] The system which generated this result transmitted reference range: 10*3/?L. The reference range was not used to interpret this result as normal/abnormal. GRAN MAT (NEUT) % (test code = 770-8) 70.2 % IMM GRAN % (test code = 6261072000) 0.40 % LYMPH % (test code = 736-9) 21.4 % MONO % (test code = 5905-5) 6.6 % EOS % (test code = 713-8) 0.9 % BASO % (test code = 706-2) 0.5 % GRAN MAT x10^3(ANC) (test code = 7138351299) 8.15 10*3/uL 1.88-7.09 H IMM GRAN x10^3 (test code = 5276282232) 0.05 10*3/uL 0-0.06 LYMPH x10^3 (test code = 731-0) 2.49 10*3/uL 1.32-3.29 MONO x10^3 (test code = 742-7) 0.77 10*3/uL 0.33-0.92 EOS x10^3 (test code = 711-2) 0.10 10*3/uL 0.03-0.39 BASO x10^3 (test code = 704-7) 0.06 10*3/uL 0.01-0.07 Lab Interpretation (test code = 07925-7) Abnormal [facility] CenterTROPONIN C6877-67-06 05:12:00* Test Item Value Reference Range Interpretation Comme nts TROPONIN I (test code = 7118527583) <0.012 See_Comment [Automated message] The system which [...] biotin. ? Lab Interpretation (test code = 48432-2) Normal [facility] CenterCOMP. METABOLIC PANEL (04908)2020-03-15 05:10:00* Test Item Value Reference Range Interpretation Comme nts NA (test code = 6454373014) 138 mmol/L 135-145 K (test code = 2428264921) 3.7 mmol/L 3.5-5 CL (test code = 4163572295) 103 mmol/L 98-108 CO2 TOTAL (test code = 8131258483) 28 mmol/L 23-31 AGAP (test code = 5938320353) 2-16 BUN (test code = 2217492803) 12 mg/dL 7-23 GLUCOSE (test code = 1237278066) 119 mg/dL 70-110 H CREATININE (test code = 7374808200) 0.79 mg/dL 0.5-1.04 TOTAL BILI (test code = 2834405681) <0.1 0.1-1.1 L CALCIUM (test code = 6511275063) 9.6 mg/dL 8.6-10.6 T PROTEIN (test code = 2420188716) 6.6 g/dL 6.3-8.2 ALBUMIN (test code = 5692833081) 4.3 g/dL 3.5-5 ALK PHOS (test code = 5543811859) 78 U/L 34-122 ALTv (test code = 1742-6) 10 U/L 5-35 AST(SGOT) (test code = 2158757007) 28 U/L 13-40 eGFR Calculation (Non-) (test code = 8295724236) mL/min/1.73m2 eGFR Calculation () (test code = 4865960100) mL/min/1.73m2 YADIRA (test code = YADIRA) Association [...] imaging tests). Lab Interpretation (test code = 89495-6) [facility]normal [facility] CenterLIPASE2020-08-01 05:01:00* Test Item Value Reference Range Interpretation Comme nts LIPASE (test code = 0134541949) 83 U/L 0-220 Lab Interpretation (test cod e = 05761-2) Normal [facility] CenterURINALYSIS2020-08-01 04:41:00* Test Item Value Reference Range Interpretation Comme nts APPEARANCE (test code = 0322197702) Cloudy Clear A COLOR (test code = 4888959470) Yellow Yellow PH (test code = 8133361429) 4.8-8.0 SP GRAVITY (test code = 8958652962) 1.003-1.030 GLU U QUAL (test code = 9442059156) Normal Normal BLOOD (test code = 0053326774) Negative Negative KETONES (test code = 7333525739) Negative Negative PROTEIN (test code = 2887-8) Negative Negative UROBILIN (test code = 7866897127) Normal Normal BILIRUBIN (test code = 8016406260) Negative Negative NITRITE (test code = 0718407540) Negative Negative LEUK KARI (test code = 4100730765) 250/uL Negative A RBC/HPF (test code = 9245855888) See_Comment H [[employer]] The system which generated this result transmitted reference range: 0 - 3 HPF. The reference range was not used to interpret this result as normal/abnormal. WBC/HPF (test code = 4656597674) See_Comment H [Automated messa ge] The system which generated this result transmitted reference range: 0 - 5 HPF. The reference range was not used to interpret this result as normal/abnormal. BACTERIA (test code = 4236499105) Few Negative A MUCOUS (test code = 0763408453) Slight Negative LPF A SQ EPITH (test code = 5557200172) HPF Lab Interpretation (test code = 44356-4) Abnormal [facility] WITH TUFU4293-49-86 04:24:00* Test Item Value Reference Range Interpretation Comme nts WBC (test code = 6690-2) See_Comment [Automated [employer] technology[employer] ge] The system which generated this result transmitted reference range: 4.30 - 11.10 10*3/?L. The reference range was not used to interpret this result as normal/abnormal. RBC (test code = 789-8) See_Comment [Automated [employer] technologya ge] The system which generated this result [...] 32.6 g/dL 31.6-35.1 RDW-SD (test code = 30058-4) 41.1 fL 39-49.9 RDW-CV (test code = 788-0) 12.4 % 12-15.5 PLT (test code = 777-3) See_Comment [Automated messa ge] The system which generated this result transmitted reference range: 166 - 358 10*3/?L. The reference range was not used to interpret this result as normal/abnormal. MPV (test code = 82977-5) 10.2 fL 9.5-12.9 NRBC/100 WBC (test code = 0412655560) See_Comment [Automated [employer] ssage] The system which generated this result transmitted reference range: 0.0 - 10.0 /100 WBCs. The reference range was not used to interpret this result as normal/abnormal. NRBC x10^3 (test code = 7788293704) <0.01 See_Comment [Automated messa ge] The system which generated this result transmitted reference range: 10*3/?L. The reference range was not used to interpret this result as normal/abnormal. GRAN MAT (NEUT) % (test code = 770-8) 73.4 % IMM GRAN % (test code = 5431362006) 0.40 % LYMPH % (test code = 736-9) 21.9 % MONO % (test code = 5905-5) 3.3 % EOS % (test code = 713-8) 0.6 % BASO % (test code = 706-2) 0.4 % GRAN MAT x10^3(ANC) (test code = 9534404339) 8.08 10*3/uL 1.88-7.09 H IMM GRAN x10^3 (test code = 8131926265) 0.04 10*3/uL 0-0.06 LYMPH x10^3 (test code = 731-0) 2.41 10*3/uL 1.32-3.29 MONO x10^3 (test code = 742-7) 0.36 10*3/uL 0.33-0.92 EOS x10^3 (test code = 711-2) 0.07 10*3/uL 0.03-0.39 BASO x10^3 (test code = 704-7) 0.04 10*3/uL 0.01-0.07 Lab Interpretation (test code = 37488-4) [facility]normal [facility] CenterPOCT ILHG6988-12-44 04:17:00* Test Item Value Reference Range Interpretation Comme nts POCT PREG (test code = 1605) negative On board controls acceptable with C Line (test code = 3574) present POCT PREG LOT # (test code = 3575) [id number] POCT PREG TEST DATE ( test code = 3576) 05/14/2021 Lab Interpretation (test cod e = 71576-4) Normal [facility] Notes Date/Time Note Provider Source 2023-08-06 16:31:05 QAiOHdngvOB4aROvUQ7i XyQ1eaNpBwFoJx xZjgL5gNDDP08/NUDef0tBztsj/2WR11342022T16:31:05 Pt given printed and verbal discharge instructions [...] with steady gait, in no apparent distress, 13236-4Iwdmxgxvq department QogfPM6306-86-63M63:31:50[facility] NoteTXT1.2.840.987236.1.13.104.2.7 .2.517520|[id number] for patient bjtg88582-6KqqlSKXBQZDZJUFCvwtznxc d C-CDA narrative lpkd564822375UylaeMarely Lowry RN[address] QuziOxrhpuzuzAsmophqcoVHVG53492317 58UYRFIVWPCHERFKVTVXRGJZ6819-01-31 T16:31:501.2.840.267750.1.72.3.15| 1.2.840.439793.1.13.104.2.7.2.7278 [id number] Marely Lowry RN [facility] 2023-08-06 13:18:00 tl05dsKplWHuSBcc5tE2 YK7Uq19tm0p7r0 tKz8p6vBX41bnJRIn6VBYlX8VvnKba3334 -12-23T13:18:00 Pt refusing swabs stating "I dont need those, I know what I have. I get sick with it every 2 months. Its my CVID" 12269-9Slnomokio department NmehYI6406-34-86N95:23:33[facility] department NoteTXT1.2.840.450578.1.13.104.2.7 .2.597573|[id number] for patient mqyn84063-5NhrcRRXIAZAHKUABjanandp d C-CDA narrative kxld243934176Cernms R Goodrich RN[address] ZleuFqlfebopbAqytrrngjVYRV47341654 44UFWUNBCUNPLEYXAYXPAVRV6390-32-03 T14:23:331.2.840.241033.1.72.3.15| 1.2.840.001423.1.13.104.2.7.2.7278 [id number] Yuliana Souza RN [facility] 2023-08-06 13:07:07 3nAyB2yQ0JOe1yEKCeZm 885cH9FxnJmnda dCRNEC82rHTXoLLg7sCT0gXHeV+pr10571T13:07:07 Patient states: "I started getting sick 2 days ago. I started with a headache and coughing and now I'm having all this drainage that is green."Pmhx: CVID. 67221-7Okoscktie department Triage gjlwED1265-03-63G86:08:02[facility] Triage noteTXT1.2.840.717600.1.13.104.2.7 .2.625285|[id number] for patient qrwm75304-1Vieidxyhd department NoteLNNARRATIVEFormatted C-CDA narrative [id number] M Cruz RN[address] ZdsxEmcmxvmhaNniqilryjIKNV29963309 24FCCFCMADDXRPQUBDRXHOFU4389-47-31 T13:08:021.2.840.849357.1.72.3.15| 1.2.840.105036.1.13.104.2.7.2.7278 [id number] Estefany Corona RN [facility]
--- NOTE | 2023-12-17 14:18 | RAD REPORT ---
EXAM DESCRIPTION: RAD - Chest Single View - 12/17/2023 2:10 pm CLINICAL HISTORY: COUGH COMPARISON: Chest Single View dated 07/20/2023; Chest Single View dated 07/01/2023; Chest Single View dated 06/03/2023 FINDINGS: Lines: None. Lungs: No evidence of edema or pneumonia. Pleural: No significant pleural effusions or pneumothorax. Cardiac: The heart size is within normal limits. Mediastinum: Within normal limits. Bones: No acute fractures. Other: None IMPRESSION: No acute cardiopulmonary disease.
--- NOTE | 2023-12-17 14:26 | ER ---
Nurse's Notes [facility] Name: Megan Love Age: 42 yrs Sex: Female : 1980 Arrival Date: 12/17/2023 Time: 12:06 Bed 20 Private MD: Diagnosis: Cough;Chest pain, unspecified Presentation: 12/16 12:19 Chief complaint: Cough and pain with cough x 1 week. Coronavirus screen: At this time, hb the client does not indicate any symptoms associated with coronavirus-19. Ebola Screen: No symptoms or risks identified at this time. Initial Sepsis Screen: Does the patient meet any 2 criteria? No. Patient's initial sepsis screen is negative. Does the patient have a suspected source of infection? No. Patient's initial sepsis screen is negative. Risk Assessment: Do you want to hurt yourself or someone else? Patient reports no desire to harm self or others. Onset of symptoms was December 10, 2023. 12:19 Method Of Arrival: Ambulatory hb 12:19 Acuity: CONNIE 4 hb Triage Assessment: 12:21 General: Appears in no apparent distress. Behavior is calm, cooperative. Pain: Pain hb currently is 5 out of 10 on a pain scale. Neuro: Level of Consciousness is awake, alert, obeys commands, Oriented to person, place, time, situation. Cardiovascular: Patient's skin is warm and dry. Respiratory: Reports cough that is pain with cough Respiratory effort is even, unlabored, Respiratory pattern is regular, symmetrical. 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 - Infectious Disease History:: Denies. - Social history:: Smoking status: Patient denies any tobacco usage or history of. - Family history:: not pertinent. - Hospitalizations: : No recent hospitalization is reported. Screenin:23 [facility] ED Fall Risk Assessment (Adult) History of falling in the last 3 months, ld1 including since admission No falls in past 3 months (0 pts). Abuse screen: Denies threats or abuse. Denies injuries from another. Nutritional screening: No deficits noted. Tuberculosis screening: No symptoms or risk factors identified. Assessment: 13:23 General: Appears in no apparent distress. comfortable, Behavior is calm, cooperative, ld1 appropriate for age. Pain: Denies pain. Neuro: Level of Consciousness is awake, alert, obeys commands, Oriented to person, place, time, situation. Cardiovascular: Capillary refill < 3 seconds Patient's skin is warm and dry. Respiratory: Airway is patent Respiratory effort is even, unlabored. GI: Abdomen is flat, non-distended. GI: No signs and/or symptoms were reported involving the gastrointestinal system. : No signs and/or symptoms were reported regarding the genitourinary system. EENT: No signs and/or symptoms were reported regarding the EENT system. Derm: No signs and/or symptoms reported regarding the dermatologic system. Musculoskeletal: No signs and/or symptoms reported regarding the musculoskeletal system. Vital Signs: 12:19 BP 91 / 67; Pulse 88; Resp 16; Temp 98.5(O); Pulse Ox 100% on R/A; Weight 54.43 kg; hb Height 5 ft. 5 in. ; Pain 5/10; 13:23 BP 123 / 89; Pulse 73; Resp 18; Temp 98(TE); Pulse Ox 97% on R/A; Weight 83.91 kg; ld1 Height 5 ft. 6 in. ; Pain 0/10; 14:37 BP 129 / 81; Pulse 69; Resp 18; Pulse Ox 99% on R/A; ld1 13:23 Body Mass Index 29.86 (83.91 kg, 167.64 cm) ld1 12:19 Pain Scale: Adult hb 13:23 Pain Scale: Adult ld1 ED Course: 12:10 Patient arrived in ED. ra3 12:11 Johann Martino, RN is Primary Nurse. bp 12:11 Deep Padilla MD is Attending Physician. rn 12:20 Triage completed. hb 12:20 Arm band placed on. hb 13:23 Tricia Garcia, RN is Primary Nurse. ld1 13:23 Patient has correct armband on for positive identification. Placed in gown. Bed in low ld1 position. Call light in reach. Side rails up X2. air sampling and monitoring on. Pulse ox on. NIBP on. Door closed. Noise minimized. Warm blanket given. 14:12 XRAY Chest (1 view) In Process Unspecified. EDMS 14:37 No provider procedures requiring assistance completed. Patient did not have IV access ld1 during this emergency room visit. Administered Medications: No medications were administered Medication: 14:37 VIS not applicable for this client. ld1 Outcome: 14:25 Discharge ordered by . rn 14:37 Discharged to home ambulatory, ld1 14:37 Condition: stable 14:37 Discharge instructions given to patient, Instructed on discharge instructions, follow up and referral plans. medication usage, Demonstrated understanding of instructions, follow-up care, medications, Prescriptions given X 1, 14:38 Patient left the ED. ld1 Signatures: Dispatcher [employer] EDMS Deep Padilla MD MD rn Baxter, Heather RN RN Johann Mcwilliams RN RN bp Tricia Garcia RN RN ld1 Shelby Stroud ra3 Corrections: (The following items were deleted from the chart) 12:21 12:19 BP 91 / 67; Pulse 88bpm; Resp 16bpm; Pulse Ox 100% RA; Temp 98.5F Oral; Pain hb 5/10, Adult; hb
--- NOTE | 2023-12-17 14:26 | EDPHYS ---
Physician Documentation [facility] Name: Megan Love Age: 42 yrs Sex: Female : 1980 Arrival Date: 12/17/2023 Time: 12:06 Bed 20 Private MD: ED Physician Deep Padilla HPI: 12/16 12:47 This 42 yrs old Female presents to ER via Ambulatory with complaints of Cough - rn chest/rib cage pain. 12:47 The patient or guardian reports cough. Onset: The symptoms/episode began/occurred 1 rn week(s) ago. Severity of symptoms: At their worst the symptoms were moderate, in the emergency department the symptoms are unchanged. Modifying factors: The symptoms are alleviated by nothing, the symptoms are aggravated by nothing. The patient has experienced similar episodes in the past. The patient has not recently seen a physician. Patient reports cough for 1 to 2 weeks. Productive of green sputum, worse in the morning, not improving and now having pain with cough so came in for evaluation. No hemoptysis. No shortness of breath. 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 No direct fall or trauma to the arm.. 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 - Infectious Disease History:: Denies. - Social history:: Smoking status: Patient denies any tobacco usage or history of. - Family history:: not pertinent. - Hospitalizations: : No recent hospitalization is reported. ROS: 12:47 Constitutional: Negative for fever, chills, and weight loss, Neck: Negative for injury, rn pain, and swelling, Cardiovascular: Negative for chest pain, palpitations, and edema, Respiratory: Positive for cough and pleuritic chest pain Abdomen/GI: Negative for abdominal pain, nausea, vomiting, diarrhea, and constipation, Back: Negative for injury and pain, MS/Extremity: Positive for pain to right shoulder Skin: Negative for injury, rash, and discoloration, Neuro: Negative for headache, weakness, numbness, tingling, and seizure, Exam: 12:47 Constitutional: This is a well developed, well nourished patient who is awake, alert, rn and in no acute distress. Ambulatory to room without difficulty or assistance Cardiovascular: Regular rate and rhythm. No pulse deficits. Respiratory: No increased work of breathing, no retractions or nasal flaring. MS/ Extremity: Pulses equal, no cyanosis. Neurovascular intact. No swelling Neuro: Awake and alert, GCS 15 Vital Signs: 12:19 BP 91 / 67; Pulse 88; Resp 16; Temp 98.5(O); Pulse Ox 100% on R/A; Weight 54.43 kg; hb Height 5 ft. 5 in. ; Pain 5/10; 13:23 BP 123 / 89; Pulse 73; Resp 18; Temp 98(TE); Pulse Ox 97% on R/A; Weight 83.91 kg; ld1 Height 5 ft. 6 in. ; Pain 0/10; 14:37 BP 129 / 81; Pulse 69; Resp 18; Pulse Ox 99% on R/A; ld1 13:23 Body Mass Index 29.86 (83.91 kg, 167.64 cm) ld1 12:19 Pain Scale: Adult hb 13:23 Pain Scale: Adult ld1 MDM: 12:11 Patient medically screened. rn 14:24 Differential Diagnosis: Bronchitis Upper Respiratory Infection Viral Syndrome rn Pneumonia. Data reviewed: vital signs, nurses notes, radiologic studies, plain films, and as a result, I will discharge patient. Care significantly affected by the following chronic conditions: Immunodeficiency. Counseling: I had a detailed discussion with the patient and/or guardian regarding the historical points, exam findings, and any diagnostic results supporting the discharge/admit diagnosis, radiology results, the need for outpatient follow up, to return to the emergency department if symptoms worsen or persist or if there are any questions or concerns that arise at home. Special discussion: I discussed with the patient/guardian in detail that at this point there is no indication for admission to the hospital. It is understood, however, that if the symptoms persist or worsen the patient needs to return immediately for re-evaluation. 12/16 12:20 Order name: XRAY Chest (1 view); Complete Time: 14:21 rn Administered Medications: No medications were administered Disposition Summary: 12/17/23 14:25 Discharge Ordered Notes: Location: Home rn Problem: new rn Symptoms: are unchanged rn Condition: Stable rn Diagnosis - Cough rn - Chest pain, unspecified rn Followup: rn - With: Private Physician - When: As needed - Reason: Recheck today's complaints, Re-evaluation by your physician Discharge Instructions: - Discharge Summary Sheet rn - Nonspecific Chest Pain, Adult rn - Cough, Adult rn Forms: - Medication Reconciliation Form rn - Antibiotic rn forensic - Prescription Opioid Use rn - Patient Portal Instructions rn - Leadership Thank You Letter rn Prescriptions: - Zithromax Z-Rusty 250 mg Oral Tablet - take 1 tablet ORAL route as directed for 5 days Day 1 - take two (2) tablets rn one time. Day 2, 3, 4 , 5 take one (1) tablet once daily.; 6 tablet; Refills: 0, Product Selection Permitted Signatures: Dispatcher [employer] Deep Lwoe MD MD rn Baxter, Heather, RN RN
[2023-12-17 15:19] VITALS: BP 129/81; TEMP 98; O2SAT 99
== END 2023-12-17 14:38 | disposition home or self-care (01) ==
LOC: ER 12:06
DX: R05.9 Cough, unspecified (principal); R07.9 Chest pain, unspecified
CPT/HCPCS: 71045; 99284